=== PATIENT | female | born 1960 | race African-American/Black ===

== ENCOUNTER 2017-12-02 19:36 | Emergency (ER) | payer OTHER ==
--- NOTE | 2017-12-02 20:07 | PDOC ---
Rapid Medical Evaluation Medical Evaluation: Allergies Allergy/AdvReac Type Severity Reaction Status Date / Time phenytoin sodium AdvReac Mild Verified 03/30/14 18:46 [From Dilantin] phenytoin sodium extended AdvReac Mild Verified 03/30/14 18:46 [From Dilantin] 12/02/17 20:06 I have performed a brief in-person evaluation of this patient. The patient presents with a chief complaint of: L axilla abscess, currently on abx per aide, sent for [facility] for I&D. H/o cerebral palsy, profound MR Pertinent physical exam findings:Stable, exam deferred to ED provider I have ordered the following:nothing The patient will proceed to the ED for further evaluation. Discharge Disposition - Diagnosis Abscess - Referrals - Patient Instructions - Post Discharge Activity
[2017-12-02 20:14] VITALS: BP 125/93; PULSE 76; TEMP 97.5; BMI 19.5
--- NOTE | 2017-12-02 21:04 | PDOC ---
History of Present Illness - General Chief Complaint: Wound Stated Complaint: ABSCESS Time Seen by Provider: 12/02/17 20:10 History Source: Patient - History of Present Illness Initial Comments: 12/02/17 20:57 57 year old female from [facility] history of MRCP, seizure disorder, spastic quaraplegic, history of MRSA with left breast abscess currently on Clindamycin PO. denies fever/ chills. patient send in for I& D of abscess. Past History - Past Medical History Allergies/Adverse Reactions: Allergies Allergy/AdvReac Type Severity Reaction Status Date / Time phenytoin sodium AdvReac Mild Verified 12/02/17 20:11 [From Dilantin] phenytoin sodium extended AdvReac Mild Verified 12/02/17 20:11 [From Dilantin] Home Medications: Ambulatory Orders Acetaminophen [Tylenol .Regular Strength -] 650 mg PO Q6H 03/30/14 Albuterol 2.5/Ipratropium 0.5 [Duoneb -] 1 neb NEB Q4H PRN 03/30/14 Bisacodyl [Dulcolax] 5 mg PO DAILY 03/30/14 Calcium Carbonate/Vitamin D3 [Oyster Shell Calcium + D Tab] 1 each PO BID Carbamazepine Xr [Tegretol Xr -] 200 mg PO HS 03/30/14 Carbamazepine Xr [Tegretol Xr -] 400 mg PO ACHS 03/30/14 Chlorhexidine Gluconate [Peridex -] 12 ea PO BID 03/30/14 Docusate Liquid [Colace Liquid -] 20 mg PO BID 03/30/14 Guaifenesin [Mucinex -] 600 mg PO BID PRN 03/30/14 Ibuprofen [Motrin -] 400 mg PO TID PRN 03/30/14 Loratadine 10 mg PO DAILY 03/30/14 Methylcellulose (with Sugar) [Citrucel Powder] 850 gm PO DAILY 03/30/14 Pnv/Iron,Carb/Om-3/FA/Fat 1 [Multivitamin with Minerals Cap] 1 each PO DAILY Polyethylene Glycol 3350 [Miralax 119 gm Btl -] 17 gm PO DAILY 03/30/14 Ammonium Lactate Lotion [Lac-Hydrin 12% Lotion -] 1 applic TP BID 03/15/16 Docusate Liquid [Colace Liquid -] 100 mg PO BID 03/15/16 Simethicone Liquid [Mylicon] 40 mg PO QID PRN 03/15/16 Sodium Phosphate,[place]-Dibasic [Fleet Enema] 133 ml RC PRN PRN 03/15/16 COPD: No Seizures: Yes (EPILEPSY) Other medical history: Cerebral palsy, MR, congenital quadraplegia - Suicide/Smoking/Psychosocial Hx Smoking Status: No Smoking History: Never smoked Have you smoked in the past 12 months: No Number of Cigarettes Smoked Daily: 0 Information on smoking cessation initiated: No Hx Alcohol Use: No Drug/Substance Use Hx: No Substance Use Type: None *Physical Exam - Vital Signs Last Vital Signs Temp Pulse Resp BP Pulse Ox 97.5 F L 76 20 125/93 99 12/02/17 20:12 12/02/17 20:12 12/02/17 20:12 12/02/17 20:12 12/02/17 20:12 - Physical Exam General Appearance: Yes: Appropriately Dressed Extremity: positive: Swelling, Other (left breast swelling proximal to left axilla noted to PUs fill abscess and induration. no surrounding cellulitis noted. ) Neurologic: positive: Fully Oriented, Alert, Normal Mood/Affect Procedures - Incision and Drainage I&D Site: Left: Other (breast small incision draining copious pus drainage. ) Betadine cleansed: Yes Anesthesia: 1% Lidocaine Blade Size: 11 Attempts: 1 *DC/Admit/Observation/Transfer Diagnosis at time of Disposition: Abscess - Referrals Referrals: Aurelio Villa Jr [Primary Care Provider] - Kieran Dickerson MD [Staff Physician] - 24 hours - Patient Instructions Printed Discharge Instructions: DI for Wound Infection Additional Instructions: continue clindamycin apply warm compress to the area. Please have her see breast surgeon as soon as possible. return to the ER if symptoms worsen, fever./ - Post Discharge Activity
[2017-12-02] MEDS ORDERED: LIDOCAINE HCL/PF 1% SDV 5ML VIAL ONE (21:14)
[2017-12-02] MEDS ORDERED: LIDOCAINE HCL 1%, 10 MG/ML (50 mL VIAL) SQ ONE (21:31)
== END 2017-12-02 21:50 | disposition home or self-care (01) ==
LOC: JER 19:36
PROC: 0H9UXZZ (ICD-10-PCS; principal; 2017-12-02)
DX: N61.1 Abscess of the breast and nipple (principal); G40.909 Epilepsy, unspecified, not intractable, without status epilepticus; G80.9 Cerebral palsy, unspecified; Z86.14 Personal history of Methicillin resistant Staphylococcus aureus infection
CPT/HCPCS: 10060; 99282-25

== ENCOUNTER 2019-02-15 16:16 | Emergency (ER) | payer OTHER ==
--- NOTE | 2019-02-15 16:25 | PDOC ---
Rapid Medical Evaluation Time Seen by Provider: 02/15/19 16:21 Medical Evaluation: Allergies Allergy/AdvReac Type Severity Reaction Status Date / Time phenytoin sodium AdvReac Mild Verified 12/02/17 20:11 [From Dilantin] phenytoin sodium extended AdvReac Mild Verified 12/02/17 20:11 [From Dilantin] 02/15/19 16:21 I have performed a brief in-person evaluation of this patient. The patient presents with a chief complaint of: poor PO intake x1 week Pertinent physical exam findings: Normoactive BS. Abd SNTND. I have ordered the following: labs, urine The patient will proceed to the ED for further evaluation. Discharge Disposition - Diagnosis Decreased oral intake - Referrals - Patient Instructions - Post Discharge Activity
[2019-02-15 16:27] VITALS: TEMP 99.4; BMI 11.1
--- NOTE | 2019-02-15 17:32 | PDOC ---
History of Present Illness - General Chief Complaint: Loss of Appetite Stated Complaint: LOSS OF APPETITE Time Seen by Provider: 02/15/19 16:21 - History of Present Illness Initial Comments: 02/15/19 17:23 58F [facility] history of MRCP, seizure disorder, spastic quaraplegic brought in for decreased PO intake for the past 3 days. Typically is fed using straw but seems like there is now poor effort to get food through the straw, has to be more "forcibly fed by hand". Sister is at bedside said theres is some vaginal discharge associated with foul urine odor. 02/15/19 20:50 Past History - Past Medical History Allergies/Adverse Reactions: Allergies Allergy/AdvReac Type Severity Reaction Status Date / Time phenytoin sodium AdvReac Mild Verified 12/02/17 20:11 [From Dilantin] phenytoin sodium extended AdvReac Mild Verified 12/02/17 20:11 [From Dilantin] Home Medications: Ambulatory Orders Acetaminophen [Tylenol .Regular Strength -] 650 mg PO Q6H PRN 03/30/14 Albuterol 2.5/Ipratropium 0.5 [Duoneb -] 1 neb NEB Q4H PRN 03/30/14 Bisacodyl [Dulcolax] 5 mg PO DAILY 03/30/14 Carbamazepine Xr [Tegretol Xr -] 400 mg PO ACHS 03/30/14 Chlorhexidine Gluconate [Peridex -] 1 tsp PO BID 03/30/14 Guaifenesin [Mucinex -] 600 mg PO BID PRN 03/30/14 Ibuprofen [Motrin -] 400 mg PO TID PRN 03/30/14 Loratadine 10 mg PO DAILY 03/30/14 Methylcellulose (with Sugar) [Citrucel Powder] 1 tsp PO DAILY 03/30/14 Pnv/Iron,Carb/Om-3/FA/Fat 1 [Multivitamin with Minerals Cap] 1 each PO DAILY Polyethylene Glycol 3350 [Miralax 119 gm Btl -] 17 gm PO DAILY 03/30/14 Ammonium Lactate Lotion [Lac-Hydrin 12% Lotion -] 1 applic TP BID 03/15/16 Docusate Liquid [Colace Liquid -] 20 mg PO BID 03/15/16 Simethicone Liquid [Mylicon] 40 mg PO QID PRN 03/15/16 Sodium Phosphate,[place]-Dibasic [Fleet Enema] 133 ml RC PRN PRN 03/15/16 Calcium Carbonate/Vitamin D3 [Oystercal-D 500 mg-400 Unit Tb] 1 each PO BID 07/26 Ergocalciferol [Vitamin D2] 50,000 unit PO Q7D@1000 02/15/19 COPD: No Seizures: Yes (EPILEPSY,Astigmatism,Scoliosis) Other medical history: profound intellectual disabilities,cerebral palsy w/ spastic quadriparesis, - Immunization History Immunization Up to Date: No - Suicide/Smoking/Psychosocial Hx Smoking Status: No Smoking History: Never smoked Have you smoked in the past 12 months: No Number of Cigarettes Smoked Daily: 0 Information on smoking cessation initiated: No Hx Alcohol Use: No Drug/Substance Use Hx: No Substance Use Type: None Review of Systems - Review of Systems Able to Perform ROS?: No (non-verbal) *Physical Exam - Vital Signs Last Vital Signs Temp Pulse Resp BP Pulse Ox 99.4 F 118 H 16 109/87 94 L 02/15/19 16:21 02/15/19 16:21 02/15/19 16:21 02/15/19 16:21 02/15/19 16:21 - Physical Exam General Appearance: Yes: Other (Patient noon-verbal, contracted.) HEENT: positive: EOMI, MAURISIO, Normal ENT Inspection Respiratory/Chest: positive: Lungs Clear, Normal Breath Sounds. negative: Chest Tender, Respiratory Distress Cardiovascular: positive: Regular Rhythm, S1, S2, Tachycardia Female Pelvic Exam: positive: other (some yeast like discharge ) Gastrointestinal/Abdominal: positive: Normal Bowel Sounds, Flat, Soft. negative : Tender Integumentary: positive: Normal Color, Dry, Warm Neurologic: positive: Other (At baseline) ED Treatment Course - LABORATORY CBC & Chemistry Diagram: 02/15/19 19:00 02/15/19 19:00 Medical Decision Making - Medical Decision Making 02/15/19 20:52 Ernst get septic workup, investigate probable UTI., chest xray and basic labs. Difficulty getting urine through straight cath due to difficult anatomy. Second try successful with malone. Labs pending. Conversation with family as obtaining a IV line is difficult. Will get all labs then reassess necessity for IV line. 02/15/19 22:03 Patient signed out to Dr. Coker *DC/Admit/Observation/Transfer Diagnosis at time of Disposition: Decreased oral intake, UTI (urinary tract infection) - Discharge Dispostion Condition at time of disposition: Stable - Referrals - Patient Instructions - Post Discharge Activity
[2019-02-15 20:33] LABS: BASO % 0.3 % (0-2.0); HEMATOCRIT 47.9 % (32.4-45.2); HEMOGLOBIN 15.3 GM/dL (10.7-15.3); LYMPH % 10.3 % (8-40); MCH 27.7 pg (25.7-33.7); MCHC 31.8 g/dl (32.0-36.0); MEAN CELL VOLUME 87.2 fl (80-96); MEAN PLT VOLUME 10.9 fl (7.5-11.1); MONO % 9.5 % (3.8-10.2); NEUT % 79.9 % (42.8-82.8); PLATELET COUNT 162 K/MM3 (134-434); RDW 12.9 % (11.6-15.6); WHITE BLOOD COUNT 6.7 K/mm3 (4.0-10.0)
[2019-02-15 20:56] LABS: ALBUMIN 3.7 g/dl (3.4-5.0); BILIRUBIN,TOTAL 0.2 mg/dL (0.2-1); BLOOD UREA NITROGEN 14.4 mg/dL (7-18); CALCIUM 9.3 mg/dL (8.5-10.1); CREATININE 0.4 mg/dL (0.55-1.3); POTASSIUM 3.6 mmol/L (3.5-5.1); TOT PROT 7.6 g/dl (6.4-8.2)
[2019-02-15 21:49] VITALS: BP 106/76; PULSE 92
[2019-02-15 23:02] LABS: URINE APPEARANCE TURBID; URINE BILIRUBIN NEGATIVE (NEGATIVE); URINE COLOR DK YELLOW; URINE GLUCOSE (UA) NEGATIVE (NEGATIVE); URINE KETONE 15 mg/dl (NEGATIVE)
[2019-02-15 23:03] LABS: PH,URINE 6.5 (5.0-8.0); URINE NITRITE Positive (NEGATIVE); URINE PROTEIN 100 (NEGATIVE)
[2019-02-15 23:04] LABS: URINE LEUK ESTERASE 2+ (NEGATIVE)
[2019-02-15 23:15] LABS: URINE RBC 70.7 /hpf (0-4)
[2019-02-15 23:16] LABS: URINE BACTERIA 5145.6 /hpf (NEGATIVE)
[2019-02-15 23:17] LABS: YEAST NONE SEEN (NEGATIVE)
--- NOTE | 2019-02-15 23:34 | PDOC ---
Documentation entered by Darline Cuellar SCRIBE, acting as scribe for Melissa Ding DO. Melissa Ding DO: This documentation has been prepared by the Alisa cheema Brenda, SCRIBE, under my direction and personally reviewed by me in its entirety. I confirm that the documentation accurately reflects all work , treatment, procedures, and medical decision making performed by me. 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 As per aide, she is usually fed through a straw at baseline, but has been having a poor effort getting food through the straw. The aide additionally notes her urine has been foul smelling with white purulence passing through when urinating. Patient is nonverbal at baseline secondary to CP since childhood. Allergies: phenytoin sodium Past surgical history: Not reported Social history: Not reported - Physicial Exam PE: 02/15/19 19:33 Agrees with the residents physical exam. - Medical Decision Making 02/15/19 23:30 58-year-old female sent for decreased by mouth intake and possible urinary tract infection Catheterized urine is consistent with UTI at Patient's sister is at the bedside, she acts as her health care surrogate as patient has severe cerebral palsy with limited cognitive ability They prefer the patient goes back to her facility on oral antibiotics, in regards to her decreased by mouth intake and swallowing difficulties they would like to repeat a swallow study on an outpatient basis They are aware that forcing feeds will increase chances of aspiration Rocephin 250 mg given IM, patient will be discharged on Keflex
[2019-02-15] MEDS ORDERED: cefTRIAXone SODIUM 1 GM VIAL ONE (23:40)
--- NOTE | 2019-02-16 15:29 | EKG ---
Test Reason : Blood Pressure : / mmHG Vent. Rate : 132 BPM Atrial Rate : 132 BPM P-R Int : 124 ms QRS Dur : 060 ms QT Int : 288 ms P-R-T Axes : 096 074 090 degrees QTc Int : 426 ms SINUS TACHYCARDIA SEPTAL INFARCT , AGE UNDETERMINED ABNORMAL ECG NO PREVIOUS ECGS AVAILABLE Confirmed by MELISSA CORONADO MD ([id number]) on 02/16/2019 3:29:45 PM Referred By: Confirmed By:MELISSA CORONADO MD
== END 2019-02-16 00:01 | disposition home or self-care (01) ==
LOC: JER 16:16
PROC: 3E02329 Introduction of Other Anti-infective into Muscle, Percutaneous Approach (ICD-10-PCS; principal; 2019-02-15)
PROC: 0T9B70Z Drainage of Bladder with Drainage Device, Via Natural or Artificial Opening (ICD-10-PCS; 2019-02-15)
PROC: 0T9B7ZZ Drainage of Bladder, Via Natural or Artificial Opening (ICD-10-PCS; 2019-02-15)
DX: N39.0 Urinary tract infection, site not specified (principal); R63.8 Other symptoms and signs concerning food and fluid intake; G40.909 Epilepsy, unspecified, not intractable, without status epilepticus; G80.0 Spastic quadriplegic cerebral palsy; F73 Profound intellectual disabilities
CPT/HCPCS: 36415; 51702; 71045-TC-FY; 80053; 81003; 84443; 85025; 87040; 87086; 87186; 93005; 93010; 96372; 99283-25

== ENCOUNTER 2019-03-09 19:57 | Emergency (ER) | payer OTHER ==
[2019-03-09 20:13] VITALS: BP 138/93; PULSE 82; TEMP 99; BMI 11.1
[2019-03-09 21:13] LABS: BASO % 0.3 % (0-2.0); HEMOGLOBIN 12.4 GM/dl (10.7-15.3); LYMPH % 27.4 % (8-40); MCH 27.5 pg (25.7-33.7); MCHC 31.7 g/dl (32.0-36.0); MEAN CELL VOLUME 86.6 fl (80-96); MONO % 8.8 % (3.8-10.2); NEUT % 63.5 % (42.8-82.8); PLATELET COUNT 227 K/MM3 (134-434); RBC 4.51 M/mm3 (3.60-5.2); RDW 11.9 % (11.6-15.6)
[2019-03-09 21:17] LABS: ALBUMIN 3.4 g/dl (3.4-5.0); ALK PHOS 98 U/L (45-117); ANION GAP 7 MMOL/L (8-16); BILIRUBIN,TOTAL 0.3 mg/dl (0.2-1); CALCIUM 9.3 mg/dl (8.5-10); CHLORIDE 106 mmol/L (98-107); CO2 32 mmol/L (21-32); GLUCOSE,RANDOM 119 mg/dl (74-106); POTASSIUM 3.2 mmol/L (3.5-5.1); SGOT/AST 16 U/L (15-37); SGPT/ALT 9 U/L (13-61); SODIUM 145 mmol/L (136-145); TOT PROT 6.2 g/dl (6.4-8.2)
[2019-03-09 21:24] LABS: CREATININE < 0.6 mg/dl (0.55-1.3)
--- NOTE | 2019-03-09 21:41 | PDOC ---
Documentation entered by Elena Posey SCRIBE, acting as scribe for Jose Dean MD. Jose Dean MD: This documentation has been prepared by the scribe, Elena Posey SCRIBE, under my direction and personally reviewed by me in its entirety. I confirm that the documentation accurately reflects all work , treatment, procedures, and medical decision making performed by me. History of Present Illness - General Chief Complaint: Urinary Problem Stated Complaint: DIFFICULTY URINATING,DISCHARGE Time Seen by Provider: 03/09/19 20:01 History Source: Care Provider Exam Limitations: Clinical Condition - History of Present Illness Initial Comments: 03/09/19 20:06 The patient is a 58-year-old from [facility], with a past medical history of MR - nonverbal, epilepsy, and scoliosis, who presents to the ED for decreased PO intake. Sister and caregiver are at bedside and report that the patient has been experiencing decreased appetite today. As a result, the patient has had decreased urine output. Urine is dark in color. LBM was yesterday. Otherwise, the patient is behaving at her baseline. HPI is limited due to the patients clinical condition. PAST MEDICAL HISTORY: MR -nonverbal, epilepsy, scoliosis. PAST SURGICAL HISTORY: no significant history FAMILY HISTORY: no pertinent history HISTORY: Pt lives at the [facility]. MEDICATIONS: reviewed ALLERGIES: As per nursing notes General: (+)Loss of appetite. No fevers or chills, no weakness, no weight loss HEENT: No change in vision. No sore throat,. No ear pain CardioVascular: No chest pain or shortness of breath Respiratory:No cough, or wheezing. Gastrointestinal: no nausea, vomiting, diarrhea or constipation, No rectal bleeding Genitourinary: (+)Decreased urine output. No dysuria, hematuria, or frequency Musculoskeletal: No joint or muscle pain or swelling Neurologic: No headache, vertigo, dizziness or loss of consciousness Psychiatric: nor depression Skin: No rashes or easy bruising Endocrine: no increased thirst or abnormal weight change Allergic: no skin or latex allergy All other systems reviewed and normal General: (+)Alert but nonverbal, no acute distress. Very small for her age with contractures as a result of having spent her life in bed or a wheelchair. HEENT: Throat: Normal, tonsils normal, no erythema or exudate Neck: Supple, no meningeal signs, no lymphadenopathy Eyes::Pupils equal reactive and round, extraocular motion intact Chest: Nontender to palpation Cardiac: S1-S2 normal, regular rate and rhythm, no murmurs rubs or gallops Respiratory: Lungs clear to auscultation bilateral Abdomen: Soft, nondistended, normal bowel sounds, nontender to palpation diffusely Extremities: Warm, dry, no cyanosis, clubbing, or edema Skin: (+)Large well-healed midline scar that extends from the sternum to the pubic bone. No rashes Neuro: (+)Alert, but nonverbal. 03/09/19 20:58 On Reevaluation, patient did have 1 wet diaper in the ED. 03/09/19 21:40 Patient also is drinking fluids in the ED. Patient's white count was normal and her labs were normal This 14 creatinine was 0.6. Her potassium was a little bit low at 3.2. Otherwise patient is at her baseline and will be discharged back to her [facility] Past History - Past Medical History Allergies/Adverse Reactions: Allergies Allergy/AdvReac Type Severity Reaction Status Date / Time phenytoin sodium AdvReac Mild Verified 12/02/17 20:11 [From Dilantin] phenytoin sodium extended AdvReac Mild Verified 12/02/17 20:11 [From Dilantin] Home Medications: Ambulatory Orders Acetaminophen [Tylenol .Regular Strength -] 650 mg PO Q6H PRN 03/30/14 Albuterol 2.5/Ipratropium 0.5 [Duoneb -] 1 neb NEB Q4H PRN 03/30/14 Bisacodyl [Dulcolax] 5 mg PO DAILY 03/30/14 Carbamazepine Xr [Tegretol Xr -] 400 mg PO ACHS 03/30/14 Chlorhexidine Gluconate [Peridex -] 1 tsp PO BID 03/30/14 Guaifenesin [Mucinex -] 600 mg PO BID PRN 03/30/14 Ibuprofen [Motrin -] 400 mg PO TID PRN 03/30/14 Loratadine 10 mg PO DAILY 03/30/14 Methylcellulose (with Sugar) [Citrucel Powder] 1 tsp PO DAILY 03/30/14 Pnv/Iron,Carb/Om-3/FA/Fat 1 [Multivitamin with Minerals Cap] 1 each PO DAILY Polyethylene Glycol 3350 [Miralax 119 gm Btl -] 17 gm PO DAILY 03/30/14 Ammonium Lactate Lotion [Lac-Hydrin 12% Lotion -] 1 applic TP BID 03/15/16 Docusate Liquid [Colace Liquid -] 20 mg PO BID 03/15/16 Simethicone Liquid [Mylicon] 40 mg PO QID PRN 03/15/16 Sodium Phosphate,[place]-Dibasic [Fleet Enema] 133 ml RC PRN PRN 03/15/16 Calcium Carbonate/Vitamin D3 [Oystercal-D 500 mg-400 Unit Tb] 1 each PO BID 07/26 Cephalexin Monohydrate [Keflex -] 500 mg PO Q8H #21 capsule 02/15/19 Cephalexin Monohydrate [Keflex -] 500 mg PO Q8H 7 Days #21 capsule 02/15/19 Ergocalciferol [Vitamin D2] 50,000 unit PO Q7D@1000 02/15/19 COPD: No Seizures: Yes (EPILEPSY,Astigmatism,Scoliosis) - Immunization History Immunization Up to Date: No - Suicide/Smoking/Psychosocial Hx Smoking Status: No Smoking History: Never smoked Have you smoked in the past 12 months: No Number of Cigarettes Smoked Daily: 0 Hx Alcohol Use: No Drug/Substance Use Hx: No Substance Use Type: None *Physical Exam - Vital Signs Last Vital Signs Temp Pulse Resp BP Pulse Ox 99 F 82 18 138/93 03/09/19 20:05 03/09/19 20:05 03/09/19 20:05 03/09/19 20:05 ED Treatment Course - LABORATORY CBC & Chemistry Diagram: 03/09/19 20:50 03/09/19 20:50 - ADDITIONAL ORDERS Additional order review: Laboratory Results 03/09/19 20:50 Sodium 145 Potassium 3.2 L Chloride 106 Carbon Dioxide 32 Anion Gap 7 L BUN 14.0 Creatinine < 0.6 Est GFR (CKD-EPI)AfAm 114.82 Est GFR (CKD-EPI)NonAf 99.07 Random Glucose 119 H Calcium 9.3 Total Bilirubin 0.3 AST 16 ALT 9 L Alkaline Phosphatase 98 Total Protein 6.2 L Albumin 3.4 03/09/19 20:50 RBC 4.51 MCV 86.6 MCHC 31.7 L RDW 11.9 MPV 9.0 Neutrophils % 63.5 Lymphocytes % 27.4 Monocytes % 8.8 Eosinophils % 0.0 Basophils % 0.3 - RADIOLOGY Radiology Studies Ordered: Category Date Time Status CHEST X-RAY PORTABLE* [RAD] Stat Radiology 03/09/19 20:49 Taken *DC/Admit/Observation/Transfer Diagnosis at time of Disposition: Decrease in appetite, Cerebral palsy - Discharge Dispostion Disposition: HOME Condition at time of disposition: Stable Decision to Admit order: No - Referrals - Patient Instructions Additional Instructions: Return to the emergency department immediately with ANY new, persistent or worsening symptoms. Continue any medications as previously prescribed by your physician. You should follow up with your primary doctor as soon as possible regarding today's emergency department visit. . Please make sure your doctor reviews the results of your emergency evaluation. Thank you for coming to the Emergency Department today for your care. It was a pleasure to see you today. Please note that your evaluation is INCOMPLETE until you follow-up with your doctor. - Post Discharge Activity
== END 2019-03-09 21:48 | disposition home or self-care (01) ==
LOC: FER 19:57
DX: R63.0 Anorexia (principal); G80.9 Cerebral palsy, unspecified; G40.909 Epilepsy, unspecified, not intractable, without status epilepticus
CPT/HCPCS: 36415; 71045-TC-FY; 80053; 85025; 99281-25

== ENCOUNTER 2019-04-28 13:21 | Inpatient (IN) | payer OTHER ==
--- NOTE | 2019-04-28 13:41 | PDOC ---
History of Present Illness - General Chief Complaint: Constipation Stated Complaint: constipation Time Seen by Provider: 04/28/19 13:35 Past History - Past Medical History Allergies/Adverse Reactions: Allergies Allergy/AdvReac Type Severity Reaction Status Date / Time phenytoin sodium AdvReac Mild Verified 04/28/19 13:24 [From Dilantin] phenytoin sodium extended AdvReac Mild Verified 04/28/19 13:24 [From Dilantin] sellfish Allergy Uncoded 04/28/19 13:24 Home Medications: Ambulatory Orders Acetaminophen [Tylenol .Regular Strength -] 650 mg PO Q6H PRN 03/30/14 Albuterol 2.5/Ipratropium 0.5 [Duoneb -] 1 neb NEB Q4H PRN 03/30/14 Bisacodyl [Dulcolax] 5 mg PO DAILY 03/30/14 Carbamazepine Xr [Tegretol Xr -] 400 mg PO ACHS 03/30/14 Chlorhexidine Gluconate [Peridex -] 1 tsp PO BID 03/30/14 Guaifenesin [Mucinex -] 600 mg PO BID PRN 03/30/14 Ibuprofen [Motrin -] 400 mg PO TID PRN 03/30/14 Loratadine 10 mg PO DAILY 03/30/14 Methylcellulose (with Sugar) [Citrucel Powder] 1 tsp PO DAILY 03/30/14 Pnv/Iron,Carb/Om-3/FA/Fat 1 [Multivitamin with Minerals Cap] 1 each PO DAILY Polyethylene Glycol 3350 [Miralax 119 gm Btl -] 17 gm PO DAILY 03/30/14 Ammonium Lactate Lotion [Lac-Hydrin 12% Lotion -] 1 applic TP BID 03/15/16 Docusate Liquid [Colace Liquid -] 20 mg PO BID 03/15/16 Simethicone Liquid [Mylicon] 40 mg PO QID PRN 03/15/16 Sodium Phosphate,[place]-Dibasic [Fleet Enema] 133 ml RC PRN PRN 03/15/16 Calcium Carbonate/Vitamin D3 [Oystercal-D 500 mg-400 Unit Tb] 1 each PO BID 07/26 Cephalexin Monohydrate [Keflex -] 500 mg PO Q8H #21 capsule 02/15/19 Cephalexin Monohydrate [Keflex -] 500 mg PO Q8H 7 Days #21 capsule 02/15/19 Ergocalciferol [Vitamin D2] 50,000 unit PO Q7D@1000 02/15/19 COPD: No Seizures: Yes (EPILEPSY,Astigmatism,Scoliosis) - Immunization History Immunization Up to Date: No - Suicide/Smoking/Psychosocial Hx Smoking Status: No Smoking History: Never smoked Have you smoked in the past 12 months: No Number of Cigarettes Smoked Daily: 0 Hx Alcohol Use: No Drug/Substance Use Hx: No Substance Use Type: None *Physical Exam - Vital Signs Last Vital Signs Temp Pulse Resp BP Pulse Ox 98.2 F 130 H 18 98/62 99 04/28/19 13:23 04/28/19 13:23 04/28/19 13:23 04/28/19 13:23 04/28/19 13:23 *DC/Admit/Observation/Transfer - Discharge Dispostion Condition at time of disposition: Stable - Referrals - Patient Instructions - Post Discharge Activity
[2019-04-28] MEDS ORDERED: ACETAMINOPHEN 160 MG/5 ML *Children Solution PO ONE (13:59)
[2019-04-28] MEDS ORDERED: SODIUM PHOSPHATE/NA BIPHOS 133 ML ENEMA PR ONE (13:59)
[2019-04-28] MEDS ORDERED: ACETAMINOPHEN 650 MG/20.3 ML ORAL SOLUTION (CUPS) ONE (14:00)
--- NOTE | 2019-04-28 14:00 | PDOC ---
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 Pt was recently diagnosed with GERD and started on famotidine. Since then, pt has been getting progressively more constipated. Per aide, pt's last normal BM was 3 days ago. Today, pt began to appear very uncomfortable and has been crying. Pt was given a suppository as well as a fleets enema this morning, but only passed 2 hard jose of stool. Aide states that pt ate breakfast this morning as usual. Has not had any vomiting. Pt unable to contribute additional history due to being nonverbal. Past History - Past Medical History Allergies/Adverse Reactions: Allergies Allergy/AdvReac Type Severity Reaction Status Date / Time phenytoin sodium AdvReac Mild Verified 04/28/19 13:24 [From Dilantin] phenytoin sodium extended AdvReac Mild Verified 04/28/19 13:24 [From Dilantin] sellfish Allergy Uncoded 04/28/19 13:24 Home Medications: Ambulatory Orders Carbamazepine Xr [Tegretol Xr -] 20 mg PO BID 03/30/14 Polyethylene Glycol 3350 [Miralax 119 gm Btl -] 17 gm PO DAILY 03/30/14 Calcium Carbonate/Vitamin D3 [Oyster Shell 500-Vit D3 200 Tb] 1 each PO BID Famotidine [Pepcid] 40 mg PO BID 04/28/19 Fexofenadine HCl [Rachel Allergy] 30 mg PO BID 04/28/19 Pedi Multivit 158/Iron/Vit K1 [Cerovite Jr] 1 each PO DAILY 04/28/19 Simethicone 40 mg PO Q4H 04/28/19 Wheat Dextrin [Benefiber] 1 each PO DAILY 04/28/19 COPD: No Seizures: Yes (EPILEPSY,Astigmatism,Scoliosis) - Immunization History Immunization Up to Date: No - Suicide/Smoking/Psychosocial Hx Smoking Status: No Smoking History: Never smoked Have you smoked in the past 12 months: No Number of Cigarettes Smoked Daily: 0 Hx Alcohol Use: No Drug/Substance Use Hx: No Substance Use Type: None Review of Systems - Review of Systems Able to Perform ROS?: No *Physical Exam - Vital Signs Last Vital Signs Temp Pulse Resp BP Pulse Ox 98.2 F 130 H 18 98/62 99 04/28/19 13:23 04/28/19 13:23 04/28/19 13:23 04/28/19 13:23 04/28/19 13:23 - Physical Exam Comments: 04/28/19 14:03 GENERAL: Awake, in no acute distress. HEAD: No signs of trauma EYES: PERRLA, EOMI, sclera anicteric, conjunctiva clear ENT: Auricles normal inspection, hearing grossly normal, nares patent, oropharynx clear without exudates. Moist mucosa NECK: Nontender, no stepoffs, Normal ROM, supple, no lymphadenopathy, JVD, or masses LUNGS: Breath sounds equal, clear to auscultation bilaterally. No wheezes, and no crackles HEART: Regular rate and rhythm, normal S1 and S2, no murmurs, rubs or gallops ABDOMEN: Soft, nontender, normoactive bowel sounds. No guarding, no rebound. No masses EXTREMITIES: No clubbing or cyanosis. No cords, erythema, or tenderness NEUROLOGICAL: moves all extremities SKIN: Warm, Dry, normal turgor, no rashes or lesions noted. ED Treatment Course - LABORATORY CBC & Chemistry Diagram: 04/28/19 17:22 04/28/19 17:22 Medical Decision Making - Medical Decision Making 04/28/19 14:04 59 F with constipation x 3 days. Difficult to assess abdominal tenderness as pt is non-verbal. However, her abdomen is soft and non-distended. Pt has not vomited and does not clinically appear obstructed. Pt is unable to have CT scan due to contractures of legs and inability to lie straight. - XR abdomen - Fleets enema - Tylenol for pain 04/28/19 16:31 Pt with large amount of stool passage with fleets enema. However, abdominal XR is concerning for SBO Will consult surgery 04/28/19 17:[address] Dickerson, who recommends NPO. Repeat films tomorrow. Labs pending. *DC/Admit/Observation/Transfer Diagnosis at time of Disposition: SBO (small bowel obstruction) - Discharge Dispostion Condition at time of disposition: Stable Decision to Admit order: Yes - Referrals - Patient Instructions - Post Discharge Activity - Attestations Physician Attestion: 04/28/19 17:59 I, Dr. Kieran Al MD, attest that this document has been prepared under my direction and personally reviewed by me in its entirety. I further attest, that it accurately reflects all work, treatment, procedures and medical decision -making performed by me.
[2019-04-28] MEDS ORDERED: SODIUM CHLORIDE 500 ML IV STA (17:33)
[2019-04-28 17:46] LABS: HEMOGLOBIN 16.5 GM/dl (10.7-15.3)
[2019-04-28 17:50] LABS: MCH 28.9 pg (25.7-33.7); MCHC 33.1 g/dl (32.0-36.0); MEAN CELL VOLUME 87.5 fl (80-96); MEAN PLT VOLUME 9.5 fl (7.5-11.1); PLATELET COUNT 314 K/MM3 (134-434); RBC 5.71 M/mm3 (3.60-5.2)
[2019-04-28 18:10] LABS: BILIRUBIN,TOTAL 0.7 mg/dl (0.2-1); CREATININE 0.5 mg/dl (0.55-1.3); POTASSIUM 3.4 mmol/L (3.5-5.1); TOT PROT 8.1 g/dl (6.4-8.2)
[2019-04-28 18:13] LABS: PROTHROMBIN TIME (PATIENT) 11.2 SEC (10.2-13.0)
[2019-04-28] MEDS ORDERED: KETOROLAC TROMETHAMINE 15 MG/ML VIAL IVPUSH ONE (18:32)
--- NOTE | 2019-04-28 18:37 | HP ---
CHIEF COMPLAINT: Appears uncomfortable, crying (non-verbal) PCP: Dr. Aurelio Villa, [facility] HISTORY OF PRESENT ILLNESS: 59 year-old female resident of [facility], with a PMH significant for profound mental retardation, cerebral palsy, congenital quadriplegia, severe scoliosis, seizure disorder, and GERD. Aides have observed patient becoming progressively constipated after starting famotidine for GERD. Last normal BM was 3 days ago. Today patient began to appear very uncomfortable and has been crying. She was given a suppository and a fleets enema this morning, but only passed 2 hard jose of stool. Patient ate breakfast this morning as usual. Has not had any vomiting. No fever. No observed sweats, chills. ER course was notable for: (1) WBC 16.0k, p130 (2) Xray: developing SBO (3) K 3.4 Recent Travel: No PAST MEDICAL HISTORY: Profound mental retardation Cerebral palsy Congenital quadriplegia Severe scoliosis Seizure disorder GERD PAST SURGICAL HISTORY: Abdominal surgery as an infant Social History: resides at [facility] Smoking: no Alcohol: no Drugs: no Family History: reviewed, non-contributory Allergies phenytoin sodium [From Dilantin] Adverse Reaction (Mild, Verified 04/28/19 18:36 ) PER [facility] RECORDS, PT HAS DILANTIN SENSITIVITY phenytoin sodium extended [From Dilantin] Adverse Reaction (Mild, Verified 04/28 18:36) PER [facility] RECORDS, PT HAS DILANTIN SENSITIVITY sellfish Allergy (Uncoded 04/28/19 18:36) Home Medications Medication Instructions Recorded Carbamazepine Xr [Tegretol Xr -] 20 mg PO BID 03/30/14 Polyethylene Glycol 3350 [Miralax 17 gm PO DAILY 03/30/14 119 gm Btl -] Calcium Carbonate/Vitamin D3 1 each PO BID 04/28/19 [Oyster Shell 500-Vit D3 200 Tb] Famotidine [Pepcid] 40 mg PO BID 04/28/19 Fexofenadine HCl [Rachel Allergy] 30 mg PO BID 04/28/19 Pedi Multivit 158/Iron/Vit K1 1 each PO DAILY 04/28/19 [Cerovite Jr] Simethicone 40 mg PO Q4H 04/28/19 Wheat Dextrin [Benefiber] 1 each PO DAILY 04/28/19 REVIEW OF SYSTEMS: unable to obtain, patient non-verbal PHYSICAL EXAMINATION Vital Signs - 24 hr 04/28/19 04/28/19 13:23 17:29 Temperature 98.2 F Pulse Rate 130 H Pulse Rate [ 124 H Right] Respiratory 18 19 Rate Blood Pressure 98/62 Blood Pressure 108/81 [Left Arm] O2 Sat by Pulse 99 100 Oximetry (%) GENERAL: Awake. Grimacing. EYES: Pupils equal, round and reactive to light, sclera anicteric, conjunctiva clear. No lid lag. LUNGS: Breath sounds CTA HEART: Regular rate and rhythm, S1 and S2 ABDOMEN: Soft, well-healed surgical scar, tenderness over the RLQ, active bowel sounds MUSCULOSKELETAL: contractures all-four extremities UPPER EXTREMITIES: 2+ pulses, warm, well-perfused. No peripheral edema. LOWER EXTREMITIES: 2+ pulses, warm, well-perfused. No calf tenderness. No peripheral edema. SKIN: Warm, dry, normal turgor, no rashes or lesions noted, normal capillary refill. Laboratory Results - last 24 hr 04/28/19 04/28/19 04/28/19 17:22 17:22 17:22 WBC 16.0 H RBC 5.71 H Hgb 16.5 H Hct 50.0 H D MCV 87.5 MCH 28.9 MCHC 33.1 RDW 14.0 D Plt Count 314 MPV 9.5 Neutrophils % No Result Required. Lymphocytes % No Result Required. PT with INR INR PTT (Actin FS) 32.9 Sodium 143 Potassium 3.4 L Chloride 96 L Carbon Dioxide 32 Anion Gap 15 BUN 15.0 Creatinine 0.5 L Est GFR (CKD-EPI)AfAm 121.07 Est GFR (CKD-EPI)NonAf 104.46 Random Glucose 145 H Calcium 10.0 Total Bilirubin 0.7 AST 30 ALT 16 Alkaline Phosphatase 168 H Total Protein 8.1 Albumin 4.0 04/28/19 17:22 WBC RBC Hgb Hct MCV MCH MCHC RDW Plt Count MPV Neutrophils % Lymphocytes % PT with INR 11.2 INR 1.00 PTT (Actin FS) Sodium Potassium Chloride Carbon Dioxide Anion Gap BUN Creatinine Est GFR (CKD-EPI)AfAm Est GFR (CKD-EPI)NonAf Random Glucose Calcium Total Bilirubin AST ALT Alkaline Phosphatase Total Protein Albumin ASSESSMENT/PLAN 59 year-old female resident of [facility], with a PMH significant for profound mental retardation, cerebral palsy, congenital quadriplegia, severe scoliosis, seizure disorder, and GERD. Admitted for SBO. SBO --seen on xray; cannot do CT due to contractures, movement --repeat abdominal xray in am --afebrile, elevated WBC --no vomiting --start Zosyn --NPO --IV fluids --morphine PRN for pain Profound mental retardation Cerebral palsy Congenital quadriplegia Severe scoliosis --dependent for all ADLs Seizure disorder --on PO carbamazepine at [place] --Keppra IV 500mg BID while NPO GERD --hold protonix Hypokalemia --replete FEN Fluids: D5NS+40K@75mL/hr Electrolytes: replete as indicated Nutrition: NPO DVT prophylaxis: no chemical prophylaxis due to possible surgical intervention Dispo: continues to require inpatient care. Visit type - Emergency Visit Emergency Visit: Yes ED Registration Date: 04/28/19 Care time: The patient presented to the Emergency Department on the above date and was hospitalized for further evaluation of their emergent condition. - New Patient This patient is new to me today: Yes Date on this admission: 04/29/19 - Critical Care Critical Care patient: No
[2019-04-28] MEDS ORDERED: KETOROLAC TROMETHAMINE 15 MG/ML VIAL ONE (18:38)
[2019-04-28 19:10] LABS: PLATELET ESTIMATE ADEQUATE
[2019-04-28] MEDS ORDERED: ALBUTEROL SO4 0.083% IH SOL 2.5 MG/3 ML VIAL.NEB. NEB PRN (19:38)
[2019-04-28] MEDS ORDERED: ACETAMINOPHEN 160 MG/5 ML *Children Solution PO PRN (19:43)
[2019-04-28] MEDS ORDERED: ACETAMINOPHEN 650 MG SUPP.RECT PR PRN (19:45)
[2019-04-28] MEDS ORDERED: morphine CARPU-JECT 2 MG/1 ML DISP.SYRIN IVPUSH ONE (20:47)
[2019-04-28 21:09] VITALS: BMI 12.1
[2019-04-28] MEDS ORDERED: PIPERACILLIN/TAZOBACTAM 3.375 GM VIAL IVPB ONE (21:27)
[2019-04-28] MEDS ORDERED: DEXTROSE 5%-WATER - 50 ML IVPB ONE (21:27)
[2019-04-28] MEDS: D5-NS + 40 MEQ KCL - 40 MEQ/1,000 ML INFUS.BAG IV SCH (21:39)
[2019-04-28] MEDS: PIPERACILLIN/TAZOB 3.375 GM 3.375 GM in DEXTROSE 5%-WATER - 50 ML IVPB SCH (21:40)
[2019-04-28] MEDS: levETIRAcetam 500 MG/5 ML INJECTION VIAL IVPB SCH (23:44)
[2019-04-29] MEDS ORDERED: DEXTROSE 5%-WATER - 50 ML IVPB ONE ×3 (00:25→16:47)
[2019-04-29] MEDS ORDERED: PIPERACILLIN/TAZOBACTAM 3.375 GM VIAL IVPB ONE ×3 (00:25→16:46)
[2019-04-29] MEDS: PIPERACILLIN/TAZOB 3.375 GM 3.375 GM in DEXTROSE 5%-WATER - 50 ML IVPB SCH ×3 (01:28→17:53)
--- NOTE | 2019-04-29 08:47 | PN ---
Physical Exam: SUBJECTIVE: Patient seen and examined at bedside. Surgical team present. Sister present. OBJECTIVE: Vital Signs Period Temp Pulse Resp BP Sys/[place] Pulse Ox Last 24 Hr 98.2 F-98.6 F 124-130 18-20 98-129/62-94 98-100 Laboratory Results - last 24 hr 04/28/19 04/28/19 04/28/19 17:22 17:22 17:22 WBC 16.0 H RBC 5.71 H Hgb 16.5 H Hct 50.0 H D MCV 87.5 MCH 28.9 MCHC 33.1 RDW 14.0 D Plt Count 314 MPV 9.5 Neutrophils % No Result Required. Neutrophils % (Manual) 93.0 H* Lymphocytes % No Result Required. Lymphocytes % (Manual) 4.0 L Monocytes % (Manual) 3 L Platelet Estimate Adequate PT with INR INR PTT (Actin FS) 32.9 Sodium 143 Potassium 3.4 L Chloride 96 L Carbon Dioxide 32 Anion Gap 15 BUN 15.0 Creatinine 0.5 L Est GFR (CKD-EPI)AfAm 121.07 Est GFR (CKD-EPI)NonAf 104.46 Random Glucose 145 H Lactic Acid Calcium 10.0 Total Bilirubin 0.7 AST 30 ALT 16 Alkaline Phosphatase 168 H Total Protein 8.1 Albumin 4.0 Blood Type Antibody Screen 04/28/19 04/28/19 04/28/19 17:22 17:22 17:27 WBC RBC Hgb Hct MCV MCH MCHC RDW Plt Count MPV Neutrophils % Neutrophils % (Manual) Lymphocytes % Lymphocytes % (Manual) Monocytes % (Manual) Platelet Estimate PT with INR 11.2 INR 1.00 PTT (Actin FS) Sodium Potassium Chloride Carbon Dioxide Anion Gap BUN Creatinine Est GFR (CKD-EPI)AfAm Est GFR (CKD-EPI)NonAf Random Glucose Lactic Acid Calcium Total Bilirubin AST ALT Alkaline Phosphatase Total Protein Albumin Blood Type O POSITIVE O POSITIVE Antibody Screen Negative 04/28/19 19:40 WBC RBC Hgb Hct MCV MCH MCHC RDW Plt Count MPV Neutrophils % Neutrophils % (Manual) Lymphocytes % Lymphocytes % (Manual) Monocytes % (Manual) Platelet Estimate PT with INR INR PTT (Actin FS) Sodium Potassium Chloride Carbon Dioxide Anion Gap BUN Creatinine Est GFR (CKD-EPI)AfAm Est GFR (CKD-EPI)NonAf Random Glucose Lactic Acid 1.9 Calcium Total Bilirubin AST ALT Alkaline Phosphatase Total Protein Albumin Blood Type Antibody Screen Active Medications Generic Name Dose Route Start Last Admin Trade Name Sukhq PRN Reason Stop Dose Admin Acetaminophen 650 mg 04/28/19 19:45 Tylenol Suppository - MT Q6H PRN FEVER Albuterol Sulfate 1 amp 04/28/19 19:38 Ventolin 0.083% Nebulizer Soln - NEB Q4H PRN other Dextrose/Sodium Chloride 40 meq in 1,000 mls @ 75 mls/hr 04/28/19 20:00 04/28 21:39 Dextrose 5%-Normal Saline+40 Meq Kcl - IV 75 mls/hr ASDIR HAYLEY Administration Piperacillin Sod/Tazobactam 50 mls @ 100 mls/hr 04/28/19 21:00 04/29/19 01:28 Sod 3.375 gm/ Dextrose IVPB 100 mls/hr Q8H-IV HAYLEY Administration Protocol Levetiracetam 500 mg 04/28/19 23:00 04/28/19 23:44 Keppra Injection - IVPB 500 mg BID HAYLEY Administration ASSESSMENT/PLAN 59 year-old female resident of [facility], with a PMH significant for profound mental retardation, cerebral palsy, congenital quadriplegia, severe scoliosis, seizure disorder, and GERD. Admitted for SBO. SBO --repeat xray pending --afebrile, elevated WBC --surgery to place NGT --continue Zosyn --NPO --IV fluids --morphine 0.5mg IVP PRN for pain - one dose given last night, tolerated well Profound mental retardation Cerebral palsy Congenital quadriplegia Severe scoliosis --dependent for all ADLs Seizure disorder --on PO carbamazepine at [place] --Keppra IV 500mg BID while NPO GERD --hold protonix Hypokalemia --replete FEN Fluids: D5NS+40K@75mL/hr Electrolytes: replete as indicated Nutrition: NPO DVT prophylaxis: no chemical prophylaxis due to possible surgical intervention Dispo: continues to require inpatient care. Visit type - Emergency Visit Emergency Visit: Yes ED Registration Date: 04/28/19 Care time: The patient presented to the Emergency Department on the above date and was hospitalized for further evaluation of their emergent condition. - New Patient This patient is new to me today: No - Critical Care Critical Care patient: No
[2019-04-29] MEDS: levETIRAcetam 500 MG/5 ML INJECTION VIAL IVPB SCH ×2 (09:53→23:08)
[2019-04-29] MEDS: D5-NS + 40 MEQ KCL - 40 MEQ/1,000 ML INFUS.BAG IV SCH (10:00)
--- NOTE | 2019-04-29 10:24 | CON.ID ---
Consult Consult Specialty:: infectious diseases Referred by:: Peg Reason for Consultation:: Leukocytosis - History of Present Illness Chief Complaint: pain abd History of Present Illness: 59 year-old female resident of [facility], with a PMH significant for profound mental retardation, cerebral palsy, congenital quadriplegia, severe scoliosis, seizure disorder, and GERD. Aides have observed patient becoming progressively constipated after starting famotidine for GERD. Last normal BM was 3 days ago. Today patient began to appear very uncomfortable and has been crying. She was given a suppository and a fleets enema this morning, but only passed 2 hard jose of stool. Patient ate breakfast this morning as usual. Has not had any vomiting. No fever. No observed sweats, chills. Patient was seen by surgery now has a ng tube in place sister in the room says she is feeling much better - History Source History Provided By: Family Member Limitations to Obtaining History: Clinical Condition - Alcohol/Substance Use Hx Alcohol Use: No - Smoking History Smoking history: Never smoked Have you smoked in the past 12 months: No Aproximately how many cigarettes per day: 0 Home Medications - Allergies Allergies/Adverse Reactions: Allergies Allergy/AdvReac Type Severity Reaction Status Date / Time phenytoin sodium AdvReac Mild Verified 04/28/19 18:36 [From Dilantin] phenytoin sodium extended AdvReac Mild Verified 04/28/19 18:36 [From Dilantin] sellfish Allergy Uncoded 04/28/19 18:36 - Home Medications Home Medications: Ambulatory Orders Carbamazepine Xr [Tegretol Xr -] 400 mg PO AM 03/30/14 Polyethylene Glycol 3350 [Miralax 119 gm Btl -] 17 gm PO DAILY 03/30/14 Albuterol 0.083% Nebulizer Radhika [Ventolin 0.083%] 1 neb NEB Q4H PRN 04/28/19 Calcium Carbonate/Vitamin D3 [Oyster Shell 500-Vit D3 200 Tb] 1 each PO BID Carbamazepine [Tegretol -] 200 mg PO HS 04/28/19 Famotidine [Pepcid] 40 mg PO BID 04/28/19 Fexofenadine HCl [Rachel Allergy] 30 mg PO BID 04/28/19 Pedi Multivit 158/Iron/Vit K1 [Cerovite Jr] 1 each PO DAILY 04/28/19 Simethicone 40 mg PO Q4H 04/28/19 Wheat Dextrin [Benefiber] 1 each PO DAILY 04/28/19 Review of Systems Unable to obtain ROS, reason: unable to obtain Physical Exam Vital Signs: Vital Signs Temperature 98 F 04/29/19 09:32 Pulse Rate 112 H 04/29/19 09:32 Respiratory Rate 18 04/29/19 09:32 Blood Pressure 135/89 04/29/19 09:32 O2 Sat by Pulse Oximetry (%) 98 04/29/19 08:50 Constitutional: Yes: No Distress, Calm Cardiovascular: Yes: Regular Rate and Rhythm Respiratory: Yes: Regular, CTA Bilaterally Gastrointestinal: Yes: Other (absent bowel sounds,ng tube in place) Musculoskeletal: Yes: Other (contracted) Extremities: Yes: Other (contracted) Neurological: Yes: Alert, Other Psychiatric: Yes: Other Labs: CBC, BMP 04/28/19 17:22 04/28/19 17:22 Imaging - Results X-ray: Report Reviewed, Image Reviewed Assessment/Plan 59 year-old female resident of [facility], with a PMH significant for profound mental retardation, cerebral palsy, congenital quadriplegia, severe scoliosis, seizure disorder, and GERD. Admitted for SBO. SBO Profound mental retardation Cerebral palsy Congenital quadriplegia Severe scoliosis Seizure disorder GERD plan npo hydration ng suctioning surgery on board rest as per the team and surgery
--- NOTE | 2019-04-29 10:55 | CONSULT ---
- Consultation REQUESTING PROVIDER: Kieran Al MD CONSULT REQUEST: We have been asked to surgically evaluate this patient for SBO PCP:Shayla Rodriguez HISTORY OF PRESENT ILLNESS: CHIPP who is a 59 y/o resident of [facility] who presented to the [facility] ED w/abdominal pain and distention and obstipation and constipation; in the ED enemas were given w/apparent good results h/e abdominal x rays were done and read as c/w an SBO. PMHx: MR/CP/congenital quadaplegia/GERD/scoliosis PSHx: unknown abdominal surgery Home Medications Medication Instructions Recorded Carbamazepine Xr [Tegretol Xr -] 400 mg PO AM 03/30/14 Polyethylene Glycol 3350 [Miralax 17 gm PO DAILY 03/30/14 119 gm Btl -] Albuterol 0.083% Nebulizer Radhika 1 neb NEB Q4H PRN 04/28/19 [Ventolin 0.083%] Calcium Carbonate/Vitamin D3 1 each PO BID 04/28/19 [Oyster Shell 500-Vit D3 200 Tb] Carbamazepine [Tegretol -] 200 mg PO HS 04/28/19 Famotidine [Pepcid] 40 mg PO BID 04/28/19 Fexofenadine HCl [Rachel Allergy] 30 mg PO BID 04/28/19 Pedi Multivit 158/Iron/Vit K1 1 each PO DAILY 04/28/19 [Cerovite Jr] Simethicone 40 mg PO Q4H 04/28/19 Wheat Dextrin [Benefiber] 1 each PO DAILY 04/28/19 Allergies Allergy/AdvReac Type Severity Reaction Status Date / Time phenytoin sodium AdvReac Mild Verified 04/28/19 18:36 [From Dilantin] phenytoin sodium extended AdvReac Mild Verified 04/28/19 18:36 [From Dilantin] sellfish Allergy Uncoded 04/28/19 18:36 REVIEW OF SYSTEMS: unobtainable due to patients underlying status. PHYSICAL EXAM: GENERAL: Awake, alert, and not oriented, in no acute distress ??. HEAD: Normal with no signs of trauma. EYES: sclera anicteric, conjunctiva clear. NECK: Limited ROM, supple without lymphadenopathy, JVD, or masses. ABDOMEN: Soft, nontender,distended, absent bowel sounds, no guarding, no rebound , no masses. No organomegaly. Healed modline surgical scar. MUSCULOSKELETAL: Contracted x 4. UPPER EXTREMITIES: 2+ pulses, warm, well-perfused. No cyanosis. Cap refill <2 seconds. No peripheral edema. Contracted. LOWER EXTREMITIES: 2+ pulses, warm, well-perfused. No calf tenderness. No peripheral edema. Contracted. NEUROLOGICAL: Aphasic, gait not observed. SKIN: Warm, dry, normal turgor, no rashes or lesions noted. Vital Signs Temperature 98 F 04/29/19 09:32 Pulse Rate 112 H 04/29/19 09:32 Respiratory Rate 18 04/29/19 09:32 Blood Pressure 135/89 04/29/19 09:32 O2 Sat by Pulse Oximetry (%) 98 04/29/19 08:50 Lab Results WBC 16.0 K/mm3 (4.0-10.8) H 04/28/19 17:22 RBC 5.71 M/mm3 (3.60-5.2) H 04/28/19 17:22 Hgb 16.5 GM/dl (10.7-15.3) H 04/28/19 17:22 Hct 50.0 % (32.4-45.2) H D 04/28/19 17:22 MCV 87.5 fl (80-96) 04/28/19 17:22 MCHC 33.1 g/dl (32.0-36.0) 04/28/19 17:22 RDW 14.0 % (11.6-15.6) D 04/28/19 17:22 Plt Count 314 K/MM3 (134-434) 04/28/19 17:22 Sodium 143 mmol/L (136-145) 04/28/19 17:22 Potassium 3.4 mmol/L (3.5-5.1) L 04/28/19 17:22 Chloride 96 mmol/L (98-107) L 04/28/19 17:22 Carbon Dioxide 32 mmol/L (21-32) 04/28/19 17:22 Anion Gap 15 MMOL/L (8-16) 04/28/19 17:22 BUN 15.0 mg/dl (7-18) 04/28/19 17:22 Creatinine 0.5 mg/dl (0.55-1.3) L 04/28/19 17:22 Random Glucose 145 mg/dl (74-106) H 04/28/19 17:22 Calcium 10.0 mg/dl (8.5-10) 04/28/19 17:22 Blood Type O POSITIVE 04/28/19 17:27 Antibody Screen Negative 04/28/19 17:27 INR 1.00 (0.82-1.09) 04/28/19 17:22 AXR's c/w possible evolving sbo. IMP: evolving SBO. PLAN: NPO/NGT/IVF/serial exams and x rays and xfer to [facility] due to risk of aspiration and need for possible supervised small bowel series; d/w the family extensively; I personally placed the NGT and confirmed its location. Kieran Dickerson MD FACS
--- NOTE | 2019-04-29 14:39 | PROC ---
Procedure Note Procedure: Surgery Patient being followed for SBO seen and examined at bedside with family and her Aide from the facility at bedside. Patient's sister states she appears much better after NGT placement. The patient has been resting comfortably. The NGT has been set to low, continuous wall suction with low output this morning. Vital Signs Temp 97.7 F 04/29/19 14:00 Pulse 57 L 04/29/19 14:00 Resp 16 04/29/19 14:00 BP 127/63 04/29/19 14:00 Pulse Ox 98 04/29/19 08:50 Intake & Output 04/28/19 04/29/19 04/29/19 23:59 11:59 23:59 Intake Total 0 750 Output Total 200 Balance 0 750 -200 Weight 62 lb Intake: IV 600 DEXTROSE 5%-NORMAL SALINE 600 +40 MEQ KCL - 40 meq In 1 ,000 ml @ 75 mls/hr IV ASDIR HAYLEY Rx#:[id number] IVPB 150 Oral 0 Output: Gastric Drainage 200 Other: Voiding Method Diaper Diaper Diaper # Unmeasured Voids Void 1 Bowel Movement No Height 5 ft Body Mass Index (BMI) 12.1 Weight Measurement Method Patient Lift Scale Weight Measurement Method Estimated by Staff CBC, BMP 04/28/19 17:22 04/28/19 17:22 PE: Patient resting comfortably, NAD
--- NOTE | 2019-04-29 14:50 | PN ---
Progress Note (short form) - Note Progress Note: Surgery Patient being followed for SBO seen and examined at bedside with family and her Aide from the facility at bedside. Patient's sister states she appears much better after NGT placement. The patient has been resting comfortably. The NGT has been set to low, continuous wall suction with low output this morning. Vital Signs Temp 97.7 F 04/29/19 14:00 Pulse 57 L 04/29/19 14:00 Resp 16 04/29/19 14:00 BP 127/63 04/29/19 14:00 Pulse Ox 98 04/29/19 08:50 Intake & Output 04/28/19 04/29/19 04/29/19 23:59 11:59 23:59 Intake Total 0 750 Output Total 200 Balance 0 750 -200 Weight 62 lb Intake: IV 600 DEXTROSE 5%-NORMAL SALINE 600 +40 MEQ KCL - 40 meq In 1 ,000 ml @ 75 mls/hr IV ASDIR HAYLEY Rx#:[id number] IVPB 150 Oral 0 Output: Gastric Drainage 200 Other: Voiding Method Diaper Diaper Diaper # Unmeasured Voids Void 1 Bowel Movement No Height 5 ft Body Mass Index (BMI) 12.1 Weight Measurement Method Patient Lift Scale Weight Measurement Method Estimated by Staff CBC, BMP 04/28/19 17:22 04/28/19 17:22 PE: Patient resting comfortably, NAD Unlabored resp on RA Extremities contracted x4 Abd: Soft, nontender, mild distention, absent bowel sounds, no guarding, no rebound. Healed modline surgical scar and lateral scar. Problem List - Problems (1) SBO (small bowel obstruction) Assessment/Plan: -NPO/NGT -IVF - serial abd exams - f/u serial x rays -transfer to [facility] pending bed availability Code(s): K56.609 - UNSP INTESTNL OBST, UNSP TO PARTIAL VERSUS COMPLETE OBST
[2019-04-29] MEDS ORDERED: ALBUTEROL SO4 0.083% IH SOL 2.5 MG/3 ML VIAL.NEB. NEB PRN (18:56)
[2019-04-29] MEDS ORDERED: ACETAMINOPHEN 650 MG SUPP.RECT PR PRN (18:56)
[2019-04-29] MEDS ORDERED: D5-NS + 40 MEQ KCL - 40 MEQ/1,000 ML INFUS.BAG IV SCH (18:56)
[2019-04-29] MEDS: MORPHINE SULFATE 2 MG/ML VIAL IM PRN (23:09)
--- NOTE | 2019-04-29 23:13 | HOSP ---
Subjective - Review of Symptoms Events since last encounter: 59 year-old female resident of [facility], with a PMH significant for profound mental retardation, cerebral palsy, congenital quadriplegia, severe scoliosis, seizure disorder, and GERD. Aides have observed patient becoming progressively constipated after starting famotidine for GERD. Received pt from [facility] currently being treated for SBO -- abdominal xray series -- Zosyn IV q 8 hours --NPO --IV fluids --NGT in place, connected to low wall suction Upon arrival family stated patient was tachy in EMS, vitals checked Tacycardic followed up with EKG EKG: shows sinus tachy, T wave abnormality, ? consider anterolateral ischemia last EKG compare to February, sinus tachy, septal infarct Upon exam no acute pain, grimacing noted will follow up with cardiac profile if enzymes,trops elevated will consider tele and cardiology follow up patient was also on morphine for pain, will start morphine 0.5 mg q 8 hours PRN Physical Examination Vital Signs: Vital Signs Temperature 98.8 F 04/29/19 19:01 Pulse Rate 130 H 04/29/19 19:01 Respiratory Rate 18 04/29/19 17:49 Blood Pressure 138/92 04/29/19 19:01 O2 Sat by Pulse Oximetry (%) 98 04/29/19 08:50 Constitutional: Yes: Cachectic Eyes: Yes: WNL HENT: Yes: Atraumatic, Normocephalic Neck: Yes: Supple Cardiovascular: Yes: Tachycardia Respiratory: Yes: Regular Gastrointestinal: Yes: Soft, Other (+NGT, low wall suction) Labs: CBC, BMP 04/28/19 17:22 04/28/19 17:22
[2019-04-30] MEDS ORDERED: DEXTROSE 5%-WATER - 50 ML IVPB ONE ×3 (01:36→16:56)
[2019-04-30] MEDS ORDERED: PIPERACILLIN/TAZOBACTAM 3.375 GM VIAL IVPB ONE ×3 (01:36→16:56)
[2019-04-30] MEDS ORDERED: METOPROLOL TARTRATE 5 MG/5 ML VIAL IVPB ONE (01:45)
[2019-04-30] MEDS: PIPERACILLIN/TAZOB 3.375 GM 3.375 GM in DEXTROSE 5%-WATER - 50 ML IVPB SCH ×3 (03:20→18:27)
[2019-04-30] MEDS: MORPHINE SULFATE 2 MG/ML VIAL IM PRN (08:22)
[2019-04-30] MEDS: levETIRAcetam 500 MG/5 ML INJECTION VIAL IVPB SCH ×2 (09:46→22:18)
[2019-04-30] MEDS ORDERED: LORazepam 2 MG/ML SDV VIAL IVPUSH PRN (10:35)
--- NOTE | 2019-04-30 10:38 | PN ---
Progress Note, Physician Chief Complaint: sister at bedside. concerned over patient having worsening pain and discomfort. pt is grimacing, showing signs of pain and discomfort. ativan 0.5mg given abd xray ordered ekg ordered chest xray ordered for congestion History of Present Illness: Patient is a 59 year old female (resident of [facility]) with a PMHx significant for profound mental retardation, cerebral palsy, congenital quadriplegia, severe scoliosis, seizure disorder, and GERD. Transferred from [place] to [facility] for further management of SBO, sepsis and tachycardia. - Current Medication List Current Medications: Active Medications Acetaminophen (Tylenol Suppository -) 650 mg [place] Q6H PRN PRN Reason: FEVER Albuterol Sulfate (Ventolin 0.083% Nebulizer Soln -) 1 amp NEB Q4H PRN PRN Reason: SHORTNESS OF BREATH Dextrose/Sodium Chloride (Dextrose 5%-Normal Saline+40 Meq Kcl -) 40 meq in 1, 000 mls @ 75 mls/hr IV ASDIR HAYLEY Last Admin: 04/29/19 19:00 Dose: Not Given Piperacillin Sod/Tazobactam (Sod 3.375 gm/ Dextrose) 50 mls @ 100 mls/hr IVPB Q8H-IV HAYLEY; Protocol Last Admin: 04/30/19 09:45 Dose: 100 mls/hr Levetiracetam (Keppra Injection -) 500 mg IVPB BID HAYLEY Last Admin: 04/30/19 09:46 Dose: 500 mg Lorazepam (Ativan Injection -) 0.5 mg IVPUSH ONCE ONE Stop: 04/30/19 10:46 Lorazepam (Ativan Injection -) 0.5 mg IVPUSH Q6H PRN PRN Reason: ANXIETY Morphine Sulfate (Morphine Sulfate) 0.5 mg IM Q8H PRN PRN Reason: PAIN LEVEL 6-10 Last Admin: 04/30/19 08:22 Dose: 0.5 mg - Objective Vital Signs: Vital Signs Temperature 97.9 F 04/30/19 08:20 Pulse Rate 126 H 04/30/19 08:20 Respiratory Rate 24 H 04/30/19 08:20 Blood Pressure 118/91 04/30/19 08:20 O2 Sat by Pulse Oximetry (%) 98 04/29/19 08:50 Constitutional: Yes: Mild Distress Eyes: Yes: WNL HENT: Yes: Atraumatic Neck: Yes: Supple Cardiovascular: Yes: Tachycardia Respiratory: Yes: Accessory Muscle Use, On Nasal O2, Rales, Tachypnea Gastrointestinal: Yes: Distention Extremities: Yes: Other (contracted) Integumentary: Yes: WNL Neurological: Yes: Alert, Lethargy, Other Labs: CBC, BMP 04/28/19 17:22 04/28/19 17:22 INR, PTT INR 1.00 (0.82-1.09) 04/28/19 17:22 - ....Imaging Chest X-ray: Report Reviewed EKG: Report Reviewed Problem List - Problems (1) Sepsis Assessment/Plan: patient with elevated wbc, tachycardia, respiratory rate > 24, chest xray shows possible early left infiltrate already on zosyn monitor respiratory status. add 2 liters of nasal cannula. blood cultures Code(s): A41.9 - SEPSIS, UNSPECIFIED ORGANISM (2) SBO (small bowel obstruction) Assessment/Plan: NGT to low intermittent suction abd xray with sbo abdomen distended, absent bowel sounds monitor drain output Code(s): K56.609 - UNSP INTESTNL OBST, UNSP TO PARTIAL VERSUS COMPLETE OBST (3) Aspiration into airway Assessment/Plan: chest xray shows left lower lobe infiltrate. on zosyn. support with 2 liters of nasal cannula monitor oxygen levels. Code(s): T17.908A - UNSP FB IN RESP TRACT, PART UNSP CAUSING OTH INJURY, INIT (4) Decreased oral intake Assessment/Plan: NPO start clinimax if prolonged NPO Code(s): R63.8 - OTHER SYMPTOMS AND SIGNS CONCERNING FOOD AND FLUID INTAKE (5) Seizure Assessment/Plan: on keppra. on tegratol in [place], continue keppra iv bid Code(s): R56.9 - UNSPECIFIED CONVULSIONS (6) Hypokalemia Assessment/Plan: on NS with K. monitor K levels with repeat labs. Code(s): E87.6 - HYPOKALEMIA (7) Profound mental handicap Assessment/Plan: supportive care. Code(s): F73 - PROFOUND INTELLECTUAL DISABILITIES (8) Tachycardia Assessment/Plan: tachycardia likely in the setting of abdominal pain, anxiety, NGT - trop neg x 1, no ischemia on EKG on morphine, lopressor iv, given ativan 0.5 mg x 1 today apply 2 liters of nasal cannula for congestion. Code(s): R00.0 - TACHYCARDIA, UNSPECIFIED (9) Left pulmonary infiltrate on CXR Assessment/Plan: apply oxygen 2 liters. patient noted to be congested and breathing rate 24s on zosyn Code(s): R91.8 - OTHER NONSPECIFIC ABNORMAL FINDING OF LUNG FIELD (10) Prophylactic measure Assessment/Plan: fen npo on d5 40meq monitor electrolytes full code Code(s): Z29.9 - ENCOUNTER FOR PROPHYLACTIC MEASURES, UNSPECIFIED Visit type - Emergency Visit Emergency Visit: Yes ED Registration Date: 04/28/19 Care time: The patient presented to the Emergency Department on the above date and was hospitalized for further evaluation of their emergent condition. - New Patient This patient is new to me today: Yes Date on this admission: 04/30/19 - Critical Care Critical Care patient: No - Discharge Referral Referred to [facility] Med P.C.: No
[2019-04-30] MEDS ORDERED: LORazepam 2 MG/ML SDV VIAL IVPUSH ONE (10:45)
--- NOTE | 2019-04-30 11:09 | PN ---
Progress Note, Physician - Current Medication List Current Medications: Active Medications Acetaminophen (Tylenol Suppository -) 650 mg [place] Q6H PRN PRN Reason: FEVER Albuterol Sulfate (Ventolin 0.083% Nebulizer Soln -) 1 amp NEB Q4H PRN PRN Reason: SHORTNESS OF BREATH Dextrose/Sodium Chloride (Dextrose 5%-Normal Saline+40 Meq Kcl -) 40 meq in 1, 000 mls @ 75 mls/hr IV ASDIR HAYLEY Last Admin: 04/29/19 19:00 Dose: Not Given Piperacillin Sod/Tazobactam (Sod 3.375 gm/ Dextrose) 50 mls @ 100 mls/hr IVPB Q8H-IV HAYLEY; Protocol Last Admin: 04/30/19 09:45 Dose: 100 mls/hr Levetiracetam (Keppra Injection -) 500 mg IVPB BID HAYLEY Last Admin: 04/30/19 09:46 Dose: 500 mg Lorazepam (Ativan Injection -) 0.5 mg IVPUSH Q6H PRN PRN Reason: ANXIETY Morphine Sulfate (Morphine Sulfate) 0.5 mg IM Q8H PRN PRN Reason: PAIN LEVEL 6-10 Last Admin: 04/30/19 08:22 Dose: 0.5 mg - Objective Vital Signs: Vital Signs Temperature 97.9 F 04/30/19 08:20 Pulse Rate 126 H 04/30/19 08:20 Respiratory Rate 24 H 04/30/19 08:20 Blood Pressure 118/91 04/30/19 08:20 O2 Sat by Pulse Oximetry (%) 98 04/29/19 08:50 Labs: CBC, BMP 04/28/19 17:22 04/28/19 17:22 INR, PTT INR 1.00 (0.82-1.09) 04/28/19 17:22
--- NOTE | 2019-04-30 12:02 | CON.CARD ---
Consult Consult Specialty:: cardiology Referred by:: medicine Reason for Consultation:: tachycardia - History of Present Illness Chief Complaint: sbo History of Present Illness: 59F h/o mental retardation, cerebral palsy, quadriplegia, scoliosis, seizure disorder p/w constipation, dx with SBO, now with NG tube. Unable to obtain history from patient, per sister have not noticed difficulty breathing, no cardiac history. - Alcohol/Substance Use Hx Alcohol Use: No - Smoking History Smoking history: Never smoked Have you smoked in the past 12 months: No Aproximately how many cigarettes per day: 0 Home Medications - Allergies Allergies/Adverse Reactions: Allergies Allergy/AdvReac Type Severity Reaction Status Date / Time phenytoin sodium AdvReac Mild Verified 04/28/19 18:36 [From Dilantin] phenytoin sodium extended AdvReac Mild Verified 04/28/19 18:36 [From Dilantin] sellfish Allergy Uncoded 04/28/19 18:36 - Home Medications Home Medications: Ambulatory Orders Carbamazepine Xr [Tegretol Xr -] 400 mg PO AM 03/30/14 Polyethylene Glycol 3350 [Miralax 119 gm Btl -] 17 gm PO DAILY 03/30/14 Albuterol 0.083% Nebulizer Radhika [Ventolin 0.083%] 1 neb NEB Q4H PRN 04/28/19 Calcium Carbonate/Vitamin D3 [Oyster Shell 500-Vit D3 200 Tb] 1 each PO BID Carbamazepine [Tegretol -] 200 mg PO HS 04/28/19 Famotidine [Pepcid] 40 mg PO BID 04/28/19 Fexofenadine HCl [Rachel Allergy] 30 mg PO BID 04/28/19 Pedi Multivit 158/Iron/Vit K1 [Cerovite Jr] 1 each PO DAILY 04/28/19 Simethicone 40 mg PO Q4H 04/28/19 Wheat Dextrin [Benefiber] 1 each PO DAILY 04/28/19 Family Disease History - Family Disease History Family History: Unable to Obtain (nonverbal) Review of Systems Unable to obtain ROS, reason: nonverbal Vital Signs: Vital Signs Temperature 97.9 F 04/30/19 08:20 Pulse Rate 126 H 04/30/19 08:20 Respiratory Rate 24 H 04/30/19 08:20 Blood Pressure 115/85 08/24/19 11:24 O2 Sat by Pulse Oximetry (%) 98 04/29/19 08:50 Constitutional: Yes: No Distress HENT: Yes: Atraumatic Neck: Yes: Supple Respiratory: Yes: Regular, CTA Bilaterally Gastrointestinal: Yes: Soft Cardiovascular: Yes: Tachycardia JVD: No Heart Sounds: Yes: S1, S2 Edema: No Peripheral Pulses WNL: Yes Integumentary: No: Jaundice Neurological: Yes: Alert Psychiatric: No: Agitated - Other Data Labs, Other Data: CBC, BMP 04/28/19 17:22 04/28/19 17:22 INR, PTT INR 1.00 (0.82-1.09) 04/28/19 17:22 Troponin, BNP 04/29/19 23:59 Troponin I < 0.02 Troponin, BNP 04/29/19 23:59 Troponin I < 0.02 Assessment/Plan EKG: sinus tachycardia, nonspecific ST/T wave changes tele: sinus tachycardia tachycardia - sinus, monitoring on tele - echo ordered - likely in setting of underlying pain, anxiety, SBO - manage per primary - trop neg x 1, no ischemia on EKG - unlikely ACS SBO - manage per surgery seizure disorder - manage per primary GERD -holding meds, NPO
[2019-04-30] MEDS ORDERED: ALBUTEROL SO4 0.083% IH SOL 2.5 MG/3 ML VIAL.NEB. NEB PRN (14:13)
[2019-04-30] MEDS ORDERED: ACETAMINOPHEN 650 MG SUPP.RECT PR PRN (14:13)
[2019-04-30] MEDS ORDERED: D5-NS + 40 MEQ KCL - 40 MEQ/1,000 ML INFUS.BAG IV SCH (14:13)
--- NOTE | 2019-04-30 15:41 | EKG ---
Test Reason : Blood Pressure : / mmHG Vent. Rate : 127 BPM Atrial Rate : 127 BPM P-R Int : 208 ms QRS Dur : 056 ms QT Int : 288 ms P-R-T Axes : 000 043 006 degrees QTc Int : 418 ms SINUS TACHYCARDIA LOW VOLTAGE QRS NONSPECIFIC T WAVE ABNORMALITY ABNORMAL ECG WHEN COMPARED WITH ECG OF 29-APR-2019 20:46, NO SIGNIFICANT CHANGE WAS FOUND CLINICAL CORRELATION IS RECOMMENDED Confirmed by MICHELLE MANLEY, CHERRY ([id number]) on 04/30/2019 3:40:47 PM Referred By: Radha EDOUARD Confirmed By:CHERRY MARTINEZ MD
--- NOTE | 2019-04-30 15:51 | EKG ---
Test Reason : Blood Pressure : / mmHG Vent. Rate : 135 BPM Atrial Rate : 135 BPM P-R Int : 176 ms QRS Dur : 060 ms QT Int : 360 ms P-R-T Axes : 089 044 087 degrees QTc Int : 540 ms SINUS TACHYCARDIA T WAVE ABNORMALITY, CONSIDER LATERAL ISCHEMIA ABNORMAL ECG WHEN COMPARED WITH ECG OF 15-FEB-2019 16:54, QRS VOLTAGE HAS DECREASED NON-SPECIFIC CHANGE IN ST SEGMENT IN ANTERIOR LEADS T WAVE AMPLITUDE HAS DECREASED IN INFERIOR LEADS CLINICAL CORRELATION IS RECOMMENDED Confirmed by MICHELLE MANLEY, CHERRY ([id number]) on 04/30/2019 3:50:51 PM Referred By: JESUS ALBERTO Confirmed By:CHERRY MARTINEZ MD
[2019-04-30] MEDS: METOPROLOL TARTRATE 5 MG/5 ML VIAL IVPUSH PRN (16:05)
[2019-04-30] MEDS: MORPHINE SULFATE 2 MG/ML VIAL IVPB PRN (16:58)
[2019-04-30] MEDS ORDERED: PIPERACILLIN/TAZOB 3.375 GM 3.375 GM in DEXTROSE 5%-WATER - 50 ML IVPB SCH (18:00)
[2019-04-30 20:37] LABS: BASO % 0.1 % (0-2.0); HEMATOCRIT 40.9 % (32.4-45.2); HEMOGLOBIN 13.1 GM/dL (10.7-15.3); LYMPH % 11.1 % (8-40); MCH 28.5 pg (25.7-33.7); MCHC 31.9 g/dl (32.0-36.0); MEAN CELL VOLUME 89.2 fl (80-96); MEAN PLT VOLUME 9.6 fl (7.5-11.1); MONO % 15.4 % (3.8-10.2); NEUT % 73.4 % (42.8-82.8); RBC 4.59 M/mm3 (3.60-5.2); RDW 15.7 % (11.6-15.6)
[2019-04-30 20:49] LABS: PLATELET COUNT 285 K/MM3 (134-434)
[2019-04-30 21:31] LABS: ALBUMIN 2.2 g/dl (3.4-5.0); BILIRUBIN,TOTAL 0.5 mg/dL (0.2-1); BLOOD UREA NITROGEN 19.9 mg/dL (7-18); CALCIUM 9.2 mg/dL (8.5-10.1); CREATININE 0.6 mg/dL (0.55-1.3); MAGNESIUM 2.4 mg/dL (1.8-2.4)
[2019-04-30 21:32] LABS: POTASSIUM 6.6 mmol/L (3.5-5.1)
[2019-04-30] MEDS ORDERED: SODIUM POLYSTYRENE SULFONATE 15 GM/60 ML BOTTLE RC ONE ×2 (21:43→22:15)
[2019-04-30] MEDS: DEXTROSE 5%-WATER - 1,000 ML IV SCH (21:51)
[2019-04-30] MEDS ORDERED: SODIUM POLYSTYRENE SULFONATE 15 GM/60 ML BOTTLE ONE (22:30)
[2019-05-01] MEDS: MORPHINE SULFATE 2 MG/ML VIAL IVPB PRN ×3 (01:11→18:26)
[2019-05-01] MEDS ORDERED: PIPERACILLIN/TAZOBACTAM 3.375 GM VIAL IVPB ONE ×3 (01:13→16:51)
[2019-05-01] MEDS ORDERED: DEXTROSE 5%-WATER - 50 ML IVPB ONE ×3 (01:13→16:51)
[2019-05-01] MEDS: PIPERACILLIN/TAZOB 3.375 GM 3.375 GM in DEXTROSE 5%-WATER - 50 ML IVPB SCH ×3 (01:19→17:07)
[2019-05-01] MEDS ORDERED: LORazepam 2 MG/ML SDV VIAL IVPB PRN (06:00)
[2019-05-01] MEDS: METOPROLOL TARTRATE 5 MG/5 ML VIAL IVPUSH PRN (06:54)
[2019-05-01 07:05] LABS: BLOOD UREA NITROGEN 22.6 mg/dL (7-18); CALCIUM 8.8 mg/dL (8.5-10.1); CREATININE 0.5 mg/dL (0.55-1.3); POTASSIUM 5.8 mmol/L (3.5-5.1)
[2019-05-01] MEDS: levETIRAcetam 500 MG/5 ML INJECTION VIAL IVPB SCH ×2 (10:13→23:33)
--- NOTE | 2019-05-01 10:17 | PN ---
Progress Note, Physician History of Present Illness: patient stable no new issues ng tube in place still draining - Current Medication List Current Medications: Active Medications Acetaminophen (Tylenol Suppository -) 650 mg [place] Q6H PRN PRN Reason: FEVER Albuterol Sulfate (Ventolin 0.083% Nebulizer Soln -) 1 amp NEB Q4H PRN PRN Reason: SHORTNESS OF BREATH Piperacillin Sod/Tazobactam (Sod 3.375 gm/ Dextrose) 50 mls @ 100 mls/hr IVPB Q8H-IV HAYLEY; Protocol Last Admin: 05/01/19 10:13 Dose: 100 mls/hr Dextrose (D5w -) 1,000 mls @ 75 mls/hr IV ASDIR HAYLEY Last Admin: 04/30/19 21:51 Dose: 75 mls/hr Levetiracetam (Keppra Injection -) 500 mg IVPB BID HAYLEY Last Admin: 05/01/19 10:13 Dose: 500 mg Lorazepam (Ativan Injection -) 0.25 mg IVPB DAILY PRN PRN Reason: ANXIETY Metoprolol Tartrate (Lopressor Injection -) 5 mg IVPUSH Q4H PRN PRN Reason: TACHYCARDIA Last Admin: 05/01/19 06:54 Dose: 5 mg Morphine Sulfate (Morphine Sulfate) 0.5 mg IVPB Q8H PRN PRN Reason: PAIN LEVEL 6-10 Last Admin: 05/01/19 01:11 Dose: 0.5 mg - Objective Vital Signs: Vital Signs Temperature 98 F 05/01/19 06:27 Pulse Rate 113 H 05/01/19 08:59 Respiratory Rate 20 05/01/19 08:48 Blood Pressure 113/62 05/01/19 06:54 O2 Sat by Pulse Oximetry (%) 98 05/01/19 08:59 Constitutional: Yes: No Distress, Calm Cardiovascular: Yes: S1, S2 Respiratory: Yes: Regular, Poor Air Entry Gastrointestinal: Yes: Soft, Hypoactive Bowel Sounds, Other (ng in place) Musculoskeletal: Yes: WNL Extremities: Yes: Other Neurological: Yes: Alert, Other Labs: CBC, BMP 04/30/19 20:00 05/01/19 06:10 INR, PTT INR 1.00 (0.82-1.09) 04/28/19 17:22 Assessment/Plan 59 year-old female resident of [facility], with a PMH significant for profound mental retardation, cerebral palsy, congenital quadriplegia, severe scoliosis, seizure disorder, and GERD. Admitted for SBO. SBO Profound mental retardation Cerebral palsy Congenital quadriplegia Severe scoliosis Seizure disorder GERD plan npo hydration ng suctioning ct abx
--- NOTE | 2019-05-01 11:51 | PN ---
Progress Note (short form) - Note Progress Note: s: unable to obtain hx, nonverbal. Current Medications Acetaminophen (Tylenol Suppository -) 650 mg [place] Q6H PRN PRN Reason: FEVER Albuterol Sulfate (Ventolin 0.083% Nebulizer Soln -) 1 amp NEB Q4H PRN PRN Reason: SHORTNESS OF BREATH Piperacillin Sod/Tazobactam (Sod 3.375 gm/ Dextrose) 50 mls @ 100 mls/hr IVPB Q8H-IV HAYLEY; Protocol Last Admin: 05/01/19 10:13 Dose: 100 mls/hr Dextrose (D5w -) 1,000 mls @ 75 mls/hr IV ASDIR HAYLEY Last Admin: 04/30/19 21:51 Dose: 75 mls/hr Levetiracetam (Keppra Injection -) 500 mg IVPB BID HAYLEY Last Admin: 05/01/19 10:13 Dose: 500 mg Lorazepam (Ativan Injection -) 0.25 mg IVPB DAILY PRN PRN Reason: ANXIETY Metoprolol Tartrate (Lopressor Injection -) 5 mg IVPUSH Q4H PRN PRN Reason: TACHYCARDIA Last Admin: 05/01/19 06:54 Dose: 5 mg Morphine Sulfate (Morphine Sulfate) 0.5 mg IVPB Q8H PRN PRN Reason: PAIN LEVEL 6-10 Last Admin: 05/01/19 10:34 Dose: 0.5 mg Vital Signs Period Temp Pulse Resp BP Sys/[place] Pulse Ox Last 24 Hr 97.4 F-98.7 F 110-151 20-22 98-117/62-96 96-99 Constitutional: Yes: No Distress HENT: Yes: Atraumatic Neck: Yes: Supple Respiratory: Yes: Regular, CTA Bilaterally Gastrointestinal: Yes: Soft Cardiovascular: Yes: Tachycardia JVD: No Heart Sounds: Yes: S1, S2 Edema: No Peripheral Pulses WNL: Yes Integumentary: No: Jaundice Neurological: Yes: Alert Psychiatric: No: Agitated Assessment/Plan EKG: sinus tachycardia, nonspecific ST/T wave changes tele: sinus tachycardia - sinus, monitoring on tele - echo ordered - likely in setting of underlying pain, anxiety, SBO - manage per primary, HR improving - trop neg x 1, no ischemia on EKG - unlikely ACS SBO - manage per surgery seizure disorder - manage per primary GERD -holding meds, NPO
[2019-05-01 12:22] LABS: BILIRUBIN,TOTAL 0.5 mg/dL (0.2-1); BLOOD UREA NITROGEN 21.8 mg/dL (7-18); CALCIUM 8.9 mg/dL (8.5-10.1); CREATININE 0.6 mg/dL (0.55-1.3); MAGNESIUM 2.4 mg/dL (1.8-2.4); POTASSIUM 5.6 mmol/L (3.5-5.1); TOT PROT 5.4 g/dl (6.4-8.2)
--- NOTE | 2019-05-01 12:58 | PN ---
Progress Note (short form) - Note Progress Note: Attending Surgeon Seen in f/u; w/o flatus and/or BM abdo-soft; less distended; ? baseline ? NGT 300 cc IMP: SBO PLAN: Continue present tx.; repeat imaging in AM. Kieran Dickerson MD FACS
--- NOTE | 2019-05-01 14:10 | PN ---
Progress Note, Physician Chief Complaint: kayexelate given by overnight team for K 6.6 patient with hyperkalemia and hypernatremia which are both improving with D5. renal consulted. ok to give lasix 20mg x 1 now both for K and for increased congestion of upper anterior lobes. for a swallow evaluation once more stable. patient had a recent swallow evaluation at [facility] which recommended pureed diet with nectar thick fluids. History of Present Illness: Patient is a 59 year old female (resident of [facility]) with a PMHx significant for profound mental retardation, cerebral palsy, congenital quadriplegia, severe scoliosis, seizure disorder, and GERD. Transferred from [place] to [facility] for further management of SBO, sepsis and tachycardia. - Current Medication List Current Medications: Active Medications Acetaminophen (Tylenol Suppository -) 650 mg [place] Q6H PRN PRN Reason: FEVER Albuterol Sulfate (Ventolin 0.083% Nebulizer Soln -) 1 amp NEB Q4H PRN PRN Reason: SHORTNESS OF BREATH Piperacillin Sod/Tazobactam (Sod 3.375 gm/ Dextrose) 50 mls @ 100 mls/hr IVPB Q8H-IV HAYLEY; Protocol Last Admin: 05/01/19 10:13 Dose: 100 mls/hr Dextrose (D5w -) 1,000 mls @ 75 mls/hr IV ASDIR HAYLEY Last Admin: 04/30/19 21:51 Dose: 75 mls/hr Levetiracetam (Keppra Injection -) 500 mg IVPB BID HAYLEY Last Admin: 05/01/19 10:13 Dose: 500 mg Lorazepam (Ativan Injection -) 0.25 mg IVPB DAILY PRN PRN Reason: ANXIETY Metoprolol Tartrate (Lopressor Injection -) 5 mg IVPUSH Q4H PRN PRN Reason: TACHYCARDIA Last Admin: 05/01/19 06:54 Dose: 5 mg Morphine Sulfate (Morphine Sulfate) 0.5 mg IVPB Q8H PRN PRN Reason: PAIN LEVEL 6-10 Last Admin: 05/01/19 10:34 Dose: 0.5 mg - Objective Vital Signs: Vital Signs Temperature 98 F 05/01/19 06:27 Pulse Rate 113 H 05/01/19 08:59 Respiratory Rate 20 05/01/19 08:48 Blood Pressure 113/62 05/01/19 06:54 O2 Sat by Pulse Oximetry (%) 98 05/01/19 08:59 Constitutional: Yes: No Distress, Calm Eyes: Yes: Conjunctiva Clear HENT: Yes: Atraumatic Neck: Yes: Supple Cardiovascular: Yes: Tachycardia Respiratory: Yes: On Nasal O2, Rhonchi (rhonchi on anterior upper lobes), SOB Gastrointestinal: Yes: Distention ...Rectal Exam: Yes: Deferred Musculoskeletal: Yes: Other (contracted) Extremities: Yes: Other (contracted) Edema: No Integumentary: Yes: WNL Neurological: Yes: Other (history of profound MR) Labs: CBC, BMP 04/30/19 20:00 05/01/19 11:23 INR, PTT INR 1.00 (0.82-1.09) 04/28/19 17:22 - ....Imaging Chest X-ray: Report Reviewed EKG: Report Reviewed Problem List - Problems (1) Sepsis Assessment/Plan: patient with elevated wbc, tachycardia, respiratory rate > 24, chest xray shows possible early left infiltrate already on zosyn monitor respiratory status. add 2 liters of nasal cannula. blood cultures ordered will give lasix 20mg x 1 as she has rhonchi of upper lobes monitor output Code(s): A41.9 - SEPSIS, UNSPECIFIED ORGANISM (2) SBO (small bowel obstruction) Assessment/Plan: NGT to low intermittent suction abd xray with sbo abdomen distended, absent bowel sounds monitor drain output surgery following Code(s): K56.609 - UNSP INTESTNL OBST, UNSP TO PARTIAL VERSUS COMPLETE OBST (3) Aspiration into airway Assessment/Plan: chest xray shows left lower lobe infiltrate. on zosyn. support with 2 liters of nasal cannula monitor oxygen levels. Code(s): T17.908A - UNSP FB IN RESP TRACT, PART UNSP CAUSING OTH INJURY, INIT (4) Decreased oral intake Assessment/Plan: NPO start clinimax if prolonged NPO Code(s): R63.8 - OTHER SYMPTOMS AND SIGNS CONCERNING FOOD AND FLUID INTAKE (5) Seizure Assessment/Plan: on keppra. on tegratol in [place], continue keppra iv bid Code(s): R56.9 - UNSPECIFIED CONVULSIONS (6) Hypernatremia Assessment/Plan: renal consulted for electrolyte imbalance. Code(s): E87.0 - HYPEROSMOLALITY AND HYPERNATREMIA (7) Hyperkalemia Assessment/Plan: given kayexelate overnight K 5.8>5.6 today monitor on tele will give lasix 20 now Code(s): E87.5 - HYPERKALEMIA (8) Profound mental handicap Assessment/Plan: supportive care. Code(s): F73 - PROFOUND INTELLECTUAL DISABILITIES (9) Tachycardia Assessment/Plan: tachycardia likely in the setting of abdominal pain, anxiety, NGT trop neg x 1, no ischemia on EKG on morphine, lopressor iv apply 2 liters of nasal cannula for congestion. Code(s): R00.0 - TACHYCARDIA, UNSPECIFIED (10) Left pulmonary infiltrate on CXR Assessment/Plan: apply oxygen 2 liters. patient noted to be congested and breathing rate 24s on zosyn give lasix now Code(s): R91.8 - OTHER NONSPECIFIC ABNORMAL FINDING OF LUNG FIELD (11) Prophylactic measure Assessment/Plan: fen npo on d5 @ 75 monitor electrolytes full code Code(s): Z29.9 - ENCOUNTER FOR PROPHYLACTIC MEASURES, UNSPECIFIED Visit type - Emergency Visit Emergency Visit: Yes ED Registration Date: 04/28/19 Care time: The patient presented to the Emergency Department on the above date and was hospitalized for further evaluation of their emergent condition. - New Patient This patient is new to me today: No - Critical Care Critical Care patient: No - Discharge Referral Referred to [facility] Med P.C.: No
--- NOTE | 2019-05-01 14:24 | CONSULT ---
Consult Consult Specialty:: Nephrology Reason for Consultation:: hyperkalemia - History of Present Illness Chief Complaint: sent in for constipation History of Present Illness: Pt is a 59 year old female with pmhx of devleopemental delay, epilepsy, gerd and scoliosis who presents to the ER initially for constipation. She was found to have SBO. I was called to evaluate patient for multiple electrolyte abnormalities including hypernatremia and hyperkalemia. She is non verbal and unable to give history. Chart was reviewed. Family are at bedside and care was discussed with them. 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 (developemental delay) Gastrointestinal: Yes: GERD - Alcohol/Substance Use Hx Alcohol Use: No - Smoking History Smoking history: Never smoked Have you smoked in the past 12 months: No Aproximately how many cigarettes per day: 0 Home Medications - Allergies Allergies/Adverse Reactions: Allergies Allergy/AdvReac Type Severity Reaction Status Date / Time phenytoin sodium AdvReac Mild Verified 04/28/19 18:36 [From Dilantin] phenytoin sodium extended AdvReac Mild Verified 04/28/19 18:36 [From Dilantin] sellfish Allergy Uncoded 04/28/19 18:36 - Home Medications Home Medications: Ambulatory Orders Carbamazepine Xr [Tegretol Xr -] 400 mg PO AM 03/30/14 Polyethylene Glycol 3350 [Miralax 119 gm Btl -] 17 gm PO DAILY 03/30/14 Albuterol 0.083% Nebulizer Radhika [Ventolin 0.083%] 1 neb NEB Q4H PRN 04/28/19 Calcium Carbonate/Vitamin D3 [Oyster Shell 500-Vit D3 200 Tb] 1 each PO BID Carbamazepine [Tegretol -] 200 mg PO HS 04/28/19 Famotidine [Pepcid] 40 mg PO BID 04/28/19 Fexofenadine HCl [Rachel Allergy] 30 mg PO BID 04/28/19 Pedi Multivit 158/Iron/Vit K1 [Cerovite Jr] 1 each PO DAILY 04/28/19 Simethicone 40 mg PO Q4H 04/28/19 Wheat Dextrin [Benefiber] 1 each PO DAILY 04/28/19 Family Disease History - Family Disease History Family History: Unable to Obtain Review of Systems Unable to obtain ROS, reason: pt non verbal Physical Exam Vital Signs: Vital Signs Temperature 98 F 05/01/19 06:27 Pulse Rate 113 H 05/01/19 08:59 Respiratory Rate 20 05/01/19 08:48 Blood Pressure 113/62 05/01/19 06:54 O2 Sat by Pulse Oximetry (%) 98 05/01/19 08:59 Constitutional: Yes: Calm Eyes: Yes: Conjunctiva Clear HENT: Yes: Atraumatic Cardiovascular: Yes: S1, S2 Respiratory: Yes: CTA Bilaterally Gastrointestinal: Yes: Soft, Other (ng tube in place) Renal/: Yes: Incontinence Musculoskeletal: Yes: Muscle Weakness Edema: No Neurological: Yes: Pre-Existing Deficit, Other (non verbal) Labs: CBC, BMP 04/30/19 20:00 05/01/19 11:23 Laboratory Tests 04/28/19 04/28/19 04/30/19 17:22 17:22 20:00 WBC 16.0 H 7.0 Hgb 16.5 H 13.1 Sodium 143 Potassium Chloride Carbon Dioxide Anion Gap BUN 04/30/19 05/01/19 05/01/19 20:00 06:10 11:23 WBC Hgb Sodium 156 H 151 H 151 H Potassium 6.6 H* 5.8 H 5.6 H Chloride 120 H Carbon Dioxide 25 Anion Gap 5 L BUN 21.8 H Imaging - Results Chest X-ray: Report Reviewed X-ray: Report Reviewed Problem List - Problems (1) Hyperkalemia Code(s): E87.5 - HYPERKALEMIA (2) Hypernatremia Code(s): E87.0 - HYPEROSMOLALITY AND HYPERNATREMIA (3) SBO (small bowel obstruction) Code(s): K56.609 - UNSP INTESTNL OBST, UNSP TO PARTIAL VERSUS COMPLETE OBST (4) Seizure Code(s): R56.9 - UNSPECIFIED CONVULSIONS Assessment/Plan Current Medications Generic Name Dose Route Start Last Admin Trade Name Freq PRN Reason Stop Dose Admin Acetaminophen 650 mg 04/30/19 14:13 Tylenol Suppository - [place] Q6H PRN FEVER Albuterol Sulfate 1 amp 04/30/19 14:13 Ventolin 0.083% Nebulizer Soln - NEB Q4H PRN SHORTNESS OF BREATH Piperacillin Sod/Tazobactam 50 mls @ 100 mls/hr 04/30/19 18:00 05/01/19 10:13 Sod 3.375 gm/ Dextrose IVPB 100 mls/hr Q8H-IV HAYLEY Administration Protocol Dextrose 1,000 mls @ 75 mls/hr 04/30/19 21:45 04/30/19 21:51 D5w - IV 75 mls/hr ASDIR HAYLEY Administration Levetiracetam 500 mg 04/30/19 22:00 05/01/19 10:13 Keppra Injection - IVPB 500 mg BID HAYLEY Administration Lorazepam 0.25 mg 05/01/19 06:00 Ativan Injection - IVPB DAILY PRN ANXIETY Metoprolol Tartrate 5 mg 04/30/19 15:49 05/01/19 06:54 Lopressor Injection - IVPUSH 5 mg Q4H PRN Administration TACHYCARDIA Morphine Sulfate 0.5 mg 04/30/19 11:28 05/01/19 10:34 Morphine Sulfate IVPB 0.5 mg Q8H PRN Administration PAIN LEVEL 6-10 Impression 1. hypernatremia 2. hyperkalemia 3. SBO 4. epilepsy 5. developemental delay Plan - potassium is improving - sodium is improving - cont with d5w, this should help with potassium and sodium - if she has signs of overload give 20 mg of lasix (will help with potassium) - surgery input appreciated - pt with ng ti suction, monitor output
[2019-05-01] MEDS ORDERED: FUROSEMIDE 40 MG/4 ML INJECTABLE VIAL IVPUSH ONE (16:04)
[2019-05-01] MEDS: DEXTROSE 5%-WATER - 1,000 ML IV SCH (23:33)
[2019-05-02] MEDS ORDERED: PIPERACILLIN/TAZOBACTAM 3.375 GM VIAL IVPB ONE ×3 (01:00→17:38)
[2019-05-02] MEDS ORDERED: DEXTROSE 5%-WATER - 50 ML IVPB ONE ×3 (01:01→17:38)
[2019-05-02] MEDS: PIPERACILLIN/TAZOB 3.375 GM 3.375 GM in DEXTROSE 5%-WATER - 50 ML IVPB SCH ×3 (01:21→17:43)
[2019-05-02] MEDS: MORPHINE SULFATE 2 MG/ML VIAL IVPB PRN ×3 (04:30→21:23)
[2019-05-02 07:02] LABS: BASO % 0.1 % (0-2.0); HEMATOCRIT 36.3 % (32.4-45.2); HEMOGLOBIN 11.8 GM/dL (10.7-15.3); LYMPH % 12.5 % (8-40); MCH 28.2 pg (25.7-33.7); MCHC 32.6 g/dl (32.0-36.0); MEAN CELL VOLUME 86.4 fl (80-96); MEAN PLT VOLUME 9.4 fl (7.5-11.1); MONO % 10.5 % (3.8-10.2); NEUT % 76.9 % (42.8-82.8); PLATELET COUNT 165 K/MM3 (134-434); RDW 14.7 % (11.6-15.6)
[2019-05-02 07:07] LABS: BILIRUBIN,TOTAL 0.4 mg/dL (0.2-1); BLOOD UREA NITROGEN 19.5 mg/dL (7-18); CALCIUM 8.8 mg/dL (8.5-10.1); CREATININE 0.6 mg/dL (0.55-1.3); MAGNESIUM 2.1 mg/dL (1.8-2.4); POTASSIUM 3.9 mmol/L (3.5-5.1); TOT PROT 5.3 g/dl (6.4-8.2)
--- NOTE | 2019-05-02 09:38 | PN ---
Progress Note, Physician Chief Complaint: nonverbal TELE: NSR, sinus tach History of Present Illness: NGT - Current Medication List Current Medications: Active Medications Acetaminophen (Tylenol Suppository -) 650 mg [place] Q6H PRN PRN Reason: FEVER Albuterol Sulfate (Ventolin 0.083% Nebulizer Soln -) 1 amp NEB Q4H PRN PRN Reason: SHORTNESS OF BREATH Piperacillin Sod/Tazobactam (Sod 3.375 gm/ Dextrose) 50 mls @ 100 mls/hr IVPB Q8H-IV HAYLEY; Protocol Last Admin: 05/02/19 01:21 Dose: 100 mls/hr Dextrose (D5w -) 1,000 mls @ 75 mls/hr IV ASDIR HAYLEY Last Admin: 05/01/19 23:33 Dose: 75 mls/hr Levetiracetam (Keppra Injection -) 500 mg IVPB BID HAYLEY Last Admin: 05/01/19 23:33 Dose: 500 mg Lorazepam (Ativan Injection -) 0.25 mg IVPB DAILY PRN PRN Reason: ANXIETY Metoprolol Tartrate (Lopressor Injection -) 5 mg IVPUSH Q4H PRN PRN Reason: TACHYCARDIA Last Admin: 05/01/19 06:54 Dose: 5 mg Morphine Sulfate (Morphine Sulfate) 0.5 mg IVPB Q8H PRN PRN Reason: PAIN LEVEL 6-10 Last Admin: 05/02/19 04:30 Dose: 0.5 mg - Objective Vital Signs: Vital Signs Temperature 97.5 F L 05/02/19 09:31 Pulse Rate 110 H 05/02/19 09:31 Respiratory Rate 24 H 05/02/19 09:31 Blood Pressure 112/73 05/02/19 09:31 O2 Sat by Pulse Oximetry (%) 100 05/01/19 22:00 Cardiovascular: Yes: Regular Rate and Rhythm Respiratory: Yes: Rhonchi Gastrointestinal: Yes: Soft Edema: No Labs: CBC, BMP 05/02/19 06:15 05/02/19 06:15 INR, PTT INR 1.00 (0.82-1.09) 04/28/19 17:22 Microbiology 04/30/19 20:00 Blood - Peripheral Venous Blood Culture - Preliminary NO GROWTH OBTAINED AFTER 24 HOURS, INCUBATION TO CONTINUE FOR 4 DAYS. Laboratory Tests 05/02/19 05/02/19 06:15 06:15 WBC 8.0 Hgb 11.8 Plt Count 165 D Sodium 143 Potassium 3.9 BUN 19.5 H Creatinine 0.6 Total Bilirubin 0.4 AST 13 L ALT 10 L Alkaline Phosphatase 84 - ....Imaging EKG: Image Reviewed Assessment/Plan DATA: tele: sinus, sinus tach IMP: Sinus tachycardia: - sinus, monitoring on tele - f/u echo - likely in setting of underlying pain, anxiety, SBO - manage per primary, HR improving - trop neg x 1, no ischemia on EKG - unlikely ACS SBO: - manage per surgery, NGT in place Seizure disorder: - manage per primary GERD: -holding meds, NPO
--- NOTE | 2019-05-02 10:17 | PN ---
Progress Note, Physician History of Present Illness: patient stable no new issues ng tube in place still draining - Current Medication List Current Medications: Active Medications Acetaminophen (Tylenol Suppository -) 650 mg [place] Q6H PRN PRN Reason: FEVER Albuterol Sulfate (Ventolin 0.083% Nebulizer Soln -) 1 amp NEB Q4H PRN PRN Reason: SHORTNESS OF BREATH Piperacillin Sod/Tazobactam (Sod 3.375 gm/ Dextrose) 50 mls @ 100 mls/hr IVPB Q8H-IV HAYLEY; Protocol Last Admin: 05/02/19 01:21 Dose: 100 mls/hr Dextrose (D5w -) 1,000 mls @ 75 mls/hr IV ASDIR HAYLEY Last Admin: 05/01/19 23:33 Dose: 75 mls/hr Levetiracetam (Keppra Injection -) 500 mg IVPB BID HAYLEY Last Admin: 05/01/19 23:33 Dose: 500 mg Lorazepam (Ativan Injection -) 0.25 mg IVPB DAILY PRN PRN Reason: ANXIETY Metoprolol Tartrate (Lopressor Injection -) 5 mg IVPUSH Q4H PRN PRN Reason: TACHYCARDIA Last Admin: 05/01/19 06:54 Dose: 5 mg Morphine Sulfate (Morphine Sulfate) 0.5 mg IVPB Q8H PRN PRN Reason: PAIN LEVEL 6-10 Last Admin: 05/02/19 04:30 Dose: 0.5 mg - Objective Vital Signs: Vital Signs Temperature 97.5 F L 05/02/19 09:31 Pulse Rate 110 H 05/02/19 09:31 Respiratory Rate 24 H 05/02/19 09:31 Blood Pressure 112/73 05/02/19 09:31 O2 Sat by Pulse Oximetry (%) 100 05/01/19 22:00 Constitutional: Yes: No Distress, Calm Cardiovascular: Yes: Regular Rate and Rhythm Respiratory: Yes: Regular, CTA Bilaterally Gastrointestinal: Yes: Normal Bowel Sounds, Soft Musculoskeletal: Yes: WNL Extremities: Yes: WNL Neurological: Yes: Alert, Oriented Psychiatric: Yes: Alert, Oriented Labs: CBC, BMP 05/02/19 06:15 05/02/19 06:15 INR, PTT INR 1.00 (0.82-1.09) 04/28/19 17:22 Assessment/Plan 59 year-old female resident of [facility], with a PMH significant for profound mental retardation, cerebral palsy, congenital quadriplegia, severe scoliosis, seizure disorder, and GERD. Admitted for SBO. SBO Profound mental retardation Cerebral palsy Congenital quadriplegia Severe scoliosis Seizure disorder GERD plan npo hydration ng suctioning ct abx
[2019-05-02] MEDS: levETIRAcetam 500 MG/5 ML INJECTION VIAL IVPB SCH ×2 (11:10→21:23)
--- NOTE | 2019-05-02 11:28 | PN ---
Progress Note, Physician History of Present Illness: Pt seen and examined at bedside. She appears comfortable. - Current Medication List Current Medications: Active Medications Acetaminophen (Tylenol Suppository -) 650 mg [place] Q6H PRN PRN Reason: FEVER Albuterol Sulfate (Ventolin 0.083% Nebulizer Soln -) 1 amp NEB Q4H PRN PRN Reason: SHORTNESS OF BREATH Piperacillin Sod/Tazobactam (Sod 3.375 gm/ Dextrose) 50 mls @ 100 mls/hr IVPB Q8H-IV HAYLEY; Protocol Last Admin: 05/02/19 11:10 Dose: 100 mls/hr Dextrose (D5w -) 1,000 mls @ 75 mls/hr IV ASDIR HAYLEY Last Admin: 05/01/19 23:33 Dose: 75 mls/hr Levetiracetam (Keppra Injection -) 500 mg IVPB BID HAYLEY Last Admin: 05/02/19 11:10 Dose: 500 mg Lorazepam (Ativan Injection -) 0.25 mg IVPB DAILY PRN PRN Reason: ANXIETY Metoprolol Tartrate (Lopressor Injection -) 5 mg IVPUSH Q4H PRN PRN Reason: TACHYCARDIA Last Admin: 05/01/19 06:54 Dose: 5 mg Morphine Sulfate (Morphine Sulfate) 0.5 mg IVPB Q8H PRN PRN Reason: PAIN LEVEL 6-10 Last Admin: 05/02/19 04:30 Dose: 0.5 mg - Objective Vital Signs: Vital Signs Temperature 97.5 F L 05/02/19 09:31 Pulse Rate 110 H 05/02/19 09:31 Respiratory Rate 24 H 05/02/19 09:31 Blood Pressure 112/73 05/02/19 09:31 O2 Sat by Pulse Oximetry (%) 100 05/01/19 22:00 Constitutional: Yes: Calm Eyes: Yes: Conjunctiva Clear HENT: Yes: Atraumatic Cardiovascular: Yes: S1, S2 Respiratory: Yes: CTA Bilaterally Gastrointestinal: Yes: Soft, Other (ngt) Genitourinary: Yes: Incontinence Musculoskeletal: Yes: Muscle Weakness, Other (contracted) Edema: No Neurological: Yes: Pre-Existing Deficit Labs: CBC, BMP 05/02/19 06:15 05/02/19 06:15 INR, PTT INR 1.00 (0.82-1.09) 04/28/19 17:22 Problem List - Problems (1) Hyperkalemia Code(s): E87.5 - HYPERKALEMIA (2) Hypernatremia Code(s): E87.0 - HYPEROSMOLALITY AND HYPERNATREMIA (3) SBO (small bowel obstruction) Code(s): K56.609 - UNSP INTESTNL OBST, UNSP TO PARTIAL VERSUS COMPLETE OBST (4) Seizure Code(s): R56.9 - UNSPECIFIED CONVULSIONS Assessment/Plan Current Medications Generic Name Dose Route Start Last Admin Trade Name Freq PRN Reason Stop Dose Admin Acetaminophen 650 mg 04/30/19 14:13 Tylenol Suppository - [place] Q6H PRN FEVER Albuterol Sulfate 1 amp 04/30/19 14:13 Ventolin 0.083% Nebulizer Soln - NEB Q4H PRN SHORTNESS OF BREATH Piperacillin Sod/Tazobactam 50 mls @ 100 mls/hr 04/30/19 18:00 05/02/19 11:10 Sod 3.375 gm/ Dextrose IVPB 100 mls/hr Q8H-IV HAYLEY Administration Protocol Dextrose 1,000 mls @ 75 mls/hr 04/30/19 21:45 05/01/19 23:33 D5w - IV 75 mls/hr ASDIR HAYLEY Administration Levetiracetam 500 mg 04/30/19 22:00 05/02/19 11:10 Keppra Injection - IVPB 500 mg BID HAYLEY Administration Lorazepam 0.25 mg 05/01/19 06:00 Ativan Injection - IVPB DAILY PRN ANXIETY Metoprolol Tartrate 5 mg 04/30/19 15:49 05/01/19 06:54 Lopressor Injection - IVPUSH 5 mg Q4H PRN Administration TACHYCARDIA Morphine Sulfate 0.5 mg 04/30/19 11:28 05/02/19 04:30 Morphine Sulfate IVPB 0.5 mg Q8H PRN Administration PAIN LEVEL 6-10 Impression 1. hypernatremia 2. hyperkalemia 3. SBO 4. epilepsy 5. developemental delay Plan - potassium is normal - discussed with medical team - no objection to changing fluids over to clinimix - surgery follow up - monitor lytes closely - pt with ng ti suction, monitor output
--- NOTE | 2019-05-02 12:20 | PN ---
Progress Note, Physician Chief Complaint: patient with hyperkalemia and hypernatremia which are both now resolved. renal consulted. for a swallow evaluation once more stable. patient had a recent swallow evaluation at [facility] which recommended pureed diet with nectar thick fluids. History of Present Illness: Patient is a 59 year old female (resident of [facility]) with a PMHx significant for profound mental retardation, cerebral palsy, congenital quadriplegia, severe scoliosis, seizure disorder, and GERD. Transferred from [place] to [facility] for further management of SBO, sepsis and tachycardia. - Current Medication List Current Medications: Active Medications Acetaminophen (Tylenol Suppository -) 650 mg [place] Q6H PRN PRN Reason: FEVER Albuterol Sulfate (Ventolin 0.083% Nebulizer Soln -) 1 amp NEB Q4H PRN PRN Reason: SHORTNESS OF BREATH Piperacillin Sod/Tazobactam (Sod 3.375 gm/ Dextrose) 50 mls @ 100 mls/hr IVPB Q8H-IV HAYLEY; Protocol Last Admin: 05/02/19 11:10 Dose: 100 mls/hr Amino Acids (Clinimix -) 1,000 mls @ 84 mls/hr IV Q12H HAYLEY Levetiracetam (Keppra Injection -) 500 mg IVPB BID HAYLEY Last Admin: 05/02/19 11:10 Dose: 500 mg Lorazepam (Ativan Injection -) 0.25 mg IVPB DAILY PRN PRN Reason: ANXIETY Metoprolol Tartrate (Lopressor Injection -) 5 mg IVPUSH Q4H PRN PRN Reason: TACHYCARDIA Last Admin: 05/01/19 06:54 Dose: 5 mg Morphine Sulfate (Morphine Sulfate) 0.5 mg IVPB Q8H PRN PRN Reason: PAIN LEVEL 6-10 Last Admin: 05/02/19 04:30 Dose: 0.5 mg - Objective Vital Signs: Vital Signs Temperature 97.5 F L 05/02/19 09:31 Pulse Rate 110 H 05/02/19 09:31 Respiratory Rate 24 H 05/02/19 09:31 Blood Pressure 112/73 05/02/19 09:31 O2 Sat by Pulse Oximetry (%) 100 05/01/19 22:00 Constitutional: Yes: Calm Eyes: Yes: WNL HENT: Yes: Atraumatic Neck: Yes: Supple Cardiovascular: Yes: Tachycardia Respiratory: Yes: Rales Gastrointestinal: Yes: Distention ...Rectal Exam: Yes: Deferred Genitourinary: Yes: WNL Labs: CBC, BMP 05/02/19 06:15 05/02/19 06:15 INR, PTT INR 1.00 (0.82-1.09) 04/28/19 17:22 Problem List - Problems (1) Sepsis Assessment/Plan: patient with elevated wbc, tachycardia, respiratory rate > 24, chest xray shows possible early left infiltrate On Zosyn. WBC improved on Zosyn, tachycardia improving. on 2 liters nasal cannula. monitor respiratory status. added 2 liters of nasal cannula. blood cultures ordered and pending. ID following Rhonchi of upper lobes improving. Given lasix 20 ivpb yesterday with good response. monitor output Code(s): A41.9 - SEPSIS, UNSPECIFIED ORGANISM (2) SBO (small bowel obstruction) Assessment/Plan: NGT to low intermittent suction abd xray with sbo abdomen distended, absent bowel sounds monitor drain output surgery following, notes appreciated Code(s): K56.609 - UNSP INTESTNL OBST, UNSP TO PARTIAL VERSUS COMPLETE OBST (3) Aspiration into airway Assessment/Plan: chest xray shows left lower lobe infiltrate. on zosyn. support with 2 liters of nasal cannula monitor oxygen levels and titrate off oxygen as tolerated. not home oxygen dependent at home. Code(s): T17.908A - UNSP FB IN RESP TRACT, PART UNSP CAUSING OTH INJURY, INIT (4) Decreased oral intake Assessment/Plan: NPO. day #4 of NPO, will start Clinimax for nutrition. before she starts mouth feeds, will need a swallow evaluation. speech and swallow consulted and plan of care discussed. Code(s): R63.8 - OTHER SYMPTOMS AND SIGNS CONCERNING FOOD AND FLUID INTAKE (5) Seizure Assessment/Plan: on keppra. on tegratol in [place], continue keppra iv bid. once no longer npo, can restart tegretol. Code(s): R56.9 - UNSPECIFIED CONVULSIONS (6) Hypernatremia Assessment/Plan: renal consulted for electrolyte imbalance. recommendations appreciated. Code(s): E87.0 - HYPEROSMOLALITY AND HYPERNATREMIA (7) Hyperkalemia Assessment/Plan: resolved. monitor K daily Code(s): E87.5 - HYPERKALEMIA (8) Profound mental handicap Assessment/Plan: supportive care. Code(s): F73 - PROFOUND INTELLECTUAL DISABILITIES (9) Tachycardia Assessment/Plan: tachycardia likely in the setting of abdominal pain, anxiety, NGT- improving. trop neg x 1, no ischemia on EKG on morphine, lopressor iv apply 2 liters of nasal cannula for congestion. Code(s): R00.0 - TACHYCARDIA, UNSPECIFIED (10) Left pulmonary infiltrate on CXR Assessment/Plan: apply oxygen 2 liters. patient noted to be congested and breathing rate 24s on zosyn responded well to lasix Code(s): R91.8 - OTHER NONSPECIFIC ABNORMAL FINDING OF LUNG FIELD (11) Prophylactic measure Assessment/Plan: fen npo on clinimax monitor electrolytes full code Code(s): Z29.9 - ENCOUNTER FOR PROPHYLACTIC MEASURES, UNSPECIFIED Visit type - Emergency Visit Emergency Visit: Yes ED Registration Date: 04/28/19 Care time: The patient presented to the Emergency Department on the above date and was hospitalized for further evaluation of their emergent condition. - New Patient This patient is new to me today: No - Critical Care Critical Care patient: No - Discharge Referral Referred to [facility] Med P.C.: No
--- NOTE | 2019-05-02 13:10 | PN ---
Progress Note (short form) - Note Progress Note: Surgery Patient being followed for SBO seen and examined at bedside with family and her Aide from the facility at bedside. Patient's sister states she appears to be more uncomfortable this morning. The patient's sister states she has been relatively comfortable throughout the weekend and denies any new symproms. The NGT has been maintained on low, continuous wall suction with low output this morning. Vital Signs Temp 97.5 F L 05/02/19 09:31 Pulse 110 H 05/02/19 09:31 Resp 24 H 05/02/19 09:31 BP 112/73 05/02/19 09:31 Pulse Ox 100 05/01/19 22:00 Intake & Output 05/01/19 05/02/19 05/02/19 23:59 11:59 23:59 Intake Total 1050 900 Output Total 400 Balance 650 900 Intake: IV 900 900 D5w - 1,000 ml @ 75 mls/ 900 900 hr IV ASDIR HAYLEY Rx#: [id number] IVPB 150 Oral 0 0 Output: Gastric Drainage 400 Other: Voiding Method Incontinent Incontinent # Unmeasured Voids Void 1 1 Bowel Movement No CBC, BMP 05/02/19 06:15 05/02/19 06:15 PE: Patient resting comfortably but appears restless this morning. Unlabored resp on RA Extremities contracted x4 Abd: Soft, nontender, mild distention, no guarding, no rebound. Healed midline surgical scar and lateral scar. ABD x-ray pending Problem List - Problems (1) SBO (small bowel obstruction) Assessment/Plan: -NPO/NGT- maintained at low continuous suction -IVF - serial abd exams - f/u serial x rays -Surgery to follow Evaluation and plan discussed with Dr Dickerson Code(s): K56.609 - UNSP INTESTNL OBST, UNSP TO PARTIAL VERSUS COMPLETE OBST
--- NOTE | 2019-05-02 14:02 | CONSULT ---
Admitting History and Physical - Primary Care Physician PCP: Soco Perry - Admission History of Present Illness: 59 year old female with pmhx of devleopemental delay, epilepsy, gerd and scoliosis admitted with SBO. The NGT has been maintained on low, continuous wall suction with low output this morning, draining green liquid. This is my first consult with this pt. At [facility], patient is on a pured diet with honey thick liquids, medication taken with food. She receives power pudding at breakfast, Weight gain supplement at breakfast and dinner, bran cereal three times a week, prune juice twice daily. She is supplemented with Ensure pudding twice a day and power pudding once daily. 2 kristine hn is given for meal refusal. 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 In summary, it was inconsistent by labial seal, reduced lingual range of motion, pooling in the vallecula before the swallow. No aspiration.slow oral transport. Delayed swallow. No aspiration. Pure and nectar thick liquid were recommended) Speech Evaluation - Communication Communication: Yes: Non-Communicable Oral Expression Ability: Yes: Non-Verbal, Non-Vocal - Swallow Evaluation/Bedside Assessment Current Nutritional Intake: NPO, NG Tube (suction) Recommendations - Speech Evaluation, Impression/Plan Impression: Case reviewed with PNP as well as pt's family. Pt is receiving NG suction at this time. Swallowing assessment will be performed once medically cleared.
--- NOTE | 2019-05-02 14:08 | ECHO ---
Name: SKIP JEAN Exam:Adult Echocardiogram Study Date: 05/02/2019 12:58 PM Age: 59 yrs Reason For Study: CHF Height: 60 in Weight: 62 lb BSA: 1.1 m2 MMode/2D Measurements & Calculations IVSd: 0.76 cm Ao root diam: 2.9 cm LVIDd: 2.8 cm LA dimension: 2.7 cm LVIDs: 1.9 cm LVPWd: 0.69 cm IVSs: 0.94 cm LVPWs: 0.73 cm EDV(Teich): 28.6 ml ESV(Teich): 11.4 ml Doppler Measurements & Calculations MV E max taz: 49.9 cm/sec Ao V2 max: 124.9 cm/sec MV A max taz: 91.1 cm/sec Ao max P.2 mmHg MV E/A: 0.55 Ao V2 mean: 88.8 cm/sec Ao mean P.5 mmHg Ao V2 VTI: 18.1 cm Med Peak E' Taz: 2.7 cm/sec Med E/e': 18.2 Lat Peak E' Taz: 2.6 cm/sec Lat E/e': 18.9 Procedure A complete two-dimensional transthoracic echocardiogram was performed (2D, M-mode, Doppler and color flow Doppler). Technically limited study. Left Ventricle The left ventricle is normal in size. Left ventricular systolic function is normal. Ejection Fraction = 60- 65%. LV diastology reveals E/A reversal with elevated filling pressure (E/E' 18) c/w diastolic dysfun ction. No regional wall motion abnormalities noted. Right Ventricle The right ventricle is not well visualized. Atria The left atrial size is normal. Right atrial size is normal. Mitral Valve There is mild mitral annular calcification. There is mild mitral regurgitation. Tricuspid Valve The tricuspid valve is normal in structure and function. No tricuspid regurgitation. Aortic Valve The aortic valve is normal in structure and function. No aortic regurgitation is present. Pulmonic Valve The pulmonic valve is not well visualized. Great Vessels The aortic root is normal size. Pericardium/Pleura There is no pericardial effusion. Interpretation Summary Technically limited study The left ventricle is normal in size. Left ventricular systolic function is normal. No regional wall motion abnormalities noted. Ejection Fraction = 60-65%. LV diastology reveals E/A reversal with elevated filling pressure (E/E' 18) c/w diastolic dysfunction The right ventricle is not well visualized. The left atrial size is normal. Right atrial size is normal. There is mild mitral annular calcification. There is mild mitral regurgitation. There is no pericardial effusion. Previous study is not available for comparison Og Driver MD 05/02/2019 02:07 PM
[2019-05-02] MEDS: AMINO ACIDS 4.25%/D5W 1,000 ML IV SCH (15:13)
[2019-05-03] MEDS ORDERED: PIPERACILLIN/TAZOBACTAM 3.375 GM VIAL IVPB ONE ×3 (01:39→17:34)
[2019-05-03] MEDS ORDERED: DEXTROSE 5%-WATER - 50 ML IVPB ONE ×3 (01:40→17:34)
[2019-05-03] MEDS: PIPERACILLIN/TAZOB 3.375 GM 3.375 GM in DEXTROSE 5%-WATER - 50 ML IVPB SCH ×3 (01:52→17:43)
[2019-05-03] MEDS: AMINO ACIDS 4.25%/D5W 1,000 ML IV SCH ×4 (04:30→22:06)
[2019-05-03] MEDS: MORPHINE SULFATE 2 MG/ML VIAL IVPB PRN ×4 (07:03→22:01)
--- NOTE | 2019-05-03 07:51 | PN ---
Progress Note (short form) - Note Progress Note: Surgery Patient being followed for SBO seen and examined at bedside with family and her Aide from the facility at bedside. Patient's sister states she exhibited pain throughout the evening and overnight crying at times and not sleeping. Nursing reports no new symptoms and the NGT has been maintained on low, continuous wall suction. Vital Signs Temp 97.8 F 05/02/19 23:00 Pulse 121 H 05/02/19 23:00 Resp 22 H 05/02/19 23:00 BP 107/67 05/02/19 23:00 Pulse Ox 97 05/02/19 21:00 Intake & Output 05/02/19 05/02/19 05/03/19 11:59 23:59 11:59 Intake Total 900 436 Balance 900 436 Intake: IV 900 336 Clinimix 336 D5w - 1,000 ml @ 75 mls/ 900 hr IV ASDIR H[facility]LEY Rx#: [id number] IVPB 100 Oral 0 0 Other: Voiding Method Incontinent Incontinent # Unmeasured Voids Void 1 3 Bowel Movement Yes # Bowel Movements 2 CBC, BMP 05/02/19 06:15 05/02/19 06:15 PE: Patient resting comfortably but appears restless this morning. Unlabored resp on RA Extremities contracted x4 Abd: Soft, nontender, mild distention, no guarding, no rebound. Healed midline surgical scar and lateral scar. ABD on 05/02, no significant change from prior study ABD x-ray this morning pending Problem List - Problems (1) SBO (small bowel obstruction) Assessment/Plan: -reassess pain management given her weight- will discuss with team. -NPO/NGT- maintained at low continuous suction -IVF - serial abd exams - f/u serial x rays -Surgery to follow Evaluation and plan discussed with Dr Dickerson Code(s): K56.609 - UNSP INTESTNL OBST, UNSP TO PARTIAL VERSUS COMPLETE OBST
--- NOTE | 2019-05-03 07:56 | PN ---
Progress Note, Physician Chief Complaint: patient non-verbal. Sister at bedside and fells she is having more pain. History of Present Illness: History of Present Illness: Patient is a 59 year old female (resident of [facility]) with a PMHx significant for profound mental retardation, cerebral palsy, congenital quadriplegia, severe scoliosis, seizure disorder, and GERD. Transferred from [place] to [facility] for further management of SBO, sepsis and tachycardia. - Current Medication List Current Medications: Active Medications Acetaminophen (Tylenol Suppository -) 650 mg [place] Q6H PRN PRN Reason: FEVER Albuterol Sulfate (Ventolin 0.083% Nebulizer Soln -) 1 amp NEB Q4H PRN PRN Reason: SHORTNESS OF BREATH Piperacillin Sod/Tazobactam (Sod 3.375 gm/ Dextrose) 50 mls @ 100 mls/hr IVPB Q8H-IV [facility]LEY; Protocol Last Admin: 05/03/19 01:52 Dose: 100 mls/hr Amino Acids (Clinimix -) 1,000 mls @ 84 mls/hr IV Q12H [facility] Last Admin: 05/03/19 04:30 Dose: 84 mls/hr Levetiracetam (Keppra Injection -) 500 mg IVPB BID [facility] Last Admin: 05/02/19 21:23 Dose: 500 mg Lorazepam (Ativan Injection -) 0.25 mg IVPB DAILY PRN PRN Reason: ANXIETY Last Admin: 05/03/19 01:51 Dose: 0.25 mg Metoprolol Tartrate (Lopressor Injection -) 5 mg IVPUSH Q4H PRN PRN Reason: TACHYCARDIA Last Admin: 05/01/19 06:54 Dose: 5 mg Morphine Sulfate (Morphine Sulfate) 0.5 mg IVPB Q8H PRN PRN Reason: PAIN LEVEL 6-10 Last Admin: 05/03/19 07:03 Dose: 0.5 mg - Objective Vital Signs: Vital Signs Temperature 98.6 F 05/03/19 06:00 Pulse Rate 125 H 05/03/19 06:00 Respiratory Rate 22 H 05/03/19 06:00 Blood Pressure 109/76 05/03/19 06:00 O2 Sat by Pulse Oximetry (%) 97 05/02/19 21:00 Constitutional: Yes: Calm, Thin, Other Eyes: Yes: WNL, Conjunctiva Clear, EOM Intact HENT: Yes: WNL, Atraumatic, Normocephalic Neck: Yes: WNL, Supple, Trachea Midline Cardiovascular: Yes: WNL, Regular Rate and Rhythm, Tachycardia Respiratory: Yes: WNL, Regular, Diminished (at bases, pt very contracted), Rhonchi (scattered) Gastrointestinal: Yes: Soft, Hypoactive Bowel Sounds, Other (NGT noted to LIWS with greenish drainage. Abd firm, BS hypoactive. NPO) ...Rectal Exam: Yes: Deferred Genitourinary: Yes: WNL (daiper in place) Breast(s): Yes: WNL Musculoskeletal: Yes: Other (UE/LE severly contracted) Extremities: Yes: Deformity Edema: Yes Edema: LLE: Trace, RLE: Trace Peripheral Pulses WNL: Yes Integumentary: Yes: WNL Neurological: Yes: Other (developmentaly delayed, non verbal. Able to trak with eyes) ...Motor Strength: LUE, LLE, RUE, RLE (generalized weakness, contracted) Psychiatric: Yes: Alert Labs: CBC, BMP 05/02/19 06:15 05/02/19 06:15 INR, PTT INR 1.00 (0.82-1.09) 04/28/19 17:22 Problem List - Problems (1) SBO (small bowel obstruction) Assessment/Plan: -reassess pain management given her weight- will discuss with team. -NPO/NGT- maintained at low continuous suction -IVF - serial abd exams - f/u serial x rays -Surgery Dr Dickerson to follow Code(s): K56.609 - UNSP INTESTNL OBST, UNSP TO PARTIAL VERSUS COMPLETE OBST (2) Hypokalemia Assessment/Plan: K 3.1 after repletion yesterday. KCL IV given continue to monitor K, maintain >4.0 Code(s): E87.6 - HYPOKALEMIA (3) Prophylactic measure Code(s): Z29.9 - ENCOUNTER FOR PROPHYLACTIC MEASURES, UNSPECIFIED (4) Seizure Assessment/Plan: on keppra. on [place]gratol in [place], continue keppra iv bid. once no longer npo, can restart tegretol. Code(s): R56.9 - UNSPECIFIED CONVULSIONS (5) Sepsis Assessment/Plan: patient with elevated wbc 9.2, tachycardia, respiratory rate > 24, chest xray shows possible early left infiltrate c/w Zosyn. monitor respiratory status. c/w 2 L NC blood cultures ordered and pending. ID following Rhonchi of upper lobes improving. Given lasix 20 ivpb yesterday with good response. monitor output Code(s): A41.9 - SEPSIS, UNSPECIFIED ORGANISM (6) Aspiration into airway Code(s): T17.908A - UNSP FB IN RESP TRACT, PART UNSP CAUSING OTH INJURY, INIT (7) Cerebral palsy Assessment/Plan: supportive care. Code(s): G80.9 - CEREBRAL PALSY, UNSPECIFIED (8) Left pulmonary infiltrate on CXR Assessment/Plan: CXR shows left lower lobe infiltrate. c/w zosyn. support with 2 liters of nasal cannula monitor oxygen levels and titrate off oxygen as tolerated. not home oxygen dependent at home. Code(s): R91.8 - OTHER NONSPECIFIC ABNORMAL FINDING OF LUNG FIELD (9) Tachycardia Assessment/Plan: HR 120 with liekly pain component MSO4 .5mg IV q8H will increase the frequency to q4 H and monitor HR Code(s): R00.0 - TACHYCARDIA, UNSPECIFIED (10) Decreased oral intake Assessment/Plan: NPO. day #5 of NPO, will start Clinimax for nutrition. speech and swallow consulted and will assess once taking PO Code(s): R63.8 - OTHER SYMPTOMS AND SIGNS CONCERNING FOOD AND FLUID INTAKE (11) Hypernatremia Assessment/Plan: Na now 135 appreciate renal consultation continue to monitor electrolytes Code(s): E87.0 - HYPEROSMOLALITY AND HYPERNATREMIA Visit type - Emergency Visit Emergency Visit: Yes ED Registration Date: 04/28/19 Care time: The patient presented to the Emergency Department on the above date and was hospitalized for further evaluation of their emergent condition. - New Patient This patient is new to me today: Yes Date on this admission: 05/03/19 - Critical Care Critical Care patient: No - Discharge Referral Referred to [facility] Med P.C.: No
[2019-05-03 08:42] LABS: HEMATOCRIT 37.7 % (32.4-45.2); HEMOGLOBIN 12.3 GM/dL (10.7-15.3); MCH 28.1 pg (25.7-33.7); MCHC 32.5 g/dl (32.0-36.0); MEAN CELL VOLUME 86.5 fl (80-96); MEAN PLT VOLUME 9.5 fl (7.5-11.1); MONO % 8.2 % (3.8-10.2); NEUT % 78.8 % (42.8-82.8); PLATELET COUNT 183 K/MM3 (134-434); RBC 4.36 M/mm3 (3.60-5.2); RDW 14.3 % (11.6-15.6); WHITE BLOOD COUNT 9.2 K/mm3 (4.0-10.0)
[2019-05-03 08:51] LABS: BILIRUBIN,TOTAL 0.5 mg/dL (0.2-1); BLOOD UREA NITROGEN 22.6 mg/dL (7-18); CALCIUM 8.6 mg/dL (8.5-10.1); CREATININE 0.4 mg/dL (0.55-1.3); MAGNESIUM 2.1 mg/dL (1.8-2.4); POTASSIUM 3.1 mmol/L (3.5-5.1); TOT PROT 5.6 g/dl (6.4-8.2)
[2019-05-03] MEDS: levETIRAcetam 500 MG/5 ML INJECTION VIAL IVPB SCH ×2 (09:54→22:39)
--- NOTE | 2019-05-03 12:12 | PN ---
Progress Note (short form) - Note Progress Note: s: nonverbal Current Medications Acetaminophen (Tylenol Suppository -) 650 mg [place] Q6H PRN PRN Reason: FEVER Albuterol Sulfate (Ventolin 0.083% Nebulizer Soln -) 1 amp NEB Q4H PRN PRN Reason: SHORTNESS OF BREATH Piperacillin Sod/Tazobactam (Sod 3.375 gm/ Dextrose) 50 mls @ 100 mls/hr IVPB Q8H-IV H[facility]LEY; Protocol Last Admin: 05/03/19 09:54 Dose: 100 mls/hr Amino Acids (Clinimix -) 1,000 mls @ 84 mls/hr IV Q12H H[facility]LEY Last Admin: 05/03/19 04:30 Dose: 84 mls/hr Levetiracetam (Keppra Injection -) 500 mg IVPB BID H[facility]LEY Last Admin: 05/03/19 09:54 Dose: 500 mg Lorazepam (Ativan Injection -) 0.25 mg IVPB DAILY PRN PRN Reason: ANXIETY Last Admin: 05/03/19 01:51 Dose: 0.25 mg Metoprolol Tartrate (Lopressor Injection -) 5 mg IVPUSH Q4H PRN PRN Reason: TACHYCARDIA Last Admin: 05/01/19 06:54 Dose: 5 mg Morphine Sulfate (Morphine Sulfate) 0.5 mg IVPB Q4H PRN PRN Reason: PAIN LEVEL 6-10 Vital Signs Period Temp Pulse Resp BP Sys/[place] Pulse Ox Last 24 Hr 97.4 F-98.6 F 110-125 22-24 105-125/67-89 97 Gen: NAD Cardiovascular: Yes: Regular Rate and Rhythm Respiratory: Yes: Rhonchi Gastrointestinal: Yes: Soft Edema: No no jaundice diaphoresis not agitated - ....Imaging EKG: Image Reviewed Assessment/Plan DATA: tele: sinus, sinus tach echo 04/2019 nl LV function, E/A reversal, RV not well visualized, mild MR IMP: Sinus tachycardia: - sinus, monitoring on tele - echo unremarkable - likely in setting of underlying pain, anxiety, SBO - manage per primary, HR improving - trop neg x 1, no ischemia on EKG - unlikely ACS SBO: - manage per surgery, NGT in place Seizure disorder: - manage per primary GERD: -holding meds, NPO
--- NOTE | 2019-05-03 13:21 | PN ---
Progress Note, Physician - Current Medication List Current Medications: Active Medications Acetaminophen (Tylenol Suppository -) 650 mg [place] Q6H PRN PRN Reason: FEVER Albuterol Sulfate (Ventolin 0.083% Nebulizer Soln -) 1 amp NEB Q4H PRN PRN Reason: SHORTNESS OF BREATH Piperacillin Sod/Tazobactam (Sod 3.375 gm/ Dextrose) 50 mls @ 100 mls/hr IVPB Q8H-IV HAYLEY; Protocol Last Admin: 05/03/19 09:54 Dose: 100 mls/hr Amino Acids (Clinimix -) 1,000 mls @ 84 mls/hr IV Q12H HAYLEY Last Admin: 05/03/19 04:30 Dose: 84 mls/hr Levetiracetam (Keppra Injection -) 500 mg IVPB BID HAYLEY Last Admin: 05/03/19 09:54 Dose: 500 mg Lorazepam (Ativan Injection -) 0.25 mg IVPB DAILY PRN PRN Reason: ANXIETY Last Admin: 05/03/19 01:51 Dose: 0.25 mg Metoprolol Tartrate (Lopressor Injection -) 5 mg IVPUSH Q4H PRN PRN Reason: TACHYCARDIA Last Admin: 05/01/19 06:54 Dose: 5 mg Morphine Sulfate (Morphine Sulfate) 0.5 mg IVPB Q4H PRN PRN Reason: PAIN LEVEL 6-10 Last Admin: 05/03/19 13:15 Dose: 0.5 mg - Objective Vital Signs: Vital Signs Temperature 98.6 F 05/03/19 06:00 Pulse Rate 125 H 05/03/19 06:00 Respiratory Rate 22 H 05/03/19 06:00 Blood Pressure 109/76 05/03/19 06:00 O2 Sat by Pulse Oximetry (%) 97 05/02/19 21:00 Labs: CBC, BMP 05/03/19 07:18 05/03/19 07:18 INR, PTT INR 1.00 (0.82-1.09) 04/28/19 17:22
[2019-05-03] MEDS ORDERED: PT OWN MED DRAWER 7, Y5N ONE (13:52)
[2019-05-03] MEDS: KCL 10 MEQ IVPB 10 MEQ/100 ML INFUS.BAG IVPB SCH ×2 (14:01→15:15)
--- NOTE | 2019-05-03 16:14 | PN ---
Progress Note, Physician History of Present Illness: Pt seen and examined at bedside. She appears comfortable. She is on clinimix. - Current Medication List Current Medications: Active Medications Acetaminophen (Tylenol Suppository -) 650 mg [place] Q6H PRN PRN Reason: FEVER Albuterol Sulfate (Ventolin 0.083% Nebulizer Soln -) 1 amp NEB Q4H PRN PRN Reason: SHORTNESS OF BREATH Piperacillin Sod/Tazobactam (Sod 3.375 gm/ Dextrose) 50 mls @ 100 mls/hr IVPB Q8H-IV HAYLEY; Protocol Last Admin: 05/03/19 09:54 Dose: 100 mls/hr Amino Acids (Clinimix -) 1,000 mls @ 84 mls/hr IV Q12H HAYLEY Last Admin: 05/03/19 04:30 Dose: 84 mls/hr Levetiracetam (Keppra Injection -) 500 mg IVPB BID HAYLEY Last Admin: 05/03/19 09:54 Dose: 500 mg Lorazepam (Ativan Injection -) 0.25 mg IVPB DAILY PRN PRN Reason: ANXIETY Last Admin: 05/03/19 01:51 Dose: 0.25 mg Metoprolol Tartrate (Lopressor Injection -) 5 mg IVPUSH Q4H PRN PRN Reason: TACHYCARDIA Last Admin: 05/01/19 06:54 Dose: 5 mg Morphine Sulfate (Morphine Sulfate) 0.5 mg IVPB Q4H PRN PRN Reason: PAIN LEVEL 6-10 Last Admin: 05/03/19 13:15 Dose: 0.5 mg - Objective Vital Signs: Vital Signs Temperature 99 F 05/03/19 14:00 Pulse Rate 113 H 05/03/19 14:00 Respiratory Rate 20 05/03/19 14:00 Blood Pressure 129/86 05/03/19 14:00 O2 Sat by Pulse Oximetry (%) 95 05/03/19 15:42 Constitutional: Yes: Calm Eyes: Yes: Conjunctiva Clear HENT: Yes: Atraumatic Cardiovascular: Yes: S1, S2 Respiratory: Yes: CTA Bilaterally Gastrointestinal: Yes: Soft, Other (ng tube) Genitourinary: Yes: Incontinence Musculoskeletal: Yes: Other (contracted) Edema: No Neurological: Yes: Pre-Existing Deficit Labs: CBC, BMP 05/03/19 07:18 05/03/19 07:18 INR, PTT INR 1.00 (0.82-1.09) 04/28/19 17:22 Problem List - Problems (1) Hyperkalemia Code(s): E87.5 - HYPERKALEMIA (2) Hypernatremia Code(s): E87.0 - HYPEROSMOLALITY AND HYPERNATREMIA (3) SBO (small bowel obstruction) Code(s): K56.609 - UNSP INTESTNL OBST, UNSP TO PARTIAL VERSUS COMPLETE OBST (4) Seizure Code(s): R56.9 - UNSPECIFIED CONVULSIONS Assessment/Plan Current Medications Generic Name Dose Route Start Last Admin Trade Name Freq PRN Reason Stop Dose Admin Acetaminophen 650 mg 04/30/19 14:13 Tylenol Suppository - ND Q6H PRN FEVER Albuterol Sulfate 1 amp 04/30/19 14:13 Ventolin 0.083% Nebulizer Soln - NEB Q4H PRN SHORTNESS OF BREATH Piperacillin Sod/Tazobactam 50 mls @ 100 mls/hr 04/30/19 18:00 05/03/19 09:54 Sod 3.375 gm/ Dextrose IVPB 100 mls/hr Q8H-IV HAYLEY Administration Protocol Amino Acids 1,000 mls @ 84 mls/hr 05/02/19 12:30 05/03/19 04:30 Clinimix - IV 84 mls/hr Q12H HAYLEY Administration Levetiracetam 500 mg 04/30/19 22:00 05/03/19 09:54 Keppra Injection - IVPB 500 mg BID HAYLEY Administration Lorazepam 0.25 mg 05/01/19 06:00 05/03/19 01:51 Ativan Injection - IVPB 0.25 mg DAILY PRN Administration ANXIETY Metoprolol Tartrate 5 mg 04/30/19 15:49 05/01/19 06:54 Lopressor Injection - IVPUSH 5 mg Q4H PRN Administration TACHYCARDIA Morphine Sulfate 0.5 mg 05/03/19 11:28 05/03/19 13:15 Morphine Sulfate IVPB 0.5 mg Q4H PRN Administration PAIN LEVEL 6-10 Impression 1. hypernatremia 2. hyperkalemia 3. SBO 4. epilepsy 5. developemental delay Plan - decrease rate of clinimix - replace potassium - monitor labs closely while on clinimix - surgery follow up - potassium is normal - discussed with medical team - no objection to changing fluids over to clinimix - surgery follow up - monitor lytes closely - pt with ng ti suction, monitor output
[2019-05-04] MEDS ORDERED: DEXTROSE 5%-WATER - 50 ML IVPB ONE ×3 (01:00→17:49)
[2019-05-04] MEDS ORDERED: PIPERACILLIN/TAZOBACTAM 3.375 GM VIAL IVPB ONE ×3 (01:00→17:49)
[2019-05-04] MEDS: PIPERACILLIN/TAZOB 3.375 GM 3.375 GM in DEXTROSE 5%-WATER - 50 ML IVPB SCH ×3 (01:06→17:53)
[2019-05-04] MEDS: AMINO ACIDS 4.25%/D5W 1,000 ML IV SCH (04:29)
[2019-05-04] MEDS: MORPHINE SULFATE 2 MG/ML VIAL IVPB PRN ×2 (05:30→23:47)
[2019-05-04 06:50] LABS: BASO % 0.3 % (0-2.0); HEMATOCRIT 32.2 % (32.4-45.2); HEMOGLOBIN 10.8 GM/dL (10.7-15.3); LYMPH % 12.3 % (8-40); MCH 28.3 pg (25.7-33.7); MCHC 33.5 g/dl (32.0-36.0); MEAN CELL VOLUME 84.4 fl (80-96); MEAN PLT VOLUME 9.9 fl (7.5-11.1); MONO % 10.1 % (3.8-10.2); NEUT % 77.3 % (42.8-82.8); PLATELET COUNT 193 K/MM3 (134-434); RBC 3.82 M/mm3 (3.60-5.2)
[2019-05-04 07:22] LABS: BILIRUBIN,TOTAL 0.7 mg/dL (0.2-1); BLOOD UREA NITROGEN 21.9 mg/dL (7-18); CALCIUM 8.8 mg/dL (8.5-10.1); CREATININE 0.3 mg/dL (0.55-1.3); TOT PROT 5.4 g/dl (6.4-8.2)
--- NOTE | 2019-05-04 07:53 | PN ---
Progress Note, Physician Chief Complaint: patient non-verbal. Sister at bedside and fells she is having more pain. History of Present Illness: History of Present Illness: Patient is a 59 year old female (resident of [facility]) with a PMHx significant for profound mental retardation, cerebral palsy, congenital quadriplegia, severe scoliosis, seizure disorder, and GERD. Transferred from [place] to [facility] for further management of SBO, sepsis and tachycardia. - Current Medication List Current Medications: Active Medications Acetaminophen (Tylenol Suppository -) 650 mg [place] Q6H PRN PRN Reason: FEVER Last Admin: 05/04/19 05:08 Dose: 650 mg Albuterol Sulfate (Ventolin 0.083% Nebulizer Soln -) 1 amp NEB Q4H PRN PRN Reason: SHORTNESS OF BREATH Piperacillin Sod/Tazobactam (Sod 3.375 gm/ Dextrose) 50 mls @ 100 mls/hr IVPB Q8H-IV HAYLEY; Protocol Last Admin: 05/04/19 01:06 Dose: 100 mls/hr Amino Acids (Clinimix -) 1,000 mls @ 60 mls/hr IV Q12H HAYLEY Last Admin: 05/04/19 04:29 Dose: Not Given Potassium Chloride (Potassium Chloride 10 Meq Premix Ivpb -) 10 meq in 100 mls @ 100 mls/hr IVPB Q60M HAYLEY Stop: 05/04/19 11:44 Levetiracetam (Keppra Injection -) 500 mg IVPB BID HAYLEY Last Admin: 05/03/19 22:39 Dose: 500 mg Lorazepam (Ativan Injection -) 0.25 mg IVPB DAILY PRN PRN Reason: ANXIETY Last Admin: 05/03/19 01:51 Dose: 0.25 mg Metoprolol Tartrate (Lopressor Injection -) 5 mg IVPUSH Q4H PRN PRN Reason: TACHYCARDIA Last Admin: 05/01/19 06:54 Dose: 5 mg Morphine Sulfate (Morphine Sulfate) 0.5 mg IVPB Q4H PRN PRN Reason: PAIN LEVEL 6-10 Last Admin: 05/04/19 05:30 Dose: 0.5 mg - Objective Vital Signs: Vital Signs Temperature 97.9 F 05/04/19 06:00 Pulse Rate 133 H 05/04/19 05:22 Respiratory Rate 20 05/04/19 05:22 Blood Pressure 111/71 05/04/19 05:22 O2 Sat by Pulse Oximetry (%) 100 05/03/19 21:00 Constitutional: Yes: No Distress, Thin Eyes: Yes: WNL, Conjunctiva Clear, EOM Intact HENT: Yes: WNL, Atraumatic, Normocephalic Neck: Yes: WNL, Supple, Trachea Midline Cardiovascular: Yes: Regular Rate and Rhythm, Tachycardia Respiratory: Yes: Regular, Diminished (secodary to severe kyphosis) Gastrointestinal: Yes: Soft (NGT to LIWS with greenish output) ...Rectal Exam: Yes: Deferred Genitourinary: Yes: Incontinence Breast(s): Yes: WNL Musculoskeletal: Yes: Other (severe contratures) Edema: Yes Edema: LLE: 1+, RLE: 1+ Peripheral Pulses WNL: Yes Integumentary: Yes: WNL Neurological: Yes: Alert (non verbal) Labs: CBC, BMP 05/04/19 05:45 INR, PTT INR 1.00 (0.82-1.09) 04/28/19 17:22 Problem List - Problems (1) SBO (small bowel obstruction) Assessment/Plan: NPO/NGT- maintained at low continuous suction -IVF - serial abd exams - GI series done today- will f/u -Pt had small moderate BM -Surgery Dr Dickerson to follow Code(s): K56.609 - UNSP INTESTNL OBST, UNSP TO PARTIAL VERSUS COMPLETE OBST (2) Hypokalemia Assessment/Plan: K 3.0 after repletion yesterday. 40meQ KCL IV given continue to monitor K, maintain >4.[address] Centeno with increased potassium Code(s): E87.6 - HYPOKALEMIA (3) Prophylactic measure Assessment/Plan: FEN NPO c/w Climinix monitor electrolytes Dispo maintain on tele full code discharge planning DVT scds Code(s): Z29.9 - ENCOUNTER FOR PROPHYLACTIC MEASURES, UNSPECIFIED (4) Seizure Assessment/Plan: on keppra. on tegratol in [place], continue keppra iv bid. once no longer npo, can restart tegretol. Code(s): R56.9 - UNSPECIFIED CONVULSIONS (5) Sepsis Assessment/Plan: patient with elevated wbc 9.0, tachycardia better with increased frequncy of MSO4 monitor respiratory status. c/w 2 L NC blood cultures NGTD ID following Rhonchi of upper lobes improving. monitor output Code(s): A41.9 - SEPSIS, UNSPECIFIED ORGANISM (6) Aspiration into airway Assessment/Plan: chest xray shows left lower lobe infiltrate. on zosyn. support with 2 liters of nasal cannula monitor oxygen levels and titrate off oxygen as tolerated. not home oxygen dependent at home. Code(s): T17.908A - UNSP FB IN RESP TRACT, PART UNSP CAUSING OTH INJURY, INIT (7) Cerebral palsy Assessment/Plan: supportive care. Code(s): G80.9 - CEREBRAL PALSY, UNSPECIFIED (8) Left pulmonary infiltrate on CXR Assessment/Plan: CXR shows left lower lobe infiltrate. c/w zosyn. support with 2 liters of nasal cannula monitor oxygen levels and titrate off oxygen as tolerated. not home oxygen dependent at home. Code(s): R91.8 - OTHER NONSPECIFIC ABNORMAL FINDING OF LUNG FIELD (9) Tachycardia Assessment/Plan: HR better with increased frequency of MSO4 c/w MSO4 .5mg IV q8H Code(s): R00.0 - TACHYCARDIA, UNSPECIFIED (10) Decreased oral intake Assessment/Plan: NPO. day #6 of NPO, c/w Clinimax for nutrition. speech and swallow consulted and will assess once taking PO Code(s): R63.8 - OTHER SYMPTOMS AND SIGNS CONCERNING FOOD AND FLUID INTAKE (11) Hypernatremia Assessment/Plan: Na now 136 appreciate renal consultation continue to monitor electrolytes Code(s): E87.0 - HYPEROSMOLALITY AND HYPERNATREMIA Visit type - Emergency Visit Emergency Visit: Yes ED Registration Date: 04/28/19 Care time: The patient presented to the Emergency Department on the above date and was hospitalized for further evaluation of their emergent condition. - New Patient This patient is new to me today: No - Critical Care Critical Care patient: No - Discharge Referral Referred to [facility] Med [facility] No
--- NOTE | 2019-05-04 09:44 | PN ---
Progress Note (short form) - Note Progress Note: Pt seen and examined. Sister bedside. Reports pts pain appears to be improved with Morphine. NG output 1000ml from 1pm to 830AM. No other issues overnight. Vital Signs Temp 97.9 F 05/04/19 06:00 Pulse 133 H 05/04/19 05:22 Resp 20 05/04/19 05:22 BP 111/71 05/04/19 05:22 Pulse Ox 100 05/03/19 21:00 Intake & Output 05/03/19 05/03/19 05/04/19 11:59 23:59 11:59 Intake Total 588 734 520 Output Total 1000 Balance 588 734 -480 Intake: IV 588 384 420 Clinimix 588 384 420 IVPB 350 100 Output: Gastric Drainage 1000 Other: Voiding Method Diaper Diaper # Unmeasured Voids Void 3 3 CBC, BMP 05/04/19 05:45 05/04/19 05:45 Gen: Patient resting comfortably but appears restless this morning. Ext: Extremities contracted x4 Abd: Soft, nontender, moderately distended, no guarding, no rebound. Healed midline surgical scar and lateral scar. A/P: 59 y/o F resident of [facility], w/ PMHx MR, cerebral palsy, congenital quadriplegia, severe scoliosis, seizure disorder, and GERD now a/w SBO. NGT put out 1000ml from 1pm yesterday until 830AM (bilious output) Abdomen moderately distended, pain appears more controlled per pt. -Small bowel series this AM, awaiting full images/report -NPO/NGT- maintained at low continuous suction -IVF -Serial abd exams -Surgery to follow Evaluation and plan discussed with Dr Dickerson
[2019-05-04] MEDS: levETIRAcetam 500 MG/5 ML INJECTION VIAL IVPB SCH ×2 (11:30→21:49)
--- NOTE | 2019-05-04 11:57 | PN ---
Progress Note (short form) - Note Progress Note: s: nonverbal Current Medications Acetaminophen (Tylenol Suppository -) 650 mg [place] Q6H PRN PRN Reason: FEVER Last Admin: 05/04/19 05:08 Dose: 650 mg Albuterol Sulfate (Ventolin 0.083% Nebulizer Soln -) 1 amp NEB Q4H PRN PRN Reason: SHORTNESS OF BREATH Piperacillin Sod/Tazobactam (Sod 3.375 gm/ Dextrose) 50 mls @ 100 mls/hr IVPB Q8H-IV H[facility]LEY; Protocol Last Admin: 05/04/19 11:29 Dose: 100 mls/hr Amino Acids (Clinimix -) 1,000 mls @ 60 mls/hr IV Q12H H[facility]LEY Last Admin: 05/04/19 04:29 Dose: Not Given Potassium Chloride (Potassium Chloride 10 Meq Premix Ivpb -) 10 meq in 100 mls @ 100 mls/hr IVPB Q60M [facility]LEY Stop: 05/04/19 12:29 Levetiracetam (Keppra Injection -) 500 mg IVPB BID H[facility]LEY Last Admin: 05/04/19 11:30 Dose: 500 mg Lorazepam (Ativan Injection -) 0.25 mg IVPB DAILY PRN PRN Reason: ANXIETY Last Admin: 05/03/19 01:51 Dose: 0.25 mg Metoprolol Tartrate (Lopressor Injection -) 5 mg IVPUSH Q4H PRN PRN Reason: TACHYCARDIA Last Admin: 05/01/19 06:54 Dose: 5 mg Morphine Sulfate (Morphine Sulfate) 0.5 mg IVPB Q4H PRN PRN Reason: PAIN LEVEL 6-10 Last Admin: 05/04/19 05:30 Dose: 0.5 mg Vital Signs Period Temp Pulse Resp BP Sys/[place] Pulse Ox Last 24 Hr 97.6 F-100.3 F 106-133 18-20 111-129/71-86 95-100 Gen: NAD Cardiovascular: Yes: Regular Rate and Rhythm Respiratory: Yes: Rhonchi Gastrointestinal: Yes: Soft Edema: No no jaundice diaphoresis not agitated - ....Imaging EKG: Image Reviewed Assessment/Plan DATA: tele: sinus tachycardia echo 04/2019 nl LV function, E/A reversal, RV not well visualized, mild MR IMP: Sinus tachycardia: - sinus, monitoring on tele - echo unremarkable - likely in setting of underlying pain, anxiety, SBO - manage per primary, HR improving - trop neg x 1, no ischemia on EKG - unlikely ACS SBO: - manage per surgery, NGT in place Seizure disorder: - manage per primary GERD: -holding meds, NPO
--- NOTE | 2019-05-04 12:59 | PN ---
Progress Note, Physician History of Present Illness: Pt seen and examined at bedside. She appears comfortable. - Current Medication List Current Medications: Active Medications Acetaminophen (Tylenol Suppository -) 650 mg MD Q6H PRN PRN Reason: FEVER Last Admin: 05/04/19 05:08 Dose: 650 mg Albuterol Sulfate (Ventolin 0.083% Nebulizer Soln -) 1 amp NEB Q4H PRN PRN Reason: SHORTNESS OF BREATH Piperacillin Sod/Tazobactam (Sod 3.375 gm/ Dextrose) 50 mls @ 100 mls/hr IVPB Q8H-IV [facility]; Protocol Last Admin: 05/04/19 11:29 Dose: 100 mls/hr Amino Acids (Clinimix -) 1,000 mls @ 60 mls/hr IV Q12H [facility] Last Admin: 05/04/19 04:29 Dose: Not Given Levetiracetam (Keppra Injection -) 500 mg IVPB BID [facility] Last Admin: 05/04/19 11:30 Dose: 500 mg Lorazepam (Ativan Injection -) 0.25 mg IVPB DAILY PRN PRN Reason: ANXIETY Last Admin: 05/03/19 01:51 Dose: 0.25 mg Metoprolol Tartrate (Lopressor Injection -) 5 mg IVPUSH Q4H PRN PRN Reason: TACHYCARDIA Last Admin: 05/01/19 06:54 Dose: 5 mg Morphine Sulfate (Morphine Sulfate) 0.5 mg IVPB Q4H PRN PRN Reason: PAIN LEVEL 6-10 Last Admin: 05/04/19 05:30 Dose: 0.5 mg - Objective Vital Signs: Vital Signs Temperature 97.5 F L 05/04/19 11:10 Pulse Rate 123 H 05/04/19 11:10 Respiratory Rate 18 05/04/19 11:10 Blood Pressure 112/88 05/04/19 11:10 O2 Sat by Pulse Oximetry (%) 100 05/04/19 09:00 Constitutional: Yes: Calm Eyes: Yes: Conjunctiva Clear Neck: Yes: Supple Cardiovascular: Yes: S1, S2 Respiratory: Yes: CTA Bilaterally Gastrointestinal: Yes: Soft Genitourinary: Yes: Incontinence Musculoskeletal: Yes: Other (contracted) Edema: No Neurological: Yes: Pre-Existing Deficit Labs: CBC, BMP 05/04/19 05:45 05/04/19 05:45 INR, PTT INR 1.00 (0.82-1.09) 04/28/19 17:22 Problem List - Problems (1) Hyperkalemia Code(s): E87.5 - HYPERKALEMIA (2) Hypernatremia Code(s): E87.0 - HYPEROSMOLALITY AND HYPERNATREMIA (3) SBO (small bowel obstruction) Code(s): K56.609 - UNSP INTESTNL OBST, UNSP TO PARTIAL VERSUS COMPLETE OBST (4) Seizure Code(s): R56.9 - UNSPECIFIED CONVULSIONS Assessment/Plan Current Medications Generic Name Dose Route Start Last Admin Trade Name Freq PRN Reason Stop Dose Admin Acetaminophen 650 mg 04/30/19 14:13 05/04/19 05:08 Tylenol Suppository - MD 650 mg Q6H PRN Administration FEVER Albuterol Sulfate 1 amp 04/30/19 14:13 Ventolin 0.083% Nebulizer Soln - NEB Q4H PRN SHORTNESS OF BREATH Piperacillin Sod/Tazobactam 50 mls @ 100 mls/hr 04/30/19 18:00 05/04/19 11:29 Sod 3.375 gm/ Dextrose IVPB 100 mls/hr Q8H-IV [facility] Administration Protocol Amino Acids 1,000 mls @ 60 mls/hr 05/03/19 16:14 05/04/19 04:29 Clinimix - IV Not Given Q12H [facility] Levetiracetam 500 mg 04/30/19 22:00 05/04/19 11:30 Keppra Injection - IVPB 500 mg BID H[facility]LEY Administration Lorazepam 0.25 mg 05/01/19 06:00 05/03/19 01:51 Ativan Injection - IVPB 0.25 mg DAILY PRN Administration ANXIETY Metoprolol Tartrate 5 mg 04/30/19 15:49 05/01/19 06:54 Lopressor Injection - IVPUSH 5 mg Q4H PRN Administration TACHYCARDIA Morphine Sulfate 0.5 mg 05/03/19 11:28 05/04/19 05:30 Morphine Sulfate IVPB 0.5 mg Q4H PRN Administration PAIN LEVEL 6-10 Impression 1. hypernatremia 2. hyperkalemia - resolved 3. SBO 4. epilepsy 5. developemental delay 6. hypokalemia Plan - replace potassium - mag stable - ad potassium to clinimix - surgery follow up - discussed with medical team
[2019-05-04] MEDS: KCL 10 MEQ IVPB 10 MEQ/100 ML INFUS.BAG IVPB SCH ×4 (13:08→16:45)
[2019-05-04] MEDS: POTASSIUM CHLORIDE 20 MEQ in AMINO ACIDS 4.25%/D5W 1,000 ML IVPB SCH (14:56)
[2019-05-04] MEDS ORDERED: KCL 10 MEQ IVPB 10 MEQ/100 ML INFUS.BAG IVPB SCH (16:45)
--- NOTE | 2019-05-04 18:57 | PN ---
Progress Note, Physician History of Present Illness: stable no new issues - Current Medication List Current Medications: Active Medications Acetaminophen (Tylenol Suppository -) 650 mg NM Q6H PRN PRN Reason: FEVER Last Admin: 05/04/19 05:08 Dose: 650 mg Albuterol Sulfate (Ventolin 0.083% Nebulizer Soln -) 1 amp NEB Q4H PRN PRN Reason: SHORTNESS OF BREATH Piperacillin Sod/Tazobactam (Sod 3.375 gm/ Dextrose) 50 mls @ 100 mls/hr IVPB Q8H-IV [facility]; Protocol Last Admin: 05/04/19 17:53 Dose: 100 mls/hr Potassium Chloride 20 meq/ (Amino Acids) 1,010 mls @ 60 mls/hr IVPB Q12H [facility] Last Admin: 05/04/19 14:56 Dose: 60 mls/hr Levetiracetam (Keppra Injection -) 500 mg IVPB BID [facility] Last Admin: 05/04/19 11:30 Dose: 500 mg Lorazepam (Ativan Injection -) 0.25 mg IVPB DAILY PRN PRN Reason: ANXIETY Last Admin: 05/03/19 01:51 Dose: 0.25 mg Metoprolol Tartrate (Lopressor Injection -) 5 mg IVPUSH Q4H PRN PRN Reason: TACHYCARDIA Last Admin: 05/01/19 06:54 Dose: 5 mg Morphine Sulfate (Morphine Sulfate) 0.5 mg IVPB Q4H PRN PRN Reason: PAIN LEVEL 6-10 Last Admin: 05/04/19 05:30 Dose: 0.5 mg - Objective Vital Signs: Vital Signs Temperature 98.5 F 05/04/19 14:19 Pulse Rate 125 H 05/04/19 14:19 Respiratory Rate 20 05/04/19 14:19 Blood Pressure 109/74 05/04/19 14:19 O2 Sat by Pulse Oximetry (%) 100 05/04/19 09:00 Constitutional: Yes: No Distress, Calm Cardiovascular: Yes: S1, S2 Respiratory: Yes: Regular, Poor Air Entry (bases) Gastrointestinal: Yes: Soft, Hypoactive Bowel Sounds Extremities: Yes: Other (contracted) Neurological: Yes: Alert, Other Labs: CBC, BMP 05/04/19 05:45 05/04/19 05:45 INR, PTT INR 1.00 (0.82-1.09) 04/28/19 17:22 Assessment/Plan 59 year-old female resident of [facility], with a PMH significant for profound mental retardation, cerebral palsy, congenital quadriplegia, severe scoliosis, seizure disorder, and GERD. Admitted for SBO. SBO Profound mental retardation Cerebral palsy Congenital quadriplegia Severe scoliosis Seizure disorder GERD plan npo hydration ng suctioning will see tomorrow will d/w the surgical team
[2019-05-05] MEDS ORDERED: PIPERACILLIN/TAZOBACTAM 3.375 GM VIAL IVPB ONE ×3 (00:52→17:24)
[2019-05-05] MEDS ORDERED: DEXTROSE 5%-WATER - 50 ML IVPB ONE ×3 (00:53→17:24)
[2019-05-05] MEDS: POTASSIUM CHLORIDE 20 MEQ in AMINO ACIDS 4.25%/D5W 1,000 ML IVPB SCH ×2 (01:04→13:41)
[2019-05-05] MEDS: PIPERACILLIN/TAZOB 3.375 GM 3.375 GM in DEXTROSE 5%-WATER - 50 ML IVPB SCH ×3 (01:05→17:28)
--- NOTE | 2019-05-05 07:53 | PN ---
Progress Note, Physician Chief Complaint: patient non-verbal. Family at bedside , said she had a good night and had 2 formed soft BM History of Present Illness: History of Present Illness: Patient is a 59 year old female (resident of [facility]) with a PMHx significant for profound mental retardation, cerebral palsy, congenital quadriplegia, severe scoliosis, seizure disorder, and GERD. Transferred from [place] to [facility] for further management of SBO, sepsis and tachycardia. - Current Medication List Current Medications: Active Medications Acetaminophen (Tylenol Suppository -) 650 mg NV Q6H PRN PRN Reason: FEVER Last Admin: 05/04/19 05:08 Dose: 650 mg Albuterol Sulfate (Ventolin 0.083% Nebulizer Soln -) 1 amp NEB Q4H PRN PRN Reason: SHORTNESS OF BREATH Piperacillin Sod/Tazobactam (Sod 3.375 gm/ Dextrose) 50 mls @ 100 mls/hr IVPB Q8H-IV [facility]; Protocol Last Admin: 05/05/19 01:05 Dose: 100 mls/hr Potassium Chloride 20 meq/ (Amino Acids) 1,010 mls @ 60 mls/hr IVPB Q12H [facility] Last Admin: 05/05/19 01:04 Dose: Not Given Levetiracetam (Keppra Injection -) 500 mg IVPB BID H[facility]LEY Last Admin: 05/04/19 21:49 Dose: 500 mg Lorazepam (Ativan Injection -) 0.25 mg IVPB DAILY PRN PRN Reason: ANXIETY Last Admin: 05/03/19 01:51 Dose: 0.25 mg Metoprolol Tartrate (Lopressor Injection -) 5 mg IVPUSH Q4H PRN PRN Reason: TACHYCARDIA Last Admin: 05/01/19 06:54 Dose: 5 mg Morphine Sulfate (Morphine Sulfate) 0.5 mg IVPB Q4H PRN PRN Reason: PAIN LEVEL 6-10 Last Admin: 05/04/19 23:47 Dose: 0.5 mg - Objective Vital Signs: Vital Signs Temperature 97.8 F 05/05/19 02:00 Pulse Rate 121 H 05/05/19 07:39 Respiratory Rate 20 05/05/19 07:39 Blood Pressure 111/73 05/05/19 07:39 O2 Sat by Pulse Oximetry (%) 100 05/04/19 21:00 Constitutional: Yes: No Distress, Calm, Thin Eyes: Yes: WNL, Conjunctiva Clear, EOM Intact HENT: Yes: WNL, Atraumatic, Normocephalic Neck: Yes: WNL, Supple, Trachea Midline Cardiovascular: Yes: WNL, Regular Rate and Rhythm, Tachycardia Respiratory: Yes: Diminished (bases, severe scoliosis) Gastrointestinal: Yes: Soft, Other (NGT to LIWS with bilious drainage) Genitourinary: Yes: Incontinence Breast(s): Yes: WNL Musculoskeletal: Yes: Other (non verbal, can not assess fully) Extremities: Yes: Deformity (extremeties with contractures and severe scoliosis) Edema: Yes Edema: LLE: Trace, RLE: Trace Peripheral Pulses WNL: Yes Integumentary: Yes: WNL Neurological: Yes: Alert (non verbal), Other Labs: CBC, BMP 05/04/19 05:45 05/04/19 05:45 INR, PTT INR 1.00 (0.82-1.09) 04/28/19 17:22 Problem List - Problems (1) SBO (small bowel obstruction) Assessment/Plan: NPO/NGT- maintained at low continuous suction -IVF - serial abd exams/KUB -Pt had 2 moderate BMs over night, suppository to be given as per surgery but family is refusing -Surgery Dr Dickerson following Code(s): K56.609 - UNSP INTESTNL OBST, UNSP TO PARTIAL VERSUS COMPLETE OBST (2) Hypokalemia Assessment/Plan: K 3.7 after repletion yesterday continue to monitor K, maintain >4.[address] Centeno with increased potassium Code(s): E87.6 - HYPOKALEMIA (3) Prophylactic measure Assessment/Plan: FEN NPO c/w Climinix monitor electrolytes Dispo maintain on tele full code discharge planning Code(s): Z29.9 - ENCOUNTER FOR PROPHYLACTIC MEASURES, UNSPECIFIED (4) Seizure Assessment/Plan: on keppra. on tegretol in [place], continue keppra iv bid. once no longer npo, can restart tegretol. Code(s): R56.9 - UNSPECIFIED CONVULSIONS (5) Sepsis Assessment/Plan: wbc decreased 8.0, tachycardia remains despite increased frequency of MSO4 monitor respiratory status. c/w 2 L NC blood cultures NGTD ID following Rhonchi of upper lobes improving. monitor output & temp Code(s): A41.9 - SEPSIS, UNSPECIFIED ORGANISM (6) Aspiration into airway Assessment/Plan: chest xray shows left lower lobe infiltrate c/w zosyn. support with 2 liters of nasal cannula monitor oxygen levels and titrate off oxygen as tolerated. not home oxygen dependent at home. Code(s): T17.908A - UNSP FB IN RESP TRACT, PART UNSP CAUSING OTH INJURY, INIT (7) Cerebral palsy Assessment/Plan: supportive care BL UE severly contracted. IV placed to R AC. IV site is without erythema, not tender. IV placement attempted with ultrasound yesterday unsuccessfully and family refused to attempt EJ placement. Since IV site is without signs of infection and is flushing continue with current IV despite being in for > 72 hours. Will continue to monitor site. Code(s): G80.9 - CEREBRAL PALSY, UNSPECIFIED (8) Left pulmonary infiltrate on CXR Assessment/Plan: CXR shows left lower lobe infiltrate. c/w zosyn. support with 2 liters of nasal cannula monitor oxygen levels and titrate off oxygen as tolerated. not oxygen dependent at home. Code(s): R91.8 - OTHER NONSPECIFIC ABNORMAL FINDING OF LUNG FIELD (9) Tachycardia Assessment/Plan: HR remains in 120s despite increased frequency of MSO4 c/w MSO4 .5mg IV q8H Code(s): R00.0 - TACHYCARDIA, UNSPECIFIED (10) Decreased oral intake Assessment/Plan: NPO. day #7 of NPO, c/w Clinimax for nutrition. speech and swallow consulted and will assess once taking PO Code(s): R63.8 - OTHER SYMPTOMS AND SIGNS CONCERNING FOOD AND FLUID INTAKE (11) Hypernatremia Assessment/Plan: Na now 137 appreciate renal consultation continue to monitor electrolytes Code(s): E87.0 - HYPEROSMOLALITY AND HYPERNATREMIA Visit type - Emergency Visit Emergency Visit: Yes ED Registration Date: 04/28/19 Care time: The patient presented to the Emergency Department on the above date and was hospitalized for further evaluation of their emergent condition. - New Patient This patient is new to me today: No - Critical Care Critical Care patient: No - Discharge Referral Referred to [facility] No
--- NOTE | 2019-05-05 08:03 | PN ---
Progress Note (short form) - Note Progress Note: Pt seen and examined. Aid at bedside. Reports pts pain appears to be stable, pt seemed to be in pain this morning, improved with repositioning. Pt had "two large bowel movements" yesterday. NG output ?800ml overnight. No other issues overnight. Vital Signs Temp 97.8 F 05/05/19 02:00 Pulse 121 H 05/05/19 07:39 Resp 20 05/05/19 07:39 BP 111/73 05/05/19 07:39 Pulse Ox 100 05/04/19 21:00 Intake & Output 05/04/19 05/04/19 05/05/19 11:59 23:59 11:59 Intake Total 520 720 480 Output Total 1000 1999 Balance -480 -1280 480 Intake: IV 420 120 480 Clinimix 420 120 480 IVPB 100 600 Output: Gastric Drainage 1000 2000 Other: Voiding Method Incontinent Incontinent Diaper # Unmeasured Voids Void 3 1 3 Bowel Movement Yes No # Bowel Movements 1 CBC, BMP 05/04/19 05:45 05/04/19 05:45 Gen: Patient resting comfortably but appears restless this morning. Ext: Extremities contracted x4 Abd: Soft, nontender, moderately distended, no guarding, no rebound. Healed midline surgical scar and lateral scar. A/P: 59 y/o F resident of [facility], w/ PMHx MR, cerebral palsy, congenital quadriplegia, severe scoliosis, seizure disorder, and GERD now a/w SBO. NGT put out ?800ml overnight (not documented-RN unsure) currently 300ml in reservoir bedside from ?6AM (bilious output) Abdominal slightly less distended, pain appears more controlled per family. -AXR in AM: reviewed with attending continues to have distended sb -Glycerin suppository ordered -NPO/NGT- maintained at low continuous suction, plan to place to gravity this afternoon, awaiting output -IVF -Serial abd exams -Surgery to follow d/w attending Dr Dickerson
[2019-05-05 09:29] LABS: BASO % 0.3 % (0-2.0); HEMATOCRIT 33.5 % (32.4-45.2); HEMOGLOBIN 10.9 GM/dL (10.7-15.3); LYMPH % 7.9 % (8-40); MCH 27.9 pg (25.7-33.7); MCHC 32.5 g/dl (32.0-36.0); MEAN CELL VOLUME 85.7 fl (80-96); MEAN PLT VOLUME 9.1 fl (7.5-11.1); MONO % 11.6 % (3.8-10.2); NEUT % 80.2 % (42.8-82.8); PLATELET COUNT 211 K/MM3 (134-434); RBC 3.92 M/mm3 (3.60-5.2); RDW 14.2 % (11.6-15.6); WHITE BLOOD COUNT 8.1 K/mm3 (4.0-10.0)
[2019-05-05] MEDS ORDERED: GLYCERIN 1 RECTAL SUPPOSITORY, ADULT RC ONE (09:45)
[2019-05-05 09:59] LABS: ALBUMIN 2.2 g/dl (3.4-5.0); BILIRUBIN,TOTAL 0.4 mg/dL (0.2-1); BLOOD UREA NITROGEN 18.3 mg/dL (7-18); CALCIUM 9.3 mg/dL (8.5-10.1); CREATININE 0.3 mg/dL (0.55-1.3); MAGNESIUM 2.3 mg/dL (1.8-2.4); POTASSIUM 3.7 mmol/L (3.5-5.1); TOT PROT 5.9 g/dl (6.4-8.2)
[2019-05-05 10:00] LABS: ANISOCYTOSIS 1+; MACROCYTOSIS 0; PLATELET ESTIMATE NORMAL
--- NOTE | 2019-05-05 10:10 | PN ---
Progress Note (short form) - Note Progress Note: S: nonverbal Current Medications Generic Name Dose Route Start Last Admin Trade Name Freq PRN Reason Stop Dose Admin Acetaminophen 650 mg 04/30/19 14:13 05/04/19 05:08 Tylenol Suppository - ND 650 mg Q6H PRN Administration FEVER Albuterol Sulfate 1 amp 04/30/19 14:13 Ventolin 0.083% Nebulizer Soln - NEB Q4H PRN SHORTNESS OF BREATH Piperacillin Sod/Tazobactam 50 mls @ 100 mls/hr 04/30/19 18:00 05/05/19 01:05 Sod 3.375 gm/ Dextrose IVPB 100 mls/hr Q8H-IV H[facility]LEY Administration Protocol Potassium Chloride 20 meq/ 1,010 mls @ 60 mls/hr 05/04/19 13:00 05/05/19 01: 04 Amino Acids IVPB Not Given Q12H H[facility]LEY Levetiracetam 500 mg 04/30/19 22:00 05/04/19 21:49 Keppra Injection - IVPB 500 mg BID HAYLEY Administration Lorazepam 0.25 mg 05/01/19 06:00 05/03/19 01:51 Ativan Injection - IVPB 0.25 mg DAILY PRN Administration ANXIETY Metoprolol Tartrate 5 mg 04/30/19 15:49 05/01/19 06:54 Lopressor Injection - IVPUSH 5 mg Q4H PRN Administration TACHYCARDIA Morphine Sulfate 0.5 mg 05/03/19 11:28 05/04/19 23:47 Morphine Sulfate IVPB 0.5 mg Q4H PRN Administration PAIN LEVEL 6-10 Vital Signs Period Temp Pulse Resp BP Sys/[place] Pulse Ox Last 24 Hr 97.5 F-98.5 F 121-128 18-20 91-121/67-88 100 Gen: NAD Cardiovascular: Yes: Regular Rate and Rhythm Respiratory: Yes: Rhonchi Gastrointestinal: Yes: Soft Edema: No no jaundice diaphoresis not agitated - ....Imaging EKG: Image Reviewed CBC, BMP 05/05/19 09:15 05/05/19 09:15 Assessment/Plan DATA: tele: sinus tachycardia echo 04/2019 nl LV function, E/A reversal, RV not well visualized, mild MR IMP: Sinus tachycardia: - sinus, monitoring on tele - echo unremarkable - likely in setting of underlying pain, anxiety, SBO - manage per primary, HR improving - trop neg, no ischemia on EKG - unlikely ACS SBO: - manage per surgery, NGT in place Seizure disorder: - manage per primary GERD: -holding meds, NPO
[2019-05-05] MEDS ORDERED: PT OWN MED DRAWER 7, Y5N ONE ×2 (10:20→21:41)
[2019-05-05] MEDS: levETIRAcetam 500 MG/5 ML INJECTION VIAL IVPB SCH ×2 (10:38→21:54)
--- NOTE | 2019-05-05 11:02 | PN ---
Progress Note, Physician History of Present Illness: non verbal sister in room looks much calmer had a bm ng tube still draining - Current Medication List Current Medications: Active Medications Acetaminophen (Tylenol Suppository -) 650 mg ND Q6H PRN PRN Reason: FEVER Last Admin: 05/04/19 05:08 Dose: 650 mg Albuterol Sulfate (Ventolin 0.083% Nebulizer Soln -) 1 amp NEB Q4H PRN PRN Reason: SHORTNESS OF BREATH Piperacillin Sod/Tazobactam (Sod 3.375 gm/ Dextrose) 50 mls @ 100 mls/hr IVPB Q8H-IV HAYLEY; Protocol Last Admin: 05/05/19 10:38 Dose: 100 mls/hr Potassium Chloride 20 meq/ (Amino Acids) 1,010 mls @ 60 mls/hr IVPB Q12H H[facility]LEY Last Admin: 05/05/19 01:04 Dose: Not Given Levetiracetam (Keppra Injection -) 500 mg IVPB BID HAYLEY Last Admin: 05/05/19 10:38 Dose: 500 mg Lorazepam (Ativan Injection -) 0.25 mg IVPB DAILY PRN PRN Reason: ANXIETY Last Admin: 05/03/19 01:51 Dose: 0.25 mg Metoprolol Tartrate (Lopressor Injection -) 5 mg IVPUSH Q4H PRN PRN Reason: TACHYCARDIA Last Admin: 05/01/19 06:54 Dose: 5 mg Morphine Sulfate (Morphine Sulfate) 0.5 mg IVPB Q4H PRN PRN Reason: PAIN LEVEL 6-10 Last Admin: 05/04/19 23:47 Dose: 0.5 mg - Objective Vital Signs: Vital Signs Temperature 97.8 F 05/05/19 02:00 Pulse Rate 121 H 05/05/19 07:39 Respiratory Rate 20 05/05/19 07:39 Blood Pressure 111/73 05/05/19 07:39 O2 Sat by Pulse Oximetry (%) 100 05/04/19 21:00 Constitutional: Yes: No Distress, Calm Cardiovascular: Yes: S1, S2 Respiratory: Yes: Regular, CTA Bilaterally Gastrointestinal: Yes: Soft, Hypoactive Bowel Sounds, Other (ng in place) Musculoskeletal: Yes: WNL Extremities: Yes: Other Neurological: Yes: Alert Labs: CBC, BMP 05/05/19 09:15 05/05/19 09:15 INR, PTT INR 1.00 (0.82-1.09) 04/28/19 17:22 Assessment/Plan 59 year-old female resident of [facility], with a PMH significant for profound mental retardation, cerebral palsy, congenital quadriplegia, severe scoliosis, seizure disorder, and GERD. Admitted for SBO. SBO Profound mental retardation Cerebral palsy Congenital quadriplegia Severe scoliosis Seizure disorder GERD plan npo hydration ng suctioning will see tomorrow will deescalate abx tomorrow
--- NOTE | 2019-05-05 12:39 | PN ---
Progress Note, Physician History of Present Illness: Pt seen and examined at bedside. She appears more comfortable today. - Current Medication List Current Medications: Active Medications Acetaminophen (Tylenol Suppository -) 650 mg NV Q6H PRN PRN Reason: FEVER Last Admin: 05/04/19 05:08 Dose: 650 mg Albuterol Sulfate (Ventolin 0.083% Nebulizer Soln -) 1 amp NEB Q4H PRN PRN Reason: SHORTNESS OF BREATH Piperacillin Sod/Tazobactam (Sod 3.375 gm/ Dextrose) 50 mls @ 100 mls/hr IVPB Q8H-IV HAYLEY; Protocol Last Admin: 05/05/19 10:38 Dose: 100 mls/hr Potassium Chloride 20 meq/ (Amino Acids) 1,010 mls @ 60 mls/hr IVPB Q12H H[facility]LEY Last Admin: 05/05/19 01:04 Dose: Not Given Fat Emulsion Intravenous (Intralipid -) 250 mls @ 20.833 mls/hr IV DAILY@2200 HAYLEY Levetiracetam (Keppra Injection -) 500 mg IVPB BID HAYLEY Last Admin: 05/05/19 10:38 Dose: 500 mg Metoprolol Tartrate (Lopressor Injection -) 5 mg IVPUSH Q4H PRN PRN Reason: TACHYCARDIA Last Admin: 05/01/19 06:54 Dose: 5 mg Morphine Sulfate (Morphine Sulfate) 0.5 mg IVPB Q4H PRN PRN Reason: PAIN LEVEL 6-10 Last Admin: 05/04/19 23:47 Dose: 0.5 mg - Objective Vital Signs: Vital Signs Temperature 97.8 F 05/05/19 02:00 Pulse Rate 121 H 05/05/19 07:39 Respiratory Rate 20 05/05/19 07:39 Blood Pressure 111/73 05/05/19 07:39 O2 Sat by Pulse Oximetry (%) 100 05/04/19 21:00 Constitutional: Yes: Calm Eyes: Yes: Conjunctiva Clear HENT: Yes: Atraumatic Neck: Yes: Supple Cardiovascular: Yes: S1, S2 Respiratory: Yes: CTA Bilaterally Gastrointestinal: Yes: Soft, Other (ngt) Genitourinary: Yes: Incontinence Musculoskeletal: Yes: Other (contracted) Edema: No Neurological: Yes: Oriented Psychiatric: Yes: Oriented Labs: CBC, BMP 05/05/19 09:15 05/05/19 09:15 INR, PTT INR 1.00 (0.82-1.09) 04/28/19 17:22 Problem List - Problems (1) Hyperkalemia Code(s): E87.5 - HYPERKALEMIA (2) Hypernatremia Code(s): E87.0 - HYPEROSMOLALITY AND HYPERNATREMIA (3) SBO (small bowel obstruction) Code(s): K56.609 - UNSP INTESTNL OBST, UNSP TO PARTIAL VERSUS COMPLETE OBST (4) Seizure Code(s): R56.9 - UNSPECIFIED CONVULSIONS Assessment/Plan Current Medications Generic Name Dose Route Start Last Admin Trade Name Freq PRN Reason Stop Dose Admin Acetaminophen 650 mg 04/30/19 14:13 05/04/19 05:08 Tylenol Suppository - NV 650 mg Q6H PRN Administration FEVER Albuterol Sulfate 1 amp 04/30/19 14:13 Ventolin 0.083% Nebulizer Soln - NEB Q4H PRN SHORTNESS OF BREATH Piperacillin Sod/Tazobactam 50 mls @ 100 mls/hr 04/30/19 18:00 05/05/19 10:38 Sod 3.375 gm/ Dextrose IVPB 100 mls/hr Q8H-IV HAYLEY Administration Protocol Potassium Chloride 20 meq/ 1,010 mls @ 60 mls/hr 05/04/19 13:00 05/05/19 01: 04 Amino Acids IVPB Not Given Q12H HAYLEY Fat Emulsion Intravenous 250 mls @ 20.833 mls/hr 05/05/19 22:00 Intralipid - IV DAILY@2200 HAYLEY Levetiracetam 500 mg 04/30/19 22:00 05/05/19 10:38 Keppra Injection - IVPB 500 mg BID HAYLEY Administration Metoprolol Tartrate 5 mg 04/30/19 15:49 05/01/19 06:54 Lopressor Injection - IVPUSH 5 mg Q4H PRN Administration TACHYCARDIA Morphine Sulfate 0.5 mg 05/03/19 11:28 05/04/19 23:47 Morphine Sulfate IVPB 0.5 mg Q4H PRN Administration PAIN LEVEL 6-10 Impression 1. hypernatremia 2. hyperkalemia - resolved 3. SBO 4. epilepsy 5. developemental delay 6. hypokalemia Plan - potassium is improved - sodium stable - cont clinimix - surgery follow up for sbo
[2019-05-05] MEDS ORDERED: FAT EMULSIONS 20% 250 ML PREMIX INFUS.BAG IV SCH (22:00)
[2019-05-05] MEDS: FAT EMULSIONS 250 ML IV SCH (22:29)
[2019-05-06] MEDS ORDERED: DEXTROSE 5%-WATER - 50 ML IVPB ONE ×3 (01:03→21:15)
[2019-05-06] MEDS ORDERED: PIPERACILLIN/TAZOBACTAM 3.375 GM VIAL IVPB ONE ×3 (01:03→21:14)
[2019-05-06] MEDS: PIPERACILLIN/TAZOB 3.375 GM 3.375 GM in DEXTROSE 5%-WATER - 50 ML IVPB SCH ×4 (01:07→21:37)
[2019-05-06] MEDS: POTASSIUM CHLORIDE 20 MEQ in AMINO ACIDS 4.25%/D5W 1,000 ML IVPB SCH ×3 (01:10→22:02)
--- NOTE | 2019-05-06 07:52 | PN ---
Progress Note, Physician Chief Complaint: patient non-verbal. Family at bedside , said she had a good night. Placed on stomach last night and had BM History of Present Illness: History of Present Illness: Patient is a 59 year old female (resident of [facility]) with a PMHx significant for profound mental retardation, cerebral palsy, congenital quadriplegia, severe scoliosis, seizure disorder, and GERD. Transferred from [place] to [facility] for further management of SBO, sepsis and tachycardia. - Current Medication List Current Medications: Active Medications Acetaminophen (Tylenol Suppository -) 650 mg NV Q6H PRN PRN Reason: FEVER Last Admin: 05/04/19 05:08 Dose: 650 mg Piperacillin Sod/Tazobactam (Sod 3.375 gm/ Dextrose) 50 mls @ 100 mls/hr IVPB Q8H-IV HAYLEY; Protocol Last Admin: 05/06/19 01:07 Dose: 100 mls/hr Potassium Chloride 20 meq/ (Amino Acids) 1,010 mls @ 60 mls/hr IVPB Q12H HAYLEY Last Admin: 05/06/19 01:10 Dose: Not Given Fat Emulsion Intravenous (Intralipid -) 250 mls @ 20.833 mls/hr IV DAILY@2200 HAYLEY Last Admin: 05/05/19 22:29 Dose: 20.833 mls/hr Levetiracetam (Keppra Injection -) 500 mg IVPB BID HAYLEY Last Admin: 05/05/19 21:54 Dose: 500 mg Metoprolol Tartrate (Lopressor Injection -) 5 mg IVPUSH Q4H PRN PRN Reason: TACHYCARDIA Last Admin: 05/01/19 06:54 Dose: 5 mg Morphine Sulfate (Morphine Sulfate) 0.5 mg IVPB Q4H PRN PRN Reason: PAIN LEVEL 6-10 Last Admin: 05/04/19 23:47 Dose: 0.5 mg - Objective Vital Signs: Vital Signs Temperature 98.7 F 05/06/19 06:00 Pulse Rate 104 H 05/06/19 06:00 Respiratory Rate 18 05/06/19 06:00 Blood Pressure 118/68 05/06/19 06:00 O2 Sat by Pulse Oximetry (%) 100 05/05/19 21:00 Constitutional: Yes: No Distress, Calm, Thin Eyes: Yes: WNL, Conjunctiva Clear, EOM Intact HENT: Yes: WNL, Atraumatic, Normocephalic Neck: Yes: WNL, Supple, Trachea Midline Cardiovascular: Yes: Regular Rate and Rhythm, Tachycardia Respiratory: Yes: Regular, Diminished (at bases) Gastrointestinal: Yes: Soft, Hypoactive Bowel Sounds, Other (NGT to gravity with bilious draiange) ...Rectal Exam: Yes: Deferred Genitourinary: Yes: Incontinence Breast(s): Yes: WNL Musculoskeletal: Yes: Other (not able to assess) Extremities: Yes: Deformity (severe cobtractures with scolosis), Other Edema: Yes Edema: LLE: Trace, RLE: Trace Peripheral Pulses WNL: Yes Peripheral Pulses: Left Radial: 2+, Right Radial: 2+, Left Doralis Pedis: 2+, Right Dorsalis Pedis: 2+, Left Femoral: 2+, Right Femoral: 2+ Integumentary: Yes: WNL Neurological: Yes: Alert (tracks voices) Psychiatric: Yes: Alert Labs: CBC, BMP 05/05/19 09:15 05/05/19 09:15 INR, PTT INR 1.00 (0.82-1.09) 04/28/19 17:22 - ....Imaging X-ray: Report Reviewed (GI series) Problem List - Problems (1) SBO (small bowel obstruction) Assessment/Plan: NPO/NGT- placed to gravity drainage this morning -IVF continue - serial abd exams/KUB -Surgery Dr Dickerson following Code(s): K56.609 - UNSP INTESTNL OBST, UNSP TO PARTIAL VERSUS COMPLETE OBST (2) Hypokalemia Assessment/Plan: K 3., maintaining levels continue to monitor K, maintain >4.[address] Centeno with increased potassium Code(s): E87.6 - HYPOKALEMIA (3) Prophylactic measure Assessment/Plan: FEN NPO c/w Climinix monitor electrolytes Dispo maintain on tele full code discharge planning Code(s): Z29.9 - ENCOUNTER FOR PROPHYLACTIC MEASURES, UNSPECIFIED (4) Seizure Assessment/Plan: on keppra. on tegretol in [place], continue keppra iv bid. once no longer npo, can restart tegretol. Code(s): R56.9 - UNSPECIFIED CONVULSIONS (5) Sepsis Assessment/Plan: wbc increased to 12, afebrile monitor respiratory status. c/w 2 L NC blood cultures NGTD ID following, cont IV abx Rhonchi of upper lobes improving. monitor output & temp Code(s): A41.9 - SEPSIS, UNSPECIFIED ORGANISM (6) Aspiration into airway Assessment/Plan: chest xray shows left lower lobe infiltrate c/w zosyn. support with 2 liters of nasal cannula monitor oxygen levels and titrate off oxygen as tolerated. not home oxygen dependent at home. Code(s): T17.908A - UNSP FB IN RESP TRACT, PART UNSP CAUSING OTH INJURY, INIT (7) Cerebral palsy Assessment/Plan: supportive care BL UE severly contracted. IV placed to R AC. IV site is without erythema, not tender. IV placement attempted with ultrasound yesterday unsuccessfully and family refused to attempt EJ placement. Since IV site is without signs of infection and is flushing continue with current IV despite being in for > 72 hours. Will continue to monitor site. Code(s): G80.9 - CEREBRAL PALSY, UNSPECIFIED (8) Left pulmonary infiltrate on CXR Assessment/Plan: CXR shows left lower lobe infiltrate. c/w zosyn. support with 2 liters of nasal cannula monitor oxygen levels and titrate off oxygen as tolerated. not oxygen dependent at home. Code(s): R91.8 - OTHER NONSPECIFIC ABNORMAL FINDING OF LUNG FIELD (9) Tachycardia Assessment/Plan: HR remains in 120s despite increased frequency of MSO4 c/w MSO4 .5mg IV q8H Code(s): R00.0 - TACHYCARDIA, UNSPECIFIED (10) Decreased oral intake Assessment/Plan: NPO. day #7 of NPO, c/w Clinimax for nutrition. speech and swallow consulted and will assess once taking PO Code(s): R63.8 - OTHER SYMPTOMS AND SIGNS CONCERNING FOOD AND FLUID INTAKE (11) Hyponatremia Assessment/Plan: Na decreased to 131, will adjust Clinimix accordingly Code(s): E87.1 - HYPO-OSMOLALITY AND HYPONATREMIA Visit type - Emergency Visit Emergency Visit: Yes ED Registration Date: 04/28/19 Care time: The patient presented to the Emergency Department on the above date and was hospitalized for further evaluation of their emergent condition. - New Patient This patient is new to me today: No - Critical Care Critical Care patient: No - Discharge Referral Referred to [facility] Med P.C.: No
--- NOTE | 2019-05-06 08:23 | PN ---
Progress Note, Physician Chief Complaint: nonverbal NGT in place TELE: SHALINI HARDYR - Current Medication List Current Medications: Active Medications Acetaminophen (Tylenol Suppository -) 650 mg MD Q6H PRN PRN Reason: FEVER Last Admin: 05/04/19 05:08 Dose: 650 mg Piperacillin Sod/Tazobactam (Sod 3.375 gm/ Dextrose) 50 mls @ 100 mls/hr IVPB Q8H-IV H[facility]LEY; Protocol Last Admin: 05/06/19 01:07 Dose: 100 mls/hr Potassium Chloride 20 meq/ (Amino Acids) 1,010 mls @ 60 mls/hr IVPB Q12H [facility] Last Admin: 05/06/19 01:10 Dose: Not Given Fat Emulsion Intravenous (Intralipid -) 250 mls @ 20.833 mls/hr IV DAILY@2200 HAYLEY Last Admin: 05/05/19 22:29 Dose: 20.833 mls/hr Levetiracetam (Keppra Injection -) 500 mg IVPB BID HAYLEY Last Admin: 05/05/19 21:54 Dose: 500 mg Metoprolol Tartrate (Lopressor Injection -) 5 mg IVPUSH Q4H PRN PRN Reason: TACHYCARDIA Last Admin: 05/01/19 06:54 Dose: 5 mg Morphine Sulfate (Morphine Sulfate) 0.5 mg IVPB Q4H PRN PRN Reason: PAIN LEVEL 6-10 Last Admin: 05/04/19 23:47 Dose: 0.5 mg - Objective Vital Signs: Vital Signs Temperature 98.7 F 05/06/19 06:00 Pulse Rate 104 H 05/06/19 06:00 Respiratory Rate 18 05/06/19 06:00 Blood Pressure 118/68 05/06/19 06:00 O2 Sat by Pulse Oximetry (%) 100 05/05/19 21:00 Constitutional: Yes: No Distress Cardiovascular: Yes: Regular Rate and Rhythm Respiratory: Yes: Other (no wheezing or rales) Gastrointestinal: Yes: Soft Edema: No Labs: CBC, BMP 05/05/19 09:15 05/05/19 09:15 INR, PTT INR 1.00 (0.82-1.09) 04/28/19 17:22 - ....Imaging EKG: Image Reviewed Assessment/Plan tele: sinus tachycardia echo 04/2019 nl LV function, E/A reversal, RV not well visualized, mild MR IMP: Sinus tachycardia: - sinus, monitoring on tele - echo unremarkable - likely in setting of underlying pain, anxiety, SBO - manage per primary, HR improving - trop neg, no ischemia on EKG - unlikely ACS SBO: - manage per surgery, NGT in place Seizure disorder: - manage per primary GERD: -holding meds, NPO
--- NOTE | 2019-05-06 08:49 | PN ---
Progress Note (short form) - Note Progress Note: Pt seen and examined. Aid at bedside. Reports pts pain appears to be stable, pt seemed to be in pain this morning, improved with repositioning. Pt had "two large bowel movements" yesterday. NG output 150ml overnight(TUBE TO GRAVITY). No other issues overnight. Vital Signs Temp 98.7 F 05/06/19 06:00 Pulse 104 H 05/06/19 06:00 Resp 18 05/06/19 06:00 BP 118/68 05/06/19 06:00 Pulse Ox 100 05/05/19 21:00 Intake & Output 05/05/19 05/05/19 05/06/19 11:59 23:59 11:59 Intake Total 480 910 658 Output Total 400 Balance 480 510 658 Intake: IV 480 660 420 Clinimix 480 660 420 IVPB 250 50 Lipid 188 Output: Gastric Drainage 400 Other: Voiding Method Incontinent Incontinent # Unmeasured Voids Void 3 3 3 Bowel Movement No Yes: small Yes # Bowel Movements 1 1 Body Mass Index (BMI) 12.1 CBC, BMP 05/05/19 09:15 05/05/19 09:15 Gen: Patient resting comfortably but appears restless this morning. Ext: Extremities contracted x4 Abd: Soft, nontender, less distended than yesterday, no guarding, no rebound. Healed midline surgical scar and lateral scar. A/P: 59 y/o F resident of [facility], w/ PMHx MR, cerebral palsy, congenital quadriplegia, severe scoliosis, seizure disorder, and GERD now a/w SBO. NGT put out 150ml to gravity since yesterday afternoon, (bilious output) Abdomen slightly less distended, pain appears more controlled per family. -AXR in AM-pending -NPO/NGT- to gravity, follow output, will likely remove this afternoon -IVF -Serial abd exams -Surgery to follow d/w attending Dr Dickerson
[2019-05-06 09:08] LABS: BASO % 0.4 % (0-2.0); HEMATOCRIT 31.3 % (32.4-45.2); HEMOGLOBIN 10.6 GM/dL (10.7-15.3); LYMPH % 10.6 % (8-40); MCH 28.5 pg (25.7-33.7); MCHC 33.8 g/dl (32.0-36.0); MEAN CELL VOLUME 84.4 fl (80-96); MEAN PLT VOLUME 9.5 fl (7.5-11.1); MONO % 11.9 % (3.8-10.2); NEUT % 77.1 % (42.8-82.8); PLATELET COUNT 244 K/MM3 (134-434); RBC 3.71 M/mm3 (3.60-5.2); RDW 14.1 % (11.6-15.6); WHITE BLOOD COUNT 12.2 K/mm3 (4.0-10.0)
[2019-05-06 09:37] LABS: ALBUMIN 2.3 g/dl (3.4-5.0); BILIRUBIN,TOTAL 0.5 mg/dL (0.2-1); BLOOD UREA NITROGEN 20.2 mg/dL (7-18); CALCIUM 8.9 mg/dL (8.5-10.1); CREATININE 0.2 mg/dL (0.55-1.3); POTASSIUM 3.7 mmol/L (3.5-5.1)
--- NOTE | 2019-05-06 09:59 | PN ---
Progress Note, Physician History of Present Illness: stable had bm overnight - Current Medication List Current Medications: Active Medications Acetaminophen (Tylenol Suppository -) 650 mg [place] Q6H PRN PRN Reason: FEVER Last Admin: 05/04/19 05:08 Dose: 650 mg Piperacillin Sod/Tazobactam (Sod 3.375 gm/ Dextrose) 50 mls @ 100 mls/hr IVPB Q8H-IV H[facility]LEY; Protocol Last Admin: 05/06/19 01:07 Dose: 100 mls/hr Potassium Chloride 20 meq/ (Amino Acids) 1,010 mls @ 60 mls/hr IVPB Q12H [facility] Last Admin: 05/06/19 01:10 Dose: Not Given Fat Emulsion Intravenous (Intralipid -) 250 mls @ 20.833 mls/hr IV DAILY@2200 H[facility]LEY Last Admin: 05/05/19 22:29 Dose: 20.833 mls/hr Levetiracetam (Keppra Injection -) 500 mg IVPB BID H[facility]LEY Last Admin: 05/05/19 21:54 Dose: 500 mg Metoprolol Tartrate (Lopressor Injection -) 5 mg IVPUSH Q4H PRN PRN Reason: TACHYCARDIA Last Admin: 05/01/19 06:54 Dose: 5 mg Morphine Sulfate (Morphine Sulfate) 0.5 mg IVPB Q4H PRN PRN Reason: PAIN LEVEL 6-10 Last Admin: 05/04/19 23:47 Dose: 0.5 mg - Objective Vital Signs: Vital Signs Temperature 98.7 F 05/06/19 06:00 Pulse Rate 104 H 05/06/19 06:00 Respiratory Rate 18 05/06/19 06:00 Blood Pressure 118/68 05/06/19 06:00 O2 Sat by Pulse Oximetry (%) 100 05/05/19 21:00 Constitutional: Yes: No Distress, Calm Cardiovascular: Yes: S1, S2 Respiratory: Yes: Regular, CTA Bilaterally Gastrointestinal: Yes: Normal Bowel Sounds, Soft, Other (ng in place) Musculoskeletal: Yes: WNL Extremities: Yes: Other Neurological: Yes: Alert, Oriented Psychiatric: Yes: Alert, Oriented Labs: CBC, BMP 05/06/19 08:40 05/06/19 08:40 INR, PTT INR 1.00 (0.82-1.09) 08/22/19 17:22 Assessment/Plan 59 year-old female resident of [facility], with a PMH significant for profound mental retardation, cerebral palsy, congenital quadriplegia, severe scoliosis, seizure disorder, and GERD. Admitted for SBO. SBO Profound mental retardation Cerebral palsy Congenital quadriplegia Severe scoliosis Seizure disorder GERD plan continue current mgmt wbc has increased will watch on abx for one more day will stop it tomorrow
[2019-05-06 10:30] LABS: ANISOCYTOSIS 0; MACROCYTOSIS 0; PLATELET ESTIMATE NORMAL
[2019-05-06] MEDS: levETIRAcetam 500 MG/5 ML INJECTION VIAL IVPB SCH ×2 (11:31→21:38)
--- NOTE | 2019-05-06 12:31 | PN ---
Progress Note, Physician History of Present Illness: Pt seen and examined at bedside. She is not on the clinimix at the moment. - Current Medication List Current Medications: Active Medications Acetaminophen (Tylenol Suppository -) 650 mg CO Q6H PRN PRN Reason: FEVER Last Admin: 05/04/19 05:08 Dose: 650 mg Piperacillin Sod/Tazobactam (Sod 3.375 gm/ Dextrose) 50 mls @ 100 mls/hr IVPB Q8H-IV H[facility]LEY; Protocol Last Admin: 05/06/19 11:30 Dose: 100 mls/hr Potassium Chloride 20 meq/ (Amino Acids) 1,010 mls @ 60 mls/hr IVPB Q12H [facility]LEY Last Admin: 05/06/19 01:10 Dose: Not Given Fat Emulsion Intravenous (Intralipid -) 250 mls @ 20.833 mls/hr IV DAILY@2200 H[facility]LEY Last Admin: 05/05/19 22:29 Dose: 20.833 mls/hr Levetiracetam (Keppra Injection -) 500 mg IVPB BID H[facility]LEY Last Admin: 05/06/19 11:31 Dose: 500 mg Metoprolol Tartrate (Lopressor Injection -) 5 mg IVPUSH Q4H PRN PRN Reason: TACHYCARDIA Last Admin: 05/01/19 06:54 Dose: 5 mg Morphine Sulfate (Morphine Sulfate) 0.5 mg IVPB Q4H PRN PRN Reason: PAIN LEVEL 6-10 Last Admin: 05/04/19 23:47 Dose: 0.5 mg - Objective Vital Signs: Vital Signs Temperature 98.7 F 05/06/19 06:00 Pulse Rate 104 H 05/06/19 06:00 Respiratory Rate 18 05/06/19 06:00 Blood Pressure 118/68 05/06/19 06:00 O2 Sat by Pulse Oximetry (%) 100 05/05/19 21:00 Constitutional: Yes: Calm Eyes: Yes: Conjunctiva Clear Cardiovascular: Yes: S1, S2 Gastrointestinal: Yes: Soft, Other (ngt in place) Genitourinary: Yes: Incontinence Musculoskeletal: Yes: Muscle Weakness Edema: No Integumentary: Yes: WNL Neurological: Yes: Pre-Existing Deficit Labs: CBC, BMP 05/06/19 08:40 05/06/19 08:40 INR, PTT INR 1.00 (0.82-1.09) 04/28/19 17:22 Problem List - Problems (1) Hyperkalemia Code(s): E87.5 - HYPERKALEMIA (2) Hypernatremia Code(s): E87.0 - HYPEROSMOLALITY AND HYPERNATREMIA (3) SBO (small bowel obstruction) Code(s): K56.609 - UNSP INTESTNL OBST, UNSP TO PARTIAL VERSUS COMPLETE OBST (4) Seizure Code(s): R56.9 - UNSPECIFIED CONVULSIONS Assessment/Plan Current Medications Generic Name Dose Route Start Last Admin Trade Name Freq PRN Reason Stop Dose Admin Acetaminophen 650 mg 04/30/19 14:13 05/04/19 05:08 Tylenol Suppository - CO 650 mg Q6H PRN Administration FEVER Piperacillin Sod/Tazobactam 50 mls @ 100 mls/hr 04/30/19 18:00 05/06/19 11:30 Sod 3.375 gm/ Dextrose IVPB 100 mls/hr Q8H-IV H[facility]LEY Administration Protocol Potassium Chloride 20 meq/ 1,010 mls @ 60 mls/hr 05/04/19 13:00 05/06/19 01: 10 Amino Acids IVPB Not Given Q12H HAYLEY Fat Emulsion Intravenous 250 mls @ 20.833 mls/hr 05/05/19 22:00 05/05/19 22: 29 Intralipid - IV 20.833 mls/hr DAILY@2200 HAYLEY Administration Levetiracetam 500 mg 04/30/19 22:00 05/06/19 11:31 Keppra Injection - IVPB 500 mg BID HAYLEY Administration Metoprolol Tartrate 5 mg 04/30/19 15:49 05/01/19 06:54 Lopressor Injection - IVPUSH 5 mg Q4H PRN Administration TACHYCARDIA Morphine Sulfate 0.5 mg 05/03/19 11:28 05/04/19 23:47 Morphine Sulfate IVPB 0.5 mg Q4H PRN Administration PAIN LEVEL 6-10 Impression 1. hypernatremia 2. hyperkalemia - resolved 3. SBO 4. epilepsy 5. developemental delay 6. hypokalemia Plan - restart fluids once IV is established - monitor lytes closely - surgery follow up for sbo - discussed with family
[2019-05-06] MEDS ORDERED: PT OWN MED DRAWER 7, Y5N ONE ×2 (13:29→21:14)
[2019-05-06] MEDS ORDERED: MORPHINE SULFATE 2 MG/ML VIAL SQ ONE (19:48)
--- NOTE | 2019-05-06 21:14 | PN ---
Progress Note (short form) - Note Progress Note: Called to patient's bedside for access. Unable to obtain peripheral access after multiple attempts for PIV with ultrasound guidance. Abnormal anatomy makes placement of central access challenging. IO placed after discussion with family and primary team in L tibia. Good return, flushing easily. Case discussed with primary team. <Hilton Austin - Last Filed: 05/06/19 21:11> - Note Progress Note: I was present and checked on the IO placed in LLE over prox tibia, flushing and infusing. no surrounding discoloration or soft tissue changes. contracted extremities, no acute distress. no complications exhibited will be temporary and definitive access nonemergently in the AM with subspecialists for access. <Mara Mckeon - Last Filed: 05/07/19 22:22>
[2019-05-06] MEDS: FAT EMULSIONS 250 ML IV SCH (21:38)
[2019-05-07] MEDS: POTASSIUM CHLORIDE 20 MEQ in AMINO ACIDS 4.25%/D5W 1,000 ML IVPB SCH ×2 (01:19→15:53)
[2019-05-07] MEDS ORDERED: PIPERACILLIN/TAZOBACTAM 3.375 GM VIAL IVPB ONE ×3 (02:24→16:09)
[2019-05-07] MEDS ORDERED: DEXTROSE 5%-WATER - 50 ML IVPB ONE ×3 (02:24→16:09)
[2019-05-07] MEDS: PIPERACILLIN/TAZOB 3.375 GM 3.375 GM in DEXTROSE 5%-WATER - 50 ML IVPB SCH ×2 (02:51→12:36)
--- NOTE | 2019-05-07 08:08 | PN ---
Progress Note, Physician Chief Complaint: patient non-verbal. Family at bedside. Lost IVF last night. IO placed at bedside and fluids infusing History of Present Illness: History of Present Illness: Patient is a 59 year old female (resident of [facility]) with a PMHx significant for profound mental retardation, cerebral palsy, congenital quadriplegia, severe scoliosis, seizure disorder, and GERD. Transferred from [place] to [facility] for further management of SBO, sepsis and tachycardia. - Current Medication List Current Medications: Active Medications Acetaminophen (Tylenol Suppository -) 650 mg NV Q6H PRN PRN Reason: FEVER Last Admin: 05/04/19 05:08 Dose: 650 mg Piperacillin Sod/Tazobactam (Sod 3.375 gm/ Dextrose) 50 mls @ 100 mls/hr IVPB Q8H-IV HAYLEY; Protocol Last Admin: 05/07/19 02:51 Dose: 100 mls/hr Potassium Chloride 20 meq/ (Amino Acids) 1,010 mls @ 60 mls/hr IVPB Q12H H[facility]LEY Last Admin: 05/07/19 01:19 Dose: Not Given Fat Emulsion Intravenous (Intralipid -) 250 mls @ 20.833 mls/hr IV DAILY@2200 HAYLEY Last Admin: 05/06/19 21:38 Dose: 20.833 mls/hr Levetiracetam (Keppra Injection -) 500 mg IVPB BID HAYLEY Last Admin: 05/06/19 21:38 Dose: 500 mg Metoprolol Tartrate (Lopressor Injection -) 5 mg IVPUSH Q4H PRN PRN Reason: TACHYCARDIA Last Admin: 05/01/19 06:54 Dose: 5 mg Morphine Sulfate (Morphine Sulfate) 0.5 mg IVPB Q4H PRN PRN Reason: PAIN LEVEL 6-10 Last Admin: 05/04/19 23:47 Dose: 0.5 mg - Objective Vital Signs: Vital Signs Temperature 98.1 F 05/07/19 02:00 Pulse Rate 67 05/07/19 02:00 Respiratory Rate 18 05/07/19 02:00 Blood Pressure 105/42 L 05/07/19 02:00 O2 Sat by Pulse Oximetry (%) 99 05/06/19 21:00 Additional Findings/Remarks: Constitutional: Yes: No Distress, Calm, Thin Eyes: Yes: WNL, Conjunctiva Clear, EOM Intact HENT: Yes: WNL, Atraumatic, Normocephalic Neck: Yes: WNL, Supple, Trachea Midline Cardiovascular: Yes: Regular Rate and Rhythm, Tachycardia Respiratory: Yes: Regular, Diminished (at bases) Gastrointestinal: Yes: Soft, Hypoactive Bowel Sounds, Other (NGT to gravity with bilious draiange) ...Rectal Exam: Yes: Deferred Genitourinary: Yes: Incontinence Breast(s): Yes: WNL Musculoskeletal: Yes: Other (not able to assess) Extremities: Yes: Deformity (severe cobtractures with scolosis), Other IO to left thigh Edema: Yes Edema: LLE: Trace, RLE: Trace Peripheral Pulses WNL: Yes Peripheral Pulses: Left Radial: 2+, Right Radial: 2+, Left Doralis Pedis: 2+, Right Dorsalis Pedis: 2+, Left Femoral: 2+, Right Femoral: 2+ Integumentary: Yes: WNL Neurological: Yes: Alert (tracks voices) Psychiatric: Yes: Alert Labs: CBC, BMP 05/06/19 08:40 05/06/19 08:40 INR, PTT INR 1.00 (0.82-1.09) 04/28/19 17:22 - ....Imaging Chest X-ray: Pending Problem List - Problems (1) SBO (small bowel obstruction) Assessment/Plan: passing stool c/w serial abd exams/KUB Surgery Dr Dickerson following removed NGT and trial PO Code(s): K56.609 - UNSP INTESTNL OBST, UNSP TO PARTIAL VERSUS COMPLETE OBST (2) Hypokalemia Assessment/Plan: K 3.5, maintaining levels continue to monitor K, maintain >4.0 c/w clinimix Code(s): E87.6 - HYPOKALEMIA (3) Prophylactic measure Assessment/Plan: FEN NPO c/w Climinix monitor electrolytes Dispo maintain on tele full code discharge planning Code(s): Z29.9 - ENCOUNTER FOR PROPHYLACTIC MEASURES, UNSPECIFIED (4) Seizure Assessment/Plan: on keppra. on tegretol in [place], continue keppra iv bid. once no longer npo, can restart tegretol. Code(s): R56.9 - UNSPECIFIED CONVULSIONS (5) Sepsis Assessment/Plan: wbc increased to 13 afebrile monitor respiratory status. c/w 2 L NC blood cultures NGTD ID following, cont IV abx Rhonchi of upper lobes improving. CXR pending to r/o further aspiration pna monitor output & temp Code(s): A41.9 - SEPSIS, UNSPECIFIED ORGANISM (6) Aspiration into airway Assessment/Plan: repeat CXR pending c/w zosyn. support with 2 liters of nasal cannula monitor oxygen levels and titrate off oxygen as tolerated. not home oxygen dependent at home. Code(s): T17.908A - UNSP FB IN RESP TRACT, PART UNSP CAUSING OTH INJURY, INIT (7) Cerebral palsy Assessment/Plan: supportive care BL UE severly contracted. IV placed to R AC. IV site is without erythema, not tender. IV placement attempted with ultrasound yesterday unsuccessfully and family refused to attempt EJ placement. Since IV site is without signs of infection and is flushing continue with current IV despite being in for > 72 hours. Will continue to monitor site. Code(s): G80.9 - CEREBRAL PALSY, UNSPECIFIED (8) Left pulmonary infiltrate on CXR Code(s): R91.8 - OTHER NONSPECIFIC ABNORMAL FINDING OF LUNG FIELD (9) Tachycardia Assessment/Plan: HR remains in 120s despite increased frequency of MSO4 c/w MSO4 .5mg IV q8H Code(s): R00.0 - TACHYCARDIA, UNSPECIFIED (10) Decreased oral intake Assessment/Plan: At [place], patient is on a pured diet with honey thick liquids, medication taken with food. She receives power pudding at breakfast, Weight gain supplement at breakfast and dinner, bran cereal three times a week, prune juice twice daily. She is supplemented with Ensure pudding twice a day and power pudding once daily. 2 kristine hn is given for meal refusal. Code(s): R63.8 - OTHER SYMPTOMS AND SIGNS CONCERNING FOOD AND FLUID INTAKE (11) Hyponatremia Assessment/Plan: Na decreased to 130, will adjust Clinimix accordingly Code(s): E87.1 - HYPO-OSMOLALITY AND HYPONATREMIA Impression/Plan Impression/Plan: Poor Venous Access PIV dislodged last night mutiple attempt to replace unsuccessfully IO placed to left thigh will continue to use for no longer than 24H and then remove started or PO and tolerating, will change IV abx to PO Visit type - Emergency Visit Emergency Visit: Yes ED Registration Date: 04/28/19 Care time: The patient presented to the Emergency Department on the above date and was hospitalized for further evaluation of their emergent condition. - New Patient This patient is new to me today: No - Critical Care Critical Care patient: No - Discharge Referral Referred to [facility] Med P.C.: No
[2019-05-07 10:25] LABS: ALBUMIN 2.3 g/dl (3.4-5.0); BILIRUBIN,TOTAL 0.7 mg/dL (0.2-1); CALCIUM 8.8 mg/dL (8.5-10.1); CREATININE 0.3 mg/dL (0.55-1.3); MAGNESIUM 1.9 mg/dL (1.8-2.4); POTASSIUM 3.5 mmol/L (3.5-5.1)
--- NOTE | 2019-05-07 10:40 | PN ---
Progress Note (short form) - Note Progress Note: S: nonverbal Current Medications Generic Name Dose Route Start Last Admin Trade Name Freq PRN Reason Stop Dose Admin Acetaminophen 650 mg 04/30/19 14:13 05/04/19 05:08 Tylenol Suppository - DC 650 mg Q6H PRN Administration FEVER Piperacillin Sod/Tazobactam 50 mls @ 100 mls/hr 04/30/19 18:00 05/07/19 02:51 Sod 3.375 gm/ Dextrose IVPB 100 mls/hr Q8H-IV [facility] Administration Protocol Potassium Chloride 20 meq/ 1,010 mls @ 60 mls/hr 05/04/19 13:00 05/07/19 01: 19 Amino Acids IVPB Not Given Q12H [facility] Fat Emulsion Intravenous 250 mls @ 20.833 mls/hr 05/05/19 22:00 05/06/19 21: 38 Intralipid - IV 20.833 mls/hr DAILY@2200 [facility] Administration Levetiracetam 500 mg 04/30/19 22:00 05/06/19 21:38 Keppra Injection - IVPB 500 mg BID [facility] Administration Metoprolol Tartrate 5 mg 04/30/19 15:49 05/01/19 06:54 Lopressor Injection - IVPUSH 5 mg Q4H PRN Administration TACHYCARDIA Morphine Sulfate 0.5 mg 05/03/19 11:28 05/04/19 23:47 Morphine Sulfate IVPB 0.5 mg Q4H PRN Administration PAIN LEVEL 6-10 Vital Signs Period Temp Pulse Resp BP Sys/[place] Pulse Ox Last 24 Hr 98.0 F-98.5 F 67-117 16-18 92-131/42-82 99 Gen: NAD Cardiovascular: Yes: Regular Rate and Rhythm Respiratory: Yes: Rhonchi Gastrointestinal: Yes: Soft Edema: No no jaundice diaphoresis not agitated - ....Imaging EKG: Image Reviewed Laboratory Last Values WBC 12.2 K/mm3 (4.0-10.0) H 05/06/19 08:40 RBC 3.71 M/mm3 (3.60-5.2) 05/06/19 08:40 Hgb 10.6 GM/dL (10.7-15.3) L 05/06/19 08:40 Hct 31.3 % (32.4-45.2) L 05/06/19 08:40 MCV 84.4 fl (80-96) 05/06/19 08:40 MCH 28.5 pg (25.7-33.7) 05/06/19 08:40 MCHC 33.8 g/dl (32.0-36.0) 05/06/19 08:40 RDW 14.1 % (11.6-15.6) 05/06/19 08:40 Plt Count 244 K/MM3 (134-434) 05/06/19 08:40 MPV 9.5 fl (7.5-11.1) 05/06/19 08:40 Absolute Neuts (auto) 9.4 K/mm3 (1.5-8.0) H 05/06/19 08:40 Neutrophils % 77.1 % (42.8-82.8) 05/06/19 08:40 Neutrophils % (Manual) 74.2 % (42.8-82.8) 05/06/19 08:40 Band Neutrophils % 0.0 % 05/06/19 08:40 Lymphocytes % 10.6 % (8-40) D 05/06/19 08:40 Lymphocytes % (Manual) 9.0 % (8-40) 05/06/19 08:40 Monocytes % 11.9 % (3.8-10.2) H 05/06/19 08:40 Monocytes % (Manual) 14 % (3.8-10.2) H 05/06/19 08:40 Eosinophils % 0.0 % (0-4.5) 05/06/19 08:40 Eosinophils % (Manual) 0.0 % (0-4.5) 05/06/19 08:40 Basophils % 0.4 % (0-2.0) 05/06/19 08:40 Basophils % (Manual) 0.0 % (0-2.0) 05/06/19 08:40 Myelocytes % (Man) 2 % (0-2) D 05/06/19 08:40 Promyelocytes % (Man) 0 % (0-2) 05/06/19 08:40 Blast Cells % (Manual) 0 % (0-0) 05/06/19 08:40 Nucleated RBC % 0 % (0-0) 05/06/19 08:40 Metamyelocytes 1 % (0-2) D 05/06/19 08:40 Hypochromia 0 05/06/19 08:40 Platelet Estimate Normal 05/06/19 08:40 Polychromasia 0 05/06/19 08:40 Poikilocytosis 0 05/06/19 08:40 Anisocytosis 0 05/06/19 08:40 Microcytosis 0 05/06/19 08:40 Macrocytosis 0 05/06/19 08:40 PT with INR 11.2 SEC (10.2-13.0) 04/28/19 17:22 INR 1.00 (0.82-1.09) 04/28/19 17:22 PTT (Actin FS) 32.9 SECONDS (25.2-36.5) 04/28/19 17:22 Sodium 130 mmol/L (136-145) L 05/07/19 09:35 Potassium 3.5 mmol/L (3.5-5.1) 05/07/19 09:35 Chloride 92 mmol/L (98-107) L 05/07/19 09:35 Carbon Dioxide 30 mmol/L (21-32) 05/07/19 09:35 Anion Gap 7 MMOL/L (8-16) L 05/07/19 09:35 BUN 19.0 mg/dL (7-18) H 05/07/19 09:35 Creatinine 0.3 mg/dL (0.55-1.3) L 05/07/19 09:35 Est GFR (CKD-EPI)AfAm 143.22 05/07/19 09:35 Est GFR (CKD-EPI)NonAf 123.58 05/07/19 09:35 Random Glucose 128 mg/dL (74-106) H 05/07/19 09:35 Hemoglobin A1c % 5.4 % (4.2-6.3) 05/03/19 06:00 Lactic Acid 1.9 mmol/L (0.4-2.0) 04/28/19 19:40 Calcium 8.8 mg/dL (8.5-10.1) 05/07/19 09:35 Magnesium 1.9 mg/dL (1.8-2.4) 05/07/19 09:35 Total Bilirubin 0.7 mg/dL (0.2-1) 05/07/19 09:35 AST 39 U/L (15-37) H 05/07/19 09:35 ALT 19 U/L (13-61) 05/07/19 09:35 Alkaline Phosphatase 173 U/L (45-117) H 05/07/19 09:35 Creatine Kinase 39 U/L (26-192) 04/29/19 23:59 Troponin I < 0.02 ng/ml (0.00-0.05) 04/29/19 23:59 Total Protein 6.0 g/dl (6.4-8.2) L 05/07/19 09:35 Albumin 2.3 g/dl (3.4-5.0) L 05/07/19 09:35 Blood Type O POSITIVE 04/28/19 17:27 Antibody Screen Negative 04/28/19 17:27 Assessment/Plan DATA: tele: sinus tachycardia echo 04/2019 nl LV function, E/A reversal, RV not well visualized, mild MR IMP: Sinus tachycardia: - sinus, monitoring on tele - echo unremarkable - likely in setting of underlying pain, anxiety, SBO - trop neg, no ischemia on EKG - unlikely ACS SBO: - manage per surgery Seizure disorder: - manage per primary GERD: -holding meds, NPO
[2019-05-07 11:10] LABS: BASO % 0.3 % (0-2.0); HEMATOCRIT 32.8 % (32.4-45.2); HEMOGLOBIN 11.3 GM/dL (10.7-15.3); LYMPH % 8.2 % (8-40); MCH 28.6 pg (25.7-33.7); MCHC 34.3 g/dl (32.0-36.0); MEAN CELL VOLUME 83.5 fl (80-96); MEAN PLT VOLUME 8.9 fl (7.5-11.1); MONO % 8.4 % (3.8-10.2); NEUT % 83.1 % (42.8-82.8); PLATELET COUNT 312 K/MM3 (134-434); RBC 3.94 M/mm3 (3.60-5.2); WHITE BLOOD COUNT 13.3 K/mm3 (4.0-10.0)
--- NOTE | 2019-05-07 11:49 | PN ---
Progress Note (short form) - Note Progress Note: Attending Surgeon Seen in f/u VSS Af abdo-soft; non tender; slightly tympanitic NGT removed; had minimal drainage to bsb IMP: resolving SBO PLAN: Trial of clear liquids and advance as tolerated; if recurs or diet not tolerated will need to d/w familiy/HCP goals of care. Kieran Dickerson MD FACS
[2019-05-07] MEDS: levETIRAcetam 500 MG/5 ML INJECTION VIAL IVPB SCH (12:36)
[2019-05-07] MEDS ORDERED: MAG HYDROX/AL HYDROX/SIMETH 30 ML UNIT-DOSE CUP PO PRN (12:57)
--- NOTE | 2019-05-07 13:31 | PN ---
Progress Note, Physician History of Present Illness: Pt seen and examined. Events noted. Pt having BM, NGT removed, advancing diet. She is alert, without distress. WBC elevated. - Current Medication List Current Medications: Active Medications Acetaminophen (Tylenol Suppository -) 650 mg [place] Q6H PRN PRN Reason: FEVER Last Admin: 05/04/19 05:08 Dose: 650 mg Al Hydroxide/Mg Hydroxide (Mylanta Oral Suspension -) 30 ml PO Q6H PRN PRN Reason: DYSPEPSIA Last Admin: 05/07/19 13:13 Dose: 30 ml Piperacillin Sod/Tazobactam (Sod 3.375 gm/ Dextrose) 50 mls @ 100 mls/hr IVPB Q8H-IV [facility]; Protocol Stop: 05/07/19 18:01 Last Admin: 05/07/19 12:36 Dose: 100 mls/hr Potassium Chloride 20 meq/ (Amino Acids) 1,010 mls @ 60 mls/hr IVPB Q12H [facility] Last Admin: 05/07/19 01:19 Dose: Not Given Fat Emulsion Intravenous (Intralipid -) 250 mls @ 20.833 mls/hr IV DAILY@2200 [facility] Last Admin: 05/06/19 21:38 Dose: 20.833 mls/hr Levetiracetam (Keppra Injection -) 500 mg IVPB BID [facility] Last Admin: 05/07/19 12:36 Dose: 500 mg Metoprolol Tartrate (Lopressor Injection -) 5 mg IVPUSH Q4H PRN PRN Reason: TACHYCARDIA Last Admin: 05/01/19 06:54 Dose: 5 mg Morphine Sulfate (Morphine Sulfate) 0.5 mg IVPB Q4H PRN PRN Reason: PAIN LEVEL 6-10 Last Admin: 05/04/19 23:47 Dose: 0.5 mg - Objective Vital Signs: Vital Signs Temperature 98.1 F 05/07/19 02:00 Pulse Rate 67 05/07/19 02:00 Respiratory Rate 18 05/07/19 02:00 Blood Pressure 105/42 L 05/07/19 02:00 O2 Sat by Pulse Oximetry (%) 99 05/06/19 21:00 Constitutional: Yes: No Distress Cardiovascular: Yes: Regular Rate and Rhythm Respiratory: Yes: Regular Gastrointestinal: Yes: Soft Genitourinary: Yes: WNL Musculoskeletal: Yes: Other (contracted) Integumentary: Yes: WNL Neurological: Yes: Alert Labs: CBC, BMP 05/07/19 10:58 05/07/19 09:35 INR, PTT INR 1.00 (0.82-1.09) 04/28/19 17:22 Microbiology 05/01/19 11:23 Blood - Peripheral Venous Blood Culture - Final NO GROWTH AFTER 5 DAYS INCUBATION 04/30/19 20:00 Blood - Peripheral Venous Blood Culture - Final NO GROWTH AFTER 5 DAYS INCUBATION - ....Imaging Chest X-ray: Report Reviewed X-ray: Report Reviewed Problem List - Problems (1) Profound mental handicap Code(s): F73 - PROFOUND INTELLECTUAL DISABILITIES (2) SBO (small bowel obstruction) Code(s): K56.609 - UNSP INTESTNL OBST, UNSP TO PARTIAL VERSUS COMPLETE OBST (3) Aspiration into airway Code(s): T17.908A - UNSP FB IN RESP TRACT, PART UNSP CAUSING OTH INJURY, INIT (4) Cerebral palsy Code(s): G80.9 - CEREBRAL PALSY, UNSPECIFIED Assessment/Plan SBO Leukocytosis Cerebral Palsy Mental retardation Seizure d.o. Functional quadriplegia -- wbc increasing, etiology unclear, remains afebrile/without distress -- CXR without infiltrates -- Had BM, surgery following - monitor closely -- repeat cbc and continue monitor wbc trend -- monitor for signs of aspiration -- continue Zosyn for now, will reassess after repeat cbc
[2019-05-07] MEDS ORDERED: SIMETHICONE 80 MG TAB.CHEW (FP) PO PRN (15:22)
[2019-05-07] MEDS ORDERED: METOCLOPRAMIDE HCL INJECTION 10 MG/2 ML VIAL IVPUSH ONE (17:16)
[2019-05-07] MEDS ORDERED: ONDANSETRON 4 MG/2 ML VIAL ONE (17:16)
[2019-05-07] MEDS ORDERED: levETIRAcetam 500 MG/5 ML INJECTION VIAL IVPB ONE (17:17)
[2019-05-07] MEDS ORDERED: ONDANSETRON 4 MG/2 ML VIAL IVPUSH ONE (17:17)
[2019-05-07] MEDS ORDERED: ACETAMINOPHEN 650 MG SUPP.RECT PR PRN (17:22)
[2019-05-07] MEDS ORDERED: ACETAMINOPHEN 325 MG TABLET (FP) PO PRN (17:27)
[2019-05-07] MEDS ORDERED: PIPERACILLIN/TAZOB 3.375 GM 3.375 GM in DEXTROSE 5%-WATER - 50 ML IVPB ONE (17:30)
[2019-05-07] MEDS: AMINO ACIDS/PROTEIN HYDROLYS 30 ML LIQUID.PKT PO SCH (17:43)
[2019-05-07 18:03] LABS: PLATELET ESTIMATE ADEQUATE
--- NOTE | 2019-05-07 19:48 | PN ---
Progress Note (short form) - Note Progress Note: Problems 1. hypernatremia 2. hyperkalemia - resolved 3. SBO 4. epilepsy 5. developemental delay 6. hypokalemia Active Medications Acetaminophen (Tylenol -) 650 mg PO Q6H PRN PRN Reason: Fever Or Pain Amino Acids (Prosource No Carb Liquid Pkt) 30 ml PO BID@0800,1730 [facility] Last Admin: 05/07/19 17:43 Dose: Not Given Levetiracetam (Keppra -) 500 mg PO BID [facility] Metoclopramide HCl (Reglan -) 10 mg PO TIDAC [facility] Polyethylene Glycol (Miralax (For Daily Use) -) 17 gm PO DAILY [facility] Simethicone (Mylicon -) 80 mg PO Q4H PRN PRN Reason: DYSPEPSIA Last Admin: 05/07/19 16:21 Dose: 80 mg Last Vital Signs Temp Pulse Resp BP Pulse Ox 97.9 F 111 H 20 111/71 97 05/07/19 14:00 05/07/19 14:00 05/07/19 14:00 05/07/19 14:00 05/07/19 10:00 CBC, BMP 05/07/19 10:58 05/07/19 09:35 Plan - restart fluids once IV is established - monitor lytes closely - surgery follow up for sbo - discussed with family
[2019-05-07] MEDS: levETIRAcetam 500 MG TABLET (FP) PO SCH (22:11)
[2019-05-07] MEDS: ACETAMINOPHEN 650 MG SUPP.RECT PR PRN (23:15)
[2019-05-08] MEDS: ACETAMINOPHEN 650 MG SUPP.RECT PR PRN (05:29)
[2019-05-08] MEDS ORDERED: ONDANSETRON *ODT* 4 MG TABLET SL ONE (05:57)
[2019-05-08] MEDS: METOCLOPRAMIDE HCL 10 MG TABLET (FP) PO SCH ×3 (06:32→16:22)
--- NOTE | 2019-05-08 07:27 | PN ---
Progress Note, Physician Chief Complaint: patient non-verbal. Family at bedside. IO removed. WBC increased. Fever w/u in progress. Attempting to obtain venous access History of Present Illness: History of Present Illness: Patient is a 59 year old female (resident of [facility]) with a PMHx significant for profound mental retardation, cerebral palsy, congenital quadriplegia, severe scoliosis, seizure disorder, and GERD. Transferred from [place] to [facility] for further management of SBO, sepsis and tachycardia. - Current Medication List Current Medications: Active Medications Acetaminophen (Tylenol Suppository -) 650 mg [place] Q6H PRN PRN Reason: FEVER Last Admin: 05/08/19 05:29 Dose: 650 mg Amino Acids (Prosource No Carb Liquid Pkt) 30 ml PO BID@0800,1730 [facility] Last Admin: 05/07/19 17:43 Dose: Not Given Levetiracetam (Keppra -) 500 mg PO BID [facility] Last Admin: 05/07/19 22:11 Dose: Not Given Metoclopramide HCl (Reglan -) 10 mg PO TIDAC [facility] Last Admin: 05/08/19 06:32 Dose: Not Given Polyethylene Glycol (Miralax (For Daily Use) -) 17 gm PO DAILY [facility] Simethicone (Mylicon -) 80 mg PO Q4H PRN PRN Reason: DYSPEPSIA Last Admin: 05/07/19 16:21 Dose: 80 mg - Objective Vital Signs: Vital Signs Temperature 98.7 F 05/08/19 05:42 Pulse Rate 109 H 05/08/19 05:42 Respiratory Rate 20 05/08/19 05:42 Blood Pressure 135/85 05/08/19 05:42 O2 Sat by Pulse Oximetry (%) 95 05/07/19 21:00 Additional Findings/Remarks: Constitutional: Yes: No Distress, Calm, Thin Eyes: Yes: WNL, Conjunctiva Clear, EOM Intact HENT: Yes: WNL, Atraumatic, Normocephalic Neck: Yes: WNL, Supple, Trachea Midline Cardiovascular: Yes: Regular Rate and Rhythm, Tachycardia Respiratory: Yes: Regular, Diminished (at bases) Gastrointestinal: Yes: Soft, Hypoactive Bowel Sounds, not distended ...Rectal Exam: Yes: Deferred Genitourinary: Yes: Incontinence Breast(s): Yes: WNL Musculoskeletal: Yes: Other (not able to assess) Extremities: Yes: Deformity (severe cobtractures with scolosis), Other IO to left thigh Edema: Yes Edema: LLE: Trace, RLE: Trace Peripheral Pulses WNL: Yes Peripheral Pulses: Left Radial: 2+, Right Radial: 2+, Left Doralis Pedis: 2+, Right Dorsalis Pedis: 2+, Left Femoral: 2+, Right Femoral: 2+ Integumentary: Yes: WNL Neurological: Yes: Alert (tracks voices) Psychiatric: Yes: Alert Labs: CBC, BMP 05/07/19 10:58 05/07/19 09:35 INR, PTT INR 1.00 (0.82-1.09) 04/28/19 17:22 Problem List - Problems (1) SBO (small bowel obstruction) Assessment/Plan: continue to pass stool Abd xray from today suggestive of persistent SBO attempted to given PO yesterday, with questionable aspiration on first attempt ( coughing) Surgery Dr Dickerson following Code(s): K56.609 - UNSP INTESTNL OBST, UNSP TO PARTIAL VERSUS COMPLETE OBST (2) Hypokalemia Assessment/Plan: K 3.5, maintaining levels continue to monitor K, maintain >4.0 will restart clinimix once IV access in obtained Code(s): E87.6 - HYPOKALEMIA (3) Prophylactic measure Assessment/Plan: FEN taking in small amounts of dysphagia diet c/w Climinix monitor electrolytes Dispo maintain on tele full code discharge planning Code(s): Z29.9 - ENCOUNTER FOR PROPHYLACTIC MEASURES, UNSPECIFIED (4) Seizure Assessment/Plan: on keppra PO now on tegretol in [place], continue keppra iv bid. once no longer npo, can restart tegretol. Code(s): R56.9 - UNSPECIFIED CONVULSIONS (5) Sepsis Assessment/Plan: wbc increased to 21 afebrile No effusions or infiltartes seen on CXR, continue to monitor respiratory status. Will repeat CXR in am c/w 2 L NC blood cultures repaeted today, UCX pending ID following, cont IV abx (flagyl & zozyn) when IV access is obtained. Until established with start flagyl Po & augmentin Rhonchi of upper lobes improving. CXR without pna, will reeat in am monitor output & temp Code(s): A41.9 - SEPSIS, UNSPECIFIED ORGANISM (6) Aspiration into airway Assessment/Plan: CXR in am c/w augmentin & flagyl PO until IV access is established then resume IV zosyn & flagyl support with 2 liters of nasal cannula monitor oxygen levels and titrate off oxygen as tolerated. not home oxygen dependent at home. Code(s): T17.908A - UNSP FB IN RESP TRACT, PART UNSP CAUSING OTH INJURY, INIT (7) Cerebral palsy Assessment/Plan: supportive care BL UE severly contracted. IV placed to R AC. IV site is without erythema, not tender. IV placement attempted with ultrasound yesterday unsuccessfully and family refused to attempt EJ placement. Since IV site is without signs of infection and is flushing continue with current IV despite being in for > 72 hours. Will continue to monitor site. Code(s): G80.9 - CEREBRAL PALSY, UNSPECIFIED (8) Tachycardia Assessment/Plan: HR remains in 120s despite increased frequency of MSO4 c/w MSO4 .5mg sq q8H Code(s): R00.0 - TACHYCARDIA, UNSPECIFIED (9) Decreased oral intake Assessment/Plan: c/w dysphagia diet will have speeach patologist re-evaluate on At [facility], patient is on a pured diet with honey thick liquids, medication taken with food. She receives power pudding at breakfast, Weight gain supplement at breakfast and dinner, bran cereal three times a week, prune juice twice daily. She is supplemented with Ensure pudding twice a day and power pudding once daily. 2 kristine hn is given for meal refusal. Code(s): R63.8 - OTHER SYMPTOMS AND SIGNS CONCERNING FOOD AND FLUID INTAKE (10) Hyponatremia Assessment/Plan: Na decreased to 131 will restart Clinimix wehn IV access is obtained Code(s): E87.1 - HYPO-OSMOLALITY AND HYPONATREMIA Impression/Plan Impression/Plan: Inability of establish IV Access not able to establish peripherial IV access despite multiple attempt with several providers-myself, anesthesia, critical care attending. Attempted to place IJ Central line and both RIJ/LIJ appear to be thrombosed on ultrasound. Not able to pass guide wire during placement and decision was made to abort the procedure. No attempt made to place femerol catheter due to severe contractures. . With rising WBC decision made not to place another IO catheter. IVR percussion instrument repairer. Dr Holguin is coming in to attempt to obtain venous access. Discussed options and risk/benefits with family. Visit type - Emergency Visit Emergency Visit: Yes ED Registration Date: 04/28/19 Care time: The patient presented to the Emergency Department on the above date and was hospitalized for further evaluation of their emergent condition. - New Patient This patient is new to me today: No - Critical Care Critical Care patient: No - Discharge Referral Referred to [facility] No
[2019-05-08] MEDS: AMINO ACIDS/PROTEIN HYDROLYS 30 ML LIQUID.PKT PO SCH ×2 (08:04→18:25)
[2019-05-08 08:11] LABS: BASO % 0.4 % (0-2.0); HEMATOCRIT 35.3 % (32.4-45.2); LYMPH % 3.3 % (8-40); MCHC 33.9 g/dl (32.0-36.0); MEAN CELL VOLUME 82.5 fl (80-96); MEAN PLT VOLUME 8.9 fl (7.5-11.1); MONO % 2.3 % (3.8-10.2); PLATELET COUNT 362 K/MM3 (134-434); RBC 4.27 M/mm3 (3.60-5.2); RDW 14.1 % (11.6-15.6); WHITE BLOOD COUNT 21.7 K/mm3 (4.0-10.0)
[2019-05-08 08:40] LABS: ALBUMIN 2.7 g/dl (3.4-5.0); BLOOD UREA NITROGEN 25.5 mg/dL (7-18); CALCIUM 9.9 mg/dL (8.5-10.1); CREATININE 0.8 mg/dL (0.55-1.3); MAGNESIUM 1.9 mg/dL (1.8-2.4); POTASSIUM 3.3 mmol/L (3.5-5.1)
[2019-05-08] MEDS ORDERED: MORPHINE SULFATE 2 MG/ML VIAL SQ PRN (08:45)
[2019-05-08] MEDS ORDERED: ONDANSETRON *ODT* 4 MG TABLET SL PRN (08:46)
[2019-05-08] MEDS: levETIRAcetam 500 MG TABLET (FP) PO SCH (09:36)
[2019-05-08] MEDS ORDERED: POLYETHYLENE GLYCOL 3350 119 GM BTL PO SCH (10:00)
[2019-05-08 10:13] LABS: ANISOCYTOSIS 1+; MACROCYTOSIS 0; PLATELET ESTIMATE NORMAL; TARGET CELLS 1+
--- NOTE | 2019-05-08 10:37 | PN ---
Progress Note, Physician History of Present Illness: Events noted. Pt alert, without acute distress, remains afebrile. Episodes of vomiting noted since last night. Lost IV access last night, awaiting replacement. WBC with upward trend. - Current Medication List Current Medications: Active Medications Acetaminophen (Tylenol Suppository -) 650 mg [place] Q6H PRN PRN Reason: FEVER Last Admin: 05/08/19 05:29 Dose: 650 mg Amino Acids (Prosource No Carb Liquid Pkt) 30 ml PO BID@0800,1730 [facility] Last Admin: 05/07/19 17:43 Dose: Not Given Levetiracetam (Keppra -) 500 mg PO BID [facility] Last Admin: 05/08/19 09:36 Dose: 500 mg Metoclopramide HCl (Reglan -) 10 mg PO TIDAC [facility] Last Admin: 05/08/19 06:32 Dose: Not Given Morphine Sulfate (Morphine Sulfate) 0.5 mg SQ Q6H PRN PRN Reason: PAIN LEVEL 6-10 Last Admin: 05/08/19 09:59 Dose: 0.5 mg Ondansetron HCl (Zofran Odt -) 4 mg SL Q8H PRN PRN Reason: NAUSEA AND/OR VOMITING Polyethylene Glycol (Miralax (For Daily Use) -) 17 gm PO DAILY [facility] Last Admin: 05/08/19 09:36 Dose: 17 gm Simethicone (Mylicon -) 80 mg PO Q4H PRN PRN Reason: DYSPEPSIA Last Admin: 05/07/19 16:21 Dose: 80 mg - Objective Vital Signs: Vital Signs Temperature 98.7 F 05/08/19 05:42 Pulse Rate 109 H 05/08/19 05:42 Respiratory Rate 20 05/08/19 05:42 Blood Pressure 135/85 05/08/19 05:42 O2 Sat by Pulse Oximetry (%) 95 05/07/19 21:00 Constitutional: Yes: No Distress, Calm Eyes: Yes: Conjunctiva Clear Cardiovascular: Yes: Regular Rate and Rhythm Respiratory: Yes: Regular Gastrointestinal: Yes: Soft, Hypoactive Bowel Sounds Genitourinary: Yes: WNL Edema: No Integumentary: Yes: WNL Neurological: Yes: Alert Labs: CBC, BMP 05/08/19 07:40 05/08/19 07:40 INR, PTT INR 1.00 (0.82-1.09) 04/28/19 17:22 Microbiology 05/01/19 11:23 Blood - Peripheral Venous Blood Culture - Final NO GROWTH AFTER 5 DAYS INCUBATION 04/30/19 20:00 Blood - Peripheral Venous Blood Culture - Final NO GROWTH AFTER 5 DAYS INCUBATION - ....Imaging Chest X-ray: Report Reviewed X-ray: Pending Problem List - Problems (1) Profound mental handicap Code(s): F73 - PROFOUND INTELLECTUAL DISABILITIES (2) SBO (small bowel obstruction) Code(s): K56.609 - UNSP INTESTNL OBST, UNSP TO PARTIAL VERSUS COMPLETE OBST (3) Aspiration into airway Code(s): T17.908A - UNSP FB IN RESP TRACT, PART UNSP CAUSING OTH INJURY, INIT (4) Cerebral palsy Code(s): G80.9 - CEREBRAL PALSY, UNSPECIFIED Assessment/Plan SBO Leukocytosis Cerebral Palsy Mental retardation Seizure d.o. Functional quadriplegia -- wbc continues to increase, remains afebrile/vitals stable -- Lost IV fluid access last night, awaiting replacement -- repeat Abd Xray ordered, repeat blood cultures -- Surgical follow up -- once IV access established, continue Zosyn, will add Flagyl empirically, monitor wbc -- continue monitor wbc trend -- aspiration precautions, monitor respiratory status
--- NOTE | 2019-05-08 10:50 | PN ---
Progress Note (short form) - Note Progress Note: S: nonverbal Current Medications Generic Name Dose Route Start Last Admin Trade Name Freq PRN Reason Stop Dose Admin Acetaminophen 650 mg 05/07/19 23:07 05/08/19 05:29 Tylenol Suppository - SD 650 mg Q6H PRN Administration FEVER Amino Acids 30 ml 05/07/19 17:30 05/07/19 17:43 Prosource No Carb Liquid Pkt PO Not Given BID@0800,1730 [facility] Metronidazole 500 mg in 100 mls @ 100 mls/hr 05/08/19 10:45 Flagyl 500mg Premixed Ivpb - IVPB Q8H-IV [facility] Levetiracetam 500 mg 05/07/19 22:00 05/08/19 09:36 Keppra - PO 500 mg BID [facility] Administration Metoclopramide HCl 10 mg 05/08/19 07:00 05/08/19 06:32 Reglan - PO Not Given TIDAC [facility] Morphine Sulfate 0.5 mg 05/08/19 08:45 05/08/19 09:59 Morphine Sulfate SQ 0.5 mg Q6H PRN Administration PAIN LEVEL 6-10 Ondansetron HCl 4 mg 05/08/19 08:46 Zofran Odt - SL Q8H PRN NAUSEA AND/OR VOMITING Polyethylene Glycol 17 gm 05/08/19 10:00 05/08/19 09:36 Miralax (For Daily Use) - PO 17 gm DAILY [facility] Administration Simethicone 80 mg 05/07/19 15:22 05/07/19 16:21 Mylicon - PO 80 mg Q4H PRN Administration DYSPEPSIA Vital Signs Period Temp Pulse Resp BP Sys/[place] Pulse Ox Last 24 Hr 97.9 F-98.8 F 106-126 18-20 83-135/50-85 95 Gen: NAD Cardiovascular: Yes: Regular Rate and Rhythm Respiratory: Yes: Rhonchi Gastrointestinal: Yes: Soft Edema: No no jaundice diaphoresis not agitated - ....Imaging EKG: Image Reviewed CBC, BMP 05/08/19 07:40 05/08/19 07:40 Assessment/Plan DATA: tele: sinus tachycardia echo 04/2019 nl LV function, E/A reversal, RV not well visualized, mild MR IMP: Sinus tachycardia: - sinus, monitoring on tele - echo unremarkable - likely in setting of underlying pain, anxiety, SBO - trop neg, no ischemia on EKG - unlikely ACS SBO: - manage per surgery, ngt out, attempting po foods now Seizure disorder: - manage per primary
[2019-05-08] MEDS ORDERED: metroNIDAZOLE 250 MG TABLET PO SCH (17:45)
[2019-05-08] MEDS ORDERED: AMOX TR/POT CLAV 875MG/125MG TABLETS (FP) PO SCH (18:00)
[2019-05-08 19:11] LABS: URINE APPEARANCE Slightly Cloudy; URINE BILIRUBIN 1+ (NEGATIVE); URINE COLOR Yellow; URINE GLUCOSE (UA) Negative (NEGATIVE); URINE KETONE 1+ (NEGATIVE); URINE LEUK ESTERASE Negative (NEGATIVE); URINE NITRITE Negative (NEGATIVE); URINE PROTEIN 1+ (NEGATIVE); URINE UROBILINOGEN 0.2 mg/dL (0.2-1.0)
[2019-05-08] MEDS ORDERED: PIPERACILLIN/TAZOB 3.375 GM 3.375 GM in DEXTROSE 5%-WATER - 50 ML IVPB SCH (19:30)
[2019-05-08] MEDS ORDERED: PIPERACILLIN/TAZOBACTAM 3.375 GM VIAL IVPB ONE (19:42)
[2019-05-08] MEDS ORDERED: DEXTROSE 5%-WATER - 50 ML IVPB ONE (19:42)
[2019-05-08] MEDS: PIPERACILLIN/TAZOB 3.375 GM 3.375 GM in DEXTROSE 5%-WATER - 50 ML IVPB SCH (20:16)
[2019-05-08] MEDS: POTASSIUM CHLORIDE 20 MEQ in AMINO ACIDS 4.25%/D5W 1,000 ML IVPB SCH (20:18)
--- NOTE | 2019-05-08 20:32 | PN ---
Progress Note (short form) - Note Progress Note: Problems 1. hypernatremia 2. hyperkalemia - resolved 3. SBO 4. epilepsy 5. developemental delay 6. hypokalemia Current Medications Acetaminophen (Ofirmev Injection -) 500 mg IVPB Q6H PRN PRN Reason: PAIN OR FEVER Metronidazole (Flagyl 500mg Premixed Ivpb -) 500 mg in 100 mls @ 100 mls/hr IVPB Q8H [facility] Piperacillin Sod/Tazobactam (Sod 3.375 gm/ Dextrose) 50 mls @ 100 mls/hr IVPB Q8H [facility]; Protocol Last Admin: 05/08/19 20:16 Dose: 100 mls/hr Potassium Chloride 20 meq/ (Amino Acids) 1,010 mls @ 60 mls/hr IVPB Q12H [facility] Last Admin: 05/08/19 20:18 Dose: 60 mls/hr Fat Emulsion Intravenous (Intralipid -) 250 mls @ 20.833 mls/hr IV DAILY@2200 [facility] Levetiracetam (Keppra Injection -) 500 mg IVPB BID [facility] Metoclopramide HCl (Reglan Injection -) 10 mg IVPUSH Q6H PRN PRN Reason: NAUSEA AND/OR VOMITING Morphine Sulfate (Morphine Sulfate) 0.5 mg IVPUSH Q6H PRN PRN Reason: PAIN LEVEL 6-10 Ondansetron HCl (Zofran Injection) 4 mg IVPUSH Q6H PRN PRN Reason: NAUSEA Last Vital Signs Temp Pulse Resp BP Pulse Ox 98.6 F 72 18 94/57 L 96 05/08/19 17:20 05/08/19 17:20 05/08/19 17:20 05/08/19 17:20 05/08/19 09:00 intake is still hesitant Lungs clear Heart reg Abd soft CBC, BMP 05/08/19 07:40 05/08/19 07:40 IMP- Prerenal azotemia Hyponatremia Hypokalemia Poor po intake Plan - restart fluids once IV is established - monitor lytes closely - surgery follow up for sbo - discussed with family
[2019-05-08] MEDS ORDERED: FAT EMULSIONS 20% 250 ML PREMIX INFUS.BAG IV SCH (22:00)
[2019-05-08] MEDS: levETIRAcetam 500 MG/5 ML INJECTION VIAL IVPB SCH (22:10)
[2019-05-08] MEDS: FAT EMULSIONS 250 ML IV SCH (22:11)
[2019-05-08] MEDS: MORPHINE SULFATE 2 MG/ML VIAL IVPUSH PRN (23:12)
[2019-05-09] MEDS ORDERED: DEXTROSE 5%-WATER - 50 ML IVPB ONE ×3 (03:22→19:47)
[2019-05-09] MEDS ORDERED: PIPERACILLIN/TAZOBACTAM 3.375 GM VIAL IVPB ONE ×3 (03:22→19:47)
[2019-05-09] MEDS: PIPERACILLIN/TAZOB 3.375 GM 3.375 GM in DEXTROSE 5%-WATER - 50 ML IVPB SCH ×3 (03:33→20:00)
[2019-05-09] MEDS: MORPHINE SULFATE 2 MG/ML VIAL IVPUSH PRN ×4 (05:32→21:07)
[2019-05-09] MEDS ORDERED: PIPERACILLIN/TAZOB 3.375 GM 3.375 GM in DEXTROSE 5%-WATER - 50 ML IVPB SCH (06:00)
[2019-05-09 06:41] LABS: ALBUMIN 2.2 g/dl (3.4-5.0); BILIRUBIN,TOTAL 0.8 mg/dL (0.2-1); CALCIUM 8.6 mg/dL (8.5-10.1); CREATININE 0.8 mg/dL (0.55-1.3); POTASSIUM 3.2 mmol/L (3.5-5.1); TOT PROT 6.3 g/dl (6.4-8.2)
[2019-05-09] MEDS ORDERED: POTASSIUM CHLORIDE ORAL LIQUID 20 MEQ/15 ML PO ONE (09:52)
[2019-05-09] MEDS: KCL 10 MEQ IVPB 10 MEQ/100 ML INFUS.BAG IVPB SCH ×2 (10:00→13:57)
[2019-05-09 10:21] LABS: HEMATOCRIT 33.3 % (32.4-45.2); HEMOGLOBIN 11.5 GM/dL (10.7-15.3); MCH 29.7 pg (25.7-33.7); MCHC 34.6 g/dl (32.0-36.0); MEAN PLT VOLUME 9.4 fl (7.5-11.1); PLATELET COUNT 344 K/MM3 (134-434); RBC 3.87 M/mm3 (3.60-5.2); WHITE BLOOD COUNT 26.5 K/mm3 (4.0-10.0)
[2019-05-09] MEDS: METOCLOPRAMIDE HCL INJECTION 10 MG/2 ML VIAL IVPUSH PRN (10:28)
[2019-05-09] MEDS: levETIRAcetam 500 MG/5 ML INJECTION VIAL IVPB SCH ×2 (10:35→22:54)
[2019-05-09] MEDS: POTASSIUM CHLORIDE 20 MEQ in AMINO ACIDS 4.25%/D5W 1,000 ML IVPB SCH (10:37)
[2019-05-09] MEDS: ALBUTEROL SO4 2.5/IPRATROPIUM 0.5 INH SOL 3 ML VIAL.NEB. NEB PRN ×3 (10:46→21:53)
--- NOTE | 2019-05-09 10:48 | PN ---
Progress Note (short form) - Note Progress Note: S: nonverbal, has been vomiting again Current Medications Generic Name Dose Route Start Last Admin Trade Name Freq PRN Reason Stop Dose Admin Acetaminophen 500 mg 05/08/19 18:53 Ofirmev Injection - IVPB Q6H PRN PAIN OR FEVER Albuterol/Ipratropium 1 amp 05/09/19 10:32 05/09/19 10:46 Duoneb - NEB 1 amp Q4H PRN Administration SHORTNESS OF BREATH Metronidazole 500 mg in 100 mls @ 100 mls/hr 05/08/19 19:30 05/09/19 04:11 Flagyl 500mg Premixed Ivpb - IVPB 100 mls/hr Q8H [facility] Administration Piperacillin Sod/Tazobactam 50 mls @ 100 mls/hr 05/08/19 19:30 05/09/19 03:33 Sod 3.375 gm/ Dextrose IVPB 100 mls/hr Q8H [facility] Administration Protocol Potassium Chloride 20 meq/ 1,010 mls @ 60 mls/hr 05/08/19 20:00 05/09/19 10: 37 Amino Acids IVPB 60 mls/hr Q12H [facility] Administration Fat Emulsion Intravenous 250 mls @ 20.833 mls/hr 05/08/19 22:00 05/08/19 22: 11 Intralipid - IV 20.833 mls/hr DAILY@2200 [facility] Administration Potassium Chloride 10 meq in 100 mls @ 100 mls/hr 05/09/19 10:00 Potassium Chloride 10 Meq Premix Ivpb - IVPB 05/09/19 12:59 Q60M [facility] Levetiracetam 500 mg 05/08/19 22:00 05/09/19 10:35 Keppra Injection - IVPB 500 mg BID [facility] Administration Metoclopramide HCl 10 mg 05/08/19 18:55 05/09/19 10:28 Reglan Injection - IVPUSH 10 mg Q6H PRN Administration NAUSEA AND/OR VOMITING Morphine Sulfate 0.5 mg 05/08/19 18:56 05/09/19 05:32 Morphine Sulfate IVPUSH 0.5 mg Q6H PRN Administration PAIN LEVEL 6-10 Ondansetron HCl 4 mg 05/08/19 18:55 Zofran Injection IVPUSH Q6H PRN NAUSEA Vital Signs Period Temp Pulse Resp BP Sys/[place] Pulse Ox Last 24 Hr 97.9 F-98.6 F 72-124 18-20 94-108/56-63 95-95 Gen: NAD Cardiovascular: Yes: Regular Rate and Rhythm Respiratory: Yes: Rhonchi Gastrointestinal: Yes: Soft Edema: No no jaundice diaphoresis not agitated - ....Imaging EKG: Image Reviewed CBC, BMP 05/09/19 05:45 Assessment/Plan tele: sinus tachycardia echo 04/2019 nl LV function, E/A reversal, RV not well visualized, mild MR IMP: Sinus tachycardia: - sinus, monitoring on tele - echo unremarkable - likely in setting of underlying pain, anxiety, SBO - trop neg, no ischemia on EKG - unlikely ACS SBO: - manage per surgery, ngt out, attempting po foods but vomiting again Seizure disorder: - manage per primary
--- NOTE | 2019-05-09 11:21 | PN ---
Progress Note (short form) - Note Progress Note: Problems 1. hypernatremia resolved 2. hyperkalemia - resolved 3. SBO 4. epilepsy 5. developemental delay 6. hypokalemia and hyponatremia 2/2 vomiting Current Medications Acetaminophen (Ofirmev Injection -) 500 mg IVPB Q6H PRN PRN Reason: PAIN OR FEVER Albuterol/Ipratropium (Duoneb -) 1 amp NEB Q4H PRN PRN Reason: SHORTNESS OF BREATH Last Admin: 05/09/19 10:46 Dose: 1 amp Metronidazole (Flagyl 500mg Premixed Ivpb -) 500 mg in 100 mls @ 100 mls/hr IVPB Q8H [facility] Last Admin: 05/09/19 04:11 Dose: 100 mls/hr Piperacillin Sod/Tazobactam (Sod 3.375 gm/ Dextrose) 50 mls @ 100 mls/hr IVPB Q8H [facility]; Protocol Last Admin: 05/09/19 03:33 Dose: 100 mls/hr Potassium Chloride 20 meq/ (Amino Acids) 1,010 mls @ 60 mls/hr IVPB Q12H [facility] Last Admin: 05/09/19 10:37 Dose: 60 mls/hr Fat Emulsion Intravenous (Intralipid -) 250 mls @ 20.833 mls/hr IV DAILY@2200 [facility] Last Admin: 05/08/19 22:11 Dose: 20.833 mls/hr Potassium Chloride (Potassium Chloride 10 Meq Premix Ivpb -) 10 meq in 100 mls @ 100 mls/hr IVPB Q60M [facility] Stop: 05/09/19 12:59 Levetiracetam (Keppra Injection -) 500 mg IVPB BID [facility] Last Admin: 05/09/19 10:35 Dose: 500 mg Metoclopramide HCl (Reglan Injection -) 10 mg IVPUSH Q6H PRN PRN Reason: NAUSEA AND/OR VOMITING Last Admin: 05/09/19 10:28 Dose: 10 mg Morphine Sulfate (Morphine Sulfate) 0.5 mg IVPUSH Q6H PRN PRN Reason: PAIN LEVEL 6-10 Last Admin: 05/09/19 05:32 Dose: 0.5 mg Ondansetron HCl (Zofran Injection) 4 mg IVPUSH Q6H PRN PRN Reason: NAUSEA Last Vital Signs Temp Pulse Resp BP Pulse Ox 98.1 F 121 H 18 108/60 95 05/09/19 06:00 05/09/19 06:00 05/09/19 09:00 05/09/19 06:00 05/09/19 09:00 intake is still hesitant Lungs clear Heart reg Abd soft CBC, BMP 05/09/19 08:45 05/09/19 05:45 CBC, BMP 05/08/19 07:40 05/08/19 07:40 IMP- Prerenal azotemia Hyponatremia Hypokalemia Poor po intake Plan
[2019-05-09] MEDS: FAT EMULSIONS 250 ML IV SCH ×2 (12:00→22:59)
[2019-05-09] MEDS ORDERED: VANCOMYCIN 1 GM in D5W (PRE-DOCKED) 1,000 MG/250 ML IVPB SCH (14:45)
--- NOTE | 2019-05-09 18:18 | PN ---
Progress Note, Physician History of Present Illness: Pt with NGT re-inserted. No obvious distress, nonverbal. Family at bedside. + low grade fever. - Current Medication List Current Medications: Active Medications Acetaminophen (Ofirmev Injection -) 500 mg IVPB Q6H PRN PRN Reason: PAIN OR FEVER Albuterol/Ipratropium (Duoneb -) 1 amp NEB Q4H PRN PRN Reason: SHORTNESS OF BREATH Last Admin: 05/09/19 14:55 Dose: 1 amp Metronidazole (Flagyl 500mg Premixed Ivpb -) 500 mg in 100 mls @ 100 mls/hr IVPB Q8H [facility] Last Admin: 05/09/19 13:58 Dose: 100 mls/hr Piperacillin Sod/Tazobactam (Sod 3.375 gm/ Dextrose) 50 mls @ 100 mls/hr IVPB Q8H [facility]; Protocol Last Admin: 05/09/19 13:58 Dose: 100 mls/hr Potassium Chloride 20 meq/ (Amino Acids) 1,010 mls @ 60 mls/hr IVPB Q12H [facility] Last Admin: 05/09/19 10:37 Dose: 60 mls/hr Fat Emulsion Intravenous (Intralipid -) 250 mls @ 20.833 mls/hr IV DAILY@2200 [facility] Last Admin: 05/08/19 22:11 Dose: 20.833 mls/hr Levetiracetam (Keppra Injection -) 500 mg IVPB BID [facility] Last Admin: 05/09/19 10:35 Dose: 500 mg Metoclopramide HCl (Reglan Injection -) 10 mg IVPUSH Q6H PRN PRN Reason: NAUSEA AND/OR VOMITING Last Admin: 05/09/19 10:28 Dose: 10 mg Morphine Sulfate (Morphine Sulfate) 0.5 mg IVPUSH Q4H PRN PRN Reason: PAIN LEVEL 6-10 Last Admin: 05/09/19 16:47 Dose: 0.5 mg Ondansetron HCl (Zofran Injection) 4 mg IVPUSH Q6H PRN PRN Reason: NAUSEA Vancomycin HCl (Vancomycin (Pre-Docked)) 1,000 mg IVPB DAILY [facility]; Protocol Stop: 05/10/19 14:29 - Objective Vital Signs: Vital Signs Temperature 99.9 F H 05/09/19 13:40 Pulse Rate 122 H 05/09/19 13:40 Respiratory Rate 20 05/09/19 13:40 Blood Pressure 91/61 05/09/19 13:40 O2 Sat by Pulse Oximetry (%) 95 05/09/19 09:00 Constitutional: Yes: No Distress Cardiovascular: Yes: Tachycardia Respiratory: Yes: Rhonchi Gastrointestinal: Yes: Soft, Other (+NGT with bilious drainage) Musculoskeletal: Yes: Other (contracted) Extremities: Yes: WNL Integumentary: Yes: WNL Labs: CBC, BMP 05/09/19 08:45 05/09/19 05:45 INR, PTT INR 1.00 (0.82-1.09) 04/28/19 17:22 Microbiology 05/08/19 10:45 Blood - Peripheral Venous Blood Culture - Preliminary NO GROWTH OBTAINED AFTER 24 HOURS, INCUBATION TO CONTINUE FOR 4 DAYS. 05/08/19 11:00 Blood - Peripheral Venous Blood Culture - Preliminary NO GROWTH OBTAINED AFTER 24 HOURS, INCUBATION TO CONTINUE FOR 4 DAYS. 05/01/19 11:23 Blood - Peripheral Venous Blood Culture - Final NO GROWTH AFTER 5 DAYS INCUBATION 04/30/19 20:00 Blood - Peripheral Venous Blood Culture - Final NO GROWTH AFTER 5 DAYS INCUBATION - ....Imaging Chest X-ray: Report Reviewed X-ray: Report Reviewed Problem List - Problems (1) Profound mental handicap Code(s): F73 - PROFOUND INTELLECTUAL DISABILITIES (2) SBO (small bowel obstruction) Code(s): K56.609 - UNSP INTESTNL OBST, UNSP TO PARTIAL VERSUS COMPLETE OBST (3) Aspiration into airway Code(s): T17.908A - UNSP FB IN RESP TRACT, PART UNSP CAUSING OTH INJURY, INIT (4) Cerebral palsy Code(s): G80.9 - CEREBRAL PALSY, UNSPECIFIED Assessment/Plan SBO Leukocytosis/Fever FRIDA Cerebral Palsy Mental retardation Seizure d.o. Functional quadriplegia -- NGT reinserted due to vomiting episodes, high risk for aspiration -- wbc continues to increase, Tmax 99.9F -- continue Zosyn/Flagyl, Vancomycin added (monitor renal function closely), order Vancomycin trough prior to 4th dose -- repeat Abd Xray still showing obstruction -- Surgical follow up -- continue monitor wbc/vitals closely
--- NOTE | 2019-05-09 18:38 | PN ---
Progress Note, Physician Chief Complaint: pt with resp distress and vomiting this morning. OGT reinserted with immediate drainage of 1L bilious content. increasing WBC - Current Medication List Current Medications: Active Medications Acetaminophen (Ofirmev Injection -) 500 mg IVPB Q6H PRN PRN Reason: PAIN OR FEVER Albuterol/Ipratropium (Duoneb -) 1 amp NEB Q4H PRN PRN Reason: SHORTNESS OF BREATH Last Admin: 05/09/19 14:55 Dose: 1 amp Metronidazole (Flagyl 500mg Premixed Ivpb -) 500 mg in 100 mls @ 100 mls/hr IVPB Q8H [facility] Last Admin: 05/09/19 13:58 Dose: 100 mls/hr Piperacillin Sod/Tazobactam (Sod 3.375 gm/ Dextrose) 50 mls @ 100 mls/hr IVPB Q8H [facility]; Protocol Last Admin: 05/09/19 13:58 Dose: 100 mls/hr Potassium Chloride 20 meq/ (Amino Acids) 1,010 mls @ 60 mls/hr IVPB Q12H [facility] Last Admin: 05/09/19 10:37 Dose: 60 mls/hr Fat Emulsion Intravenous (Intralipid -) 250 mls @ 20.833 mls/hr IV DAILY@2200 [facility] Last Admin: 05/08/19 22:11 Dose: 20.833 mls/hr Levetiracetam (Keppra Injection -) 500 mg IVPB BID [facility] Last Admin: 05/09/19 10:35 Dose: 500 mg Metoclopramide HCl (Reglan Injection -) 10 mg IVPUSH Q6H PRN PRN Reason: NAUSEA AND/OR VOMITING Last Admin: 05/09/19 10:28 Dose: 10 mg Morphine Sulfate (Morphine Sulfate) 0.5 mg IVPUSH Q4H PRN PRN Reason: PAIN LEVEL 6-10 Last Admin: 05/09/19 16:47 Dose: 0.5 mg Ondansetron HCl (Zofran Injection) 4 mg IVPUSH Q6H PRN PRN Reason: NAUSEA Vancomycin HCl (Vancomycin (Pre-Docked)) 1,000 mg IVPB Q24H [facility]; Protocol - Objective Vital Signs: Vital Signs Temperature 99.9 F H 05/09/19 13:40 Pulse Rate 122 H 05/09/19 13:40 Respiratory Rate 20 09/02/19 13:40 Blood Pressure 91/61 05/09/19 13:40 O2 Sat by Pulse Oximetry (%) 95 05/09/19 09:00 Constitutional: Yes: Cachectic, Moderate Distress Eyes: Yes: PERRL HENT: Yes: Atraumatic, Normocephalic, Drooling Cardiovascular: Yes: Tachycardia Respiratory: Yes: Diminished, On Nasal O2, Other (coarse BS) Gastrointestinal: Yes: Soft, Hypoactive Bowel Sounds ...Rectal Exam: Yes: Deferred Musculoskeletal: Yes: Muscle Weakness, Other (extensive contractures) Edema: No Neurological: Yes: Weakness, Other (non-verbal) Labs: CBC, BMP 05/09/19 08:45 05/09/19 05:45 INR, PTT INR 1.00 (0.82-1.09) 04/28/19 17:22 - ....Imaging Chest X-ray: Report Reviewed (CXR 05/09/2019 Single AP view of the chest is been submitted. Imaging reveals a new NG tube with its tip in the stomach, scoliosis with convexity to the right, weak inspiration, prominent mediastinum with some atelectasis or infiltrate left base, left jugular line with tip in right atrium and abdominal distention again suggestive of an obstructive process. Correlation recommended. Reported By: Xiang Martínez MD 05/09/19 [id number]) X-ray: Report Reviewed (Abd-XR 05/09/2019 Abdomen: Check NG tube placement. Respiratory distress Single view of the chest and upper abdomen reveal abdominal distention compatible with a possible obstructive process, scoliosis, shift of mediastinal structures to the left with dense left base, NG tube with tip in stomach and right jugular line with tip in right atrium. There is no sign of a pneumothorax. Again noted is a dense retrocardiac area which could represent atelectasis or infiltrate with fluid. Reported By: Xiang Martínez MD 05/09/19 3708) Impression/Plan Impression/Plan: (1) SBO (small bowel obstruction) Assessment/Plan: recurrence of N/V Abd xray from today suggestive of persistent SBO - case discussed with Surgery Dr Dickerson OGT to LWS increase morphine to 0.5mg q4hrs for comfort IV Tylenol PRN Code(s): K56.609 - UNSP INTESTNL OBST, UNSP TO PARTIAL VERSUS COMPLETE OBST (2) Hypokalemia Assessment/Plan: monitor K and replete as needed continue to monitor K, maintain >4.0 will restart clinimix once IV access in obtained Code(s): E87.6 - HYPOKALEMIA (3) Prophylactic measure Assessment/Plan: FEN - NPO c/w Climinix monitor electrolytes maintain on tele full code requires inpt care Code(s): Z29.9 - ENCOUNTER FOR PROPHYLACTIC MEASURES, UNSPECIFIED (4) Seizure continue keppra iv bid. once no longer npo, can restart tegretol. Code(s): R56.9 - UNSPECIFIED CONVULSIONS (5) Sepsis Assessment/Plan: wbc now 26 f/u urine and blood cultures ID following, cont IV abx (flagyl & zosyn), start vanco today trend WBC and temp Code(s): A41.9 - SEPSIS, UNSPECIFIED ORGANISM (6) Aspiration into airway daily CXRs start duonebs Q4hrs chest PT as tolerated IV zosyn & flagyl add vanco 1G daily, check trough prior to 4th dose pt on 40% face mask -monitor oxygen levels and titrate off oxygen as tolerated. not home oxygen dependent at home. Code(s): T17.908A - UNSP FB IN RESP TRACT, PART UNSP CAUSING OTH INJURY, INIT (7) Cerebral palsy supportive care BL UE severely contracted. Turn and position Q2hrs pall care consult to facilitate family meeting to discuss goals of care Code(s): G80.9 - CEREBRAL PALSY, UNSPECIFIED (8) Tachycardia continuous tele Code(s): R00.0 - TACHYCARDIA, UNSPECIFIED (9) Decreased oral intake NPO Fat emulsion infusion Code(s): R63.8 - OTHER SYMPTOMS AND SIGNS CONCERNING FOOD AND FLUID INTAKE (10) Hyponatremia trend sodium levels pt appears to have hypovolemic hyponatremia - start NS with KCL at 125ml/hr Code(s): E87.1 - HYPO-OSMOLALITY AND HYPONATREMI Visit type - Emergency Visit Emergency Visit: Yes ED Registration Date: 04/28/19 Care time: The patient presented to the Emergency Department on the above date and was hospitalized for further evaluation of their emergent condition. - New Patient This patient is new to me today: Yes Date on this admission: 05/09/19 - Critical Care Critical Care patient: No - Discharge Referral Referred to [facility] Med P.C.: No
[2019-05-09] MEDS ORDERED: SODIUM CHLORIDE 0.9%/KCL 20 MEQ/1,000 ML INFUS.BAG IV SCH (18:45)
[2019-05-09] MEDS ORDERED: PT OWN MED DRAWER 7, Y5N ONE (22:42)
[2019-05-09] MEDS: ONDANSETRON 4 MG/2 ML VIAL IVPUSH PRN (22:59)
[2019-05-10] MEDS: SODIUM CHLORIDE 0.9%/KCL 20 MEQ/1,000 ML INFUS.BAG IV SCH (00:57)
[2019-05-10] MEDS: METOCLOPRAMIDE HCL INJECTION 10 MG/2 ML VIAL IVPUSH PRN ×2 (01:03→20:47)
[2019-05-10] MEDS: POTASSIUM CHLORIDE 20 MEQ in AMINO ACIDS 4.25%/D5W 1,000 ML IVPB SCH ×3 (01:03→23:36)
[2019-05-10] MEDS ORDERED: PIPERACILLIN/TAZOBACTAM 3.375 GM VIAL IVPB ONE ×3 (02:07→19:21)
[2019-05-10] MEDS ORDERED: DEXTROSE 5%-WATER - 50 ML IVPB ONE ×3 (02:08→19:21)
[2019-05-10] MEDS: PIPERACILLIN/TAZOB 3.375 GM 3.375 GM in DEXTROSE 5%-WATER - 50 ML IVPB SCH ×3 (02:54→20:47)
[2019-05-10] MEDS: ALBUTEROL SO4 2.5/IPRATROPIUM 0.5 INH SOL 3 ML VIAL.NEB. NEB PRN ×3 (04:26→21:05)
[2019-05-10] MEDS: ONDANSETRON 4 MG/2 ML VIAL IVPUSH PRN ×3 (06:14→23:36)
[2019-05-10 07:42] LABS: HEMATOCRIT 27.3 % (32.4-45.2); MCH 28.2 pg (25.7-33.7); MCHC 33.1 g/dl (32.0-36.0); MEAN CELL VOLUME 85.2 fl (80-96); MEAN PLT VOLUME 8.9 fl (7.5-11.1); PLATELET COUNT 223 K/MM3 (134-434); RDW 14.5 % (11.6-15.6); WHITE BLOOD COUNT 22.6 K/mm3 (4.0-10.0)
[2019-05-10] MEDS: MORPHINE SULFATE 2 MG/ML VIAL IVPUSH PRN ×4 (08:08→23:35)
[2019-05-10 08:10] LABS: ALBUMIN 1.8 g/dl (3.4-5.0); BILIRUBIN,TOTAL 0.5 mg/dL (0.2-1); BLOOD UREA NITROGEN 17.7 mg/dL (7-18); CALCIUM 8.3 mg/dL (8.5-10.1); CREATININE 0.2 mg/dL (0.55-1.3); MAGNESIUM 1.6 mg/dL (1.8-2.4); POTASSIUM 3.6 mmol/L (3.5-5.1); TOT PROT 5.2 g/dl (6.4-8.2)
[2019-05-10 08:38] LABS: PHOSPHOROUS 0.3 mg/dL (2.5-4.9)
[2019-05-10] MEDS ORDERED: MAGNESIUM SULF 50% (8.12 MEQ/2 ML-1 GM VIAL) IVPB ONE (08:50)
--- NOTE | 2019-05-10 09:03 | PN ---
Progress Note (short form) - Note Progress Note: Attending Surgeon HD #[id number] Seen in f/u; remains clnically and radiographically obstructed VSS AF abdo-soft; ? distended ? and ? tympanitic ?; no tenderness rectal-no mass no stool blood cultures negative urine culture negative WBC remains elevated IMP: persstent SBO PLAN: Long d/w family this AM re dx./progonosis and goals of care; new NGT inserted and connected to LCWS; will continue present tx.; advise pallaitive care Consultation if not already ordered to address goals of care as patients family does not want operative intervention. Kieran Dickerson MD FACS
[2019-05-10] MEDS ORDERED: POTASSIUM PHOSPHATE 15 MM in DEXTROSE 5%-WATER - 250 ML IVPB ONE (10:00)
[2019-05-10] MEDS: levETIRAcetam 500 MG/5 ML INJECTION VIAL IVPB SCH ×2 (10:25→21:56)
[2019-05-10 10:27] LABS: ERYTHROCYTE SEDIMENTATION RATE 73 mm/hr (0-30)
--- NOTE | 2019-05-10 10:51 | PN ---
Progress Note, Physician Chief Complaint: events of last days reviewed. patient continues to have ngt and did not tolerate removal. spoke with family and they are in agreement with a palliative care consult. History of Present Illness: Patient is a 59 year old female (resident of [facility]) with a PMHx significant for profound mental retardation, cerebral palsy, congenital quadriplegia, severe scoliosis, seizure disorder, and GERD. Transferred from [facility] to [facility] for further management of SBO, sepsis and tachycardia. critically low phos level reported, potassium phos ordered. repeat labs. - Current Medication List Current Medications: Active Medications Acetaminophen (Ofirmev Injection -) 500 mg IVPB Q6H PRN PRN Reason: PAIN OR FEVER Albuterol/Ipratropium (Duoneb -) 1 amp NEB Q4H PRN PRN Reason: SHORTNESS OF BREATH Last Admin: 05/10/19 07:58 Dose: 1 amp Metronidazole (Flagyl 500mg Premixed Ivpb -) 500 mg in 100 mls @ 100 mls/hr IVPB Q8H [facility] Last Admin: 05/10/19 02:55 Dose: 100 mls/hr Piperacillin Sod/Tazobactam (Sod 3.375 gm/ Dextrose) 50 mls @ 100 mls/hr IVPB Q8H [facility]; Protocol Last Admin: 05/10/19 02:54 Dose: 100 mls/hr Potassium Chloride 20 meq/ (Amino Acids) 1,010 mls @ 60 mls/hr IVPB Q12H [facility] Last Admin: 05/10/19 08:15 Dose: 60 mls/hr Fat Emulsion Intravenous (Intralipid -) 250 mls @ 20.833 mls/hr IV DAILY@2200 [facility] Last Admin: 05/09/19 22:59 Dose: 20.833 mls/hr Potassium Chloride/Sodium Chloride (Ns+20 Meq Kcl -) 20 meq in 1,000 mls @ 60 mls/hr IV ASDIR [facility] Last Admin: 05/10/19 00:57 Dose: Not Given Potassium Phosphate 15 mm/ (Dextrose) 255 mls @ 62.5 mls/hr IVPB ONCE ONE Stop: 05/10/19 14:04 Levetiracetam (Keppra Injection -) 500 mg IVPB BID [facility] Last Admin: 05/10/19 10:25 Dose: 500 mg Metoclopramide HCl (Reglan Injection -) 10 mg IVPUSH Q6H PRN PRN Reason: NAUSEA AND/OR VOMITING Last Admin: 05/10/19 01:03 Dose: 10 mg Morphine Sulfate (Morphine Sulfate) 0.5 mg IVPUSH Q4H PRN PRN Reason: PAIN LEVEL 6-10 Last Admin: 05/10/19 08:08 Dose: 0.5 mg Ondansetron HCl (Zofran Injection) 4 mg IVPUSH Q6H PRN PRN Reason: NAUSEA Last Admin: 05/10/19 06:14 Dose: 4 mg Vancomycin HCl (Vancomycin (Pre-Docked)) 1,000 mg IVPB Q24H [facility]; Protocol - Objective Vital Signs: Vital Signs Temperature 96.8 F L 05/10/19 06:53 Pulse Rate 111 H 05/10/19 06:53 Respiratory Rate 20 05/10/19 06:53 Blood Pressure 117/84 05/10/19 06:53 O2 Sat by Pulse Oximetry (%) 100 05/10/19 01:00 Constitutional: Yes: Calm Eyes: Yes: WNL HENT: Yes: Atraumatic Neck: Yes: Supple Cardiovascular: Yes: Regular Rate and Rhythm Respiratory: Yes: Diminished Gastrointestinal: Yes: Soft ...Rectal Exam: Yes: Deferred Labs: CBC, BMP 05/10/19 06:07 05/10/19 06:07 INR, PTT INR 1.00 (0.82-1.09) 04/28/19 17:22 Problem List - Problems (1) Sepsis Assessment/Plan: on zosyn, vanco id following Code(s): A41.9 - SEPSIS, UNSPECIFIED ORGANISM (2) SBO (small bowel obstruction) Assessment/Plan: NGT to low intermittent suction abd xray with sbo, persists. surgery notes reviewed abdomen distended, absent bowel sounds monitor drain output surgery following, notes appreciated Code(s): K56.609 - UNSP INTESTNL OBST, UNSP TO PARTIAL VERSUS COMPLETE OBST (3) Aspiration into airway Assessment/Plan: chest xray shows left lower lobe infiltrate. on zosyn. support with 2 liters of nasal cannula monitor oxygen levels and titrate off oxygen as tolerated. not home oxygen dependent at home. Code(s): T17.908A - UNSP FB IN RESP TRACT, PART UNSP CAUSING OTH INJURY, INIT (4) Decreased oral intake Assessment/Plan: NPO. on clinimax, lipids Code(s): R63.8 - OTHER SYMPTOMS AND SIGNS CONCERNING FOOD AND FLUID INTAKE (5) Seizure Assessment/Plan: on keppra. on tegratol in [place], continue keppra iv bid. once no longer npo, can restart tegretol. Code(s): R56.9 - UNSPECIFIED CONVULSIONS (6) Hypernatremia Assessment/Plan: renal consulted for electrolyte imbalance. recommendations appreciated. Code(s): E87.0 - HYPEROSMOLALITY AND HYPERNATREMIA (7) Hyperkalemia Assessment/Plan: resolved. monitor K daily Code(s): E87.5 - HYPERKALEMIA (8) Profound mental handicap Assessment/Plan: supportive care. Code(s): F73 - PROFOUND INTELLECTUAL DISABILITIES (9) Tachycardia Assessment/Plan: tachycardia likely in the setting of abdominal pain, anxiety, NGT- improving. Code(s): R00.0 - TACHYCARDIA, UNSPECIFIED (10) Left pulmonary infiltrate on CXR Assessment/Plan: apply oxygen 2 liters. patient noted to be congested and breathing rate 24s on zosyn Code(s): R91.8 - OTHER NONSPECIFIC ABNORMAL FINDING OF LUNG FIELD (11) Prophylactic measure Assessment/Plan: fen npo on clinimax monitor electrolytes full code Code(s): Z29.9 - ENCOUNTER FOR PROPHYLACTIC MEASURES, UNSPECIFIED Visit type - Emergency Visit Emergency Visit: Yes ED Registration Date: 04/28/19 Care time: The patient presented to the Emergency Department on the above date and was hospitalized for further evaluation of their emergent condition. - New Patient This patient is new to me today: No - Critical Care Critical Care patient: No - Discharge Referral Referred to [facility] Med [facility].C.: No
--- NOTE | 2019-05-10 11:41 | PN ---
Progress Note (short form) - Note Progress Note: S: nonverbal, appears comfortable. Current Medications Acetaminophen (Ofirmev Injection -) 500 mg IVPB Q6H PRN PRN Reason: PAIN OR FEVER Albuterol/Ipratropium (Duoneb -) 1 amp NEB Q4H PRN PRN Reason: SHORTNESS OF BREATH Last Admin: 05/10/19 07:58 Dose: 1 amp Metronidazole (Flagyl 500mg Premixed Ivpb -) 500 mg in 100 mls @ 100 mls/hr IVPB Q8H [facility] Last Admin: 05/10/19 02:55 Dose: 100 mls/hr Piperacillin Sod/Tazobactam (Sod 3.375 gm/ Dextrose) 50 mls @ 100 mls/hr IVPB Q8H [facility]; Protocol Last Admin: 05/10/19 02:54 Dose: 100 mls/hr Potassium Chloride 20 meq/ (Amino Acids) 1,010 mls @ 60 mls/hr IVPB Q12H [facility] Last Admin: 05/10/19 08:15 Dose: 60 mls/hr Fat Emulsion Intravenous (Intralipid -) 250 mls @ 20.833 mls/hr IV DAILY@2200 [facility] Last Admin: 05/09/19 22:59 Dose: 20.833 mls/hr Potassium Chloride/Sodium Chloride (Ns+20 Meq Kcl -) 20 meq in 1,000 mls @ 60 mls/hr IV ASDIR [facility] Last Admin: 05/10/19 00:57 Dose: Not Given Potassium Phosphate 15 mm/ (Dextrose) 255 mls @ 62.5 mls/hr IVPB ONCE ONE Stop: 05/10/19 14:04 Levetiracetam (Keppra Injection -) 500 mg IVPB BID [facility] Last Admin: 05/10/19 10:25 Dose: 500 mg Metoclopramide HCl (Reglan Injection -) 10 mg IVPUSH Q6H PRN PRN Reason: NAUSEA AND/OR VOMITING Last Admin: 05/10/19 01:03 Dose: 10 mg Morphine Sulfate (Morphine Sulfate) 0.5 mg IVPUSH Q4H PRN PRN Reason: PAIN LEVEL 6-10 Last Admin: 05/10/19 08:08 Dose: 0.5 mg Ondansetron HCl (Zofran Injection) 4 mg IVPUSH Q6H PRN PRN Reason: NAUSEA Last Admin: 05/10/19 06:14 Dose: 4 mg Vancomycin HCl (Vancomycin (Pre-Docked)) 1,000 mg IVPB Q24H [facility]; Protocol Vital Signs Period Temp Pulse Resp BP Sys/[place] Pulse Ox Last 24 Hr 96.8 F-100.0 F 109-125 20-20 91-140/61-104 100-100 Gen: NAD Cardiovascular: Yes: Regular Rate and Rhythm Respiratory: Yes: Rhonchi Gastrointestinal: Yes: Soft Edema: No no jaundice diaphoresis not agitated Assessment/Plan tele: sinus tachycardia echo 04/2019 nl LV function, E/A reversal, RV not well visualized, mild MR IMP: Sinus tachycardia: - sinus, monitoring on tele - echo unremarkable - likely in setting of underlying pain, anxiety, SBO - improving - trop neg, no ischemia on EKG - unlikely ACS SBO: - manage per surgery, ngt in again Seizure disorder: - manage per primary
--- NOTE | 2019-05-10 12:12 | PN ---
Progress Note, Physician History of Present Illness: events noted ng back no bowel sounds - Current Medication List Current Medications: Active Medications Acetaminophen (Ofirmev Injection -) 500 mg IVPB Q6H PRN PRN Reason: PAIN OR FEVER Albuterol/Ipratropium (Duoneb -) 1 amp NEB Q4H PRN PRN Reason: SHORTNESS OF BREATH Last Admin: 05/10/19 07:58 Dose: 1 amp Metronidazole (Flagyl 500mg Premixed Ivpb -) 500 mg in 100 mls @ 100 mls/hr IVPB Q8H [facility] Last Admin: 05/10/19 02:55 Dose: 100 mls/hr Piperacillin Sod/Tazobactam (Sod 3.375 gm/ Dextrose) 50 mls @ 100 mls/hr IVPB Q8H [facility]; Protocol Last Admin: 05/10/19 02:54 Dose: 100 mls/hr Potassium Chloride 20 meq/ (Amino Acids) 1,010 mls @ 60 mls/hr IVPB Q12H [facility] Last Admin: 05/10/19 08:15 Dose: 60 mls/hr Fat Emulsion Intravenous (Intralipid -) 250 mls @ 20.833 mls/hr IV DAILY@2200 [facility] Last Admin: 05/09/19 22:59 Dose: 20.833 mls/hr Potassium Chloride/Sodium Chloride (Ns+20 Meq Kcl -) 20 meq in 1,000 mls @ 60 mls/hr IV ASDIR [facility] Last Admin: 05/10/19 00:57 Dose: Not Given Potassium Phosphate 15 mm/ (Dextrose) 255 mls @ 62.5 mls/hr IVPB ONCE ONE Stop: 05/10/19 14:04 Levetiracetam (Keppra Injection -) 500 mg IVPB BID [facility] Last Admin: 05/10/19 10:25 Dose: 500 mg Metoclopramide HCl (Reglan Injection -) 10 mg IVPUSH Q6H PRN PRN Reason: NAUSEA AND/OR VOMITING Last Admin: 05/10/19 01:03 Dose: 10 mg Morphine Sulfate (Morphine Sulfate) 0.5 mg IVPUSH Q4H PRN PRN Reason: PAIN LEVEL 6-10 Last Admin: 05/10/19 08:08 Dose: 0.5 mg Ondansetron HCl (Zofran Injection) 4 mg IVPUSH Q6H PRN PRN Reason: NAUSEA Last Admin: 05/10/19 06:14 Dose: 4 mg Vancomycin HCl (Vancomycin (Pre-Docked)) 1,000 mg IVPB Q24H [facility]; Protocol - Objective Vital Signs: Vital Signs Temperature 96.8 F L 05/10/19 06:53 Pulse Rate 111 H 05/10/19 06:53 Respiratory Rate 20 05/10/19 06:53 Blood Pressure 117/84 05/10/19 06:53 O2 Sat by Pulse Oximetry (%) 100 05/10/19 01:00 Constitutional: Yes: Calm, Mild Distress Cardiovascular: Yes: S1, S2 Respiratory: Yes: Regular, Poor Air Entry (bases) Gastrointestinal: Yes: Soft, Other (absent bowel sounds,ng in place) Musculoskeletal: Yes: WNL Extremities: Yes: Other Neurological: Yes: Alert, Other Labs: CBC, BMP 05/10/19 06:07 05/10/19 06:07 INR, PTT INR 1.00 (0.82-1.09) 04/28/19 17:22 Assessment/Plan 59 year-old female resident of [facility], with a PMH significant for profound mental retardation, cerebral palsy, congenital quadriplegia, severe scoliosis, seizure disorder, and GERD. Admitted for SBO. SBO Profound mental retardation Cerebral palsy Congenital quadriplegia Severe scoliosis Seizure disorder GERD plan continue abx zosyn stop vanco nutrition ng suctioning rest as per the team
--- NOTE | 2019-05-10 13:12 | PN ---
Progress Note, Physician History of Present Illness: Pt seen and examined at bedside. She appears uncomfortable today. - Current Medication List Current Medications: Active Medications Acetaminophen (Ofirmev Injection -) 500 mg IVPB Q6H PRN PRN Reason: PAIN OR FEVER Albuterol/Ipratropium (Duoneb -) 1 amp NEB Q4H PRN PRN Reason: SHORTNESS OF BREATH Last Admin: 05/10/19 07:58 Dose: 1 amp Metronidazole (Flagyl 500mg Premixed Ivpb -) 500 mg in 100 mls @ 100 mls/hr IVPB Q8H [facility] Last Admin: 05/10/19 12:33 Dose: 100 mls/hr Piperacillin Sod/Tazobactam (Sod 3.375 gm/ Dextrose) 50 mls @ 100 mls/hr IVPB Q8H [facility]; Protocol Last Admin: 05/10/19 12:34 Dose: 100 mls/hr Potassium Chloride 20 meq/ (Amino Acids) 1,010 mls @ 60 mls/hr IVPB Q12H [facility] Last Admin: 05/10/19 08:15 Dose: 60 mls/hr Fat Emulsion Intravenous (Intralipid -) 250 mls @ 20.833 mls/hr IV DAILY@2200 [facility] Last Admin: 05/09/19 22:59 Dose: 20.833 mls/hr Potassium Chloride/Sodium Chloride (Ns+20 Meq Kcl -) 20 meq in 1,000 mls @ 60 mls/hr IV ASDIR [facility] Last Admin: 05/10/19 00:57 Dose: Not Given Potassium Phosphate 15 mm/ (Dextrose) 255 mls @ 62.5 mls/hr IVPB ONCE ONE Stop: 05/10/19 14:04 Levetiracetam (Keppra Injection -) 500 mg IVPB BID [facility] Last Admin: 05/10/19 10:25 Dose: 500 mg Metoclopramide HCl (Reglan Injection -) 10 mg IVPUSH Q6H PRN PRN Reason: NAUSEA AND/OR VOMITING Last Admin: 05/10/19 01:03 Dose: 10 mg Morphine Sulfate (Morphine Sulfate) 0.5 mg IVPUSH Q4H PRN PRN Reason: PAIN LEVEL 6-10 Last Admin: 05/10/19 12:32 Dose: 0.5 mg Ondansetron HCl (Zofran Injection) 4 mg IVPUSH Q6H PRN PRN Reason: NAUSEA Last Admin: 05/10/19 13:00 Dose: 4 mg Vancomycin HCl (Vancomycin (Pre-Docked)) 1,000 mg IVPB Q24H [facility]; Protocol - Objective Vital Signs: Vital Signs Temperature 96.8 F L 05/10/19 06:53 Pulse Rate 111 H 05/10/19 06:53 Respiratory Rate 20 05/10/19 06:53 Blood Pressure 117/84 05/10/19 06:53 O2 Sat by Pulse Oximetry (%) 100 05/10/19 01:00 Constitutional: Yes: Mild Distress Cardiovascular: Yes: S1, S2 Respiratory: Yes: CTA Bilaterally Gastrointestinal: Yes: Tenderness Genitourinary: Yes: Incontinence Extremities: Yes: Other (contracted) Edema: No Neurological: Yes: Confusion Labs: CBC, BMP 05/10/19 06:07 05/10/19 06:07 INR, PTT INR 1.00 (0.82-1.09) 04/28/19 17:22 Problem List - Problems (1) Hyperkalemia Code(s): E87.5 - HYPERKALEMIA (2) Hypernatremia Code(s): E87.0 - HYPEROSMOLALITY AND HYPERNATREMIA (3) SBO (small bowel obstruction) Code(s): K56.609 - UNSP INTESTNL OBST, UNSP TO PARTIAL VERSUS COMPLETE OBST (4) Seizure Code(s): R56.9 - UNSPECIFIED CONVULSIONS Assessment/Plan Current Medications Generic Name Dose Route Start Last Admin Trade Name Freq PRN Reason Stop Dose Admin Acetaminophen 500 mg 05/08/19 18:53 Ofirmev Injection - IVPB Q6H PRN PAIN OR FEVER Albuterol/Ipratropium 1 amp 05/09/19 10:32 05/10/19 07:58 Duoneb - NEB 1 amp Q4H PRN Administration SHORTNESS OF BREATH Metronidazole 500 mg in 100 mls @ 100 mls/hr 05/08/19 19:30 05/10/19 12:33 Flagyl 500mg Premixed Ivpb - IVPB 100 mls/hr Q8H [facility] Administration Piperacillin Sod/Tazobactam 50 mls @ 100 mls/hr 05/08/19 19:30 05/10/19 12:34 Sod 3.375 gm/ Dextrose IVPB 100 mls/hr Q8H [facility] Administration Protocol Potassium Chloride 20 meq/ 1,010 mls @ 60 mls/hr 05/08/19 20:00 05/10/19 08: 15 Amino Acids IVPB 60 mls/hr Q12H [facility] Administration Fat Emulsion Intravenous 250 mls @ 20.833 mls/hr 05/08/19 22:00 05/09/19 22: 59 Intralipid - IV 20.833 mls/hr DAILY@2200 [facility] Administration Potassium Chloride/Sodium Chloride 20 meq in 1,000 mls @ 60 mls/hr 05/09/19 23 :58 05/10/19 00:57 Ns+20 Meq Kcl - IV Not Given ASDIR [facility] Potassium Phosphate 15 mm/ 255 mls @ 62.5 mls/hr 05/10/19 10:00 Dextrose IVPB 05/10/19 14:04 ONCE ONE Levetiracetam 500 mg 05/08/19 22:00 05/10/19 10:25 Keppra Injection - IVPB 500 mg BID [facility] Administration Metoclopramide HCl 10 mg 05/08/19 18:55 05/10/19 01:03 Reglan Injection - IVPUSH 10 mg Q6H PRN Administration NAUSEA AND/OR VOMITING Morphine Sulfate 0.5 mg 05/09/19 16:31 05/10/19 12:32 Morphine Sulfate IVPUSH 0.5 mg Q4H PRN Administration PAIN LEVEL 6-10 Ondansetron HCl 4 mg 05/08/19 18:55 05/10/19 13:00 Zofran Injection IVPUSH 4 mg Q6H PRN Administration NAUSEA Vancomycin HCl 1,000 mg 05/10/19 15:00 Vancomycin (Pre-Docked) IVPB Q24H [facility] Protocol Impression 1. hypernatremia 2. hyperkalemia - resolved 3. SBO 4. epilepsy 5. developemental delay 6. hypokalemia Plan - replace potassium - monitor lytes - surgery input appreciated - pt still with obstruction - family will discuss GOC
[2019-05-10] MEDS: VANCOMYCIN 1 GM in D5W (PRE-DOCKED) 1,000 MG/250 ML IVPB SCH (17:59)
[2019-05-10] MEDS ORDERED: PT OWN MED DRAWER 7, Y5N ONE ×2 (18:02→23:33)
[2019-05-10 19:43] LABS: ALBUMIN 1.7 g/dl (3.4-5.0); ALK PHOS 99 U/L (45-117); ANION GAP 5 MMOL/L (8-16); BILIRUBIN,TOTAL 0.4 mg/dL (0.2-1); BLOOD UREA NITROGEN 11.4 mg/dL (7-18); CALCIUM 7.7 mg/dL (8.5-10.1); CHLORIDE 100 mmol/L (98-107); CO2 28 mmol/L (21-32); CREATININE < 0.2 mg/dL (0.55-1.3); GLUCOSE,RANDOM 179 mg/dL (74-106); PHOSPHOROUS 1.5 mg/dL (2.5-4.9); SGOT/AST 14 U/L (15-37); SGPT/ALT 9 U/L (13-61); SODIUM 133 mmol/L (136-145); TOT PROT 4.6 g/dl (6.4-8.2)
[2019-05-11] MEDS: SODIUM CHLORIDE 0.9%/KCL 20 MEQ/1,000 ML INFUS.BAG IV SCH ×2 (01:34→19:02)
[2019-05-11] MEDS ORDERED: PIPERACILLIN/TAZOBACTAM 3.375 GM VIAL IVPB ONE ×3 (02:05→19:35)
[2019-05-11] MEDS ORDERED: DEXTROSE 5%-WATER - 50 ML IVPB ONE ×3 (02:06→19:35)
[2019-05-11] MEDS: MORPHINE SULFATE 2 MG/ML VIAL IVPUSH PRN ×6 (03:21→22:01)
[2019-05-11] MEDS: PIPERACILLIN/TAZOB 3.375 GM 3.375 GM in DEXTROSE 5%-WATER - 50 ML IVPB SCH ×3 (03:21→19:51)
[2019-05-11] MEDS: METOCLOPRAMIDE HCL INJECTION 10 MG/2 ML VIAL IVPUSH PRN (03:22)
[2019-05-11] MEDS: ALBUTEROL SO4 2.5/IPRATROPIUM 0.5 INH SOL 3 ML VIAL.NEB. NEB PRN ×2 (06:42→19:50)
[2019-05-11 07:50] LABS: BASO % 0.1 % (0-2.0); HEMATOCRIT 24.4 % (32.4-45.2); HEMOGLOBIN 7.9 GM/dL (10.7-15.3); LYMPH % 3.9 % (8-40); MCH 27.8 pg (25.7-33.7); MCHC 32.5 g/dl (32.0-36.0); MEAN CELL VOLUME 85.5 fl (80-96); MEAN PLT VOLUME 9.2 fl (7.5-11.1); PLATELET COUNT 190 K/MM3 (134-434); RBC 2.85 M/mm3 (3.60-5.2); RDW 14.9 % (11.6-15.6); WHITE BLOOD COUNT 15.4 K/mm3 (4.0-10.0)
[2019-05-11 08:21] LABS: ALBUMIN 1.7 g/dl (3.4-5.0); ALK PHOS 94 U/L (45-117); ANION GAP 10 MMOL/L (8-16); BILIRUBIN,TOTAL 0.4 mg/dL (0.2-1); BLOOD UREA NITROGEN 9.7 mg/dL (7-18); CALCIUM 7.9 mg/dL (8.5-10.1); CHLORIDE 103 mmol/L (98-107); CO2 29 mmol/L (21-32); GLUCOSE,RANDOM 106 mg/dL (74-106); MAGNESIUM 1.9 mg/dL (1.8-2.4); POTASSIUM 4.1 mmol/L (3.5-5.1); SGOT/AST 13 U/L (15-37); SGPT/ALT 7 U/L (13-61); SODIUM 141 mmol/L (136-145); TOT PROT 4.6 g/dl (6.4-8.2)
[2019-05-11 08:26] LABS: CREATININE < 0.2 mg/dL (0.55-1.3)
[2019-05-11 08:40] LABS: PHOSPHOROUS 0.6 mg/dL (2.5-4.9)
[2019-05-11] MEDS: POTASSIUM CHLORIDE 20 MEQ in AMINO ACIDS 4.25%/D5W 1,000 ML IVPB SCH ×3 (08:41→22:19)
[2019-05-11] MEDS ORDERED: POTASSIUM PHOSPHATE 15 MM in SODIUM CHLORIDE 250 ML IVPB ONE (08:43)
[2019-05-11 09:17] LABS: CHOLESTEROL 80 mg/dL (50-200); HDL CHOLESTEROL 51 mg/dL (40-60); TRIGLYCERIDES 42 mg/dL (0-150)
--- NOTE | 2019-05-11 09:39 | PN ---
Progress Note, Physician History of Present Illness: more calmer family in room - Current Medication List Current Medications: Active Medications Acetaminophen (Ofirmev Injection -) 500 mg IVPB Q6H PRN PRN Reason: PAIN OR FEVER Albuterol/Ipratropium (Duoneb -) 1 amp NEB Q4H PRN PRN Reason: SHORTNESS OF BREATH Last Admin: 05/11/19 06:42 Dose: 1 amp Metronidazole (Flagyl 500mg Premixed Ivpb -) 500 mg in 100 mls @ 100 mls/hr IVPB Q8H [facility] Last Admin: 05/11/19 03:21 Dose: 100 mls/hr Piperacillin Sod/Tazobactam (Sod 3.375 gm/ Dextrose) 50 mls @ 100 mls/hr IVPB Q8H [facility]; Protocol Last Admin: 05/11/19 03:21 Dose: 100 mls/hr Potassium Chloride 20 meq/ (Amino Acids) 1,010 mls @ 60 mls/hr IVPB Q12H [facility] Last Admin: 05/11/19 08:41 Dose: Not Given Potassium Chloride/Sodium Chloride (Ns+20 Meq Kcl -) 20 meq in 1,000 mls @ 60 mls/hr IV ASDIR [facility] Last Admin: 05/11/19 01:34 Dose: Not Given Fat Emulsion Intravenous (Intralipid -) 250 mls @ 20.833 mls/hr IV Q2D@2200 [facility] Sodium Phosphate 45 mm/ (Dextrose) 265 mls @ 62.5 mls/hr IVPB ONCE ONE Stop: 05/11/19 12:56 Levetiracetam (Keppra Injection -) 500 mg IVPB BID [facility] Last Admin: 05/10/19 21:56 Dose: 500 mg Metoclopramide HCl (Reglan Injection -) 10 mg IVPUSH Q6H PRN PRN Reason: NAUSEA AND/OR VOMITING Last Admin: 05/11/19 03:22 Dose: 10 mg Morphine Sulfate (Morphine Sulfate) 0.5 mg IVPUSH Q4H PRN PRN Reason: PAIN LEVEL 6-10 Last Admin: 05/11/19 08:51 Dose: 0.5 mg Ondansetron HCl (Zofran Injection) 4 mg IVPUSH Q6H PRN PRN Reason: NAUSEA Last Admin: 05/10/19 23:36 Dose: 4 mg Vancomycin HCl (Vancomycin (Pre-Docked)) 1,000 mg IVPB Q24H [facility]; Protocol Last Admin: 05/10/19 17:59 Dose: 1,000 mg - Objective Vital Signs: Vital Signs Temperature 97.7 F 05/11/19 06:00 Pulse Rate 114 H 05/11/19 06:00 Respiratory Rate 05/11/19 06:00 Blood Pressure 112/64 05/11/19 06:00 O2 Sat by Pulse Oximetry (%) 100 05/10/19 23:00 Constitutional: Yes: Calm Cardiovascular: Yes: S1, S2 Respiratory: Yes: Regular, Poor Air Entry Gastrointestinal: Yes: Soft, Other (ng in place) Musculoskeletal: Yes: WNL Extremities: Yes: Other Neurological: Yes: Other Psychiatric: Yes: Other Labs: CBC, BMP 05/11/19 06:00 05/11/19 06:00 INR, PTT INR 1.00 (0.82-1.09) 04/28/19 17:22 Assessment/Plan 59 year-old female resident of [facility], with a PMH significant for profound mental retardation, cerebral palsy, congenital quadriplegia, severe scoliosis, seizure disorder, and GERD. Admitted for SBO. SBO Profound mental retardation Cerebral palsy Congenital quadriplegia Severe scoliosis Seizure disorder GERD plan continue abx nutrition rest as per the team
[2019-05-11] MEDS: levETIRAcetam 500 MG/5 ML INJECTION VIAL IVPB SCH ×2 (09:46→22:01)
[2019-05-11] MEDS ORDERED: SODIUM PHOSPHATE - 45 MM in DEXTROSE 5%-WATER - 500 ML IVPB ONE (10:00)
--- NOTE | 2019-05-11 10:42 | PN ---
Progress Note (short form) - Note Progress Note: S: nonverbal, appears uncomfortable Current Medications Acetaminophen (Ofirmev Injection -) 500 mg IVPB Q6H PRN PRN Reason: PAIN OR FEVER Albuterol/Ipratropium (Duoneb -) 1 amp NEB Q4H PRN PRN Reason: SHORTNESS OF BREATH Last Admin: 05/11/19 06:42 Dose: 1 amp Metronidazole (Flagyl 500mg Premixed Ivpb -) 500 mg in 100 mls @ 100 mls/hr IVPB Q8H [facility] Last Admin: 05/11/19 03:21 Dose: 100 mls/hr Piperacillin Sod/Tazobactam (Sod 3.375 gm/ Dextrose) 50 mls @ 100 mls/hr IVPB Q8H [facility]; Protocol Last Admin: 05/11/19 03:21 Dose: 100 mls/hr Potassium Chloride 20 meq/ (Amino Acids) 1,010 mls @ 60 mls/hr IVPB Q12H [facility] Last Admin: 05/11/19 08:41 Dose: Not Given Potassium Chloride/Sodium Chloride (Ns+20 Meq Kcl -) 20 meq in 1,000 mls @ 60 mls/hr IV ASDIR [facility] Last Admin: 05/11/19 01:34 Dose: Not Given Fat Emulsion Intravenous (Intralipid -) 250 mls @ 20.833 mls/hr IV Q2D@2200 [facility] Sodium Phosphate 45 mm/ (Dextrose) 515 mls @ 64.37 mls/hr IVPB ONCE ONE Stop: 05/11/19 18:00 Levetiracetam (Keppra Injection -) 500 mg IVPB BID [facility] Last Admin: 05/11/19 09:46 Dose: 500 mg Metoclopramide HCl (Reglan Injection -) 10 mg IVPUSH Q6H PRN PRN Reason: NAUSEA AND/OR VOMITING Last Admin: 05/11/19 03:22 Dose: 10 mg Morphine Sulfate (Morphine Sulfate) 0.5 mg IVPUSH Q4H PRN PRN Reason: PAIN LEVEL 6-10 Last Admin: 05/11/19 08:51 Dose: 0.5 mg Ondansetron HCl (Zofran Injection) 4 mg IVPUSH Q6H PRN PRN Reason: NAUSEA Last Admin: 05/10/19 23:36 Dose: 4 mg Vancomycin HCl (Vancomycin (Pre-Docked)) 1,000 mg IVPB Q24H [facility]; Protocol Last Admin: 05/10/19 17:59 Dose: 1,000 mg Vital Signs Period Temp Pulse Resp BP Sys/[place] Pulse Ox Last 24 Hr 97.5 F-99.3 F 101-114 18-20 101-145/58-99 100-100 Gen: NAD Cardiovascular: Yes: Regular Rate and Rhythm Respiratory: Yes: Rhonchi Gastrointestinal: Yes: Soft Edema: No no jaundice diaphoresis not agitated Assessment/Plan tele: sinus tachycardia echo 04/2019 nl LV function, E/A reversal, RV not well visualized, mild MR IMP: Sinus tachycardia: - stable - echo unremarkable - likely in setting of underlying pain, anxiety, SBO - improving - trop neg, no ischemia on EKG - unlikely ACS - can dc tele SBO: - manage per surgery, ngt in place Seizure disorder: - manage per primary
[2019-05-11 11:46] LABS: ANISOCYTOSIS 0; MACROCYTOSIS 0; PLATELET ESTIMATE NORMAL
--- NOTE | 2019-05-11 11:53 | PN ---
Progress Note, Physician History of Present Illness: Pt seen and examined at bedside. She appears uncomfortable. - Current Medication List Current Medications: Active Medications Acetaminophen (Ofirmev Injection -) 500 mg IVPB Q6H PRN PRN Reason: PAIN OR FEVER Albuterol/Ipratropium (Duoneb -) 1 amp NEB Q4H PRN PRN Reason: SHORTNESS OF BREATH Last Admin: 05/11/19 06:42 Dose: 1 amp Metronidazole (Flagyl 500mg Premixed Ivpb -) 500 mg in 100 mls @ 100 mls/hr IVPB Q8H [facility] Last Admin: 05/11/19 10:54 Dose: 100 mls/hr Piperacillin Sod/Tazobactam (Sod 3.375 gm/ Dextrose) 50 mls @ 100 mls/hr IVPB Q8H [facility]; Protocol Last Admin: 05/11/19 03:21 Dose: 100 mls/hr Potassium Chloride 20 meq/ (Amino Acids) 1,010 mls @ 60 mls/hr IVPB Q12H [facility] Last Admin: 05/11/19 08:41 Dose: Not Given Potassium Chloride/Sodium Chloride (Ns+20 Meq Kcl -) 20 meq in 1,000 mls @ 60 mls/hr IV ASDIR [facility] Last Admin: 05/11/19 01:34 Dose: Not Given Fat Emulsion Intravenous (Intralipid -) 250 mls @ 20.833 mls/hr IV Q2D@2200 [facility] Sodium Phosphate 45 mm/ (Dextrose) 515 mls @ 64.37 mls/hr IVPB ONCE ONE Stop: 05/11/19 18:00 Levetiracetam (Keppra Injection -) 500 mg IVPB BID [facility] Last Admin: 05/11/19 09:46 Dose: 500 mg Metoclopramide HCl (Reglan Injection -) 10 mg IVPUSH Q6H PRN PRN Reason: NAUSEA AND/OR VOMITING Last Admin: 05/11/19 03:22 Dose: 10 mg Morphine Sulfate (Morphine Sulfate) 0.5 mg IVPUSH Q4H PRN PRN Reason: PAIN LEVEL 6-10 Last Admin: 05/11/19 08:51 Dose: 0.5 mg Ondansetron HCl (Zofran Injection) 4 mg IVPUSH Q6H PRN PRN Reason: NAUSEA Last Admin: 05/10/19 23:36 Dose: 4 mg Vancomycin HCl (Vancomycin (Pre-Docked)) 1,000 mg IVPB Q24H [facility]; Protocol Last Admin: 05/10/19 17:59 Dose: 1,000 mg - Objective Vital Signs: Vital Signs Temperature 97.7 F 05/11/19 06:00 Pulse Rate 114 H 05/11/19 06:00 Respiratory Rate 05/11/19 06:00 Blood Pressure 112/64 05/11/19 06:00 O2 Sat by Pulse Oximetry (%) 100 05/10/19 23:00 Constitutional: Yes: Calm Eyes: Yes: Conjunctiva Clear HENT: Yes: Atraumatic Cardiovascular: Yes: S1, S2 Respiratory: Yes: On Nasal O2 Gastrointestinal: Yes: Distention Genitourinary: Yes: Incontinence Musculoskeletal: Yes: Muscle Weakness Extremities: Yes: Other (contracted) Neurological: Yes: Pre-Existing Deficit Labs: CBC, BMP 05/11/19 06:00 05/11/19 06:00 INR, PTT INR 1.00 (0.82-1.09) 04/28/19 17:22 Problem List - Problems (1) Hyperkalemia Code(s): E87.5 - HYPERKALEMIA (2) Hypernatremia Code(s): E87.0 - HYPEROSMOLALITY AND HYPERNATREMIA (3) SBO (small bowel obstruction) Code(s): K56.609 - UNSP INTESTNL OBST, UNSP TO PARTIAL VERSUS COMPLETE OBST (4) Seizure Code(s): R56.9 - UNSPECIFIED CONVULSIONS Assessment/Plan Current Medications Generic Name Dose Route Start Last Admin Trade Name Miguel PRN Reason Stop Dose Admin Acetaminophen 500 mg 05/08/19 18:53 Ofirmev Injection - IVPB Q6H PRN PAIN OR FEVER Albuterol/Ipratropium 1 amp 05/09/19 10:32 05/11/19 06:42 Duoneb - NEB 1 amp Q4H PRN Administration SHORTNESS OF BREATH Metronidazole 500 mg in 100 mls @ 100 mls/hr 05/08/19 19:30 05/11/19 10:54 Flagyl 500mg Premixed Ivpb - IVPB 100 mls/hr Q8H [facility] Administration Piperacillin Sod/Tazobactam 50 mls @ 100 mls/hr 05/08/19 19:30 05/11/19 03:21 Sod 3.375 gm/ Dextrose IVPB 100 mls/hr Q8H [facility] Administration Protocol Potassium Chloride 20 meq/ 1,010 mls @ 60 mls/hr 05/08/19 20:00 05/11/19 08: 41 Amino Acids IVPB Not Given Q12H [facility] Potassium Chloride/Sodium Chloride 20 meq in 1,000 mls @ 60 mls/hr 05/09/19 23 :58 05/11/19 01:34 Ns+20 Meq Kcl - IV Not Given [facility] Fat Emulsion Intravenous 250 mls @ 20.833 mls/hr 05/12/19 22:00 Intralipid - IV Q2D@2200 [facility] Sodium Phosphate 45 mm/ 515 mls @ 64.37 mls/hr 05/11/19 10:00 Dextrose IVPB 05/11/19 18:00 ONCE ONE 45 MM/8 HR Levetiracetam 500 mg 05/08/19 22:00 05/11/19 09:46 Keppra Injection - IVPB 500 mg BID [facility] Administration Metoclopramide HCl 10 mg 05/08/19 18:55 05/11/19 03:22 Reglan Injection - IVPUSH 10 mg Q6H PRN Administration NAUSEA AND/OR VOMITING Morphine Sulfate 0.5 mg 05/09/19 16:31 05/11/19 08:51 Morphine Sulfate IVPUSH 0.5 mg Q4H PRN Administration PAIN LEVEL 6-10 Ondansetron HCl 4 mg 05/08/19 18:55 05/10/19 23:36 Zofran Injection IVPUSH 4 mg Q6H PRN Administration NAUSEA Vancomycin HCl 1,000 mg 05/10/19 15:00 05/10/19 17:59 Vancomycin (Pre-Docked) IVPB 1,000 mg Q24H [facility] Administration Protocol Impression 1. hypernatremia 2. hyperkalemia - resolved 3. SBO 4. epilepsy 5. developemental delay 6. hypokalemia Plan - replace phos - monitor lytes - surgery follow up - pt still with obstruction
--- NOTE | 2019-05-11 12:17 | PN ---
Progress Note, Physician Chief Complaint: having some discomfort this morning as evidenced by increased facial grimacing and moaning. discussed with sisters at the bedside and they are in agreement to give morphine q 3 instead of q 4 to help her discomfort. History of Present Illness: Patient is a 59 year old female (resident of [facility]) with a PMHx significant for profound mental retardation, cerebral palsy, congenital quadriplegia, severe scoliosis, seizure disorder, and GERD. Transferred from [place] to [facility] for further management of SBO, sepsis and tachycardia. critically low phos level reported, potassium phos ordered again today by renal. labs showing low hmg/hct will repeat. - Current Medication List Current Medications: Active Medications Acetaminophen (Ofirmev Injection -) 500 mg IVPB Q6H PRN PRN Reason: PAIN OR FEVER Albuterol/Ipratropium (Duoneb -) 1 amp NEB Q4H PRN PRN Reason: SHORTNESS OF BREATH Last Admin: 05/11/19 06:42 Dose: 1 amp Metronidazole (Flagyl 500mg Premixed Ivpb -) 500 mg in 100 mls @ 100 mls/hr IVPB Q8H [facility] Last Admin: 05/11/19 10:54 Dose: 100 mls/hr Piperacillin Sod/Tazobactam (Sod 3.375 gm/ Dextrose) 50 mls @ 100 mls/hr IVPB Q8H [facility]; Protocol Last Admin: 05/11/19 12:06 Dose: 100 mls/hr Potassium Chloride 20 meq/ (Amino Acids) 1,010 mls @ 60 mls/hr IVPB Q12H [facility] Last Admin: 05/11/19 08:41 Dose: Not Given Potassium Chloride/Sodium Chloride (Ns+20 Meq Kcl -) 20 meq in 1,000 mls @ 60 mls/hr IV ASDIR [facility] Last Admin: 05/11/19 01:34 Dose: Not Given Fat Emulsion Intravenous (Intralipid -) 250 mls @ 20.833 mls/hr IV Q2D@2200 [facility] Sodium Phosphate 45 mm/ (Dextrose) 515 mls @ 64.37 mls/hr IVPB ONCE ONE Stop: 05/11/19 18:00 Levetiracetam (Keppra Injection -) 500 mg IVPB BID [facility] Last Admin: 05/11/19 09:46 Dose: 500 mg Metoclopramide HCl (Reglan Injection -) 10 mg IVPUSH Q6H PRN PRN Reason: NAUSEA AND/OR VOMITING Last Admin: 05/11/19 03:22 Dose: 10 mg Morphine Sulfate (Morphine Sulfate) 0.5 mg IVPUSH Q3H PRN PRN Reason: PAIN LEVEL 6-10 Ondansetron HCl (Zofran Injection) 4 mg IVPUSH Q6H PRN PRN Reason: NAUSEA Last Admin: 05/10/19 23:36 Dose: 4 mg Vancomycin HCl (Vancomycin (Pre-Docked)) 1,000 mg IVPB Q24H [facility]; Protocol Last Admin: 05/10/19 17:59 Dose: 1,000 mg - Objective Vital Signs: Vital Signs Temperature 97.7 F 05/11/19 06:00 Pulse Rate 114 H 05/11/19 06:00 Respiratory Rate 05/11/19 06:00 Blood Pressure 112/64 05/11/19 06:00 O2 Sat by Pulse Oximetry (%) 100 05/10/19 23:00 Constitutional: Yes: Anxious, Mild Distress Eyes: Yes: WNL HENT: Yes: Atraumatic Neck: Yes: Supple Cardiovascular: Yes: Tachycardia Respiratory: Yes: On Nasal O2 Gastrointestinal: Yes: Distention ...Rectal Exam: Yes: Deferred Musculoskeletal: Yes: Other (contracted) Edema: No Integumentary: Yes: Other Neurological: Yes: Lethargy Labs: CBC, BMP 05/11/19 06:00 05/11/19 06:00 INR, PTT INR 1.00 (0.82-1.09) 04/28/19 17:22 Problem List - Problems (1) SBO (small bowel obstruction) Assessment/Plan: NGT to low intermittent suction abd xray with sbo, persists. surgery notes reviewed abdomen distended, absent bowel sounds monitor drain output surgery following, notes appreciated Code(s): K56.609 - UNSP INTESTNL OBST, UNSP TO PARTIAL VERSUS COMPLETE OBST (2) Sepsis Assessment/Plan: on zosyn, vanco and flagyl id following Code(s): A41.9 - SEPSIS, UNSPECIFIED ORGANISM (3) Aspiration into airway Assessment/Plan: chest xray shows left lower lobe infiltrate. on zosyn. support with 2 liters of nasal cannula monitor oxygen levels and titrate off oxygen as tolerated. not home oxygen dependent at home. Code(s): T17.908A - UNSP FB IN RESP TRACT, PART UNSP CAUSING OTH INJURY, INIT (4) Decreased oral intake Assessment/Plan: NPO. on clinimax, lipids Code(s): R63.8 - OTHER SYMPTOMS AND SIGNS CONCERNING FOOD AND FLUID INTAKE (5) Seizure Assessment/Plan: on keppra. on tegratol in [place], continue keppra iv bid. once no longer npo, can restart tegretol. Code(s): R56.9 - UNSPECIFIED CONVULSIONS (6) Hypernatremia Assessment/Plan: renal consulted for electrolyte imbalance. recommendations appreciated. Code(s): E87.0 - HYPEROSMOLALITY AND HYPERNATREMIA (7) Hyperkalemia Assessment/Plan: resolved. monitor K daily Code(s): E87.5 - HYPERKALEMIA (8) Profound mental handicap Assessment/Plan: supportive care. Code(s): F73 - PROFOUND INTELLECTUAL DISABILITIES (9) Tachycardia Assessment/Plan: tachycardia likely in the setting of abdominal pain, anxiety, NGT- improving. Code(s): R00.0 - TACHYCARDIA, UNSPECIFIED (10) Left pulmonary infiltrate on CXR Assessment/Plan: apply oxygen 2 liters. patient noted to be congested and breathing rate 24s on zosyn Code(s): R91.8 - OTHER NONSPECIFIC ABNORMAL FINDING OF LUNG FIELD (11) Low serum phosphorus for age Assessment/Plan: repleted with iv phos. repeat in a.m Code(s): R79.0 - ABNORMAL LEVEL OF BLOOD MINERAL (12) Prophylactic measure Assessment/Plan: fen npo on clinimax monitor electrolytes full code Code(s): Z29.9 - ENCOUNTER FOR PROPHYLACTIC MEASURES, UNSPECIFIED Visit type - Emergency Visit Emergency Visit: Yes ED Registration Date: 04/28/19 Care time: The patient presented to the Emergency Department on the above date and was hospitalized for further evaluation of their emergent condition. - New Patient This patient is new to me today: No - Critical Care Critical Care patient: No - Discharge Referral Referred to [facility] Med [facility].C.: No
[2019-05-11] MEDS: VANCOMYCIN 1 GM in D5W (PRE-DOCKED) 1,000 MG/250 ML IVPB SCH (16:03)
[2019-05-11] MEDS: ACETAMINOPHEN 1000 MG/100 ML VIAL (NON FORMULARY) IVPB PRN (18:20)
[2019-05-11 20:00] LABS: BASO % 0.2 % (0-2.0); HEMATOCRIT 24.6 % (32.4-45.2); HEMOGLOBIN 7.7 GM/dL (10.7-15.3); LYMPH % 4.7 % (8-40); MCH 27.1 pg (25.7-33.7); MCHC 31.3 g/dl (32.0-36.0); MEAN CELL VOLUME 86.5 fl (80-96); MEAN PLT VOLUME 9.4 fl (7.5-11.1); MONO % 3.2 % (3.8-10.2); NEUT % 91.9 % (42.8-82.8); PLATELET COUNT 178 K/MM3 (134-434); RBC 2.84 M/mm3 (3.60-5.2); RDW 15.5 % (11.6-15.6); WHITE BLOOD COUNT 12.5 K/mm3 (4.0-10.0)
[2019-05-11] MEDS ORDERED: PANTOPRAZOLE SODIUM 40 MG VIAL IVPUSH ONE (20:13)
[2019-05-12] MEDS: SODIUM CHLORIDE 0.9%/KCL 20 MEQ/1,000 ML INFUS.BAG IV SCH (00:52)
[2019-05-12] MEDS ORDERED: PT OWN MED DRAWER 7, Y5N ONE ×2 (00:55→12:54)
[2019-05-12] MEDS: MORPHINE SULFATE 2 MG/ML VIAL IVPUSH PRN ×7 (00:57→23:49)
[2019-05-12] MEDS: SCOPOLAMINE HYDROBROMIDE 1 PATCH PATCH.TD72 TD SCH (00:58)
[2019-05-12] MEDS ORDERED: PIPERACILLIN/TAZOBACTAM 3.375 GM VIAL IVPB ONE ×3 (01:09→19:52)
[2019-05-12] MEDS ORDERED: DEXTROSE 5%-WATER - 50 ML IVPB ONE ×3 (01:09→19:52)
[2019-05-12] MEDS: ALBUTEROL SO4 2.5/IPRATROPIUM 0.5 INH SOL 3 ML VIAL.NEB. NEB PRN ×3 (01:32→17:30)
[2019-05-12] MEDS: KETOROLAC TROMETHAMINE 30 MG/1 ML VIAL IVPUSH PRN ×3 (03:00→22:19)
[2019-05-12] MEDS: PIPERACILLIN/TAZOB 3.375 GM 3.375 GM in DEXTROSE 5%-WATER - 50 ML IVPB SCH ×3 (03:00→19:59)
[2019-05-12 08:40] LABS: HEMATOCRIT 22.5 % (32.4-45.2); HEMOGLOBIN 7.3 GM/dL (10.7-15.3); LYMPH % 4.8 % (8-40); MCH 27.9 pg (25.7-33.7); MCHC 32.7 g/dl (32.0-36.0); MEAN CELL VOLUME 85.4 fl (80-96); MEAN PLT VOLUME 9.2 fl (7.5-11.1); NEUT % 91.2 % (42.8-82.8); PLATELET COUNT 182 K/MM3 (134-434); RBC 2.63 M/mm3 (3.60-5.2); WHITE BLOOD COUNT 11.9 K/mm3 (4.0-10.0)
--- NOTE | 2019-05-12 08:53 | PN ---
Progress Note (short form) - Note Progress Note: Palliative Care: Patient was seen and a discussion with 3 of the sisters regarding their goals of care for Maite. The patient has multiple developmental and medical issues and is a resident of [place]. Her current focus is a SBO which has not responded to conservative measures and NG drainage. If the condition does not improve and surgery is not an option but comfort care is requested there is a process that has to be followed before a DNR is ordered or life sustaining measures are stopped. That involves notifying Dr. Villa at [place] and [facility]. There are forms that have to be filled out and special criteria listed. In addition if there is an objection by any of the [address] Villa or [facility] then the process will stop. Also note that the patient is still experiencing pain and MS can be titrated for pain relief but for no other reason at this point.
[2019-05-12] MEDS: POTASSIUM CHLORIDE 20 MEQ in AMINO ACIDS 4.25%/D5W 1,000 ML IVPB SCH ×2 (09:00→19:59)
[2019-05-12 09:04] LABS: ALBUMIN 1.6 g/dl (3.4-5.0); ALK PHOS 97 U/L (45-117); ANION GAP 10 MMOL/L (8-16); BILIRUBIN,TOTAL 0.4 mg/dL (0.2-1); CALCIUM 7.8 mg/dL (8.5-10.1); CHLORIDE 102 mmol/L (98-107); CO2 28 mmol/L (21-32); CREATININE < 0.2 mg/dL (0.55-1.3); GLUCOSE,RANDOM 106 mg/dL (74-106); MAGNESIUM 1.5 mg/dL (1.8-2.4); POTASSIUM 3.4 mmol/L (3.5-5.1); SGOT/AST 14 U/L (15-37); SGPT/ALT 7 U/L (13-61); SODIUM 140 mmol/L (136-145); TOT PROT 4.5 g/dl (6.4-8.2)
[2019-05-12 09:43] LABS: IRON SERUM 15 ug/dL (50-175); TOTAL IRON BINDING CAPACITY 165 ug/dL (250-450)
[2019-05-12] MEDS: PANTOPRAZOLE SODIUM 40 MG VIAL IVPUSH SCH (10:18)
[2019-05-12] MEDS: levETIRAcetam 500 MG/5 ML INJECTION VIAL IVPB SCH (10:18)
[2019-05-12] MEDS ORDERED: MAGNESIUM SULF 50% (8.12 MEQ/2 ML-1 GM VIAL) IVPB ONE ×2 (11:03→13:45)
--- NOTE | 2019-05-12 11:12 | PN ---
Progress Note, Physician - Current Medication List Current Medications: Active Medications Acetaminophen (Ofirmev Injection -) 500 mg IVPB Q6H PRN PRN Reason: PAIN OR FEVER Last Admin: 05/11/19 18:20 Dose: 500 mg Albuterol/Ipratropium (Duoneb -) 1 amp NEB Q4H PRN PRN Reason: SHORTNESS OF BREATH Last Admin: 05/12/19 06:00 Dose: 1 amp Metronidazole (Flagyl 500mg Premixed Ivpb -) 500 mg in 100 mls @ 100 mls/hr IVPB Q8H [facility] Last Admin: 05/12/19 03:00 Dose: 100 mls/hr Piperacillin Sod/Tazobactam (Sod 3.375 gm/ Dextrose) 50 mls @ 100 mls/hr IVPB Q8H [facility]; Protocol Last Admin: 05/12/19 03:00 Dose: 100 mls/hr Potassium Chloride 20 meq/ (Amino Acids) 1,010 mls @ 60 mls/hr IVPB Q12H [facility] Last Admin: 05/11/19 22:19 Dose: Not Given Potassium Chloride/Sodium Chloride (Ns+20 Meq Kcl -) 20 meq in 1,000 mls @ 60 mls/hr IV ASDIR [facility] Last Admin: 05/12/19 00:52 Dose: Not Given Fat Emulsion Intravenous (Intralipid -) 250 mls @ 20.833 mls/hr IV Q2D@2200 [facility] Ketorolac Tromethamine (Toradol Injection -) 15 mg IVPUSH Q6H PRN PRN Reason: PAIN LEVEL 4 - 6 Stop: 05/16/19 15:23 Last Admin: 05/12/19 03:00 Dose: 15 mg Levetiracetam (Keppra Injection -) 500 mg IVPB BID [facility] Last Admin: 05/12/19 10:18 Dose: 500 mg Magnesium Sulfate (Magnesium Sulfate) 1 gm IVPB ONCE ONE Stop: 05/12/19 11:04 Metoclopramide HCl (Reglan Injection -) 10 mg IVPUSH Q6H PRN PRN Reason: NAUSEA AND/OR VOMITING Last Admin: 05/11/19 03:22 Dose: 10 mg Morphine Sulfate (Morphine Sulfate) 0.5 mg IVPUSH Q3H PRN PRN Reason: PAIN LEVEL 6-10 Last Admin: 05/12/19 10:32 Dose: 0.5 mg Ondansetron HCl (Zofran Injection) 4 mg IVPUSH Q6H PRN PRN Reason: NAUSEA Last Admin: 05/10/19 23:36 Dose: 4 mg Pantoprazole Sodium (Protonix Iv) 40 mg IVPUSH DAILY [facility] Last Admin: 05/12/19 10:18 Dose: 40 mg Scopolamine HBr (Transderm-Scop -) 1 patch TD Q72H [facility] Last Admin: 05/12/19 00:58 Dose: 1 patch Vancomycin HCl (Vancomycin (Pre-Docked)) 1,000 mg IVPB Q24H [facility]; Protocol Last Admin: 05/11/19 16:03 Dose: 1,000 mg - Objective Vital Signs: Vital Signs Temperature 98.0 F 05/12/19 02:00 Pulse Rate 118 H 05/12/19 02:00 Respiratory Rate 05/12/19 02:00 Blood Pressure 115/76 05/12/19 02:00 O2 Sat by Pulse Oximetry (%) 100 05/11/19 22:00 Labs: CBC, BMP 05/12/19 07:14 05/12/19 07:14 INR, PTT INR 1.00 (0.82-1.09) 04/28/19 17:22
--- NOTE | 2019-05-12 11:19 | PN ---
Progress Note (short form) - Note Progress Note: S: nonverbal Current Medications Generic Name Dose Route Start Last Admin Trade Name Freq PRN Reason Stop Dose Admin Acetaminophen 500 mg 05/08/19 18:53 05/11/19 18:20 Ofirmev Injection - IVPB 500 mg Q6H PRN Administration PAIN OR FEVER Albuterol/Ipratropium 1 amp 05/09/19 10:32 05/12/19 06:00 Duoneb - NEB 1 amp Q4H PRN Administration SHORTNESS OF BREATH Metronidazole 500 mg in 100 mls @ 100 mls/hr 05/08/19 19:30 05/12/19 03:00 Flagyl 500mg Premixed Ivpb - IVPB 100 mls/hr Q8H [facility] Administration Piperacillin Sod/Tazobactam 50 mls @ 100 mls/hr 05/08/19 19:30 05/12/19 03:00 Sod 3.375 gm/ Dextrose IVPB 100 mls/hr Q8H [facility] Administration Protocol Potassium Chloride 20 meq/ 1,010 mls @ 60 mls/hr 05/08/19 20:00 05/11/19 22: 19 Amino Acids IVPB Not Given Q12H [facility] Potassium Chloride/Sodium Chloride 20 meq in 1,000 mls @ 60 mls/hr 05/09/19 23 :58 05/12/19 00:52 Ns+20 Meq Kcl - IV Not Given ASDIR [facility] Fat Emulsion Intravenous 250 mls @ 20.833 mls/hr 05/12/19 22:00 Intralipid - IV Q2D@2200 [facility] Ketorolac Tromethamine 15 mg 05/11/19 15:24 05/12/19 03:00 Toradol Injection - IVPUSH 05/16/19 15:23 15 mg Q6H PRN Administration PAIN LEVEL 4 - 6 Levetiracetam 500 mg 05/08/19 22:00 05/12/19 10:18 Keppra Injection - IVPB 500 mg BID [facility] Administration Magnesium Sulfate 1 gm 05/12/19 11:03 Magnesium Sulfate IVPB 05/12/19 11:04 ONCE ONE Metoclopramide HCl 10 mg 05/08/19 18:55 05/11/19 03:22 Reglan Injection - IVPUSH 10 mg Q6H PRN Administration NAUSEA AND/OR VOMITING Morphine Sulfate 0.5 mg 05/11/19 12:06 05/12/19 10:32 Morphine Sulfate IVPUSH 0.5 mg Q3H PRN Administration PAIN LEVEL 6-10 Ondansetron HCl 4 mg 05/08/19 18:55 05/10/19 23:36 Zofran Injection IVPUSH 4 mg Q6H PRN Administration NAUSEA Pantoprazole Sodium 40 mg 05/12/19 10:00 05/12/19 10:18 Protonix Iv IVPUSH 40 mg DAILY [facility] Administration Scopolamine HBr 1 patch 05/11/19 23:00 05/12/19 00:58 Transderm-Scop - TD 1 patch Q72H [facility] Administration Vancomycin HCl 1,000 mg 05/10/19 15:00 05/11/19 16:03 Vancomycin (Pre-Docked) IVPB 1,000 mg Q24H [facility] Administration Protocol Vital Signs Period Temp Pulse Resp BP Sys/[place] Pulse Ox Last 24 Hr 98.0 F-99.9 F 117-118 18-19 115-137/69-76 100-100 Gen: NAD Cardiovascular: Yes: Regular Rate and Rhythm Respiratory: Yes: Rhonchi Gastrointestinal: Yes: Soft Edema: No no jaundice diaphoresis not agitated - ....Imaging EKG: Image Reviewed CBC, BMP 05/12/19 07:14 05/12/19 07:14 Assessment/Plan tele: sinus tachycardia echo 04/2019 nl LV function, E/A reversal, RV not well visualized, mild MR IMP: Sinus tachycardia: - sinus, monitoring on tele - echo unremarkable - likely in setting of underlying pain, anxiety, SBO - trop neg, no ischemia on EKG - unlikely ACS SBO: - manage per surgery, ngt remains in Seizure disorder: - manage per primary
[2019-05-12 12:21] LABS: ANISOCYTOSIS 0; MACROCYTOSIS 0; PLATELET ESTIMATE NORMAL
--- NOTE | 2019-05-12 13:19 | PN ---
Progress Note, Physician History of Present Illness: Pt seen and examined at bedside. She appears more comfortable today. - Current Medication List Current Medications: Active Medications Acetaminophen (Ofirmev Injection -) 500 mg IVPB Q6H PRN PRN Reason: PAIN OR FEVER Last Admin: 05/11/19 18:20 Dose: 500 mg Albuterol/Ipratropium (Duoneb -) 1 amp NEB Q4H PRN PRN Reason: SHORTNESS OF BREATH Last Admin: 05/12/19 06:00 Dose: 1 amp Metronidazole (Flagyl 500mg Premixed Ivpb -) 500 mg in 100 mls @ 100 mls/hr IVPB Q8H [facility] Last Admin: 05/12/19 12:16 Dose: 100 mls/hr Piperacillin Sod/Tazobactam (Sod 3.375 gm/ Dextrose) 50 mls @ 100 mls/hr IVPB Q8H [facility]; Protocol Last Admin: 05/12/19 12:16 Dose: 100 mls/hr Potassium Chloride 20 meq/ (Amino Acids) 1,010 mls @ 60 mls/hr IVPB Q12H [facility] Last Admin: 05/12/19 09:00 Dose: 60 mls/hr Potassium Chloride/Sodium Chloride (Ns+20 Meq Kcl -) 20 meq in 1,000 mls @ 60 mls/hr IV ASDIR [facility] Last Admin: 05/12/19 00:52 Dose: Not Given Fat Emulsion Intravenous (Intralipid -) 250 mls @ 20.833 mls/hr IV Q2D@2200 [facility] Ketorolac Tromethamine (Toradol Injection -) 15 mg IVPUSH Q6H PRN PRN Reason: PAIN LEVEL 4 - 6 Stop: 05/16/19 15:23 Last Admin: 05/12/19 03:00 Dose: 15 mg Levetiracetam (Keppra Injection -) 500 mg IVPB BID [facility] Last Admin: 05/12/19 10:18 Dose: 500 mg Magnesium Sulfate (Magnesium Sulfate) 2 gm IVPB ONCE ONE Stop: 05/12/19 13:46 Metoclopramide HCl (Reglan Injection -) 10 mg IVPUSH Q6H PRN PRN Reason: NAUSEA AND/OR VOMITING Last Admin: 05/11/19 03:22 Dose: 10 mg Morphine Sulfate (Morphine Sulfate) 0.5 mg IVPUSH Q3H PRN PRN Reason: PAIN LEVEL 6-10 Last Admin: 05/12/19 10:32 Dose: 0.5 mg Ondansetron HCl (Zofran Injection) 4 mg IVPUSH Q6H PRN PRN Reason: NAUSEA Last Admin: 05/10/19 23:36 Dose: 4 mg Pantoprazole Sodium (Protonix Iv) 40 mg IVPUSH DAILY [facility] Last Admin: 05/12/19 10:18 Dose: 40 mg Scopolamine HBr (Transderm-Scop -) 1 patch TD Q72H [facility] Last Admin: 05/12/19 00:58 Dose: 1 patch Vancomycin HCl (Vancomycin (Pre-Docked)) 1,000 mg IVPB Q24H [facility]; Protocol Last Admin: 05/11/19 16:03 Dose: 1,000 mg - Objective Vital Signs: Vital Signs Temperature 98.0 F 05/12/19 02:00 Pulse Rate 118 H 05/12/19 02:00 Respiratory Rate 19 05/12/19 02:00 Blood Pressure 115/76 05/12/19 02:00 O2 Sat by Pulse Oximetry (%) 100 05/11/19 22:00 Constitutional: Yes: Calm Eyes: Yes: Conjunctiva Clear HENT: Yes: Atraumatic Neck: Yes: Supple Cardiovascular: Yes: S1, S2 Respiratory: Yes: On Nasal O2 Gastrointestinal: Yes: Other (ng tube) Genitourinary: Yes: Incontinence Extremities: Yes: Other (contracted) Edema: No Neurological: Yes: Pre-Existing Deficit Labs: CBC, BMP 05/12/19 07:14 05/12/19 07:14 INR, PTT INR 1.00 (0.82-1.09) 04/28/19 17:22 Problem List - Problems (1) Hyperkalemia Code(s): E87.5 - HYPERKALEMIA (2) Hypernatremia Code(s): E87.0 - HYPEROSMOLALITY AND HYPERNATREMIA (3) SBO (small bowel obstruction) Code(s): K56.609 - UNSP INTESTNL OBST, UNSP TO PARTIAL VERSUS COMPLETE OBST (4) Seizure Code(s): R56.9 - UNSPECIFIED CONVULSIONS Assessment/Plan Current Medications Generic Name Dose Route Start Last Admin Trade Name Freq PRN Reason Stop Dose Admin Acetaminophen 500 mg 05/08/19 18:53 05/11/19 18:20 Ofirmev Injection - IVPB 500 mg Q6H PRN Administration PAIN OR FEVER Albuterol/Ipratropium 1 amp 05/09/19 10:32 05/12/19 06:00 Duoneb - NEB 1 amp Q4H PRN Administration SHORTNESS OF BREATH Metronidazole 500 mg in 100 mls @ 100 mls/hr 05/08/19 19:30 05/12/19 12:16 Flagyl 500mg Premixed Ivpb - IVPB 100 mls/hr Q8H [facility] Administration Piperacillin Sod/Tazobactam 50 mls @ 100 mls/hr 05/08/19 19:30 05/12/19 12:16 Sod 3.375 gm/ Dextrose IVPB 100 mls/hr Q8H [facility] Administration Protocol Potassium Chloride 20 meq/ 1,010 mls @ 60 mls/hr 05/08/19 20:00 05/12/19 09: 00 Amino Acids IVPB 60 mls/hr Q12H [facility] Administration Potassium Chloride/Sodium Chloride 20 meq in 1,000 mls @ 60 mls/hr 05/09/19 23 :58 05/12/19 00:52 Ns+20 Meq Kcl - IV Not Given ASDIR [facility] Fat Emulsion Intravenous 250 mls @ 20.833 mls/hr 05/12/19 22:00 Intralipid - IV Q2D@2200 [facility] Ketorolac Tromethamine 15 mg 05/11/19 15:24 05/12/19 03:00 Toradol Injection - IVPUSH 05/16/19 15:23 15 mg Q6H PRN Administration PAIN LEVEL 4 - 6 Levetiracetam 500 mg 05/08/19 22:00 05/12/19 10:18 Keppra Injection - IVPB 500 mg BID [facility] Administration Magnesium Sulfate 2 gm 05/12/19 13:45 Magnesium Sulfate IVPB 05/12/19 13:46 ONCE ONE Metoclopramide HCl 10 mg 05/08/19 18:55 05/11/19 03:22 Reglan Injection - IVPUSH 10 mg Q6H PRN Administration NAUSEA AND/OR VOMITING Morphine Sulfate 0.5 mg 05/11/19 12:06 05/12/19 10:32 Morphine Sulfate IVPUSH 0.5 mg Q3H PRN Administration PAIN LEVEL 6-10 Ondansetron HCl 4 mg 05/08/19 18:55 05/10/19 23:36 Zofran Injection IVPUSH 4 mg Q6H PRN Administration NAUSEA Pantoprazole Sodium 40 mg 05/12/19 10:00 05/12/19 10:18 Protonix Iv IVPUSH 40 mg DAILY [facility] Administration Scopolamine HBr 1 patch 05/11/19 23:00 05/12/19 00:58 Transderm-Scop - TD 1 patch Q72H [facility] Administration Vancomycin HCl 1,000 mg 05/10/19 15:00 05/11/19 16:03 Vancomycin (Pre-Docked) IVPB 1,000 mg Q24H [facility] Administration Protocol Impression 1. hypernatremia 2. hyperkalemia - resolved 3. SBO 4. epilepsy 5. developemental delay 6. hypokalemia Plan - replace potassium and phos - surgery follow up - family discussing GOC - cont fluids for now
--- NOTE | 2019-05-12 13:27 | PN ---
Progress Note, Physician Chief Complaint: appears more comfortable today, less facial grimacing for 1 unit of prbc today for hmg 7.3 and with increased dyspnea family in room, and POC discussed with them, they are in agreement Spoke to Dr. Chris Matos ([facility] [place]). He is currently covering for Dr Villa. Spoke to him in presence of child welfare social worker Coral regarding Mrs Norma hospitalization, surgery notes as well as current status. made him aware that we will need legal paperwork if patient was to be made a dnr/dni or if consents need to be sign for this patient. Dr. Chris Matos informed me that he will be reaching out to the [employer] and will ask them to either call me or social work. History of Present Illness: Patient is a 59 year old female (resident of [facility]) with a PMHx significant for profound mental retardation, cerebral palsy, congenital quadriplegia, severe scoliosis, seizure disorder, and GERD. Transferred from [place] to [facility] for further management of SBO, sepsis and tachycardia. critically low phos level reported, potassium phos ordered again today. for 1 unit of blood palliative care notes reviewed and noted that if patient is to be made a dnr, there are forms that need to be filled out and special criteria listed. There are 9 siblings as well as MHLS that would have to be involved. patient is a Full Code. - Current Medication List Current Medications: Active Medications Acetaminophen (Ofirmev Injection -) 500 mg IVPB Q6H PRN PRN Reason: PAIN OR FEVER Last Admin: 05/11/19 18:20 Dose: 500 mg Albuterol/Ipratropium (Duoneb -) 1 amp NEB Q4H PRN PRN Reason: SHORTNESS OF BREATH Last Admin: 05/12/19 06:00 Dose: 1 amp Metronidazole (Flagyl 500mg Premixed Ivpb -) 500 mg in 100 mls @ 100 mls/hr IVPB Q8H [facility] Last Admin: 05/12/19 12:16 Dose: 100 mls/hr Piperacillin Sod/Tazobactam (Sod 3.375 gm/ Dextrose) 50 mls @ 100 mls/hr IVPB Q8H [facility]; Protocol Last Admin: 05/12/19 12:16 Dose: 100 mls/hr Potassium Chloride 20 meq/ (Amino Acids) 1,010 mls @ 60 mls/hr IVPB Q12H [facility] Last Admin: 05/12/19 09:00 Dose: 60 mls/hr Potassium Chloride/Sodium Chloride (Ns+20 Meq Kcl -) 20 meq in 1,000 mls @ 60 mls/hr IV ASDIR [facility] Last Admin: 05/12/19 00:52 Dose: Not Given Fat Emulsion Intravenous (Intralipid -) 250 mls @ 20.833 mls/hr IV Q2D@2200 [facility] Ketorolac Tromethamine (Toradol Injection -) 15 mg IVPUSH Q6H PRN PRN Reason: PAIN LEVEL 4 - 6 Stop: 05/16/19 15:23 Last Admin: 05/12/19 03:00 Dose: 15 mg Levetiracetam (Keppra Injection -) 500 mg IVPB BID [facility] Last Admin: 05/12/19 10:18 Dose: 500 mg Magnesium Sulfate (Magnesium Sulfate) 2 gm IVPB ONCE ONE Stop: 05/12/19 13:46 Metoclopramide HCl (Reglan Injection -) 10 mg IVPUSH Q6H PRN PRN Reason: NAUSEA AND/OR VOMITING Last Admin: 05/11/19 03:22 Dose: 10 mg Morphine Sulfate (Morphine Sulfate) 0.5 mg IVPUSH Q3H PRN PRN Reason: PAIN LEVEL 6-10 Last Admin: 05/12/19 10:32 Dose: 0.5 mg Ondansetron HCl (Zofran Injection) 4 mg IVPUSH Q6H PRN PRN Reason: NAUSEA Last Admin: 05/10/19 23:36 Dose: 4 mg Pantoprazole Sodium (Protonix Iv) 40 mg IVPUSH DAILY [facility] Last Admin: 05/12/19 10:18 Dose: 40 mg Scopolamine HBr (Transderm-Scop -) 1 patch TD Q72H [facility] Last Admin: 05/12/19 00:58 Dose: 1 patch Vancomycin HCl (Vancomycin (Pre-Docked)) 1,000 mg IVPB Q24H [facility]; Protocol Last Admin: 05/11/19 16:03 Dose: 1,000 mg - Objective Vital Signs: Vital Signs Temperature 98.0 F 05/12/19 02:00 Pulse Rate 118 H 05/12/19 02:00 Respiratory Rate 05/12/19 02:00 Blood Pressure 115/76 05/12/19 02:00 O2 Sat by Pulse Oximetry (%) 100 05/11/19 22:00 Constitutional: Yes: No Distress, Calm Eyes: Yes: WNL HENT: Yes: Atraumatic Neck: Yes: Supple Cardiovascular: Yes: Tachycardia Respiratory: Yes: Accessory Muscle Use, On Nasal O2 Gastrointestinal: Yes: Hypoactive Bowel Sounds, Tenderness ...Rectal Exam: Yes: Deferred Extremities: Yes: Other (contracted extremities.) Peripheral Pulses WNL: No Integumentary: Yes: WNL Neurological: Yes: Lethargy Labs: CBC, BMP 05/12/19 07:14 05/12/19 07:14 INR, PTT INR 1.00 (0.82-1.09) 04/28/19 17:22 Problem List - Problems (1) SBO (small bowel obstruction) Assessment/Plan: NGT to low intermittent suction, still draining apx 400cc overnight. NGT was removed on 05/07/2019 but had to be placed back emergently on 05/09/19 as patient had vomiting and worsening pain with respiratory distress and vomiting. Once reinserted, immediate drainage of 1L bilious content was noted. abd xray with sbo, persists. surgery notes reviewed and palliative care was recommended. abdomen continues to be distended, absent bowel sounds. monitor drain output daily. maintain with NGT. Code(s): K56.609 - UNSP INTESTNL OBST, UNSP TO PARTIAL VERSUS COMPLETE OBST (2) Sepsis Assessment/Plan: on zosyn, vanco and flagyl per ID. id following Code(s): A41.9 - SEPSIS, UNSPECIFIED ORGANISM (3) Aspiration into airway Assessment/Plan: chest xray shows left lower lobe infiltrate. on zosyn per ID. support with 2 liters of nasal cannula to ease work of breathing. monitor oxygen levels and titrate off oxygen as tolerated. not home oxygen dependent. on allbuterol prn for acute shortness of breath maintain oxygen levels above 92% is goal Code(s): T17.908A - UNSP FB IN RESP TRACT, PART UNSP CAUSING OTH INJURY, INIT (4) Iron deficiency anemia Assessment/Plan: for 1 unit of prbc today as hmg/hct continues to down trend repeat labs post blood in a.m. to assess need for additional blood transfusions. Code(s): D50.9 - IRON DEFICIENCY ANEMIA, UNSPECIFIED (5) Decreased oral intake Assessment/Plan: NPO. on clinimax, lipids every other day dietary following Code(s): R63.8 - OTHER SYMPTOMS AND SIGNS CONCERNING FOOD AND FLUID INTAKE (6) Seizure Assessment/Plan: on keppra BID. on tegratol in [place], continue keppra iv bid. once no longer npo, can restart tegretol. Code(s): R56.9 - UNSPECIFIED CONVULSIONS (7) Hypernatremia Assessment/Plan: renal consulted for electrolyte imbalance. recommendations appreciated. Code(s): E87.0 - HYPEROSMOLALITY AND HYPERNATREMIA (8) Hyperkalemia Assessment/Plan: resolved. monitor K daily, K 3.4 today. Code(s): E87.5 - HYPERKALEMIA (9) Profound mental handicap Assessment/Plan: supportive care. Code(s): F73 - PROFOUND INTELLECTUAL DISABILITIES (10) Tachycardia Assessment/Plan: tachycardia likely in the setting of abdominal pain, anxiety, NGT- improving. Code(s): R00.0 - TACHYCARDIA, UNSPECIFIED (11) Left pulmonary infiltrate on CXR Assessment/Plan: apply oxygen 2 liters. patient noted to be congested and breathing rate 24s on zosyn Code(s): R91.8 - OTHER NONSPECIFIC ABNORMAL FINDING OF LUNG FIELD (12) Low serum phosphorus for age Assessment/Plan: repleted with iv phos. phos 1.0 repeat in a.m Code(s): R79.0 - ABNORMAL LEVEL OF BLOOD MINERAL (13) Palliative care status Assessment/Plan: seen by palliative care, notes reviewed. Code(s): Z51.5 - ENCOUNTER FOR PALLIATIVE CARE (14) Prophylactic measure Assessment/Plan: fen npo on clinimax and lipids monitor electrolytes full code Code(s): Z29.9 - ENCOUNTER FOR PROPHYLACTIC MEASURES, UNSPECIFIED Visit type - Emergency Visit Emergency Visit: Yes ED Registration Date: 04/28/19 Care time: The patient presented to the Emergency Department on the above date and was hospitalized for further evaluation of their emergent condition. - New Patient This patient is new to me today: No - Critical Care Critical Care patient: No - Discharge Referral Referred to [facility] Med P.C[facility] No
[2019-05-12] MEDS ORDERED: POTASSIUM PHOSPHATE 15 MM in DEXTROSE 5%-WATER - 250 ML IVPB ONE (14:29)
[2019-05-12] MEDS: VANCOMYCIN 1 GM in D5W (PRE-DOCKED) 1,000 MG/250 ML IVPB SCH (15:45)
[2019-05-13] MEDS: FAT EMULSIONS 250 ML IV SCH (01:03)
[2019-05-13] MEDS: levETIRAcetam 500 MG/5 ML INJECTION VIAL IVPB SCH ×3 (01:04→22:47)
[2019-05-13] MEDS: SODIUM CHLORIDE 0.9%/KCL 20 MEQ/1,000 ML INFUS.BAG IV SCH (01:10)
[2019-05-13] MEDS ORDERED: DEXTROSE 5%-WATER - 50 ML IVPB ONE ×3 (03:34→20:01)
[2019-05-13] MEDS ORDERED: PIPERACILLIN/TAZOBACTAM 3.375 GM VIAL IVPB ONE ×3 (03:34→20:00)
[2019-05-13] MEDS: PIPERACILLIN/TAZOB 3.375 GM 3.375 GM in DEXTROSE 5%-WATER - 50 ML IVPB SCH ×3 (03:40→20:01)
[2019-05-13] MEDS: MORPHINE SULFATE 2 MG/ML VIAL IVPUSH PRN ×5 (03:43→22:43)
[2019-05-13] MEDS: ALBUTEROL SO4 2.5/IPRATROPIUM 0.5 INH SOL 3 ML VIAL.NEB. NEB PRN ×5 (04:00→21:00)
[2019-05-13] MEDS: KETOROLAC TROMETHAMINE 30 MG/1 ML VIAL IVPUSH PRN ×4 (04:42→23:40)
[2019-05-13 08:22] LABS: BASO % 0.3 % (0-2.0); HEMATOCRIT 29.8 % (32.4-45.2); HEMOGLOBIN 9.9 GM/dL (10.7-15.3); LYMPH % 3.2 % (8-40); MCH 27.9 pg (25.7-33.7); MCHC 33.3 g/dl (32.0-36.0); MEAN CELL VOLUME 83.7 fl (80-96); MEAN PLT VOLUME 8.9 fl (7.5-11.1); MONO % 3.2 % (3.8-10.2); NEUT % 93.3 % (42.8-82.8); PLATELET COUNT 196 K/MM3 (134-434); RBC 3.56 M/mm3 (3.60-5.2); RDW 15.6 % (11.6-15.6); WHITE BLOOD COUNT 17.8 K/mm3 (4.0-10.0)
[2019-05-13 08:44] LABS: ALBUMIN 1.6 g/dl (3.4-5.0); ALK PHOS 143 U/L (45-117); ANION GAP 5 MMOL/L (8-16); BILIRUBIN,TOTAL 0.6 mg/dL (0.2-1); BLOOD UREA NITROGEN 8.2 mg/dL (7-18); CALCIUM 7.7 mg/dL (8.5-10.1); CHLORIDE 107 mmol/L (98-107); CO2 27 mmol/L (21-32); CREATININE < 0.2 mg/dL (0.55-1.3); GLUCOSE,RANDOM 122 mg/dL (74-106); MAGNESIUM 2.7 mg/dL (1.8-2.4); SGOT/AST 14 U/L (15-37); SGPT/ALT 6 U/L (13-61); SODIUM 139 mmol/L (136-145); TOT PROT 4.6 g/dl (6.4-8.2)
--- NOTE | 2019-05-13 09:14 | PN ---
Progress Note, Physician Chief Complaint: appears more comfortable today, less facial grimacing, had some pain overnight s/p 1 unit of prbc with appropriate response. family in room, and POC discussed with them, they are in agreement Spoke to Dr. Chris Matos ([facility] ) on 05/12/2019. He is currently covering for Dr Villa. Spoke to him in presence of social science instructor Coral regarding Mrs Wearing hospitalization, surgery notes as well as current status. made him aware that we will need legal paperwork if patient was to be made a dnr/dni or if consents need to be sign for this patient. Dr. Chris Matos informed me that he will be reaching out to the [employer] and will ask them to either call me or social work. History of Present Illness: Patient is a 59 year old female (resident of [facility]) with a PMHx significant for profound mental retardation, cerebral palsy, congenital quadriplegia, severe scoliosis, seizure disorder, and GERD. Transferred from [place] to [facility] for further management of SBO, sepsis and tachycardia. critically low phos level reported, potassium phos ordered again today. for 1 unit of blood palliative care notes reviewed and noted that if patient is to be made a dnr, there are forms that need to be filled out and special criteria listed. There are 9 siblings as well as MHLS that would have to be involved. patient is a Full Code. - Current Medication List Current Medications: Active Medications Acetaminophen (Ofirmev Injection -) 500 mg IVPB Q6H PRN PRN Reason: PAIN OR FEVER Last Admin: 05/11/19 18:20 Dose: 500 mg Albuterol/Ipratropium (Duoneb -) 1 amp NEB Q4H PRN PRN Reason: SHORTNESS OF BREATH Last Admin: 05/13/19 07:49 Dose: 1 amp Metronidazole (Flagyl 500mg Premixed Ivpb -) 500 mg in 100 mls @ 100 mls/hr IVPB Q8H [facility] Last Admin: 05/13/19 03:40 Dose: 100 mls/hr Piperacillin Sod/Tazobactam (Sod 3.375 gm/ Dextrose) 50 mls @ 100 mls/hr IVPB Q8H [facility]; Protocol Last Admin: 05/13/19 03:40 Dose: 100 mls/hr Potassium Chloride 20 meq/ (Amino Acids) 1,010 mls @ 60 mls/hr IVPB Q12H [facility] Last Admin: 05/12/19 19:59 Dose: Not Given Potassium Chloride/Sodium Chloride (Ns+20 Meq Kcl -) 20 meq in 1,000 mls @ 60 mls/hr IV ASDIR [facility] Last Admin: 05/13/19 01:10 Dose: 60 mls/hr Fat Emulsion Intravenous (Intralipid -) 250 mls @ 20.833 mls/hr IV Q2D@2200 [facility] Last Admin: 05/13/19 01:03 Dose: 20.833 mls/hr Ketorolac Tromethamine (Toradol Injection -) 15 mg IVPUSH Q6H PRN PRN Reason: PAIN LEVEL 4 - 6 Stop: 05/16/19 15:23 Last Admin: 05/13/19 04:42 Dose: 15 mg Levetiracetam (Keppra Injection -) 500 mg IVPB BID [facility] Last Admin: 05/13/19 01:04 Dose: 500 mg Metoclopramide HCl (Reglan Injection -) 10 mg IVPUSH Q6H PRN PRN Reason: NAUSEA AND/OR VOMITING Last Admin: 05/11/19 03:22 Dose: 10 mg Morphine Sulfate (Morphine Sulfate) 0.5 mg IVPUSH Q3H PRN PRN Reason: PAIN LEVEL 6-10 Last Admin: 05/13/19 06:49 Dose: 0.5 mg Ondansetron HCl (Zofran Injection) 4 mg IVPUSH Q6H PRN PRN Reason: NAUSEA Last Admin: 05/10/19 23:36 Dose: 4 mg Pantoprazole Sodium (Protonix Iv) 40 mg IVPUSH DAILY [facility] Last Admin: 05/12/19 10:18 Dose: 40 mg Scopolamine HBr (Transderm-Scop -) 1 patch TD Q72H [facility] Last Admin: 05/12/19 00:58 Dose: 1 patch Vancomycin HCl (Vancomycin (Pre-Docked)) 1,000 mg IVPB Q24H [facility]; Protocol Last Admin: 05/12/19 15:45 Dose: 1,000 mg - Objective Vital Signs: Vital Signs Temperature 99.6 F 05/13/19 05:15 Pulse Rate 118 H 05/13/19 05:15 Respiratory Rate 22 H 05/13/19 05:15 Blood Pressure 122/78 05/13/19 05:15 O2 Sat by Pulse Oximetry (%) 100 05/12/19 22:00 Constitutional: Yes: Calm, Anxious Eyes: Yes: WNL HENT: Yes: Atraumatic Neck: Yes: Supple Cardiovascular: Yes: Tachycardia Respiratory: Yes: On Nasal O2, Rales, SOB Gastrointestinal: Yes: Soft, Hypoactive Bowel Sounds (ngt), Other Genitourinary: Yes: Bladder Distention Musculoskeletal: Yes: Other Extremities: Yes: WNL Edema: Yes Edema: LUE: 1+, LLE: 1+, RLE: 1+ Peripheral Pulses WNL: Yes Integumentary: Yes: WNL Neurological: Yes: Alert Psychiatric: Yes: Alert Labs: CBC, BMP 05/13/19 07:08 05/13/19 06:00 INR, PTT INR 1.00 (0.82-1.09) 04/28/19 17:22 Problem List - Problems (1) SBO (small bowel obstruction) Assessment/Plan: NGT to low intermittent suction, still draining apx 200cc overnight. hypoactive bowel sounds. NGT was removed on 05/07/2019 but had to be placed back emergently on 05/09/19 as patient had vomiting and worsening pain with respiratory distress and vomiting. Once reinserted, immediate drainage of 1L bilious content was noted. abd xray with sbo, persists. surgery notes reviewed and palliative care was recommended. abdomen continues to be distended, absent bowel sounds. monitor drain output daily. maintain with NGT. surgery following Code(s): K56.609 - UNSP INTESTNL OBST, UNSP TO PARTIAL VERSUS COMPLETE OBST (2) Sepsis Assessment/Plan: on zosyn, vanco and flagyl per ID. id following vanco trough today Code(s): A41.9 - SEPSIS, UNSPECIFIED ORGANISM (3) Aspiration into airway Assessment/Plan: chest xray shows left lower lobe infiltrate. on zosyn per ID. support with 2 liters of nasal cannula to ease work of breathing. monitor oxygen levels and titrate off oxygen as tolerated. not home oxygen dependent. on allbuterol prn for acute shortness of breath maintain oxygen levels above 92% is goal Code(s): T17.908A - UNSP FB IN RESP TRACT, PART UNSP CAUSING OTH INJURY, INIT (4) Iron deficiency anemia Assessment/Plan: s/p 1 unit of prbc overnight with appropriate response. Code(s): D50.9 - IRON DEFICIENCY ANEMIA, UNSPECIFIED (5) Decreased oral intake Assessment/Plan: NPO. on clinimax, lipids every other day dietary following Code(s): R63.8 - OTHER SYMPTOMS AND SIGNS CONCERNING FOOD AND FLUID INTAKE (6) Seizure Assessment/Plan: on keppra BID. on tegratol in [place], continue keppra iv bid. once no longer npo, can restart tegretol. Code(s): R56.9 - UNSPECIFIED CONVULSIONS (7) Hypernatremia Assessment/Plan: renal consulted for electrolyte imbalance. recommendations appreciated. Code(s): E87.0 - HYPEROSMOLALITY AND HYPERNATREMIA (8) Hyperkalemia Assessment/Plan: resolved. monitor K daily Code(s): E87.5 - HYPERKALEMIA (9) Profound mental handicap Assessment/Plan: supportive care. Code(s): F73 - PROFOUND INTELLECTUAL DISABILITIES (10) Tachycardia Assessment/Plan: tachycardia likely in the setting of abdominal pain, anxiety, NGT- improving. can d/c tele per cardiology Code(s): R00.0 - TACHYCARDIA, UNSPECIFIED (11) Left pulmonary infiltrate on CXR Assessment/Plan: apply oxygen 2 liters. patient noted to be congested and breathing rate 24s on zosyn Code(s): R91.8 - OTHER NONSPECIFIC ABNORMAL FINDING OF LUNG FIELD (12) Low serum phosphorus for age Assessment/Plan: repeat phos levels. has been getting supplementation repeat daily Code(s): R79.0 - ABNORMAL LEVEL OF BLOOD MINERAL (13) Palliative care status Assessment/Plan: seen by palliative care, notes reviewed. Code(s): Z51.5 - ENCOUNTER FOR PALLIATIVE CARE (14) Prophylactic measure Assessment/Plan: fen npo on clinimax and lipids monitor electrolytes full code Code(s): Z29.9 - ENCOUNTER FOR PROPHYLACTIC MEASURES, UNSPECIFIED Visit type - Emergency Visit Emergency Visit: Yes ED Registration Date: 04/28/19 Care time: The patient presented to the Emergency Department on the above date and was hospitalized for further evaluation of their emergent condition. - New Patient This patient is new to me today: No - Critical Care Critical Care patient: No - Discharge Referral Referred to [facility] Med [facility].C.: No
--- NOTE | 2019-05-13 09:52 | PN ---
Progress Note, Physician Chief Complaint: no sig clinical change from CV perspective History of Present Illness: TELE: ST - Current Medication List Current Medications: Active Medications Acetaminophen (Ofirmev Injection -) 500 mg IVPB Q6H PRN PRN Reason: PAIN OR FEVER Last Admin: 05/11/19 18:20 Dose: 500 mg Albuterol/Ipratropium (Duoneb -) 1 amp NEB Q4H PRN PRN Reason: SHORTNESS OF BREATH Last Admin: 05/13/19 07:49 Dose: 1 amp Metronidazole (Flagyl 500mg Premixed Ivpb -) 500 mg in 100 mls @ 100 mls/hr IVPB Q8H [facility] Last Admin: 05/13/19 03:40 Dose: 100 mls/hr Piperacillin Sod/Tazobactam (Sod 3.375 gm/ Dextrose) 50 mls @ 100 mls/hr IVPB Q8H [facility]; Protocol Last Admin: 05/13/19 03:40 Dose: 100 mls/hr Potassium Chloride 20 meq/ (Amino Acids) 1,010 mls @ 60 mls/hr IVPB Q12H [facility] Last Admin: 05/12/19 19:59 Dose: Not Given Potassium Chloride/Sodium Chloride (Ns+20 Meq Kcl -) 20 meq in 1,000 mls @ 60 mls/hr IV ASDIR [facility] Last Admin: 05/13/19 01:10 Dose: 60 mls/hr Fat Emulsion Intravenous (Intralipid -) 250 mls @ 20.833 mls/hr IV Q2D@2200 [facility] Last Admin: 05/13/19 01:03 Dose: 20.833 mls/hr Ketorolac Tromethamine (Toradol Injection -) 15 mg IVPUSH Q6H PRN PRN Reason: PAIN LEVEL 4 - 6 Stop: 05/16/19 15:23 Last Admin: 05/13/19 04:42 Dose: 15 mg Levetiracetam (Keppra Injection -) 500 mg IVPB BID [facility] Last Admin: 05/13/19 01:04 Dose: 500 mg Metoclopramide HCl (Reglan Injection -) 10 mg IVPUSH Q6H PRN PRN Reason: NAUSEA AND/OR VOMITING Last Admin: 05/11/19 03:22 Dose: 10 mg Morphine Sulfate (Morphine Sulfate) 0.5 mg IVPUSH Q3H PRN PRN Reason: PAIN LEVEL 6-10 Last Admin: 05/13/19 06:49 Dose: 0.5 mg Ondansetron HCl (Zofran Injection) 4 mg IVPUSH Q6H PRN PRN Reason: NAUSEA Last Admin: 05/10/19 23:36 Dose: 4 mg Pantoprazole Sodium (Protonix Iv) 40 mg IVPUSH DAILY [facility] Last Admin: 05/12/19 10:18 Dose: 40 mg Scopolamine HBr (Transderm-Scop -) 1 patch TD Q72H [facility] Last Admin: 05/12/19 00:58 Dose: 1 patch Vancomycin HCl (Vancomycin (Pre-Docked)) 1,000 mg IVPB Q24H [facility]; Protocol Last Admin: 05/12/19 15:45 Dose: 1,000 mg - Objective Vital Signs: Vital Signs Temperature 99.6 F 05/13/19 05:15 Pulse Rate 118 H 05/13/19 05:15 Respiratory Rate 22 H 05/13/19 05:15 Blood Pressure 122/78 05/13/19 05:15 O2 Sat by Pulse Oximetry (%) 100 05/12/19 22:00 Cardiovascular: Yes: Tachycardia Respiratory: Yes: Other (scattered rhonchi) Edema: No Labs: CBC, BMP 05/13/19 07:08 05/13/19 06:00 INR, PTT INR 1.00 (0.82-1.09) 04/28/19 17:22 Assessment/Plan IMP: Sinus tachycardia: - sinus, monitoring on tele - echo unremarkable - likely in setting of underlying pain, anxiety, SBO - trop neg, no ischemia on EKG - unlikely ACS SBO: - manage per surgery, ngt remains in Seizure disorder: - manage per primary
[2019-05-13 10:06] LABS: ANISOCYTOSIS 0; MACROCYTOSIS 0; PLATELET ESTIMATE NORMAL
[2019-05-13] MEDS: PANTOPRAZOLE SODIUM 40 MG VIAL IVPUSH SCH (10:09)
[2019-05-13 10:14] LABS: PHOSPHOROUS 0.7 mg/dL (2.5-4.9)
[2019-05-13] MEDS ORDERED: PT OWN MED DRAWER 7, Y5N ONE ×3 (10:15→12:20)
[2019-05-13] MEDS: POTASSIUM CHLORIDE 20 MEQ in AMINO ACIDS 4.25%/D5W 1,000 ML IVPB SCH (10:45)
[2019-05-13] MEDS ORDERED: WATER IVPB ONE (11:30)
[2019-05-13] MEDS ORDERED: SODIUM PHOSPHATE IVPB ONE (11:30)
[2019-05-13] MEDS ORDERED: SODIUM PHOSPHATE - 45 MM in DEXTROSE 5%-WATER - 500 ML IVPB ONE (11:30)
[2019-05-13] MEDS ORDERED: DEXTROSE IVPB ONE (11:30)
--- NOTE | 2019-05-13 12:28 | PN ---
Progress Note, Physician - Current Medication List Current Medications: Active Medications Acetaminophen (Ofirmev Injection -) 500 mg IVPB Q6H PRN PRN Reason: PAIN OR FEVER Last Admin: 05/11/19 18:20 Dose: 500 mg Albuterol/Ipratropium (Duoneb -) 1 amp NEB Q4H PRN PRN Reason: SHORTNESS OF BREATH Last Admin: 05/13/19 11:14 Dose: 1 amp Metronidazole (Flagyl 500mg Premixed Ivpb -) 500 mg in 100 mls @ 100 mls/hr IVPB Q8H [facility] Last Admin: 05/13/19 11:23 Dose: 100 mls/hr Piperacillin Sod/Tazobactam (Sod 3.375 gm/ Dextrose) 50 mls @ 100 mls/hr IVPB Q8H [facility]; Protocol Last Admin: 05/13/19 10:53 Dose: 100 mls/hr Potassium Chloride 20 meq/ (Amino Acids) 1,010 mls @ 60 mls/hr IVPB Q12H [facility] Last Admin: 05/13/19 10:45 Dose: 60 mls/hr Potassium Chloride/Sodium Chloride (Ns+20 Meq Kcl -) 20 meq in 1,000 mls @ 60 mls/hr IV ASDIR [facility] Last Admin: 05/13/19 01:10 Dose: 60 mls/hr Fat Emulsion Intravenous (Intralipid -) 250 mls @ 20.833 mls/hr IV Q2D@2200 [facility] Last Admin: 05/13/19 01:03 Dose: 20.833 mls/hr Sodium Phosphate 45 mm/ (Dextrose) 515 mls @ 64.37 mls/hr IVPB ONCE ONE Stop: 05/13/19 19:30 Ketorolac Tromethamine (Toradol Injection -) 15 mg IVPUSH Q6H PRN PRN Reason: PAIN LEVEL 4 - 6 Stop: 05/16/19 15:23 Last Admin: 05/13/19 10:49 Dose: 15 mg Levetiracetam (Keppra Injection -) 500 mg IVPB BID [facility] Last Admin: 05/13/19 10:12 Dose: 500 mg Metoclopramide HCl (Reglan Injection -) 10 mg IVPUSH Q6H PRN PRN Reason: NAUSEA AND/OR VOMITING Last Admin: 05/11/19 03:22 Dose: 10 mg Morphine Sulfate (Morphine Sulfate) 0.5 mg IVPUSH Q3H PRN PRN Reason: PAIN LEVEL 6-10 Last Admin: 05/13/19 10:09 Dose: 0.5 mg Ondansetron HCl (Zofran Injection) 4 mg IVPUSH Q6H PRN PRN Reason: NAUSEA Last Admin: 05/10/19 23:36 Dose: 4 mg Pantoprazole Sodium (Protonix Iv) 40 mg IVPUSH DAILY [facility] Last Admin: 05/13/19 10:09 Dose: 40 mg Scopolamine HBr (Transderm-Scop -) 1 patch TD Q72H [facility] Last Admin: 05/12/19 00:58 Dose: 1 patch Vancomycin HCl (Vancomycin (Pre-Docked)) 1,000 mg IVPB Q24H [facility]; Protocol Last Admin: 05/12/19 15:45 Dose: 1,000 mg - Objective Vital Signs: Vital Signs Temperature 99.6 F 05/13/19 05:15 Pulse Rate 118 H 05/13/19 05:15 Respiratory Rate 22 H 05/13/19 05:15 Blood Pressure 122/78 05/13/19 05:15 O2 Sat by Pulse Oximetry (%) 100 05/12/19 22:00 Labs: CBC, BMP 05/13/19 07:08 05/13/19 06:00 INR, PTT INR 1.00 (0.82-1.09) 04/28/19 17:22
[2019-05-13] MEDS ORDERED: MORPHINE SULFATE 2 MG/ML VIAL IVPUSH PRN (12:35)
[2019-05-13] MEDS ORDERED: LORazepam 2 MG/ML SDV VIAL IVPUSH ONE (12:45)
[2019-05-13] MEDS ORDERED: FUROSEMIDE 40 MG/4 ML INJECTABLE VIAL IVPUSH ONE (12:45)
--- NOTE | 2019-05-13 13:07 | PN ---
Progress Note, Physician History of Present Illness: Pt seen and examined at bedside. Family at bedside. Pt appears comfortable. - Current Medication List Current Medications: Active Medications Acetaminophen (Ofirmev Injection -) 500 mg IVPB Q6H PRN PRN Reason: PAIN OR FEVER Last Admin: 05/11/19 18:20 Dose: 500 mg Albuterol/Ipratropium (Duoneb -) 1 amp NEB Q4H PRN PRN Reason: SHORTNESS OF BREATH Last Admin: 05/13/19 11:14 Dose: 1 amp Metronidazole (Flagyl 500mg Premixed Ivpb -) 500 mg in 100 mls @ 100 mls/hr IVPB Q8H [facility] Last Admin: 05/13/19 11:23 Dose: 100 mls/hr Piperacillin Sod/Tazobactam (Sod 3.375 gm/ Dextrose) 50 mls @ 100 mls/hr IVPB Q8H [facility]; Protocol Last Admin: 05/13/19 10:53 Dose: 100 mls/hr Potassium Chloride 20 meq/ (Amino Acids) 1,010 mls @ 60 mls/hr IVPB Q12H [facility] Last Admin: 05/13/19 10:45 Dose: 60 mls/hr Fat Emulsion Intravenous (Intralipid -) 250 mls @ 20.833 mls/hr IV Q2D@2200 [facility] Last Admin: 05/13/19 01:03 Dose: 20.833 mls/hr Sodium Phosphate 45 mm/ (Dextrose) 515 mls @ 64.37 mls/hr IVPB ONCE ONE Stop: 05/13/19 19:30 Ketorolac Tromethamine (Toradol Injection -) 15 mg IVPUSH Q6H PRN PRN Reason: PAIN LEVEL 4 - 6 Stop: 05/16/19 15:23 Last Admin: 05/13/19 10:49 Dose: 15 mg Levetiracetam (Keppra Injection -) 500 mg IVPB BID [facility] Last Admin: 05/13/19 10:12 Dose: 500 mg Metoclopramide HCl (Reglan Injection -) 10 mg IVPUSH Q6H PRN PRN Reason: NAUSEA AND/OR VOMITING Last Admin: 05/11/19 03:22 Dose: 10 mg Morphine Sulfate (Morphine Sulfate) 1 mg IVPUSH Q3H PRN PRN Reason: PAIN LEVEL 6-10 Ondansetron HCl (Zofran Injection) 4 mg IVPUSH Q6H PRN PRN Reason: NAUSEA Last Admin: 05/10/19 23:36 Dose: 4 mg Pantoprazole Sodium (Protonix Iv) 40 mg IVPUSH DAILY [facility] Last Admin: 05/13/19 10:09 Dose: 40 mg Scopolamine HBr (Transderm-Scop -) 1 patch TD Q72H [facility] Last Admin: 05/12/19 00:58 Dose: 1 patch - Objective Vital Signs: Vital Signs Temperature 99.6 F 05/13/19 05:15 Pulse Rate 118 H 05/13/19 05:15 Respiratory Rate 22 H 05/13/19 05:15 Blood Pressure 122/78 05/13/19 05:15 O2 Sat by Pulse Oximetry (%) 100 05/12/19 22:00 Constitutional: Yes: Calm Eyes: Yes: Conjunctiva Clear Cardiovascular: Yes: S1, S2 Respiratory: Yes: CTA Bilaterally Gastrointestinal: Yes: Other (ng tube) Genitourinary: Yes: Incontinence Musculoskeletal: Yes: Muscle Weakness Edema: No Neurological: Yes: Pre-Existing Deficit Labs: CBC, BMP 05/13/19 07:08 05/13/19 06:00 INR, PTT INR 1.00 (0.82-1.09) 04/28/19 17:22 Problem List - Problems (1) Hyperkalemia Code(s): E87.5 - HYPERKALEMIA (2) Hypernatremia Code(s): E87.0 - HYPEROSMOLALITY AND HYPERNATREMIA (3) SBO (small bowel obstruction) Code(s): K56.609 - UNSP INTESTNL OBST, UNSP TO PARTIAL VERSUS COMPLETE OBST (4) Seizure Code(s): R56.9 - UNSPECIFIED CONVULSIONS Assessment/Plan Current Medications Generic Name Dose Route Start Last Admin Trade Name Freq PRN Reason Stop Dose Admin Acetaminophen 500 mg 05/08/19 18:53 05/11/19 18:20 Ofirmev Injection - IVPB 500 mg Q6H PRN Administration PAIN OR FEVER Albuterol/Ipratropium 1 amp 05/09/19 10:32 05/13/19 11:14 Duoneb - NEB 1 amp Q4H PRN Administration SHORTNESS OF BREATH Metronidazole 500 mg in 100 mls @ 100 mls/hr 05/08/19 19:30 05/13/19 11:23 Flagyl 500mg Premixed Ivpb - IVPB 100 mls/hr Q8H [facility] Administration Piperacillin Sod/Tazobactam 50 mls @ 100 mls/hr 05/08/19 19:30 05/13/19 10:53 Sod 3.375 gm/ Dextrose IVPB 100 mls/hr Q8H [facility] Administration Protocol Potassium Chloride 20 meq/ 1,010 mls @ 60 mls/hr 05/08/19 20:00 05/13/19 10: 45 Amino Acids IVPB 60 mls/hr Q12H [facility] Administration Fat Emulsion Intravenous 250 mls @ 20.833 mls/hr 05/12/19 22:00 05/13/19 01: 03 Intralipid - IV 20.833 mls/hr Q2D@2200 [facility] Administration Sodium Phosphate 45 mm/ 515 mls @ 64.37 mls/hr 05/13/19 11:30 Dextrose IVPB 05/13/19 19:30 ONCE ONE 45 MM/8 HR Ketorolac Tromethamine 15 mg 05/11/19 15:24 05/13/19 10:49 Toradol Injection - IVPUSH 05/16/19 15:23 15 mg Q6H PRN Administration PAIN LEVEL 4 - 6 Levetiracetam 500 mg 05/08/19 22:00 05/13/19 10:12 Keppra Injection - IVPB 500 mg BID [facility] Administration Metoclopramide HCl 10 mg 05/08/19 18:55 05/11/19 03:22 Reglan Injection - IVPUSH 10 mg Q6H PRN Administration NAUSEA AND/OR VOMITING Morphine Sulfate 1 mg 05/13/19 12:35 Morphine Sulfate IVPUSH Q3H PRN PAIN LEVEL 6-10 Ondansetron HCl 4 mg 05/08/19 18:55 05/10/19 23:36 Zofran Injection IVPUSH 4 mg Q6H PRN Administration NAUSEA Pantoprazole Sodium 40 mg 05/12/19 10:00 05/13/19 10:09 Protonix Iv IVPUSH 40 mg DAILY [facility] Administration Scopolamine HBr 1 patch 05/11/19 23:00 05/12/19 00:58 Transderm-Scop - TD 1 patch Q72H [facility] Administration Impression 1. hypernatremia 2. hyperkalemia - resolved 3. SBO 4. epilepsy 5. developemental delay 6. hypokalemia Plan - replace phos - cont fluids - surgery follow up - family discussing GOC - will follow PRN
[2019-05-14] MEDS: POTASSIUM CHLORIDE 20 MEQ in AMINO ACIDS 4.25%/D5W 1,000 ML IVPB SCH ×3 (00:10→23:10)
[2019-05-14] MEDS: ALBUTEROL SO4 2.5/IPRATROPIUM 0.5 INH SOL 3 ML VIAL.NEB. NEB PRN ×3 (01:06→21:10)
[2019-05-14] MEDS ORDERED: DEXTROSE 5%-WATER - 50 ML IVPB ONE ×3 (03:02→20:34)
[2019-05-14] MEDS ORDERED: PIPERACILLIN/TAZOBACTAM 3.375 GM VIAL IVPB ONE ×4 (03:02→20:33)
[2019-05-14] MEDS: MORPHINE SULFATE 2 MG/ML VIAL IVPUSH PRN ×5 (03:23→23:27)
[2019-05-14] MEDS: PIPERACILLIN/TAZOB 3.375 GM 3.375 GM in DEXTROSE 5%-WATER - 50 ML IVPB SCH ×3 (03:23→19:41)
[2019-05-14] MEDS: KETOROLAC TROMETHAMINE 30 MG/1 ML VIAL IVPUSH PRN ×3 (05:48→20:40)
[2019-05-14 08:45] LABS: BASO % 0.1 % (0-2.0); HEMATOCRIT 29.6 % (32.4-45.2); HEMOGLOBIN 9.8 GM/dL (10.7-15.3); MCH 27.6 pg (25.7-33.7); MCHC 33.2 g/dl (32.0-36.0); MEAN CELL VOLUME 82.9 fl (80-96); MEAN PLT VOLUME 8.9 fl (7.5-11.1); MONO % 4.8 % (3.8-10.2); NEUT % 90.1 % (42.8-82.8); PLATELET COUNT 198 K/MM3 (134-434); RBC 3.57 M/mm3 (3.60-5.2); WHITE BLOOD COUNT 12.6 K/mm3 (4.0-10.0)
--- NOTE | 2019-05-14 08:58 | PN ---
Progress Note, Physician Chief Complaint: patient did not sleep all night and was in some pain per family. also having some episodes of restlessness. s/p 1 unit of prbc with appropriate response. family in room, and POC discussed with them, they are in agreement Spoke to Dr. Chris Matos ([facility] ) on 05/12/2019. He is currently covering for Dr Villa. Spoke to him in presence of social media job titles [employer] regarding Mrs Wearing hospitalization, surgery notes as well as current status. made him aware that we will need legal paperwork if patient was to be made a dnr/dni or if consents need to be sign for this patient. Dr. Chris Matos informed me that he will be reaching out to the [employer]ISCAL [employer]OUNT[employer] and will ask them to either call me or social work. History of Present Illness: Patient is a 59 year old female (resident of [facility]) with a PMHx significant for profound mental retardation, cerebral palsy, congenital quadriplegia, severe scoliosis, seizure disorder, and GERD. Transferred from [place] to [facility] for further management of SBO, sepsis and tachycardia. palliative care notes reviewed and noted that if patient is to be made a dnr, there are forms that need to be filled out and special criteria listed. There are 9 siblings as well as MHLS that would have to be involved. patient is a Full Code. - Current Medication List Current Medications: Active Medications Acetaminophen (Ofirmev Injection -) 500 mg IVPB Q6H PRN PRN Reason: PAIN OR FEVER Last Admin: 05/11/19 18:20 Dose: 500 mg Albuterol/Ipratropium (Duoneb -) 1 amp NEB Q4H PRN PRN Reason: SHORTNESS OF BREATH Last Admin: 05/14/19 06:46 Dose: 1 amp Metronidazole (Flagyl 500mg Premixed Ivpb -) 500 mg in 100 mls @ 100 mls/hr IVPB Q8H [facility] Last Admin: 05/14/19 04:28 Dose: 100 mls/hr Piperacillin Sod/Tazobactam (Sod 3.375 gm/ Dextrose) 50 mls @ 100 mls/hr IVPB Q8H [facility]; Protocol Last Admin: 05/14/19 03:23 Dose: 100 mls/hr Potassium Chloride 20 meq/ (Amino Acids) 1,010 mls @ 60 mls/hr IVPB Q12H [facility] Last Admin: 05/14/19 00:10 Dose: 60 mls/hr Fat Emulsion Intravenous (Intralipid -) 250 mls @ 20.833 mls/hr IV Q2D@2200 [facility] Last Admin: 05/13/19 01:03 Dose: 20.833 mls/hr Ketorolac Tromethamine (Toradol Injection -) 15 mg IVPUSH Q6H PRN PRN Reason: PAIN LEVEL 4 - 6 Stop: 05/16/19 15:23 Last Admin: 05/14/19 05:48 Dose: 15 mg Levetiracetam (Keppra Injection -) 500 mg IVPB BID [facility] Last Admin: 05/13/19 22:47 Dose: 500 mg Lorazepam (Ativan Injection -) 0.25 mg IVPUSH Q6H PRN PRN Reason: ANXIETY Metoclopramide HCl (Reglan Injection -) 10 mg IVPUSH Q6H PRN PRN Reason: NAUSEA AND/OR VOMITING Last Admin: 05/11/19 03:22 Dose: 10 mg Morphine Sulfate (Morphine Sulfate) 1 mg IVPUSH Q4H PRN PRN Reason: PAIN LEVEL 6-10 Last Admin: 05/14/19 07:29 Dose: 1 mg Ondansetron HCl (Zofran Injection) 4 mg IVPUSH Q6H PRN PRN Reason: NAUSEA Last Admin: 05/10/19 23:36 Dose: 4 mg Pantoprazole Sodium (Protonix Iv) 40 mg IVPUSH DAILY [facility] Last Admin: 05/13/19 10:09 Dose: 40 mg Scopolamine HBr (Transderm-Scop -) 1 patch TD Q72H [facility] Last Admin: 05/12/19 00:58 Dose: 1 patch - Objective Vital Signs: Vital Signs Temperature 98.9 F 05/14/19 05:00 Pulse Rate 121 H 05/14/19 05:00 Respiratory Rate 20 05/13/19 22:00 Blood Pressure 146/93 05/14/19 05:00 O2 Sat by Pulse Oximetry (%) 100 05/13/19 21:00 Constitutional: Yes: No Distress, Calm Eyes: Yes: Conjunctiva Clear HENT: Yes: Atraumatic Neck: Yes: Supple Cardiovascular: Yes: Tachycardia Respiratory: Yes: On Nasal O2, Rhonchi Gastrointestinal: Yes: Tenderness (ngt), Other ...Rectal Exam: Yes: Deferred Musculoskeletal: Yes: Other (contracted) Edema: No Wound/Incision: Yes: Clean/Dry Neurological: Yes: Alert Labs: CBC, BMP 05/14/19 06:55 INR, PTT INR 1.00 (0.82-1.09) 04/28/19 17:22 Problem List - Problems (1) SBO (small bowel obstruction) Assessment/Plan: NGT to low intermittent suction, still draining apx 200cc overnight. hypoactive bowel sounds. NGT was removed on 05/07/2019 but had to be placed back emergently on 05/09/19 as patient had vomiting and worsening pain with respiratory distress and vomiting. Once reinserted, immediate drainage of 1L bilious content was noted. abd xray with sbo, persists. surgery notes reviewed and palliative care was recommended. abdomen continues to be distended, absent bowel sounds. monitor drain output daily. maintain with NGT. surgery following Code(s): K56.609 - UNSP INTESTNL OBST, UNSP TO PARTIAL VERSUS COMPLETE OBST (2) Sepsis Assessment/Plan: on zosyn, vanco and flagyl per ID. id following vanco trough today Code(s): A41.9 - SEPSIS, UNSPECIFIED ORGANISM (3) Aspiration into airway Assessment/Plan: chest xray shows left lower lobe infiltrate. on zosyn per ID. support with 2 liters of nasal cannula to ease work of breathing. monitor oxygen levels and titrate off oxygen as tolerated. not home oxygen dependent. on allbuterol prn for acute shortness of breath maintain oxygen levels above 92% is goal Code(s): T17.908A - UNSP FB IN RESP TRACT, PART UNSP CAUSING OTH INJURY, INIT (4) Iron deficiency anemia Assessment/Plan: s/p 1 unit of prbc with appropriate response. Code(s): D50.9 - IRON DEFICIENCY ANEMIA, UNSPECIFIED (5) Decreased oral intake Assessment/Plan: NPO. on clinimax, lipids every other day dietary following Code(s): R63.8 - OTHER SYMPTOMS AND SIGNS CONCERNING FOOD AND FLUID INTAKE (6) Seizure Assessment/Plan: on keppra BID. on tegratol in NH, continue keppra iv bid. once no longer npo, can restart tegretol. Code(s): R56.9 - UNSPECIFIED CONVULSIONS (7) Hypernatremia Assessment/Plan: renal consulted for electrolyte imbalance. recommendations appreciated. Code(s): E87.0 - HYPEROSMOLALITY AND HYPERNATREMIA (8) Hyperkalemia Assessment/Plan: resolved. monitor K daily Code(s): E87.5 - HYPERKALEMIA (9) Profound mental handicap Assessment/Plan: supportive care. Code(s): F73 - PROFOUND INTELLECTUAL DISABILITIES (10) Tachycardia Assessment/Plan: tachycardia likely in the setting of abdominal pain, anxiety, NGT- improving. can d/c tele per cardiology Code(s): R00.0 - TACHYCARDIA, UNSPECIFIED (11) Left pulmonary infiltrate on CXR Assessment/Plan: apply oxygen 2 liters. patient noted to be congested and breathing rate 24s on zosyn Code(s): R91.8 - OTHER NONSPECIFIC ABNORMAL FINDING OF LUNG FIELD (12) Low serum phosphorus for age Assessment/Plan: repeat phos levels. has been getting supplementation repeat daily Code(s): R79.0 - ABNORMAL LEVEL OF BLOOD MINERAL (13) Palliative care status Assessment/Plan: seen by palliative care, notes reviewed. Code(s): Z51.5 - ENCOUNTER FOR PALLIATIVE CARE (14) Prophylactic measure Assessment/Plan: fen npo on clinimax and lipids monitor electrolytes full code Code(s): Z29.9 - ENCOUNTER FOR PROPHYLACTIC MEASURES, UNSPECIFIED Visit type - Emergency Visit Emergency Visit: Yes ED Registration Date: 04/28/19 Care time: The patient presented to the Emergency Department on the above date and was hospitalized for further evaluation of their emergent condition. - New Patient This patient is new to me today: No - Critical Care Critical Care patient: No - Discharge Referral Referred to [facility] Med P.C.: No
[2019-05-14 09:18] LABS: ALBUMIN 1.6 g/dl (3.4-5.0); ALK PHOS 129 U/L (45-117); ANION GAP 4 MMOL/L (8-16); BILIRUBIN,TOTAL 0.5 mg/dL (0.2-1); BLOOD UREA NITROGEN 11.2 mg/dL (7-18); CHLORIDE 105 mmol/L (98-107); CO2 31 mmol/L (21-32); GLUCOSE,RANDOM 98 mg/dL (74-106); POTASSIUM 3.5 mmol/L (3.5-5.1); SGOT/AST 16 U/L (15-37); SGPT/ALT < 6 U/L (13-61); SODIUM 139 mmol/L (136-145); TOT PROT 4.6 g/dl (6.4-8.2)
[2019-05-14 09:24] LABS: CREATININE < 0.2 mg/dL (0.55-1.3)
[2019-05-14] MEDS: levETIRAcetam 500 MG/5 ML INJECTION VIAL IVPB SCH ×2 (10:05→22:43)
[2019-05-14] MEDS: PANTOPRAZOLE SODIUM 40 MG VIAL IVPUSH SCH (10:08)
[2019-05-14] MEDS: LORazepam 2 MG/ML SDV VIAL IVPUSH PRN ×2 (10:09→22:42)
[2019-05-14 10:10] LABS: CHOLESTEROL 77 mg/dL (50-200); HDL CHOLESTEROL 40 mg/dL (40-60); PHOSPHOROUS 1.4 mg/dL (2.5-4.9); TRIGLYCERIDES 58 mg/dL (0-150)
[2019-05-14] MEDS ORDERED: POTASSIUM PHOSPHATE 45 MM in DEXTROSE 5%-WATER - 500 ML IVPB ONE (10:12)
[2019-05-14] MEDS: NYSTATIN POWDER 100,000 UNITS/GM - 15 GM TOPICAL POWDER TP SCH ×2 (10:43→23:48)
--- NOTE | 2019-05-14 14:06 | PN ---
Progress Note, Physician Chief Complaint: tachy History of Present Illness: sleeping not communicative - Current Medication List Current Medications: Active Medications Acetaminophen (Ofirmev Injection -) 500 mg IVPB Q6H PRN PRN Reason: PAIN OR FEVER Last Admin: 05/11/19 18:20 Dose: 500 mg Albuterol/Ipratropium (Duoneb -) 1 amp NEB Q4H PRN PRN Reason: SHORTNESS OF BREATH Last Admin: 05/14/19 06:46 Dose: 1 amp Metronidazole (Flagyl 500mg Premixed Ivpb -) 500 mg in 100 mls @ 100 mls/hr IVPB Q8H [facility] Last Admin: 05/14/19 11:23 Dose: 100 mls/hr Piperacillin Sod/Tazobactam (Sod 3.375 gm/ Dextrose) 50 mls @ 100 mls/hr IVPB Q8H [facility]; Protocol Last Admin: 05/14/19 10:49 Dose: 100 mls/hr Potassium Chloride 20 meq/ (Amino Acids) 1,010 mls @ 60 mls/hr IVPB Q12H [facility] Last Admin: 05/14/19 10:47 Dose: 60 mls/hr Fat Emulsion Intravenous (Intralipid -) 250 mls @ 20.833 mls/hr IV Q2D@2200 [facility] Last Admin: 05/13/19 01:03 Dose: 20.833 mls/hr Potassium Phosphate 45 mm/ (Dextrose) 515 mls @ 62.5 mls/hr IVPB ONCE ONE Stop: 05/14/19 18:26 Last Admin: 05/14/19 11:20 Dose: 62.5 mls/hr Ketorolac Tromethamine (Toradol Injection -) 15 mg IVPUSH Q6H PRN PRN Reason: PAIN LEVEL 4 - 6 Stop: 05/16/19 15:23 Last Admin: 05/14/19 05:48 Dose: 15 mg Levetiracetam (Keppra Injection -) 500 mg IVPB BID [facility] Last Admin: 05/14/19 10:05 Dose: 500 mg Lorazepam (Ativan Injection -) 0.25 mg IVPUSH Q6H PRN PRN Reason: ANXIETY Last Admin: 05/14/19 10:09 Dose: 0.25 mg Metoclopramide HCl (Reglan Injection -) 10 mg IVPUSH Q6H PRN PRN Reason: NAUSEA AND/OR VOMITING Last Admin: 05/11/19 03:22 Dose: 10 mg Morphine Sulfate (Morphine Sulfate) 1 mg IVPUSH Q4H PRN PRN Reason: PAIN LEVEL 6-10 Last Admin: 05/14/19 12:46 Dose: 1 mg Nystatin (Nystop Powder -) 1 applic TP BID [facility] Last Admin: 05/14/19 10:43 Dose: 1 applic Ondansetron HCl (Zofran Injection) 4 mg IVPUSH Q6H PRN PRN Reason: NAUSEA Last Admin: 05/10/19 23:36 Dose: 4 mg Pantoprazole Sodium (Protonix Iv) 40 mg IVPUSH DAILY [facility] Last Admin: 05/14/19 10:08 Dose: 40 mg Scopolamine HBr (Transderm-Scop -) 1 patch TD Q72H [facility] Last Admin: 05/12/19 00:58 Dose: 1 patch - Objective Vital Signs: Vital Signs Temperature 98.3 F 05/14/19 10:00 Pulse Rate 109 H 05/14/19 10:00 Respiratory Rate 20 05/14/19 10:00 Blood Pressure 163/97 05/14/19 10:00 O2 Sat by Pulse Oximetry (%) 100 05/13/19 21:00 Constitutional: Yes: Well Nourished (contracted), No Distress, Calm Cardiovascular: Yes: Regular Rate and Rhythm, S1, S2. No: Gallop, Murmur Respiratory: Yes: Regular, CTA Bilaterally. No: Accessory Muscle Use Extremities: No: Cold Edema: No Neurological: No: Alert, Oriented Psychiatric: No: Agitated Labs: CBC, BMP 05/14/19 06:55 05/14/19 06:55 INR, PTT INR 1.00 (0.82-1.09) 04/28/19 17:22 Assessment/Plan IMP: Sinus tachycardia: - remains mild-mod tachy, likely sec to ongoing GI process - no med mgmt indicated - echo unremarkable - trop neg, no ischemia on EKG - unlikely ACS SBO: - manage per surgery, ngt remains in Seizure disorder: - manage per primary
[2019-05-14] MEDS ORDERED: PT OWN MED DRAWER 7, Y5N ONE (23:09)
[2019-05-14] MEDS: FAT EMULSIONS 250 ML IV SCH (23:14)
[2019-05-14] MEDS: SCOPOLAMINE HYDROBROMIDE 1 PATCH PATCH.TD72 TD SCH (23:48)
[2019-05-15] MEDS ORDERED: DEXTROSE 5%-WATER - 50 ML IVPB ONE ×3 (02:25→20:35)
[2019-05-15] MEDS ORDERED: PIPERACILLIN/TAZOBACTAM 3.375 GM VIAL IVPB ONE ×3 (02:25→20:35)
[2019-05-15] MEDS: PIPERACILLIN/TAZOB 3.375 GM 3.375 GM in DEXTROSE 5%-WATER - 50 ML IVPB SCH ×3 (02:40→19:53)
[2019-05-15] MEDS: KETOROLAC TROMETHAMINE 30 MG/1 ML VIAL IVPUSH PRN ×2 (02:42→16:46)
[2019-05-15] MEDS: MORPHINE SULFATE 2 MG/ML VIAL IVPUSH PRN ×6 (03:33→21:03)
[2019-05-15] MEDS: ACETAMINOPHEN 1000 MG/100 ML VIAL (NON FORMULARY) IVPB PRN (06:19)
[2019-05-15 08:13] LABS: BASO % 0.3 % (0-2.0); HEMATOCRIT 28.6 % (32.4-45.2); HEMOGLOBIN 9.5 GM/dL (10.7-15.3); LYMPH % 5.9 % (8-40); MCHC 33.3 g/dl (32.0-36.0); MEAN CELL VOLUME 84.1 fl (80-96); MEAN PLT VOLUME 8.9 fl (7.5-11.1); MONO % 5.7 % (3.8-10.2); NEUT % 88.1 % (42.8-82.8); PLATELET COUNT 207 K/MM3 (134-434); RDW 15.7 % (11.6-15.6); WHITE BLOOD COUNT 9.2 K/mm3 (4.0-10.0)
[2019-05-15 08:43] LABS: ALBUMIN 1.6 g/dl (3.4-5.0); ALK PHOS 117 U/L (45-117); ANION GAP 4 MMOL/L (8-16); BILIRUBIN,TOTAL 0.5 mg/dL (0.2-1); BLOOD UREA NITROGEN 9.6 mg/dL (7-18); CHLORIDE 105 mmol/L (98-107); CO2 31 mmol/L (21-32); GLUCOSE,RANDOM 120 mg/dL (74-106); MAGNESIUM 1.7 mg/dL (1.8-2.4); POTASSIUM 3.9 mmol/L (3.5-5.1); SGOT/AST 20 U/L (15-37); SGPT/ALT 7 U/L (13-61); SODIUM 140 mmol/L (136-145); TOT PROT 4.4 g/dl (6.4-8.2)
[2019-05-15 08:56] LABS: CREATININE < 0.2 mg/dL (0.55-1.3)
[2019-05-15 10:45] LABS: PHOSPHOROUS 0.9 mg/dL (2.5-4.9)
[2019-05-15] MEDS: levETIRAcetam 500 MG/5 ML INJECTION VIAL IVPB SCH ×2 (11:51→22:56)
[2019-05-15] MEDS: PANTOPRAZOLE SODIUM 40 MG VIAL IVPUSH SCH (11:51)
[2019-05-15] MEDS: POTASSIUM CHLORIDE 20 MEQ in AMINO ACIDS 4.25%/D5W 1,000 ML IVPB SCH ×2 (11:52→20:28)
[2019-05-15 12:06] LABS: ANISOCYTOSIS 1+; MACROCYTOSIS 0; PLATELET ESTIMATE NORMAL
[2019-05-15] MEDS: NYSTATIN POWDER 100,000 UNITS/GM - 15 GM TOPICAL POWDER TP SCH ×2 (12:55→22:59)
[2019-05-15] MEDS ORDERED: LIP BALM (CHAPSTICK) TP ONE (13:02)
[2019-05-15] MEDS ORDERED: POTASSIUM PHOSPHATE 45 MM in SODIUM CHLORIDE 250 ML IVPB ONE (13:02)
--- NOTE | 2019-05-15 13:08 | PN ---
Progress Note, Physician Chief Complaint: family reports that patient is staying up all night, uncomfortable despite the morphine. patient reported to be crying most of the night that they feel can either be from anxiety or pain. from previous noted. Spoke to Dr. Chris Matos ([facility] covering MD) on 05/12/2019. He is currently covering for Dr Villa. Spoke to him in presence of social worker school [employer] regarding Mrs Wearing hospitalization, surgery notes as well as current status. made him aware that we will need legal paperwork if patient was to be made a dnr/dni or if consents need to be sign for this patient. Dr. Chris Matos informed me that he will be reaching out to the FAMILY MEDICINE CHAIR and will ask them to either call me or social work. History of Present Illness: Patient is a 59 year old female (resident of [facility]) with a PMHx significant for profound mental retardation, cerebral palsy, congenital quadriplegia, severe scoliosis, seizure disorder, and GERD. Transferred from [place] to [facility] for further management of SBO, sepsis and tachycardia. palliative care notes reviewed and noted that if patient is to be made a dnr, there are forms that need to be filled out and special criteria listed. There are 9 siblings as well as MHLS that would have to be involved. patient is a Full Code. will order the following ativan 0.25 mg scheduled for midnight as well as prn for anxiety. schedule duonebs q4 morphine 1mg q 3 instead of q 4 for worsening pain - Current Medication List Current Medications: Active Medications Acetaminophen (Ofirmev Injection -) 500 mg IVPB Q6H PRN PRN Reason: PAIN OR FEVER Last Admin: 05/15/19 06:19 Dose: 500 mg Albuterol/Ipratropium (Duoneb -) 1 amp NEB Q4H PRN PRN Reason: SHORTNESS OF BREATH Last Admin: 05/14/19 21:10 Dose: 1 amp Metronidazole (Flagyl 500mg Premixed Ivpb -) 500 mg in 100 mls @ 100 mls/hr IVPB Q8H [facility] Last Admin: 05/15/19 11:51 Dose: 100 mls/hr Piperacillin Sod/Tazobactam (Sod 3.375 gm/ Dextrose) 50 mls @ 100 mls/hr IVPB Q8H [facility]; Protocol Last Admin: 05/15/19 11:51 Dose: 100 mls/hr Potassium Chloride 20 meq/ (Amino Acids) 1,010 mls @ 60 mls/hr IVPB Q12H [facility] Last Admin: 05/15/19 11:52 Dose: Not Given Fat Emulsion Intravenous (Intralipid -) 250 mls @ 20.833 mls/hr IV Q2D@2200 [facility] Last Admin: 05/14/19 23:14 Dose: 20.833 mls/hr Potassium Phosphate 45 mm/ (Sodium Chloride) 265 mls @ 62.5 mls/hr IVPB ONCE ONE Stop: 05/15/19 17:16 Ketorolac Tromethamine (Toradol Injection -) 15 mg IVPUSH Q6H PRN PRN Reason: PAIN LEVEL 4 - 6 Stop: 05/16/19 15:23 Last Admin: 05/15/19 02:42 Dose: 15 mg Levetiracetam (Keppra Injection -) 500 mg IVPB BID [facility] Last Admin: 05/15/19 11:51 Dose: 500 mg Lorazepam (Ativan Injection -) 0.25 mg IVPUSH Q6H PRN PRN Reason: ANXIETY Last Admin: 05/14/19 22:42 Dose: 0.25 mg Lorazepam (Ativan Injection -) 0.25 mg IVPUSH ONCE ONE Stop: 05/16/19 00:01 Metoclopramide HCl (Reglan Injection -) 10 mg IVPUSH Q6H PRN PRN Reason: NAUSEA AND/OR VOMITING Last Admin: 05/11/19 03:22 Dose: 10 mg Morphine Sulfate (Morphine Sulfate) 1 mg IVPUSH Q3H PRN PRN Reason: PAIN LEVEL 6-10 Nystatin (Nystop Powder -) 1 applic TP BID [facility] Last Admin: 05/15/19 12:55 Dose: 1 applic Ondansetron HCl (Zofran Injection) 4 mg IVPUSH Q6H PRN PRN Reason: NAUSEA Last Admin: 05/10/19 23:36 Dose: 4 mg Pantoprazole Sodium (Protonix Iv) 40 mg IVPUSH DAILY [facility] Last Admin: 05/15/19 11:51 Dose: 40 mg Petrolatum (Chapstick -) 1 applic TP ONCE ONE Stop: 05/15/19 13:03 Scopolamine HBr (Transderm-Scop -) 1 patch TD Q72H [facility] Last Admin: 05/14/19 23:48 Dose: 1 patch - Objective Vital Signs: Vital Signs Temperature 99.3 F 05/14/19 21:30 Pulse Rate 125 H 05/14/19 21:30 Respiratory Rate 20 05/14/19 21:30 Blood Pressure 144/88 05/14/19 21:30 O2 Sat by Pulse Oximetry (%) 100 05/14/19 22:00 Labs: CBC, BMP 05/15/19 07:10 05/15/19 07:10 INR, PTT INR 1.00 (0.82-1.09) 04/28/19 17:22 Problem List - Problems (1) SBO (small bowel obstruction) Assessment/Plan: NGT to low intermittent suction, still draining apx 100cc overnight. hypoactive bowel sounds. NGT was removed on 05/07/2019 but had to be placed back emergently on 05/09/19 as patient had vomiting and worsening pain with respiratory distress and vomiting. monitor drain output daily. maintain with NGT. surgery following Code(s): K56.609 - UNSP INTESTNL OBST, UNSP TO PARTIAL VERSUS COMPLETE OBST (2) Sepsis Assessment/Plan: on zosyn, and flagyl per ID. id following Code(s): A41.9 - SEPSIS, UNSPECIFIED ORGANISM (3) Aspiration into airway Assessment/Plan: chest xray shows left lower lobe infiltrate. on zosyn per ID. support with 2 liters of nasal cannula to ease work of breathing. on allbuterol scheduled for acute shortness of breath maintain oxygen levels above 92% is goal Code(s): T17.908A - UNSP FB IN RESP TRACT, PART UNSP CAUSING OTH INJURY, INIT (4) Iron deficiency anemia Assessment/Plan: s/p 1 unit of prbc with appropriate response. Code(s): D50.9 - IRON DEFICIENCY ANEMIA, UNSPECIFIED (5) Decreased oral intake Assessment/Plan: NPO. on clinimax, lipids every other day dietary following Code(s): R63.8 - OTHER SYMPTOMS AND SIGNS CONCERNING FOOD AND FLUID INTAKE (6) Seizure Assessment/Plan: on keppra BID. on tegratol in NH, continue keppra iv bid. once no longer npo, can restart tegretol. Code(s): R56.9 - UNSPECIFIED CONVULSIONS (7) Hypernatremia Assessment/Plan: renal consulted for electrolyte imbalance. recommendations appreciated. Code(s): E87.0 - HYPEROSMOLALITY AND HYPERNATREMIA (8) Hyperkalemia Assessment/Plan: resolved. monitor K daily Code(s): E87.5 - HYPERKALEMIA (9) Profound mental handicap Assessment/Plan: supportive care. Code(s): F73 - PROFOUND INTELLECTUAL DISABILITIES (10) Tachycardia Assessment/Plan: tachycardia likely in the setting of abdominal pain, anxiety, NGT- improving. can d/c tele per cardiology Code(s): R00.0 - TACHYCARDIA, UNSPECIFIED (11) Left pulmonary infiltrate on CXR Assessment/Plan: apply oxygen 2 liters. patient noted to be congested and breathing rate 24s on zosyn. schedule duonebs. on scapolamine patch for increased congestion. Code(s): R91.8 - OTHER NONSPECIFIC ABNORMAL FINDING OF LUNG FIELD (12) Low serum phosphorus for age Assessment/Plan: repeat phos levels. has been getting supplementation repeat daily Code(s): R79.0 - ABNORMAL LEVEL OF BLOOD MINERAL (13) Palliative care status Assessment/Plan: seen by palliative care, notes reviewed. Code(s): Z51.5 - ENCOUNTER FOR PALLIATIVE CARE (14) Prophylactic measure Assessment/Plan: fen npo on clinimax and lipids monitor electrolytes full code Code(s): Z29.9 - ENCOUNTER FOR PROPHYLACTIC MEASURES, UNSPECIFIED Visit type - Emergency Visit Emergency Visit: Yes ED Registration Date: 04/28/19 Care time: The patient presented to the Emergency Department on the above date and was hospitalized for further evaluation of their emergent condition. - New Patient This patient is new to me today: No - Critical Care Critical Care patient: No - Discharge Referral Referred to [facility] Med P.C.: No
[2019-05-15] MEDS ORDERED: POTASSIUM PHOSPHATE 45 MM in SODIUM CHLORIDE 500 ML IVPB ONE (13:45)
--- NOTE | 2019-05-15 15:09 | PN ---
Progress Note, Physician - Current Medication List Current Medications: Active Medications Acetaminophen (Ofirmev Injection -) 500 mg IVPB Q6H PRN PRN Reason: PAIN OR FEVER Last Admin: 05/15/19 06:19 Dose: 500 mg Albuterol/Ipratropium (Duoneb -) 1 amp NEB RQ4H [facility] Metronidazole (Flagyl 500mg Premixed Ivpb -) 500 mg in 100 mls @ 100 mls/hr IVPB Q8H [facility] Last Admin: 05/15/19 11:51 Dose: 100 mls/hr Piperacillin Sod/Tazobactam (Sod 3.375 gm/ Dextrose) 50 mls @ 100 mls/hr IVPB Q8H [facility]; Protocol Last Admin: 05/15/19 11:51 Dose: 100 mls/hr Potassium Chloride 20 meq/ (Amino Acids) 1,010 mls @ 60 mls/hr IVPB Q12H [facility] Last Admin: 05/15/19 11:52 Dose: Not Given Fat Emulsion Intravenous (Intralipid -) 250 mls @ 20.833 mls/hr IV Q2D@2200 [facility] Last Admin: 05/14/19 23:14 Dose: 20.833 mls/hr Potassium Phosphate 45 mm/ (Sodium Chloride) 515 mls @ 62.5 mls/hr IVPB ONCE ONE Stop: 05/15/19 21:59 Ketorolac Tromethamine (Toradol Injection -) 15 mg IVPUSH Q6H PRN PRN Reason: PAIN LEVEL 4 - 6 Stop: 05/16/19 15:23 Last Admin: 05/15/19 02:42 Dose: 15 mg Levetiracetam (Keppra Injection -) 500 mg IVPB BID [facility] Last Admin: 05/15/19 11:51 Dose: 500 mg Lorazepam (Ativan Injection -) 0.25 mg IVPUSH Q6H PRN PRN Reason: ANXIETY Last Admin: 05/14/19 22:42 Dose: 0.25 mg Lorazepam (Ativan Injection -) 0.25 mg IVPUSH ONCE ONE Stop: 05/16/19 00:01 Metoclopramide HCl (Reglan Injection -) 10 mg IVPUSH Q6H PRN PRN Reason: NAUSEA AND/OR VOMITING Last Admin: 05/11/19 03:22 Dose: 10 mg Morphine Sulfate (Morphine Sulfate) 1 mg IVPUSH Q3H PRN PRN Reason: PAIN LEVEL 6-10 Last Admin: 05/15/19 14:49 Dose: 1 mg Nystatin (Nystop Powder -) 1 applic TP BID [facility] Last Admin: 05/15/19 12:55 Dose: 1 applic Ondansetron HCl (Zofran Injection) 4 mg IVPUSH Q6H PRN PRN Reason: NAUSEA Last Admin: 05/10/19 23:36 Dose: 4 mg Pantoprazole Sodium (Protonix Iv) 40 mg IVPUSH DAILY [facility] Last Admin: 05/15/19 11:51 Dose: 40 mg Scopolamine HBr (Transderm-Scop -) 1 patch TD Q72H [facility] Last Admin: 05/14/19 23:48 Dose: 1 patch - Objective Vital Signs: Vital Signs Temperature 99.3 F 05/15/19 13:47 Pulse Rate 125 H 05/15/19 13:47 Respiratory Rate 20 05/15/19 13:47 Blood Pressure 144/88 05/14/19 21:30 O2 Sat by Pulse Oximetry (%) 100 05/14/19 22:00 Labs: CBC, BMP 05/15/19 07:10 05/15/19 07:10 INR, PTT INR 1.00 (0.82-1.09) 04/28/19 17:22
[2019-05-15] MEDS: ALBUTEROL SO4 2.5/IPRATROPIUM 0.5 INH SOL 3 ML VIAL.NEB. NEB SCH ×2 (20:00→23:49)
[2019-05-16] MEDS ORDERED: LORazepam 2 MG/ML SDV VIAL IVPUSH ONE
[2019-05-16] MEDS: MORPHINE SULFATE 2 MG/ML VIAL IVPUSH PRN ×7 (00:29→23:50)
[2019-05-16] MEDS: KETOROLAC TROMETHAMINE 30 MG/1 ML VIAL IVPUSH PRN ×3 (02:01→22:38)
[2019-05-16] MEDS ORDERED: DEXTROSE 5%-WATER - 50 ML IVPB ONE ×3 (02:48→18:35)
[2019-05-16] MEDS ORDERED: PIPERACILLIN/TAZOBACTAM 3.375 GM VIAL IVPB ONE ×3 (02:48→18:35)
[2019-05-16] MEDS: ACETAMINOPHEN 1000 MG/100 ML VIAL (NON FORMULARY) IVPB PRN ×2 (03:22→23:01)
[2019-05-16] MEDS: PIPERACILLIN/TAZOB 3.375 GM 3.375 GM in DEXTROSE 5%-WATER - 50 ML IVPB SCH ×3 (03:27→18:49)
[2019-05-16] MEDS: ALBUTEROL SO4 2.5/IPRATROPIUM 0.5 INH SOL 3 ML VIAL.NEB. NEB SCH ×6 (04:02→23:04)
[2019-05-16 08:17] LABS: BASO % 0.3 % (0-2.0); HEMATOCRIT 27.8 % (32.4-45.2); HEMOGLOBIN 9.2 GM/dL (10.7-15.3); LYMPH % 5.6 % (8-40); MCH 27.9 pg (25.7-33.7); MEAN CELL VOLUME 84.5 fl (80-96); MEAN PLT VOLUME 8.6 fl (7.5-11.1); MONO % 5.8 % (3.8-10.2); NEUT % 88.3 % (42.8-82.8); PLATELET COUNT 202 K/MM3 (134-434); RBC 3.29 M/mm3 (3.60-5.2); RDW 15.4 % (11.6-15.6); WHITE BLOOD COUNT 8.4 K/mm3 (4.0-10.0)
--- NOTE | 2019-05-16 08:40 | PN ---
Progress Note, Physician Chief Complaint: family reports that patient slept better overnight and was less agitated. seemed to respond better to the ativan at hs. will continue this regimen for now. they offer no other complaints and are relieved that patient had a better night. from previous note. Spoke to Dr. Chris Matos ([place] covering ) on 05/12/2019. He is currently covering for Dr Villa. Spoke to him in presence of social science instructor Coral regarding Mrs Wearing hospitalization, surgery notes as well as current status. made him aware that we will need legal paperwork if patient was to be made a dnr/dni or if consents need to be sign for this patient. Dr. Chris Matos informed me that he will be reaching out to the and will ask them to either call me or social work. History of Present Illness: Patient is a 59 year old female (resident of [facility]) with a PMHx significant for profound mental retardation, cerebral palsy, congenital quadriplegia, severe scoliosis, seizure disorder, and GERD. Transferred from [place] to [facility] for further management of SBO, sepsis and tachycardia. palliative care notes reviewed and noted that if patient is to be made a dnr, there are forms that need to be filled out and special criteria listed. There are 9 siblings as well as MHLS that would have to be involved. patient is a Full Code. chest xray: mild increase in pulmonary congestion. will give lasix 20mg x 1. she has mild edema of bilateral feet and labial swelling. overnight had a low grade temp and elevated BP Patient has been on clinimax since 05/08/19. albumin 1.7. defer to renal to consider starting TPN if prolonged NPO. - Current Medication List Current Medications: Active Medications Acetaminophen (Ofirmev Injection -) 500 mg IVPB Q6H PRN PRN Reason: PAIN OR FEVER Last Admin: 05/16/19 03:22 Dose: 500 mg Albuterol/Ipratropium (Duoneb -) 1 amp NEB RQ4H [facility] Last Admin: 05/16/19 04:02 Dose: Not Given Metronidazole (Flagyl 500mg Premixed Ivpb -) 500 mg in 100 mls @ 100 mls/hr IVPB Q8H [facility] Last Admin: 05/16/19 04:22 Dose: 100 mls/hr Piperacillin Sod/Tazobactam (Sod 3.375 gm/ Dextrose) 50 mls @ 100 mls/hr IVPB Q8H [facility]; Protocol Last Admin: 05/16/19 03:27 Dose: 100 mls/hr Potassium Chloride 20 meq/ (Amino Acids) 1,010 mls @ 60 mls/hr IVPB Q12H [facility] Last Admin: 05/15/19 20:28 Dose: 60 mls/hr Fat Emulsion Intravenous (Intralipid -) 250 mls @ 20.833 mls/hr IV Q2D@2200 [facility] Last Admin: 05/14/19 23:14 Dose: 20.833 mls/hr Ketorolac Tromethamine (Toradol Injection -) 15 mg IVPUSH Q6H PRN PRN Reason: PAIN LEVEL 4 - 6 Stop: 05/16/19 15:23 Last Admin: 05/16/19 02:01 Dose: 15 mg Levetiracetam (Keppra Injection -) 500 mg IVPB BID [facility] Last Admin: 05/15/19 22:56 Dose: 500 mg Lorazepam (Ativan Injection -) 0.25 mg IVPUSH Q6H PRN PRN Reason: ANXIETY Last Admin: 05/14/19 22:42 Dose: 0.25 mg Metoclopramide HCl (Reglan Injection -) 10 mg IVPUSH Q6H PRN PRN Reason: NAUSEA AND/OR VOMITING Last Admin: 05/11/19 03:22 Dose: 10 mg Morphine Sulfate (Morphine Sulfate) 1 mg IVPUSH Q3H PRN PRN Reason: PAIN LEVEL 6-10 Last Admin: 05/16/19 06:47 Dose: 1 mg Nystatin (Nystop Powder -) 1 applic TP BID [facility] Last Admin: 05/15/19 22:59 Dose: 1 applic Ondansetron HCl (Zofran Injection) 4 mg IVPUSH Q6H PRN PRN Reason: NAUSEA Last Admin: 05/10/19 23:36 Dose: 4 mg Pantoprazole Sodium (Protonix Iv) 40 mg IVPUSH DAILY [facility] Last Admin: 05/15/19 11:51 Dose: 40 mg Scopolamine HBr (Transderm-Scop -) 1 patch TD Q72H [facility] Last Admin: 05/14/19 23:48 Dose: 1 patch - Objective Vital Signs: Vital Signs Temperature 97.9 F 05/16/19 06:00 Pulse Rate 120 H 05/16/19 06:00 Respiratory Rate 22 H 05/16/19 06:00 Blood Pressure 148/96 05/16/19 06:00 O2 Sat by Pulse Oximetry (%) 100 05/15/19 21:00 Constitutional: Yes: Calm Eyes: Yes: WNL HENT: Yes: Atraumatic Neck: Yes: Supple Cardiovascular: Yes: Tachycardia Respiratory: Yes: Rhonchi Gastrointestinal: Yes: Other (NGT to low intermittent suction.) Extremities: Yes: Deformity Edema: Yes Edema: LLE: 1+, RLE: 1+ Integumentary: Yes: Erythema Neurological: Yes: Alert Psychiatric: Yes: Alert Labs: CBC, BMP 05/16/19 07:00 INR, PTT INR 1.00 (0.82-1.09) 04/28/19 17:22 - ....Imaging Chest X-ray: Report Reviewed Problem List - Problems (1) SBO (small bowel obstruction) Assessment/Plan: NGT to low intermittent suction, still draining apx 100-150cc overnight. hypoactive bowel sounds. NGT was removed on 05/07/2019 but had to be placed back emergently on 05/09/19 as patient had vomiting and worsening pain with respiratory distress and vomiting. monitor drain output daily. maintain with NGT. surgery following Code(s): K56.609 - UNSP INTESTNL OBST, UNSP TO PARTIAL VERSUS COMPLETE OBST (2) Sepsis Assessment/Plan: on zosyn, and flagyl per ID. id following Code(s): A41.9 - SEPSIS, UNSPECIFIED ORGANISM (3) Aspiration into airway Assessment/Plan: chest xray shows mild increase in pulmonary congestion. will give lasix 20mg x 1. continue on support with 2 liters of nasal cannula to ease work of breathing. on allbuterol scheduled for acute shortness of breath. maintain oxygen levels above 92% is goal Code(s): T17.908A - UNSP FB IN RESP TRACT, PART UNSP CAUSING OTH INJURY, INIT (4) Iron deficiency anemia Assessment/Plan: s/p 1 unit of prbc with appropriate response. monitor cbc daily. Code(s): D50.9 - IRON DEFICIENCY ANEMIA, UNSPECIFIED (5) Decreased oral intake Assessment/Plan: NPO. on clinimax daily and lipids every other day dietary following if continues to be prolonged NPO, may need to be started on TPN. Code(s): R63.8 - OTHER SYMPTOMS AND SIGNS CONCERNING FOOD AND FLUID INTAKE (6) Seizure Assessment/Plan: on keppra IV BID. on tegratol in [place], continue keppra iv bid. once no longer npo, can restart tegretol. Code(s): R56.9 - UNSPECIFIED CONVULSIONS (7) Hypernatremia Assessment/Plan: renal consulted for electrolyte imbalance. recommendations appreciated. Code(s): E87.0 - HYPEROSMOLALITY AND HYPERNATREMIA (8) Hyperkalemia Assessment/Plan: resolved. monitor K daily Code(s): E87.5 - HYPERKALEMIA (9) Profound mental handicap Assessment/Plan: supportive care. Code(s): F73 - PROFOUND INTELLECTUAL DISABILITIES (10) Tachycardia Assessment/Plan: tachycardia likely in the setting of abdominal pain, anxiety, NGT- improving. can d/c tele per cardiology Code(s): R00.0 - TACHYCARDIA, UNSPECIFIED (11) Left pulmonary infiltrate on CXR Assessment/Plan: apply oxygen 2 liters. patient noted to be congested and breathing rate 24s on zosyn. schedule duonebs. on scapolamine patch for increased congestion. Code(s): R91.8 - OTHER NONSPECIFIC ABNORMAL FINDING OF LUNG FIELD (12) Low serum phosphorus for age Assessment/Plan: repeat phos levels. has been getting supplementation repeat daily Code(s): R79.0 - ABNORMAL LEVEL OF BLOOD MINERAL (13) Palliative care status Assessment/Plan: seen by palliative care, notes reviewed. Code(s): Z51.5 - ENCOUNTER FOR PALLIATIVE CARE (14) Swelling of labia Assessment/Plan: monitor. Code(s): N94.89 - OTH COND ASSOC W FEMALE GENITAL ORGANS AND MENSTRUAL CYCLE (15) Fungal infection of the groin Assessment/Plan: nystatin bid Code(s): B35.6 - TINEA CRURIS (16) Prophylactic measure Assessment/Plan: fen npo on clinimax and lipids monitor electrolytes heparin/scds full code Code(s): Z29.9 - ENCOUNTER FOR PROPHYLACTIC MEASURES, UNSPECIFIED Visit type - Emergency Visit Emergency Visit: Yes ED Registration Date: 04/28/19 Care time: The patient presented to the Emergency Department on the above date and was hospitalized for further evaluation of their emergent condition. - New Patient This patient is new to me today: No - Critical Care Critical Care patient: No - Discharge Referral Referred to [facility] No
[2019-05-16 08:45] LABS: ALBUMIN 1.6 g/dl (3.4-5.0); ALK PHOS 123 U/L (45-117); ANION GAP 4 MMOL/L (8-16); BILIRUBIN,TOTAL 0.5 mg/dL (0.2-1); BLOOD UREA NITROGEN 10.3 mg/dL (7-18); CALCIUM 7.6 mg/dL (8.5-10.1); CHLORIDE 106 mmol/L (98-107); CO2 32 mmol/L (21-32); GLUCOSE,RANDOM 92 mg/dL (74-106); MAGNESIUM 1.7 mg/dL (1.8-2.4); PHOSPHOROUS 1.5 mg/dL (2.5-4.9); POTASSIUM 3.8 mmol/L (3.5-5.1); SGOT/AST 16 U/L (15-37); SGPT/ALT < 6 U/L (13-61); SODIUM 142 mmol/L (136-145); TOT PROT 4.5 g/dl (6.4-8.2)
[2019-05-16 09:03] LABS: CREATININE < 0.2 mg/dL (0.55-1.3)
[2019-05-16] MEDS ORDERED: FUROSEMIDE 40 MG/4 ML INJECTABLE VIAL IVPUSH ONE (09:45)
[2019-05-16] MEDS ORDERED: POTASSIUM PHOSPHATE 45 MM in SODIUM CHLORIDE 500 ML IVPB ONE (10:00)
[2019-05-16] MEDS: POTASSIUM CHLORIDE 20 MEQ in AMINO ACIDS 4.25%/D5W 1,000 ML IVPB SCH ×2 (10:15→20:54)
[2019-05-16] MEDS: PANTOPRAZOLE SODIUM 40 MG VIAL IVPUSH SCH (10:16)
[2019-05-16] MEDS: HEPARIN NA (PORCINE) 5,000 UNITS/ML 1ML VIAL SQ SCH ×2 (10:17→21:11)
[2019-05-16] MEDS: NYSTATIN POWDER 100,000 UNITS/GM - 15 GM TOPICAL POWDER TP SCH ×2 (10:18→21:12)
[2019-05-16] MEDS ORDERED: PT OWN MED DRAWER 7, Y5N ONE ×3 (10:26→20:43)
[2019-05-16] MEDS: levETIRAcetam 500 MG/5 ML INJECTION VIAL IVPB SCH ×2 (10:42→21:11)
[2019-05-16] MEDS ORDERED: SCOPOLAMINE HYDROBROMIDE 1 PATCH PATCH.TD72 TD ONE (10:45)
--- NOTE | 2019-05-16 11:58 | PN ---
Progress Note, Physician History of Present Illness: Pt seen and examined at bedside. She is getting fluids. Mental status at baseline. - Current Medication List Current Medications: Active Medications Acetaminophen (Ofirmev Injection -) 500 mg IVPB Q6H PRN PRN Reason: PAIN OR FEVER Last Admin: 05/16/19 03:22 Dose: 500 mg Albuterol/Ipratropium (Duoneb -) 1 amp NEB RQ4H [facility] Last Admin: 05/16/19 04:02 Dose: Not Given Heparin Sodium (Porcine) (Heparin -) 5,000 unit SQ BID [facility] Last Admin: 05/16/19 10:17 Dose: 5,000 unit Metronidazole (Flagyl 500mg Premixed Ivpb -) 500 mg in 100 mls @ 100 mls/hr IVPB Q8H [facility] Last Admin: 05/16/19 04:22 Dose: 100 mls/hr Piperacillin Sod/Tazobactam (Sod 3.375 gm/ Dextrose) 50 mls @ 100 mls/hr IVPB Q8H [facility]; Protocol Last Admin: 05/16/19 11:48 Dose: 100 mls/hr Potassium Chloride 20 meq/ (Amino Acids) 1,010 mls @ 60 mls/hr IVPB Q12H [facility] Last Admin: 05/16/19 10:15 Dose: Not Given Fat Emulsion Intravenous (Intralipid -) 250 mls @ 20.833 mls/hr IV Q2D@2200 [facility] Last Admin: 05/14/19 23:14 Dose: 20.833 mls/hr Potassium Phosphate 45 mm/ (Sodium Chloride) 515 mls @ 62.5 mls/hr IVPB ONCE ONE Stop: 05/16/19 18:14 Last Admin: 05/16/19 11:49 Dose: 62.5 mls/hr Ketorolac Tromethamine (Toradol Injection -) 15 mg IVPUSH Q6H PRN PRN Reason: PAIN LEVEL 4 - 6 Stop: 05/16/19 15:23 Last Admin: 05/16/19 10:03 Dose: 15 mg Levetiracetam (Keppra Injection -) 500 mg IVPB BID [facility] Last Admin: 05/16/19 10:42 Dose: 500 mg Lorazepam (Ativan Injection -) 0.25 mg IVPUSH Q6H PRN PRN Reason: ANXIETY Last Admin: 05/14/19 22:42 Dose: 0.25 mg Metoclopramide HCl (Reglan Injection -) 10 mg IVPUSH Q6H PRN PRN Reason: NAUSEA AND/OR VOMITING Last Admin: 05/11/19 03:22 Dose: 10 mg Morphine Sulfate (Morphine Sulfate) 1 mg IVPUSH Q3H PRN PRN Reason: PAIN LEVEL 6-10 Last Admin: 05/16/19 06:47 Dose: 1 mg Nystatin (Nystop Powder -) 1 applic TP BID [facility] Last Admin: 05/16/19 10:18 Dose: 1 applic Ondansetron HCl (Zofran Injection) 4 mg IVPUSH Q6H PRN PRN Reason: NAUSEA Last Admin: 05/10/19 23:36 Dose: 4 mg Pantoprazole Sodium (Protonix Iv) 40 mg IVPUSH DAILY [facility] Last Admin: 05/16/19 10:16 Dose: 40 mg Scopolamine HBr (Transderm-Scop -) 1 patch TD Q72H [facility] Last Admin: 05/14/19 23:48 Dose: 1 patch - Objective Vital Signs: Vital Signs Temperature 98.1 F 05/16/19 10:00 Pulse Rate 112 H 05/16/19 10:00 Respiratory Rate 22 H 05/16/19 10:00 Blood Pressure 137/89 05/16/19 10:00 O2 Sat by Pulse Oximetry (%) 100 05/15/19 21:00 Constitutional: Yes: Mild Distress Eyes: Yes: Conjunctiva Clear HENT: Yes: Atraumatic Neck: Yes: Supple Cardiovascular: Yes: S1, S2 Respiratory: Yes: On Nasal O2 Gastrointestinal: Yes: Soft Genitourinary: Yes: Incontinence Musculoskeletal: Yes: Muscle Weakness Edema: No Neurological: Yes: Pre-Existing Deficit Labs: CBC, BMP 05/16/19 07:00 05/16/19 07:00 INR, PTT INR 1.00 (0.82-1.09) 04/28/19 17:22 Problem List - Problems (1) Hyperkalemia Code(s): E87.5 - HYPERKALEMIA (2) Hypernatremia Code(s): E87.0 - HYPEROSMOLALITY AND HYPERNATREMIA (3) SBO (small bowel obstruction) Code(s): K56.609 - UNSP INTESTNL OBST, UNSP TO PARTIAL VERSUS COMPLETE OBST (4) Seizure Code(s): R56.9 - UNSPECIFIED CONVULSIONS Assessment/Plan Current Medications Generic Name Dose Route Start Last Admin Trade Name Freq PRN Reason Stop Dose Admin Acetaminophen 500 mg 05/08/19 18:53 05/16/19 03:22 Ofirmev Injection - IVPB 500 mg Q6H PRN Administration PAIN OR FEVER Albuterol/Ipratropium 1 amp 05/15/19 13:15 05/16/19 04:02 Duoneb - NEB Not Given RQ4H [facility] Heparin Sodium (Porcine) 5,000 unit 05/16/19 10:00 05/16/19 10:17 Heparin - SQ 5,000 unit BID [facility] Administration Metronidazole 500 mg in 100 mls @ 100 mls/hr 05/08/19 19:30 05/16/19 04:22 Flagyl 500mg Premixed Ivpb - IVPB 100 mls/hr Q8H [facility] Administration Piperacillin Sod/Tazobactam 50 mls @ 100 mls/hr 05/08/19 19:30 05/16/19 11:48 Sod 3.375 gm/ Dextrose IVPB 100 mls/hr Q8H [facility] Administration Protocol Potassium Chloride 20 meq/ 1,010 mls @ 60 mls/hr 05/08/19 20:00 05/16/19 10: 15 Amino Acids IVPB Not Given Q12H [facility] Fat Emulsion Intravenous 250 mls @ 20.833 mls/hr 05/12/19 22:00 05/14/19 23: 14 Intralipid - IV 20.833 mls/hr Q2D@2200 [facility] Administration Potassium Phosphate 45 mm/ 515 mls @ 62.5 mls/hr 05/16/19 10:00 05/16/19 11: 49 Sodium Chloride IVPB 05/16/19 18:14 62.5 mls/hr ONCE ONE Administration Ketorolac Tromethamine 15 mg 05/11/19 15:24 05/16/19 10:03 Toradol Injection - IVPUSH 05/16/19 15:23 15 mg Q6H PRN Administration PAIN LEVEL 4 - 6 Levetiracetam 500 mg 05/08/19 22:00 05/16/19 10:42 Keppra Injection - IVPB 500 mg BID [facility] Administration Lorazepam 0.25 mg 05/14/19 09:05 05/14/19 22:42 Ativan Injection - IVPUSH 0.25 mg Q6H PRN Administration ANXIETY Metoclopramide HCl 10 mg 05/08/19 18:55 05/11/19 03:22 Reglan Injection - IVPUSH 10 mg Q6H PRN Administration NAUSEA AND/OR VOMITING Morphine Sulfate 1 mg 05/15/19 13:06 05/16/19 06:47 Morphine Sulfate IVPUSH 1 mg Q3H PRN Administration PAIN LEVEL 6-10 Nystatin 1 applic 05/14/19 10:00 05/16/19 10:18 Nystop Powder - TP 1 applic BID [facility] Administration Ondansetron HCl 4 mg 05/08/19 18:55 05/10/19 23:36 Zofran Injection IVPUSH 4 mg Q6H PRN Administration NAUSEA Pantoprazole Sodium 40 mg 05/12/19 10:00 05/16/19 10:16 Protonix Iv IVPUSH 40 mg DAILY [facility] Administration Scopolamine HBr 1 patch 05/11/19 23:00 05/14/19 23:48 Transderm-Scop - TD 1 patch Q72H [facility] Administration Impression 1. hypernatremia 2. hyperkalemia - resolved 3. SBO 4. epilepsy 5. developemental delay 6. hypokalemia Plan - cont fluids - replace lytes - phos improving - replace mag - family discussing GOC - will follow PRN
[2019-05-16] MEDS: LORazepam 2 MG/ML SDV VIAL IVPUSH PRN ×2 (11:59→19:00)
[2019-05-16] MEDS ORDERED: MAGNESIUM SULF 50% (8.12 MEQ/2 ML-1 GM VIAL) IVPB ONE (12:45)
[2019-05-16] MEDS ORDERED: KETOROLAC TROMETHAMINE 15 MG/ML VIAL IVPUSH PRN (19:35)
[2019-05-16] MEDS: FAT EMULSIONS 250 ML IV SCH (21:12)
[2019-05-17] MEDS: ALBUTEROL SO4 2.5/IPRATROPIUM 0.5 INH SOL 3 ML VIAL.NEB. NEB SCH ×6 (00:15→20:40)
[2019-05-17] MEDS: POTASSIUM CHLORIDE 20 MEQ in AMINO ACIDS 4.25%/D5W 1,000 ML IVPB SCH ×3 (00:30→21:42)
[2019-05-17] MEDS ORDERED: DEXTROSE 5%-WATER - 50 ML IVPB ONE (02:29)
[2019-05-17] MEDS ORDERED: PIPERACILLIN/TAZOBACTAM 3.375 GM VIAL IVPB ONE (02:29)
[2019-05-17] MEDS: LORazepam 2 MG/ML SDV VIAL IVPUSH PRN (02:32)
[2019-05-17] MEDS: PIPERACILLIN/TAZOB 3.375 GM 3.375 GM in DEXTROSE 5%-WATER - 50 ML IVPB SCH ×3 (02:33→19:12)
[2019-05-17] MEDS: MORPHINE SULFATE 2 MG/ML VIAL IVPUSH PRN ×3 (03:02→18:04)
--- NOTE | 2019-05-17 04:32 | HOSP ---
Subjective - Review of Symptoms Events since last encounter: patient on Clinimad and lipids, however noted with leaking from TLC, patient repositioned, cleaned and redressed x2, still noted with leaking, will hold now until 8 am, PMD to follow up in AM, can given morphine, Ativan as ordered. Subjective: unable to obtain Physical Examination Vital Signs: Vital Signs Temperature 99.2 F 05/16/19 18:00 Pulse Rate 132 H 05/16/19 18:00 Respiratory Rate 28 H 05/16/19 21:00 Blood Pressure 144/78 05/16/19 18:00 O2 Sat by Pulse Oximetry (%) 98 05/16/19 22:00 Constitutional: Yes: Anxious Eyes: Yes: EOM Intact HENT: Yes: Atraumatic Neck: Yes: Supple Cardiovascular: Yes: Regular Rate and Rhythm Respiratory: Yes: CTA Bilaterally Gastrointestinal: Yes: Normal Bowel Sounds, Soft Labs: CBC, BMP 05/16/19 07:00 05/16/19 07:00 Hospitalist Encounter Assessment: # Leaking TLC access #Decreased oral intake NPO, on clinimax daily and lipids ( noted TLC leaking) - will hold until 8 am - PMD to follow in AM - dietary following
--- NOTE | 2019-05-17 07:39 | PN ---
Progress Note, Physician Chief Complaint: patient non-verbal. Family at bedside. Respirations labored and appears to be in pain History of Present Illness: History of Present Illness: Patient is a 59 year old female (resident of [facility]) with a PMHx significant for profound mental retardation, cerebral palsy, congenital quadriplegia, severe scoliosis, seizure disorder, and GERD. Transferred from [place] to [facility] for further management of SBO, sepsis and tachycardia. - Current Medication List Current Medications: Active Medications Albuterol/Ipratropium (Duoneb -) 1 amp NEB RQ4H [facility] Last Admin: 05/17/19 04:10 Dose: 1 amp Heparin Sodium (Porcine) (Heparin -) 5,000 unit SQ BID [facility] Last Admin: 05/16/19 21:11 Dose: 5,000 unit Metronidazole (Flagyl 500mg Premixed Ivpb -) 500 mg in 100 mls @ 100 mls/hr IVPB Q8H [facility] Last Admin: 05/17/19 02:32 Dose: 100 mls/hr Piperacillin Sod/Tazobactam (Sod 3.375 gm/ Dextrose) 50 mls @ 100 mls/hr IVPB Q8H [facility]; Protocol Last Admin: 05/17/19 02:33 Dose: 100 mls/hr Fat Emulsion Intravenous (Intralipid -) 250 mls @ 20.833 mls/hr IV Q2D@2200 [facility] Last Admin: 05/16/19 21:12 Dose: 20.833 mls/hr Potassium Chloride 20 meq/ (Amino Acids) 1,010 mls @ 50 mls/hr IVPB Q12H [facility] Last Admin: 05/17/19 00:30 Dose: 50 mls/hr Potassium Chloride (Potassium Chloride 10 Meq Premix Ivpb -) 10 meq in 100 mls @ 100 mls/hr IVPB Q60M [facility] Stop: 05/17/19 09:44 Ketorolac Tromethamine (Toradol Injection -) 15 mg IVPUSH Q6H PRN PRN Reason: PAIN LEVEL 4 - 6 Stop: 05/21/19 19:41 Last Admin: 05/16/19 22:38 Dose: 15 mg Levetiracetam (Keppra Injection -) 500 mg IVPB BID [facility] Last Admin: 05/16/19 21:11 Dose: 500 mg Lorazepam (Ativan Injection -) 0.25 mg IVPUSH Q6H PRN PRN Reason: ANXIETY Last Admin: 05/17/19 02:32 Dose: 0.25 mg Lorazepam (Ativan Injection -) 0.25 mg IVPUSH DAILY@2300 [facility] Magnesium Sulfate (Magnesium Sulfate) 2 gm IVPB ONCE ONE Stop: 05/17/19 07:38 Metoclopramide HCl (Reglan Injection -) 10 mg IVPUSH Q6H PRN PRN Reason: NAUSEA AND/OR VOMITING Last Admin: 05/11/19 03:22 Dose: 10 mg Morphine Sulfate (Morphine Sulfate) 1 mg IVPUSH Q3H PRN PRN Reason: PAIN LEVEL 6-10 Last Admin: 05/17/19 05:36 Dose: 1 mg Nystatin (Nystop Powder -) 1 applic TP BID [facility] Last Admin: 05/16/19 21:12 Dose: 1 applic Ondansetron HCl (Zofran Injection) 4 mg IVPUSH Q6H PRN PRN Reason: NAUSEA Last Admin: 05/10/19 23:36 Dose: 4 mg Pantoprazole Sodium (Protonix Iv) 40 mg IVPUSH DAILY [facility] Last Admin: 05/16/19 10:16 Dose: 40 mg Scopolamine HBr (Transderm-Scop -) 1 patch TD Q72H [facility] Last Admin: 05/14/19 23:48 Dose: 1 patch - Objective Vital Signs: Vital Signs Temperature 98.7 F 05/17/19 06:00 Pulse Rate 143 H 05/17/19 06:00 Respiratory Rate 20 05/17/19 06:00 Blood Pressure 156/92 05/17/19 06:00 O2 Sat by Pulse Oximetry (%) 98 05/16/19 22:00 Additional Findings/Remarks: Constitutional: Yes: Calm Eyes: Yes: WNL HENT: Yes: Atraumatic Neck: Yes: Supple Cardiovascular: Yes: Tachycardia Respiratory: Yes: Rhonchi Gastrointestinal: Yes: Other (NGT to low intermittent suction.) Extremities: Yes: Deformity Edema: Yes Edema: LLE: 1+, RLE: 1+ Integumentary: Yes: Erythema Neurological: Yes: Alert Psychiatric: Yes: Alert Labs: CBC, BMP 05/16/19 07:00 05/16/19 07:00 INR, PTT INR 1.00 (0.82-1.09) 04/28/19 17:22 - ....Imaging Chest X-ray: Report Reviewed (R IJ appears to be in thoracic outlet. Increased congestive changes), Image Reviewed Problem List - Problems (1) SBO (small bowel obstruction) Assessment/Plan: NGT to low intermittent suction, still draining bilious output Strictly NPO. c/w clinimix Surgery following Code(s): K56.609 - UNSP INTESTNL OBST, UNSP TO PARTIAL VERSUS COMPLETE OBST (2) Hypokalemia Assessment/Plan: K 3.8, maintaining levels continue to monitor K, maintain >4.0 c/w clinimix once IV access is achieved Code(s): E87.6 - HYPOKALEMIA (3) Prophylactic measure Assessment/Plan: FEN NPO c/w Climinix monitor electrolytes Dispo maintain on tele full code as of this time. Palliative care involved and issue of DNR/DNI discussed with family. discharge planning DVT heparin sq bid Code(s): Z29.9 - ENCOUNTER FOR PROPHYLACTIC MEASURES, UNSPECIFIED (4) Seizure Assessment/Plan: c/w keppra on tegretol in [place], continue keppra iv bid. Code(s): R56.9 - UNSPECIFIED CONVULSIONS (5) Sepsis Assessment/Plan: wbc 8.4 Mild effusions with left persistent pulmonary infiltrate on CXR continue to monitor respiratory status. c/w 2 L NC all cultures NGTD ID following, cont IV abx (flagyl & zozyn) n monitor output & temp Code(s): A41.9 - SEPSIS, UNSPECIFIED ORGANISM (6) Aspiration into airway Assessment/Plan: c/w zosyn & flagyl support with 2 liters of nasal cannula strictly npo monitor oxygen levels and titrate off oxygen as tolerated. not home oxygen dependent at home. Code(s): T17.908A - UNSP FB IN RESP TRACT, PART UNSP CAUSING OTH INJURY, INIT (7) Cerebral palsy Assessment/Plan: supportive care BL UE severly contracted. IV placed to R AC. IV site is without erythema, not tender. IV placement attempted with ultrasound yesterday unsuccessfully and family refused to attempt EJ placement. Since IV site is without signs of infection and is flushing continue with current IV despite being in for > 72 hours. Will continue to monitor site. Code(s): G80.9 - CEREBRAL PALSY, UNSPECIFIED (8) Tachycardia Assessment/Plan: HR remains in 120s despite increased frequency of MSO4 c/w MSO4 1.0mg IV q 6h most likely related to SBO Code(s): R00.0 - TACHYCARDIA, UNSPECIFIED (9) Hyponatremia Assessment/Plan: Na to 142 will restart Clinimix when IV access is obtained Code(s): E87.1 - HYPO-OSMOLALITY AND HYPONATREMIA (10) Palliative care status Assessment/Plan: palliative care notes reviewed and noted that if patient is to be made a dnr, there are forms that need to be filled out and special criteria listed. There are 9 siblings as well as MHLS that would have to be involved. Appreciate Palliative care nurse care patient is a Full Code. Code(s): Z51.5 - ENCOUNTER FOR PALLIATIVE CARE (11) Decreased oral intake Assessment/Plan: stricftly NPO. on clinimax daily and lipids every other day dietary following if continues to be prolonged NPO, may need to be started on TPN. Code(s): R63.8 - OTHER SYMPTOMS AND SIGNS CONCERNING FOOD AND FLUID INTAKE Visit type - Emergency Visit Emergency Visit: Yes ED Registration Date: 04/28/19 Care time: The patient presented to the Emergency Department on the above date and was hospitalized for further evaluation of their emergent condition. - New Patient This patient is new to me today: No - Critical Care Critical Care patient: No - Discharge Referral Referred to [facility] No
[2019-05-17] MEDS ORDERED: MAGNESIUM SULF 50% (8.12 MEQ/2 ML-1 GM VIAL) IVPB ONE ×2 (08:15→17:15)
[2019-05-17] MEDS ORDERED: MORPHINE SULFATE 2 MG/ML VIAL SQ ONE ×3 (08:19→14:00)
[2019-05-17] MEDS ORDERED: LORazepam 2 MG/ML SDV VIAL IM ONE (08:22)
[2019-05-17] MEDS: HEPARIN NA (PORCINE) 5,000 UNITS/ML 1ML VIAL SQ SCH ×2 (09:31→21:43)
[2019-05-17] MEDS: NYSTATIN POWDER 100,000 UNITS/GM - 15 GM TOPICAL POWDER TP SCH ×2 (10:27→21:44)
--- NOTE | 2019-05-17 11:40 | PN ---
Progress Note, Physician History of Present Illness: Pt seen and examined at bedside. She is not verbal. She appears to be in mild distress. - Current Medication List Current Medications: Active Medications Albuterol/Ipratropium (Duoneb -) 1 amp NEB RQ4H [facility] Last Admin: 05/17/19 08:00 Dose: 1 amp Heparin Sodium (Porcine) (Heparin -) 5,000 unit SQ BID [facility] Last Admin: 05/17/19 09:31 Dose: 5,000 unit Metronidazole (Flagyl 500mg Premixed Ivpb -) 500 mg in 100 mls @ 100 mls/hr IVPB Q8H [facility] Last Admin: 05/17/19 02:32 Dose: 100 mls/hr Piperacillin Sod/Tazobactam (Sod 3.375 gm/ Dextrose) 50 mls @ 100 mls/hr IVPB Q8H [facility]; Protocol Last Admin: 05/17/19 02:33 Dose: 100 mls/hr Fat Emulsion Intravenous (Intralipid -) 250 mls @ 20.833 mls/hr IV Q2D@2200 [facility] Last Admin: 05/16/19 21:12 Dose: 20.833 mls/hr Potassium Chloride 20 meq/ (Amino Acids) 1,010 mls @ 50 mls/hr IVPB Q12H [facility] Last Admin: 05/17/19 00:30 Dose: 50 mls/hr Ketorolac Tromethamine (Toradol Injection -) 15 mg IVPUSH Q6H PRN PRN Reason: PAIN LEVEL 4 - 6 Stop: 05/21/19 19:41 Last Admin: 05/16/19 22:38 Dose: 15 mg Levetiracetam (Keppra Injection -) 500 mg IVPB BID [facility] Last Admin: 05/16/19 21:11 Dose: 500 mg Lorazepam (Ativan Injection -) 0.25 mg IVPUSH Q6H PRN PRN Reason: ANXIETY Last Admin: 05/17/19 02:32 Dose: 0.25 mg Lorazepam (Ativan Injection -) 0.25 mg IVPUSH DAILY@2300 [facility] Metoclopramide HCl (Reglan Injection -) 10 mg IVPUSH Q6H PRN PRN Reason: NAUSEA AND/OR VOMITING Last Admin: 05/11/19 03:22 Dose: 10 mg Morphine Sulfate (Morphine Sulfate) 1 mg IVPUSH Q3H PRN PRN Reason: PAIN LEVEL 6-10 Last Admin: 05/17/19 05:36 Dose: 1 mg Nystatin (Nystop Powder -) 1 applic TP BID [facility] Last Admin: 05/16/19 21:12 Dose: 1 applic Ondansetron HCl (Zofran Injection) 4 mg IVPUSH Q6H PRN PRN Reason: NAUSEA Last Admin: 05/10/19 23:36 Dose: 4 mg Pantoprazole Sodium (Protonix Iv) 40 mg IVPUSH DAILY [facility] Last Admin: 05/16/19 10:16 Dose: 40 mg Scopolamine HBr (Transderm-Scop -) 1 patch TD Q72H [facility] Last Admin: 05/14/19 23:48 Dose: 1 patch - Objective Vital Signs: Vital Signs Temperature 99.8 F H 05/17/19 09:40 Pulse Rate 144 H 05/17/19 09:40 Respiratory Rate 35 H 05/17/19 09:40 Blood Pressure 126/73 05/17/19 09:40 O2 Sat by Pulse Oximetry (%) 98 05/17/19 09:00 Constitutional: Yes: Mild Distress Eyes: Yes: Conjunctiva Clear Cardiovascular: Yes: S1, S2 Respiratory: Yes: On Nasal O2 Gastrointestinal: Yes: Other (ng tube) Genitourinary: Yes: Incontinence Musculoskeletal: Yes: Muscle Weakness, Other (contracted) Edema: No Neurological: Yes: Pre-Existing Deficit Labs: CBC, BMP 05/16/19 07:00 05/16/19 07:00 INR, PTT INR 1.00 (0.82-1.09) 04/28/19 17:22 Problem List - Problems (1) Hyperkalemia Code(s): E87.5 - HYPERKALEMIA (2) Hypernatremia Code(s): E87.0 - HYPEROSMOLALITY AND HYPERNATREMIA (3) SBO (small bowel obstruction) Code(s): K56.609 - UNSP INTESTNL OBST, UNSP TO PARTIAL VERSUS COMPLETE OBST (4) Seizure Code(s): R56.9 - UNSPECIFIED CONVULSIONS Assessment/Plan Current Medications Generic Name Dose Route Start Last Admin Trade Name Freq PRN Reason Stop Dose Admin Albuterol/Ipratropium 1 amp 05/15/19 13:15 05/17/19 08:00 Duoneb - NEB 1 amp RQ4H [facility] Administration Heparin Sodium (Porcine) 5,000 unit 05/16/19 10:00 05/17/19 09:31 Heparin - SQ 5,000 unit BID [facility] Administration Metronidazole 500 mg in 100 mls @ 100 mls/hr 05/08/19 19:30 05/17/19 02:32 Flagyl 500mg Premixed Ivpb - IVPB 100 mls/hr Q8H [facility] Administration Piperacillin Sod/Tazobactam 50 mls @ 100 mls/hr 05/08/19 19:30 05/17/19 02:33 Sod 3.375 gm/ Dextrose IVPB 100 mls/hr Q8H [facility] Administration Protocol Fat Emulsion Intravenous 250 mls @ 20.833 mls/hr 05/12/19 22:00 05/16/19 21: 12 Intralipid - IV 20.833 mls/hr Q2D@2200 [facility] Administration Potassium Chloride 20 meq/ 1,010 mls @ 50 mls/hr 05/17/19 00:27 05/17/19 00: 30 Amino Acids IVPB 50 mls/hr Q12H [facility] Administration Ketorolac Tromethamine 15 mg 05/16/19 19:42 05/16/19 22:38 Toradol Injection - IVPUSH 05/21/19 19:41 15 mg Q6H PRN Administration PAIN LEVEL 4 - 6 Levetiracetam 500 mg 05/08/19 22:00 05/16/19 21:11 Keppra Injection - IVPB 500 mg BID [facility] Administration Lorazepam 0.25 mg 05/14/19 09:05 05/17/19 02:32 Ativan Injection - IVPUSH 0.25 mg Q6H PRN Administration ANXIETY Lorazepam 0.25 mg 05/17/19 23:00 Ativan Injection - IVPUSH DAILY@2300 [facility] Metoclopramide HCl 10 mg 05/08/19 18:55 05/11/19 03:22 Reglan Injection - IVPUSH 10 mg Q6H PRN Administration NAUSEA AND/OR VOMITING Morphine Sulfate 1 mg 05/15/19 13:06 05/17/19 05:36 Morphine Sulfate IVPUSH 1 mg Q3H PRN Administration PAIN LEVEL 6-10 Nystatin 1 applic 05/14/19 10:00 05/16/19 21:12 Nystop Powder - TP 1 applic BID [facility] Administration Ondansetron HCl 4 mg 05/08/19 18:55 05/10/19 23:36 Zofran Injection IVPUSH 4 mg Q6H PRN Administration NAUSEA Pantoprazole Sodium 40 mg 05/12/19 10:00 05/16/19 10:16 Protonix Iv IVPUSH 40 mg DAILY [facility] Administration Scopolamine HBr 1 patch 05/11/19 23:00 05/14/19 23:48 Transderm-Scop - TD 1 patch Q72H [facility] Administration Impression 1. hypernatremia 2. hyperkalemia - resolved 3. SBO 4. epilepsy 5. developemental delay 6. hypokalemia Plan - no new labs - primary team achieving iv access - monitor lytes - discussed with medical team - surgery follow up
--- NOTE | 2019-05-17 15:40 | PN ---
Progress Note, Physician Chief Complaint: tachypnea central line adjusted. repeat CXR reviewed: rotated film. Possible right sided infiltrate. History of Present Illness: NGT in place. - Current Medication List Current Medications: Active Medications Albuterol/Ipratropium (Duoneb -) 1 amp NEB RQ4H [facility] Last Admin: 05/17/19 08:00 Dose: 1 amp Heparin Sodium (Porcine) (Heparin -) 5,000 unit SQ BID [facility] Last Admin: 05/17/19 09:31 Dose: 5,000 unit Metronidazole (Flagyl 500mg Premixed Ivpb -) 500 mg in 100 mls @ 100 mls/hr IVPB Q8H [facility] Last Admin: 05/17/19 02:32 Dose: 100 mls/hr Piperacillin Sod/Tazobactam (Sod 3.375 gm/ Dextrose) 50 mls @ 100 mls/hr IVPB Q8H [facility]; Protocol Last Admin: 05/17/19 02:33 Dose: 100 mls/hr Fat Emulsion Intravenous (Intralipid -) 250 mls @ 20.833 mls/hr IV Q2D@2200 [facility] Last Admin: 05/16/19 21:12 Dose: 20.833 mls/hr Potassium Chloride 20 meq/ (Amino Acids) 1,010 mls @ 50 mls/hr IVPB Q12H [facility] Last Admin: 05/17/19 00:30 Dose: 50 mls/hr Ketorolac Tromethamine (Toradol Injection -) 15 mg IVPUSH Q6H PRN PRN Reason: PAIN LEVEL 4 - 6 Stop: 05/21/19 19:41 Last Admin: 05/16/19 22:38 Dose: 15 mg Levetiracetam (Keppra Injection -) 500 mg IVPB BID [facility] Last Admin: 05/16/19 21:11 Dose: 500 mg Lorazepam (Ativan Injection -) 0.25 mg IVPUSH Q6H PRN PRN Reason: ANXIETY Last Admin: 05/17/19 02:32 Dose: 0.25 mg Lorazepam (Ativan Injection -) 0.25 mg IVPUSH DAILY@2300 [facility] Metoclopramide HCl (Reglan Injection -) 10 mg IVPUSH Q6H PRN PRN Reason: NAUSEA AND/OR VOMITING Last Admin: 05/11/19 03:22 Dose: 10 mg Morphine Sulfate (Morphine Sulfate) 1 mg IVPUSH Q3H PRN PRN Reason: PAIN LEVEL 6-10 Last Admin: 05/17/19 05:36 Dose: 1 mg Nystatin (Nystop Powder -) 1 applic TP BID [facility] Last Admin: 05/16/19 21:12 Dose: 1 applic Ondansetron HCl (Zofran Injection) 4 mg IVPUSH Q6H PRN PRN Reason: NAUSEA Last Admin: 05/10/19 23:36 Dose: 4 mg Pantoprazole Sodium (Protonix Iv) 40 mg IVPUSH DAILY [facility] Last Admin: 05/16/19 10:16 Dose: 40 mg Scopolamine HBr (Transderm-Scop -) 1 patch TD Q72H [facility] Last Admin: 05/14/19 23:48 Dose: 1 patch - Objective Vital Signs: Vital Signs Temperature 99.8 F H 05/17/19 09:40 Pulse Rate 144 H 05/17/19 09:40 Respiratory Rate 35 H 05/17/19 09:40 Blood Pressure 126/73 05/17/19 09:40 O2 Sat by Pulse Oximetry (%) 98 05/17/19 09:00 Cardiovascular: Yes: Tachycardia Respiratory: Yes: Other (b/l rhonchi) Gastrointestinal: Yes: Soft Edema: No Neurological: Yes: Other (nonverbal) Labs: CBC, BMP 05/16/19 07:00 05/16/19 07:00 INR, PTT INR 1.00 (0.82-1.09) 04/28/19 17:22 Assessment/Plan IMP: Sinus tachycardia: - remains mild-mod tachy, likely sec to ongoing GI process - no med mgmt indicated - echo unremarkable - trop neg, no ischemia on EKG - unlikely ACS SBO: - manage per surgery, ngt remains in Seizure disorder: - manage per primary Tachypnea: possible R infiltrate -CXR difficult to interpret, rotated -Pulm consult for further eval
--- NOTE | 2019-05-17 16:14 | CON.PULM ---
Consult Consult Specialty:: PULM/CCM Referred by:: [facility] Reason for Consultation:: SOB - History of Present Illness Chief Complaint: abdominal distention History of Present Illness: 59 F, developmental delay, epilepsy, GERD, scoliosis, and total care. Admitted via the ER due to abdominal distention. Diagnosed and being managed for SBO. Patient is non-verbal and be bound at baseline so she cannot provide any history. CXR & Abdominal xrays reviewed: significant bowel distention / no free air / bibasilar atelectasis and layering pleural effusions. TLC was recently adjusted and the most recent CXR reveals no PTX and the catheter appears to be in the SVC. There is no PTX. The TLC is OK for use. - History Source History Provided By: Medical Record Limitations to Obtaining History: Clinical Condition - Past Medical History [employer]: Yes: Seizure, Other (developemental delay) Pulmonary: Yes: Pneumonia. No: Asthma, Bronchitis, Cancer, COPD, O2 Dependent, Pulmonary Embolus, Pulmonary Fibrosis, Sleep Apnea Gastrointestinal: Yes: GERD - Alcohol/Substance Use Hx Alcohol Use: No - Smoking History Smoking history: Never smoked Have you smoked in the past 12 months: No Aproximately how many cigarettes per day: 0 Home Medications - Allergies Allergies/Adverse Reactions: Allergies Allergy/AdvReac Type Severity Reaction Status Date / Time phenytoin sodium AdvReac Mild Verified 04/28/19 18:36 [From Dilantin] phenytoin sodium extended AdvReac Mild Verified 04/28/19 18:36 [From Dilantin] SEAFOOD Allergy Uncoded 05/02/19 08:10 sellfish Allergy Uncoded 04/28/19 18:36 - Home Medications Home Medications: Ambulatory Orders Carbamazepine Xr [Tegretol Xr -] 400 mg PO AM 03/30/14 Polyethylene Glycol 3350 [Miralax 119 gm Btl -] 17 gm PO DAILY 03/30/14 Albuterol 0.083% Nebulizer Radhika [Ventolin 0.083%] 1 neb NEB Q4H PRN 04/28/19 Calcium Carbonate/Vitamin D3 [Oyster Shell 500-Vit D3 200 Tb] 1 each PO BID Carbamazepine [Tegretol -] 200 mg PO HS 04/28/19 Famotidine [Pepcid] 40 mg PO BID 04/28/19 Fexofenadine HCl [Rachel Allergy] 30 mg PO BID 04/28/19 Pedi Multivit 158/Iron/Vit K1 [Cerovite Jr] 1 each PO DAILY 04/28/19 Simethicone 40 mg PO Q4H 04/28/19 Wheat Dextrin [Benefiber] 1 each PO DAILY 04/28/19 Review of Systems Unable to obtain ROS, reason: cannot provide Physical Exam Vital Sings: Vital Signs Temperature 99.8 F H 05/17/19 09:40 Pulse Rate 144 H 05/17/19 09:40 Respiratory Rate 35 H 05/17/19 09:40 Blood Pressure 126/73 05/17/19 09:40 O2 Sat by Pulse Oximetry (%) 98 05/17/19 09:00 Constitutional: Yes: Mild Distress, Thin Eyes: Yes: Conjunctiva Clear, EOM Intact HENT: Yes: Atraumatic Neck: Yes: Supple, Trachea Midline Cardiovascular: Yes: Tachycardia Respiratory: Yes: Diminished, On Nasal O2, Rales, Rhonchi, SOB, SOB on Exertion , Tachypnea. No: Stridor, Wheezes ...Inspection: Yes: Scoliosis ...Clubbing: No Gastrointestinal: Yes: Distention, Hypoactive Bowel Sounds. No: Palpable Mass, Pulsatile Mass Musculoskeletal: Yes: WNL Extremities: Yes: WNL Edema: No Peripheral Pulses WNL: Yes Integumentary: Yes: WNL Neurological: Yes: Pre-Existing Deficit Labs: CBC, BMP 05/16/19 07:00 05/16/19 07:00 Imaging - Results Chest X-ray: Report Reviewed, Image Reviewed Problem List - Problems (1) Shortness of breath Code(s): R06.02 - SHORTNESS OF BREATH (2) Atelectasis of both lungs Code(s): J98.11 - ATELECTASIS (3) Pleural effusion Code(s): J90 - PLEURAL EFFUSION, NOT ELSEWHERE CLASSIFIED (4) Hypokalemia Code(s): E87.6 - HYPOKALEMIA (5) Hyponatremia Code(s): E87.1 - HYPO-OSMOLALITY AND HYPONATREMIA (6) Iron deficiency anemia Code(s): D50.9 - IRON DEFICIENCY ANEMIA, UNSPECIFIED (7) Profound mental handicap Code(s): F73 - PROFOUND INTELLECTUAL DISABILITIES (8) SBO (small bowel obstruction) Code(s): K56.609 - UNSP INTESTNL OBST, UNSP TO PARTIAL VERSUS COMPLETE OBST (9) Seizure Code(s): R56.9 - UNSPECIFIED CONVULSIONS (10) Tachycardia Code(s): R00.0 - TACHYCARDIA, UNSPECIFIED (11) Cerebral palsy Code(s): G80.9 - CEREBRAL PALSY, UNSPECIFIED (12) Cough Code(s): R05 - COUGH (13) Decreased oral intake Code(s): R63.8 - OTHER SYMPTOMS AND SIGNS CONCERNING FOOD AND FLUID INTAKE Assessment/Plan IMP: Suspect etiology of the tachypnea is related to the SBO. She does have some small pleural effusions with associated atelectasis. PLAN: Continue NGT to LWS Noted clinimix NPO Aspiration precautions Patient unable to perform Incentive Spirometry ABX per ID No indication for thoracentesis at this point Patient would be very high risk for surgical intervention Would Not utilize NIPPV support as this will insuflate her stomach and worsen her overall condition Will follow Thank you. Dr Koenig
[2019-05-17] MEDS ORDERED: ACETAMINOPHEN 1000 MG/100 ML VIAL (NON FORMULARY) IVPB PRN ×2 (16:47→17:18)
[2019-05-17] MEDS ORDERED: PT OWN MED DRAWER 7, Y5N ONE (16:48)
--- NOTE | 2019-05-17 17:12 | PROC ---
Central Line Insertion Indication: Parenteral Nutrition, Poor Venous Access Risks and Benefits Explained: Yes Consent on Chart: Yes Central Line: Triple Lumen Catheter Anesthesia: 1% Lidocaine Sterile Technique: Yes Ultrasound Guided Assistance: Yes Position: Right Internal Jugular Post Insertion: Yes: Bilateral Breath Sounds, Bilateral Chest Expansion, Chest X-Ray Ordered Sterile Dressing Applied: Yes Remarks: Tolerated well. Blood return from all 3 ports. CXR confirmed placement in SVC. OK to use
[2019-05-17 17:39] LABS: BASO % 0.2 % (0-2.0); HEMATOCRIT 31.2 % (32.4-45.2); HEMOGLOBIN 9.9 GM/dL (10.7-15.3); LYMPH % 2.6 % (8-40); MCH 26.7 pg (25.7-33.7); MCHC 31.6 g/dl (32.0-36.0); MEAN CELL VOLUME 84.4 fl (80-96); MEAN PLT VOLUME 8.7 fl (7.5-11.1); MONO % 3.3 % (3.8-10.2); NEUT % 93.9 % (42.8-82.8); PLATELET COUNT 258 K/MM3 (134-434); RDW 15.4 % (11.6-15.6); WHITE BLOOD COUNT 18.2 K/mm3 (4.0-10.0)
[2019-05-17] MEDS: PANTOPRAZOLE SODIUM 40 MG VIAL IVPUSH SCH ×2 (18:03→18:07)
[2019-05-17] MEDS: KCL 10 MEQ IVPB 10 MEQ/100 ML INFUS.BAG IVPB SCH ×3 (18:04→19:41)
[2019-05-17] MEDS: levETIRAcetam 500 MG/5 ML INJECTION VIAL IVPB SCH ×3 (18:05→21:36)
[2019-05-17 18:11] LABS: ALBUMIN 1.9 g/dl (3.4-5.0); ALK PHOS 175 U/L (45-117); ANION GAP 11 MMOL/L (8-16); BILIRUBIN,TOTAL 0.7 mg/dL (0.2-1); BLOOD UREA NITROGEN 11.8 mg/dL (7-18); CALCIUM 8.4 mg/dL (8.5-10.1); CHLORIDE 104 mmol/L (98-107); CO2 29 mmol/L (21-32); CREATININE < 0.2 mg/dL (0.55-1.3); GLUCOSE,RANDOM 57 mg/dL (74-106); MAGNESIUM 2.1 mg/dL (1.8-2.4); POTASSIUM 3.9 mmol/L (3.5-5.1); SGOT/AST 24 U/L (15-37); SGPT/ALT < 6 U/L (13-61); SODIUM 143 mmol/L (136-145); TOT PROT 5.4 g/dl (6.4-8.2)
[2019-05-17] MEDS: LORazepam 2 MG/ML SDV VIAL IVPUSH SCH (23:01)
[2019-05-18] MEDS: POTASSIUM CHLORIDE 20 MEQ in AMINO ACIDS 4.25%/D5W 1,000 ML IVPB SCH ×2 (00:29→12:59)
[2019-05-18] MEDS: ALBUTEROL SO4 2.5/IPRATROPIUM 0.5 INH SOL 3 ML VIAL.NEB. NEB SCH ×7 (00:37→23:42)
[2019-05-18] MEDS ORDERED: PIPERACILLIN/TAZOBACTAM 3.375 GM VIAL IVPB ONE ×3 (02:29→20:08)
[2019-05-18] MEDS ORDERED: DEXTROSE 5%-WATER - 50 ML IVPB ONE ×3 (02:30→20:08)
[2019-05-18] MEDS: PIPERACILLIN/TAZOB 3.375 GM 3.375 GM in DEXTROSE 5%-WATER - 50 ML IVPB SCH ×3 (02:34→20:30)
[2019-05-18] MEDS: MORPHINE SULFATE 2 MG/ML VIAL IVPUSH PRN ×4 (02:42→17:35)
[2019-05-18] MEDS: LORazepam 2 MG/ML SDV VIAL IVPUSH PRN ×2 (03:54→12:22)
[2019-05-18 07:18] LABS: BASO % 0.2 % (0-2.0); HEMATOCRIT 28.2 % (32.4-45.2); HEMOGLOBIN 9.2 GM/dL (10.7-15.3); MCH 27.5 pg (25.7-33.7); MCHC 32.7 g/dl (32.0-36.0); MEAN CELL VOLUME 84.2 fl (80-96); MEAN PLT VOLUME 8.7 fl (7.5-11.1); MONO % 4.6 % (3.8-10.2); NEUT % 90.2 % (42.8-82.8); PLATELET COUNT 250 K/MM3 (134-434); RBC 3.35 M/mm3 (3.60-5.2); RDW 15.4 % (11.6-15.6); WHITE BLOOD COUNT 13.8 K/mm3 (4.0-10.0)
--- NOTE | 2019-05-18 07:31 | PN ---
Progress Note, Physician Chief Complaint: patient non-verbal. Family at bedside and states she had a restful night History of Present Illness: History of Present Illness: Patient is a 59 year old female (resident of [facility]) with a PMHx significant for profound mental retardation, cerebral palsy, congenital quadriplegia, severe scoliosis, seizure disorder, and GERD. Transferred from [place] to [facility] for further management of SBO, sepsis and tachycardia. - Current Medication List Current Medications: Active Medications Acetaminophen (Ofirmev Injection -) 500 mg IVPB Q6H PRN PRN Reason: PAIN OR FEVER Last Admin: 05/17/19 18:10 Dose: 500 mg Albuterol/Ipratropium (Duoneb -) 1 amp NEB RQ4H [facility] Last Admin: 05/18/19 04:30 Dose: 1 amp Heparin Sodium (Porcine) (Heparin -) 5,000 unit SQ BID [facility] Last Admin: 05/17/19 21:43 Dose: 5,000 unit Metronidazole (Flagyl 500mg Premixed Ivpb -) 500 mg in 100 mls @ 100 mls/hr IVPB Q8H [facility] Last Admin: 05/18/19 02:34 Dose: 100 mls/hr Piperacillin Sod/Tazobactam (Sod 3.375 gm/ Dextrose) 50 mls @ 100 mls/hr IVPB Q8H [facility]; Protocol Last Admin: 05/18/19 02:34 Dose: 100 mls/hr Fat Emulsion Intravenous (Intralipid -) 250 mls @ 20.833 mls/hr IV Q2D@2200 [facility] Last Admin: 05/16/19 21:12 Dose: 20.833 mls/hr Potassium Chloride 20 meq/ (Amino Acids) 1,010 mls @ 50 mls/hr IVPB Q12H [facility] Last Admin: 05/18/19 00:29 Dose: Not Given Ketorolac Tromethamine (Toradol Injection -) 15 mg IVPUSH Q6H PRN PRN Reason: PAIN LEVEL 4 - 6 Stop: 05/21/19 19:41 Last Admin: 05/16/19 22:38 Dose: 15 mg Levetiracetam (Keppra Injection -) 500 mg IVPB BID [facility] Last Admin: 05/17/19 21:36 Dose: Not Given Lorazepam (Ativan Injection -) 0.25 mg IVPUSH Q6H PRN PRN Reason: ANXIETY Last Admin: 05/18/19 03:54 Dose: 0.25 mg Lorazepam (Ativan Injection -) 0.25 mg IVPUSH DAILY@2300 [facility] Last Admin: 05/17/19 23:01 Dose: Not Given Metoclopramide HCl (Reglan Injection -) 10 mg IVPUSH Q6H PRN PRN Reason: NAUSEA AND/OR VOMITING Last Admin: 05/11/19 03:22 Dose: 10 mg Morphine Sulfate (Morphine Sulfate) 1 mg IVPUSH Q3H PRN PRN Reason: PAIN LEVEL 6-10 Last Admin: 05/18/19 05:55 Dose: 1 mg Nystatin (Nystop Powder -) 1 applic TP BID [facility] Last Admin: 05/17/19 21:44 Dose: 1 applic Ondansetron HCl (Zofran Injection) 4 mg IVPUSH Q6H PRN PRN Reason: NAUSEA Last Admin: 05/10/19 23:36 Dose: 4 mg Pantoprazole Sodium (Protonix Iv) 40 mg IVPUSH DAILY [facility] Last Admin: 05/17/19 18:03 Dose: 40 mg Scopolamine HBr (Transderm-Scop -) 1 patch TD Q72H [facility] Last Admin: 05/14/19 23:48 Dose: 1 patch - Objective Vital Signs: Vital Signs Temperature 99.6 F 05/18/19 06:00 Pulse Rate 86 05/18/19 06:00 Respiratory Rate 18 05/18/19 06:00 Blood Pressure 101/64 05/18/19 06:00 O2 Sat by Pulse Oximetry (%) 95 05/17/19 22:00 Additional Findings/Remarks: Constitutional: Yes: Calm Eyes: Yes: WNL HENT: Yes: Atraumatic Neck: Yes: Supple Cardiovascular: Yes: Tachycardia Respiratory: Yes: Rhonchi Gastrointestinal: Yes: Other (NGT to low intermittent suction.) Extremities: Yes: Deformity. Severe contracture to LE Edema: Yes Edema: LLE: 1+, RLE: 1+ Integumentary: Yes: Erythema Neurological: Yes: Alert Psychiatric: Yes: Alert Labs: INR, PTT INR 1.00 (0.82-1.09) 04/28/19 17:22 Problem List - Problems (1) SBO (small bowel obstruction) Assessment/Plan: NGT to low intermittent suction, still draining bilious output Strictly NPO. no improvement in abdominal xrays, passing stool and flatus c/w clinimix Surgery following, not a surgical candidate, high for for surgical complication and or Code(s): K56.609 - UNSP INTESTNL OBST, UNSP TO PARTIAL VERSUS COMPLETE OBST (2) Hypokalemia Assessment/Plan: K 3.8, maintaining levels continue to monitor K, maintain >4.0 c/w clinimix to start TPN tomorrow Code(s): E87.6 - HYPOKALEMIA (3) Prophylactic measure Assessment/Plan: FEN NPO c/w Climinix monitor electrolytes Dispo maintain on tele full code as of this time. Palliative care involved and issue of DNR/DNI discussed with family. discharge planning DVT heparin sq bid Code(s): Z29.9 - ENCOUNTER FOR PROPHYLACTIC MEASURES, UNSPECIFIED (4) Seizure Assessment/Plan: c/w keppra on tegretol in [place], continue keppra iv bid. Code(s): R56.9 - UNSPECIFIED CONVULSIONS (5) Sepsis Assessment/Plan: wbc 13.4 Mild effusions with left persistent pulmonary infiltrate on CXR continue to monitor respiratory status. c/w 2 L NC all cultures NGTD ID following, cont IV abx (flagyl & zozyn) monitor output & temp Code(s): A41.9 - SEPSIS, UNSPECIFIED ORGANISM (6) Aspiration into airway Assessment/Plan: c/w zosyn & flagyl support with 2 liters of nasal cannula strictly npo monitor oxygen levels and titrate off oxygen as tolerated. not home oxygen dependent at home. Code(s): T17.908A - UNSP FB IN RESP TRACT, PART UNSP CAUSING OTH INJURY, INIT (7) Cerebral palsy Assessment/Plan: supportive care Code(s): G80.9 - CEREBRAL PALSY, UNSPECIFIED (8) Tachycardia Assessment/Plan: HR remains in 120s despite increased frequency of MSO4, periods when HR is in 80s c/w MSO4 1.0mg IV q 6h most likely related to SBO Code(s): R00.0 - TACHYCARDIA, UNSPECIFIED (9) Hyponatremia Assessment/Plan: Na to 142 c/w clinimax and then TPN Code(s): E87.1 - HYPO-OSMOLALITY AND HYPONATREMIA (10) Palliative care status Assessment/Plan: palliative care notes reviewed and noted that if patient is to be made a dnr, there are forms that need to be filled out and special criteria listed. There are 9 siblings as well as MHLS that would have to be involved. Appreciate Palliative care nurse care patient is a Full Code. Code(s): Z51.5 - ENCOUNTER FOR PALLIATIVE CARE (11) Decreased oral intake Assessment/Plan: strictly NPO. on clinimax daily and lipids every other day dietary following TPN to start tomorrow. Code(s): R63.8 - OTHER SYMPTOMS AND SIGNS CONCERNING FOOD AND FLUID INTAKE Visit type - Emergency Visit Emergency Visit: Yes ED Registration Date: 04/28/19 Care time: The patient presented to the Emergency Department on the above date and was hospitalized for further evaluation of their emergent condition. - New Patient This patient is new to me today: No - Critical Care Critical Care patient: No - Discharge Referral Referred to [facility] No
[2019-05-18 07:48] LABS: ALBUMIN 1.7 g/dl (3.4-5.0); ALK PHOS 134 U/L (45-117); ANION GAP 6 MMOL/L (8-16); BLOOD UREA NITROGEN 17.8 mg/dL (7-18); CALCIUM 8.1 mg/dL (8.5-10.1); CHLORIDE 104 mmol/L (98-107); CO2 30 mmol/L (21-32); CREATININE < 0.2 mg/dL (0.55-1.3); GLUCOSE,RANDOM 106 mg/dL (74-106); POTASSIUM 4.2 mmol/L (3.5-5.1); SGOT/AST 19 U/L (15-37); SGPT/ALT < 6 U/L (13-61); SODIUM 140 mmol/L (136-145); TOT PROT 4.9 g/dl (6.4-8.2)
[2019-05-18] MEDS: levETIRAcetam 500 MG/5 ML INJECTION VIAL IVPB SCH ×2 (09:38→23:20)
[2019-05-18] MEDS: PANTOPRAZOLE SODIUM 40 MG VIAL IVPUSH SCH (09:39)
[2019-05-18] MEDS: HEPARIN NA (PORCINE) 5,000 UNITS/ML 1ML VIAL SQ SCH ×2 (09:39→23:19)
--- NOTE | 2019-05-18 10:40 | PN ---
Progress Note (short form) - Note Progress Note: appears comfortable. nonverbal Vital Signs Period Temp Pulse Resp BP Sys/[place] Pulse Ox Last 24 Hr 98.1 F-102.4 F 86-161 18-28 101-155/64-83 95-95 Cardiovascular: Yes: Tachycardia Respiratory: Yes: CTAB (poor effort) Gastrointestinal: Yes: Soft Edema: No Neurological: Yes: Other (nonverbal) not agitated no jaundice, diaphoresis Assessment/Plan IMP: Sinus tachycardia: - remains mild-mod tachy, likely sec to ongoing GI process - no med mgmt indicated - echo unremarkable - trop neg, no ischemia on EKG - unlikely ACS SBO: - manage per surgery, ngt remains in Seizure disorder: - manage per primary Tachypnea: possible R infiltrate -CXR difficult to interpret, rotated -Pulm consult for further eval
--- NOTE | 2019-05-18 10:51 | PN ---
Progress Note, Physician History of Present Illness: Pt seen and examined at bedside. She appears more comfortable today. - Current Medication List Current Medications: Active Medications Acetaminophen (Ofirmev Injection -) 500 mg IVPB Q6H PRN PRN Reason: PAIN OR FEVER Last Admin: 05/17/19 18:10 Dose: 500 mg Albuterol/Ipratropium (Duoneb -) 1 amp NEB RQ4H [facility] Last Admin: 05/18/19 04:30 Dose: 1 amp Heparin Sodium (Porcine) (Heparin -) 5,000 unit SQ BID [facility] Last Admin: 05/18/19 09:39 Dose: 5,000 unit Metronidazole (Flagyl 500mg Premixed Ivpb -) 500 mg in 100 mls @ 100 mls/hr IVPB Q8H [facility] Last Admin: 05/18/19 02:34 Dose: 100 mls/hr Piperacillin Sod/Tazobactam (Sod 3.375 gm/ Dextrose) 50 mls @ 100 mls/hr IVPB Q8H [facility]; Protocol Last Admin: 05/18/19 02:34 Dose: 100 mls/hr Fat Emulsion Intravenous (Intralipid -) 250 mls @ 20.833 mls/hr IV Q2D@2200 [facility] Last Admin: 05/16/19 21:12 Dose: 20.833 mls/hr Potassium Chloride 20 meq/ (Amino Acids) 1,010 mls @ 50 mls/hr IVPB Q12H [facility] Last Admin: 05/18/19 00:29 Dose: Not Given Ketorolac Tromethamine (Toradol Injection -) 15 mg IVPUSH Q6H PRN PRN Reason: PAIN LEVEL 4 - 6 Stop: 05/21/19 19:41 Last Admin: 05/16/19 22:38 Dose: 15 mg Levetiracetam (Keppra Injection -) 500 mg IVPB BID [facility] Last Admin: 05/18/19 09:38 Dose: 500 mg Lorazepam (Ativan Injection -) 0.25 mg IVPUSH Q6H PRN PRN Reason: ANXIETY Last Admin: 05/18/19 03:54 Dose: 0.25 mg Lorazepam (Ativan Injection -) 0.25 mg IVPUSH DAILY@2300 [facility] Last Admin: 05/17/19 23:01 Dose: Not Given Metoclopramide HCl (Reglan Injection -) 10 mg IVPUSH Q6H PRN PRN Reason: NAUSEA AND/OR VOMITING Last Admin: 05/11/19 03:22 Dose: 10 mg Morphine Sulfate (Morphine Sulfate) 1 mg IVPUSH Q3H PRN PRN Reason: PAIN LEVEL 6-10 Last Admin: 05/18/19 09:38 Dose: 1 mg Nystatin (Nystop Powder -) 1 applic TP BID [facility] Last Admin: 05/17/19 21:44 Dose: 1 applic Ondansetron HCl (Zofran Injection) 4 mg IVPUSH Q6H PRN PRN Reason: NAUSEA Last Admin: 05/10/19 23:36 Dose: 4 mg Pantoprazole Sodium (Protonix Iv) 40 mg IVPUSH DAILY [facility] Last Admin: 05/18/19 09:39 Dose: 40 mg Scopolamine HBr (Transderm-Scop -) 1 patch TD Q72H [facility] Last Admin: 05/14/19 23:48 Dose: 1 patch - Objective Vital Signs: Vital Signs Temperature 99.6 F 05/18/19 06:00 Pulse Rate 86 05/18/19 06:00 Respiratory Rate 18 05/18/19 06:00 Blood Pressure 101/64 05/18/19 06:00 O2 Sat by Pulse Oximetry (%) 95 05/17/19 22:00 Constitutional: Yes: Calm Eyes: Yes: Conjunctiva Clear HENT: Yes: Atraumatic Neck: Yes: Supple Cardiovascular: Yes: S1, S2 Respiratory: Yes: On Nasal O2 Gastrointestinal: Yes: Soft, Other (ng tube) Genitourinary: Yes: Incontinence Musculoskeletal: Yes: Muscle Weakness Extremities: Yes: Other (contracted) Edema: No Neurological: Yes: Pre-Existing Deficit Labs: CBC, BMP 05/18/19 06:00 05/18/19 06:00 INR, PTT INR 1.00 (0.82-1.09) 04/28/19 17:22 Problem List - Problems (1) Hyperkalemia Code(s): E87.5 - HYPERKALEMIA (2) Hypernatremia Code(s): E87.0 - HYPEROSMOLALITY AND HYPERNATREMIA (3) SBO (small bowel obstruction) Code(s): K56.609 - UNSP INTESTNL OBST, UNSP TO PARTIAL VERSUS COMPLETE OBST (4) Seizure Code(s): R56.9 - UNSPECIFIED CONVULSIONS Assessment/Plan Current Medications Generic Name Dose Route Start Last Admin Trade Name Freq PRN Reason Stop Dose Admin Acetaminophen 500 mg 05/17/19 17:18 05/17/19 18:10 Ofirmev Injection - IVPB 500 mg Q6H PRN Administration PAIN OR FEVER Albuterol/Ipratropium 1 amp 05/15/19 13:15 05/18/19 04:30 Duoneb - NEB 1 amp RQ4H [facility] Administration Heparin Sodium (Porcine) 5,000 unit 05/16/19 10:00 05/18/19 09:39 Heparin - SQ 5,000 unit BID [facility] Administration Metronidazole 500 mg in 100 mls @ 100 mls/hr 05/08/19 19:30 05/18/19 02:34 Flagyl 500mg Premixed Ivpb - IVPB 100 mls/hr Q8H [facility] Administration Piperacillin Sod/Tazobactam 50 mls @ 100 mls/hr 05/08/19 19:30 05/18/19 02:34 Sod 3.375 gm/ Dextrose IVPB 100 mls/hr Q8H [facility] Administration Protocol Fat Emulsion Intravenous 250 mls @ 20.833 mls/hr 05/12/19 22:00 05/16/19 21: 12 Intralipid - IV 20.833 mls/hr Q2D@2200 [facility] Administration Potassium Chloride 20 meq/ 1,010 mls @ 50 mls/hr 05/17/19 00:27 05/18/19 00: 29 Amino Acids IVPB Not Given Q12H [facility] Ketorolac Tromethamine 15 mg 05/16/19 19:42 05/16/19 22:38 Toradol Injection - IVPUSH 05/21/19 19:41 15 mg Q6H PRN Administration PAIN LEVEL 4 - 6 Levetiracetam 500 mg 05/17/19 17:00 05/18/19 09:38 Keppra Injection - IVPB 500 mg BID [facility] Administration Lorazepam 0.25 mg 05/14/19 09:05 05/18/19 03:54 Ativan Injection - IVPUSH 0.25 mg Q6H PRN Administration ANXIETY Lorazepam 0.25 mg 05/17/19 23:00 05/17/19 23:01 Ativan Injection - IVPUSH Not Given DAILY@2300 [facility] Metoclopramide HCl 10 mg 05/08/19 18:55 05/11/19 03:22 Reglan Injection - IVPUSH 10 mg Q6H PRN Administration NAUSEA AND/OR VOMITING Morphine Sulfate 1 mg 05/15/19 13:06 05/18/19 09:38 Morphine Sulfate IVPUSH 1 mg Q3H PRN Administration PAIN LEVEL 6-10 Nystatin 1 applic 05/14/19 10:00 05/17/19 21:44 Nystop Powder - TP 1 applic BID [facility] Administration Ondansetron HCl 4 mg 05/08/19 18:55 05/10/19 23:36 Zofran Injection IVPUSH 4 mg Q6H PRN Administration NAUSEA Pantoprazole Sodium 40 mg 05/17/19 17:00 05/18/19 09:39 Protonix Iv IVPUSH 40 mg DAILY [facility] Administration Scopolamine HBr 1 patch 05/11/19 23:00 05/14/19 23:48 Transderm-Scop - TD 1 patch Q72H [facility] Administration Impression 1. hypernatremia 2. hyperkalemia - resolved 3. SBO 4. epilepsy 5. developemental delay 6. hypokalemia Plan - cont current fluids - monitor lytes - check phos - possible [place], per family - surgery follow up
[2019-05-18] MEDS: NYSTATIN POWDER 100,000 UNITS/GM - 15 GM TOPICAL POWDER TP SCH ×2 (12:57→23:21)
--- NOTE | 2019-05-18 14:11 | PN ---
Progress Note (short form) - Note Progress Note: Attending Surgeon This 59 y/o non-verbal resident of [facility] presented to the [facility] ED April with signs and symptoms of intestinal obstruction. The patient has a history of an unknown type of previous abdominal surgery. She was subsequently transferred to [facility] for on going care. Despite multiple efforts to treat her obstruction conservatively with nasogastric suction and intravenous fluids and bowel rest in hopes of resolution this has not come to fruition; she may have an obstruction as a result of a different pathology other than simple adhesions. Despite all attempts to define the site nature of the obstruction with various imaging techniques various patient specific abnormalities which include her contracted state among others preclude this. By history she has a seizure disorder, GERD, scolioses, a deformed pelvis, mental retardation, developmental delay and severe four extremity contracture and requires total care 30/03. It is my expert opinion that any operative intervention in this patient to relieve her obstruction would be tantamount to medical futility and would expose the patient to high risk for complications; in addition surgery would not necessarily change her outcome in a meaningful way as her problem may not be amenable to corrective or even pallative surgery and consequently might diminish her dignity or quality of time left in her life. In an attempt to quantify her "risk" the ACS NSQIP Surgical Risk Calculator was used; out of 13 potential adverse outcomes that can be measured she was found to be above average in risk in all 13 categories including with an average risk in the population of 4.6% and in this patient 45.8%. Kieran Dickerson MD FACS
--- NOTE | 2019-05-18 14:12 | PN ---
Progress Note, Physician History of Present Illness: PULMONARY AWAKE,TACHYPNEIC ON VM - Current Medication List Current Medications: Active Medications Acetaminophen (Ofirmev Injection -) 500 mg IVPB Q6H PRN PRN Reason: PAIN OR FEVER Last Admin: 05/17/19 18:10 Dose: 500 mg Albuterol/Ipratropium (Duoneb -) 1 amp NEB RQ4H [facility] Last Admin: 05/18/19 08:10 Dose: 1 amp Heparin Sodium (Porcine) (Heparin -) 5,000 unit SQ BID [facility] Last Admin: 05/18/19 09:39 Dose: 5,000 unit Metronidazole (Flagyl 500mg Premixed Ivpb -) 500 mg in 100 mls @ 100 mls/hr IVPB Q8H [facility] Last Admin: 05/18/19 12:58 Dose: 100 mls/hr Piperacillin Sod/Tazobactam (Sod 3.375 gm/ Dextrose) 50 mls @ 100 mls/hr IVPB Q8H [facility]; Protocol Last Admin: 05/18/19 12:58 Dose: 100 mls/hr Fat Emulsion Intravenous (Intralipid -) 250 mls @ 20.833 mls/hr IV Q2D@2200 [facility] Last Admin: 05/16/19 21:12 Dose: 20.833 mls/hr Potassium Chloride 20 meq/ (Amino Acids) 1,010 mls @ 50 mls/hr IVPB Q12H [facility] Last Admin: 05/18/19 12:59 Dose: 50 mls/hr Ketorolac Tromethamine (Toradol Injection -) 15 mg IVPUSH Q6H PRN PRN Reason: PAIN LEVEL 4 - 6 Stop: 05/21/19 19:41 Last Admin: 05/16/19 22:38 Dose: 15 mg Levetiracetam (Keppra Injection -) 500 mg IVPB BID [facility] Last Admin: 05/18/19 09:38 Dose: 500 mg Lorazepam (Ativan Injection -) 0.25 mg IVPUSH Q6H PRN PRN Reason: ANXIETY Last Admin: 05/18/19 12:22 Dose: 0.25 mg Lorazepam (Ativan Injection -) 0.25 mg IVPUSH DAILY@2300 [facility] Last Admin: 05/17/19 23:01 Dose: Not Given Metoclopramide HCl (Reglan Injection -) 10 mg IVPUSH Q6H PRN PRN Reason: NAUSEA AND/OR VOMITING Last Admin: 05/11/19 03:22 Dose: 10 mg Morphine Sulfate (Morphine Sulfate) 1 mg IVPUSH Q3H PRN PRN Reason: PAIN LEVEL 6-10 Last Admin: 05/18/19 09:38 Dose: 1 mg Nystatin (Nystop Powder -) 1 applic TP BID [facility] Last Admin: 05/18/19 12:57 Dose: 1 applic Ondansetron HCl (Zofran Injection) 4 mg IVPUSH Q6H PRN PRN Reason: NAUSEA Last Admin: 05/10/19 23:36 Dose: 4 mg Pantoprazole Sodium (Protonix Iv) 40 mg IVPUSH DAILY [facility] Last Admin: 05/18/19 09:39 Dose: 40 mg Scopolamine HBr (Transderm-Scop -) 1 patch TD Q72H [facility] Last Admin: 05/14/19 23:48 Dose: 1 patch - Objective Vital Signs: Vital Signs Temperature 99.1 F 05/18/19 08:00 Pulse Rate 122 H 05/18/19 08:00 Respiratory Rate 18 05/18/19 09:00 Blood Pressure 136/82 05/18/19 08:00 O2 Sat by Pulse Oximetry (%) 95 05/18/19 09:00 Constitutional: Yes: Moderate Distress, Other (AWAKE) Eyes: Yes: WNL HENT: Yes: WNL Neck: Yes: WNL Cardiovascular: Yes: Tachycardia, S1, S2 Respiratory: Yes: Rhonchi Gastrointestinal: Yes: Distention Extremities: Yes: Shortened, Other (CONTRACTED) Edema: Yes Labs: CBC, BMP 05/18/19 06:00 05/18/19 06:00 Assessment/Plan Problem List - Problems (1) Shortness of breath Code(s): R06.02 - SHORTNESS OF BREATH (2) Atelectasis of both lungs Code(s): J98.11 - ATELECTASIS (3) Pleural effusion Code(s): J90 - PLEURAL EFFUSION, NOT ELSEWHERE CLASSIFIED (4) Hypokalemia Code(s): E87.6 - HYPOKALEMIA (5) Hyponatremia Code(s): E87.1 - HYPO-OSMOLALITY AND HYPONATREMIA (6) Iron deficiency anemia Code(s): D50.9 - IRON DEFICIENCY ANEMIA, UNSPECIFIED (7) Profound mental handicap Code(s): F73 - PROFOUND INTELLECTUAL DISABILITIES (8) SBO (small bowel obstruction) Code(s): K56.609 - UNSP INTESTNL OBST, UNSP TO PARTIAL VERSUS COMPLETE OBST (9) Seizure Code(s): R56.9 - UNSPECIFIED CONVULSIONS (10) Tachycardia Code(s): R00.0 - TACHYCARDIA, UNSPECIFIED (11) Cerebral palsy Code(s): G80.9 - CEREBRAL PALSY, UNSPECIFIED (12) Cough Code(s): R05 - COUGH (13) Decreased oral intake Code(s): R63.8 - OTHER SYMPTOMS AND SIGNS CONCERNING FOOD AND FLUID INTAKE Assessment/Plan IMP: respiratory distress tachypnea is related to the SBO. She does have some small pleural effusions with associated atelectasis. PLAN: Continue NGT to LWS clinimix NPO Aspiration precautions Patient unable to perform Incentive Spirometry ABX per ID No indication for thoracentesis at this point Patient would be very high risk for surgical intervention Would Not utilize NIPPV support as this will insuflate her stomach and worsen her overall condition DR GAMBINO
[2019-05-18] MEDS ORDERED: PT OWN MED DRAWER 7, Y5N ONE (23:12)
[2019-05-18] MEDS: LORazepam 2 MG/ML SDV VIAL IVPUSH SCH (23:16)
[2019-05-18] MEDS: FAT EMULSIONS 250 ML IV SCH (23:20)
[2019-05-19] MEDS: LORazepam 2 MG/ML SDV VIAL IVPUSH PRN (01:24)
[2019-05-19] MEDS: POTASSIUM CHLORIDE 20 MEQ in AMINO ACIDS 4.25%/D5W 1,000 ML IVPB SCH ×2 (01:28→13:40)
[2019-05-19] MEDS ORDERED: PIPERACILLIN/TAZOBACTAM 3.375 GM VIAL IVPB ONE ×3 (02:41→19:46)
[2019-05-19] MEDS ORDERED: DEXTROSE 5%-WATER - 50 ML IVPB ONE ×3 (02:41→19:46)
[2019-05-19] MEDS: PIPERACILLIN/TAZOB 3.375 GM 3.375 GM in DEXTROSE 5%-WATER - 50 ML IVPB SCH ×2 (02:45→11:00)
[2019-05-19] MEDS: KETOROLAC TROMETHAMINE 30 MG/1 ML VIAL IVPUSH PRN (03:35)
[2019-05-19] MEDS: ALBUTEROL SO4 2.5/IPRATROPIUM 0.5 INH SOL 3 ML VIAL.NEB. NEB SCH ×2 (04:11→08:03)
[2019-05-19 06:04] LABS: BASO % 0.3 % (0-2.0); MCH 28.1 pg (25.7-33.7); MCHC 33.4 g/dl (32.0-36.0); MEAN PLT VOLUME 8.8 fl (7.5-11.1); MONO % 5.8 % (3.8-10.2); NEUT % 88.9 % (42.8-82.8); PLATELET COUNT 272 K/MM3 (134-434); RBC 3.22 M/mm3 (3.60-5.2); RDW 15.2 % (11.6-15.6); WHITE BLOOD COUNT 14.4 K/mm3 (4.0-10.0)
[2019-05-19 06:46] LABS: ALBUMIN 1.8 g/dl (3.4-5.0); ALK PHOS 134 U/L (45-117); ANION GAP 7 MMOL/L (8-16); BILIRUBIN,TOTAL 0.6 mg/dL (0.2-1); BLOOD UREA NITROGEN 14.2 mg/dL (7-18); CALCIUM 8.2 mg/dL (8.5-10.1); CHLORIDE 102 mmol/L (98-107); CO2 29 mmol/L (21-32); CREATININE < 0.2 mg/dL (0.55-1.3); GLUCOSE,RANDOM 121 mg/dL (74-106); MAGNESIUM 1.8 mg/dL (1.8-2.4); PHOSPHOROUS 1.5 mg/dL (2.5-4.9); POTASSIUM 3.9 mmol/L (3.5-5.1); SGOT/AST 22 U/L (15-37); SGPT/ALT 7 U/L (13-61); SODIUM 138 mmol/L (136-145)
--- NOTE | 2019-05-19 07:36 | PN ---
Progress Note, Physician Chief Complaint: patient non-verbal. Family at bedside and states patient appears to be in pain and not as responsive to them as usual History of Present Illness: History of Present Illness: Patient is a 59 year old female (resident of [facility]) with a PMHx significant for profound mental retardation, cerebral palsy, congenital quadriplegia, severe scoliosis, seizure disorder, and GERD. Transferred from [place] to [facility] for further management of SBO, sepsis and tachycardia. - Current Medication List Current Medications: Active Medications Acetaminophen (Ofirmev Injection -) 500 mg IVPB Q6H PRN PRN Reason: PAIN OR FEVER Last Admin: 05/17/19 18:10 Dose: 500 mg Albuterol/Ipratropium (Duoneb -) 1 amp NEB RQ4H [facility] Last Admin: 05/19/19 04:11 Dose: Not Given Heparin Sodium (Porcine) (Heparin -) 5,000 unit SQ BID [facility] Last Admin: 05/18/19 23:19 Dose: 5,000 unit Metronidazole (Flagyl 500mg Premixed Ivpb -) 500 mg in 100 mls @ 100 mls/hr IVPB Q8H [facility] Last Admin: 05/19/19 03:35 Dose: 100 mls/hr Piperacillin Sod/Tazobactam (Sod 3.375 gm/ Dextrose) 50 mls @ 100 mls/hr IVPB Q8H [facility]; Protocol Last Admin: 05/19/19 02:45 Dose: 100 mls/hr Fat Emulsion Intravenous (Intralipid -) 250 mls @ 20.833 mls/hr IV Q2D@2200 [facility] Last Admin: 05/18/19 23:20 Dose: 20.833 mls/hr Potassium Chloride 20 meq/ (Amino Acids) 1,010 mls @ 50 mls/hr IVPB Q12H [facility] Last Admin: 05/19/19 01:28 Dose: Not Given Ketorolac Tromethamine (Toradol Injection -) 15 mg IVPUSH Q6H PRN PRN Reason: PAIN LEVEL 4 - 6 Stop: 05/21/19 19:41 Last Admin: 05/19/19 03:35 Dose: 15 mg Levetiracetam (Keppra Injection -) 500 mg IVPB BID [facility] Last Admin: 05/18/19 23:20 Dose: 500 mg Lorazepam (Ativan Injection -) 0.25 mg IVPUSH Q6H PRN PRN Reason: ANXIETY Last Admin: 05/19/19 01:24 Dose: 0.25 mg Lorazepam (Ativan Injection -) 0.25 mg IVPUSH DAILY@2300 [facility] Last Admin: 05/18/19 23:16 Dose: Not Given Metoclopramide HCl (Reglan Injection -) 10 mg IVPUSH Q6H PRN PRN Reason: NAUSEA AND/OR VOMITING Last Admin: 05/11/19 03:22 Dose: 10 mg Morphine Sulfate (Morphine Sulfate) 1 mg IVPUSH Q3H PRN PRN Reason: PAIN LEVEL 6-10 Last Admin: 05/18/19 17:35 Dose: 1 mg Nystatin (Nystop Powder -) 1 applic TP BID [facility] Last Admin: 05/18/19 23:21 Dose: 1 applic Ondansetron HCl (Zofran Injection) 4 mg IVPUSH Q6H PRN PRN Reason: NAUSEA Last Admin: 05/10/19 23:36 Dose: 4 mg Pantoprazole Sodium (Protonix Iv) 40 mg IVPUSH DAILY [facility] Last Admin: 05/18/19 09:39 Dose: 40 mg Scopolamine HBr (Transderm-Scop -) 1 patch TD Q72H [facility] Last Admin: 05/14/19 23:48 Dose: 1 patch - Objective Vital Signs: Vital Signs Temperature 98.4 F 05/19/19 06:00 Pulse Rate 135 H 05/19/19 06:00 Respiratory Rate 05/19/19 06:00 Blood Pressure 112/71 05/19/19 06:00 O2 Sat by Pulse Oximetry (%) 100 05/18/19 21:00 Additional Findings/Remarks: Constitutional: Yes: Calm Eyes: Yes: WNL HENT: Yes: Atraumatic Neck: Yes: Supple Cardiovascular: Yes: Tachycardia Respiratory: Yes: Rhonchi Gastrointestinal: Yes: Other (NGT to low intermittent suction.) Extremities: Yes: Deformity. Severe contracture to LE Edema: Yes Edema: LLE: 1+, RLE: 1+ Integumentary: Yes: healed pressure to right trocanter Neurological: Yes: Alert Psychiatric: Yes: Alert Labs: CBC, BMP 05/19/19 05:15 05/19/19 05:15 INR, PTT INR 1.00 (0.82-1.09) 04/28/19 17:22 Problem List - Problems (1) SBO (small bowel obstruction) Assessment/Plan: NGT to low intermittent suction, still draining bilious output Strictly NPO. no improvement in abdominal xrays, passing stool and flatus c/w clinimix Surgery following, not a surgical candidate, high for for surgical complication and or . Code(s): K56.609 - UNSP INTESTNL OBST, UNSP TO PARTIAL VERSUS COMPLETE OBST (2) Hypokalemia Assessment/Plan: K 3.9, maintaining levels continue to monitor K, maintain >4.0 c/w clinimix Code(s): E87.6 - HYPOKALEMIA (3) Prophylactic measure Assessment/Plan: FEN NPO c/w Climinix monitor electrolytes Dispo maintain on tele full code as of this time. Palliative care involved and issue of DNR/DNI discussed with family. discharge planning DVT heparin sq bid Code(s): Z29.9 - ENCOUNTER FOR PROPHYLACTIC MEASURES, UNSPECIFIED (4) Seizure Assessment/Plan: c/w keppra on tegretol in [place], continue keppra iv bid. Code(s): R56.9 - UNSPECIFIED CONVULSIONS (5) Sepsis Assessment/Plan: wbc 14.4 Mild effusions with left persistent pulmonary infiltrate on CXR continue to monitor respiratory status. c/w 2 L NC all cultures NGTD ID following, cont IV abx (flagyl & zozyn) monitor output & temp Code(s): A41.9 - SEPSIS, UNSPECIFIED ORGANISM (6) Aspiration into airway Assessment/Plan: c/w zosyn & flagyl support with 2 liters of nasal cannula strictly npo monitor oxygen levels and titrate off oxygen as tolerated. not home oxygen dependent at home. Code(s): T17.908A - UNSP FB IN RESP TRACT, PART UNSP CAUSING OTH INJURY, INIT (7) Cerebral palsy Code(s): G80.9 - CEREBRAL PALSY, UNSPECIFIED (8) Tachycardia Assessment/Plan: HR remains in 120s despite increased frequency of MSO4, periods when HR is in 80s c/w MSO4 1.0mg IV q 6h most likely related to SBO Code(s): R00.0 - TACHYCARDIA, UNSPECIFIED (9) Hyponatremia Assessment/Plan: Na to 138 c/w clinimax Code(s): E87.1 - HYPO-OSMOLALITY AND HYPONATREMIA (10) Palliative care status Assessment/Plan: palliative care notes reviewed and noted that if patient is to be made a dnr, there are forms that need to be filled out and special criteria listed. There are 9 siblings as well as MHLS that are to be involved. Appreciate Palliative care nurse care patient is a Full Code. Code(s): Z51.5 - ENCOUNTER FOR PALLIATIVE CARE (11) Decreased oral intake Assessment/Plan: strictly NPO. on clinimax daily and lipids every other day dietary following Code(s): R63.8 - OTHER SYMPTOMS AND SIGNS CONCERNING FOOD AND FLUID INTAKE Visit type - Emergency Visit Emergency Visit: Yes ED Registration Date: 04/28/19 Care time: The patient presented to the Emergency Department on the above date and was hospitalized for further evaluation of their emergent condition. - New Patient This patient is new to me today: No - Critical Care Critical Care patient: No - Discharge Referral Referred to [facility] Med P.C.: No
[2019-05-19] MEDS: MORPHINE SULFATE 2 MG/ML VIAL IVPUSH PRN (07:53)
[2019-05-19] MEDS: PANTOPRAZOLE SODIUM 40 MG VIAL IVPUSH SCH (10:25)
[2019-05-19] MEDS: NYSTATIN POWDER 100,000 UNITS/GM - 15 GM TOPICAL POWDER TP SCH (10:25)
[2019-05-19] MEDS: HEPARIN NA (PORCINE) 5,000 UNITS/ML 1ML VIAL SQ SCH (10:25)
[2019-05-19] MEDS: levETIRAcetam 500 MG/5 ML INJECTION VIAL IVPB SCH (10:25)
--- NOTE | 2019-05-19 11:24 | PN ---
Progress Note (short form) - Note Progress Note: S: nonverbal Current Medications Generic Name Dose Route Start Last Admin Trade Name Freq PRN Reason Stop Dose Admin Acetaminophen 500 mg 05/17/19 17:18 05/17/19 18:10 Ofirmev Injection - IVPB 500 mg Q6H PRN Administration PAIN OR FEVER Heparin Sodium (Porcine) 5,000 unit 05/16/19 10:00 05/19/19 10:25 Heparin - SQ 5,000 unit BID [facility] Administration Metronidazole 500 mg in 100 mls @ 100 mls/hr 05/08/19 19:30 05/19/19 03:35 Flagyl 500mg Premixed Ivpb - IVPB 100 mls/hr Q8H [facility] Administration Piperacillin Sod/Tazobactam 50 mls @ 100 mls/hr 05/08/19 19:30 05/19/19 02:45 Sod 3.375 gm/ Dextrose IVPB 100 mls/hr Q8H [facility] Administration Protocol Fat Emulsion Intravenous 250 mls @ 20.833 mls/hr 05/12/19 22:00 05/18/19 23: 20 Intralipid - IV 20.833 mls/hr Q2D@2200 [facility] Administration Potassium Chloride 20 meq/ 1,010 mls @ 50 mls/hr 05/17/19 00:27 05/19/19 01: 28 Amino Acids IVPB Not Given Q12H [facility] Ketorolac Tromethamine 15 mg 05/16/19 19:42 05/19/19 03:35 Toradol Injection - IVPUSH 05/21/19 19:41 15 mg Q6H PRN Administration PAIN LEVEL 4 - 6 Levalbuterol HCl 0.31 mg 05/19/19 10:08 Xopenex IH Q8H PRN ASTHMA Levetiracetam 500 mg 05/17/19 17:00 05/19/19 10:25 Keppra Injection - IVPB 500 mg BID [facility] Administration Lorazepam 0.25 mg 05/14/19 09:05 05/19/19 01:24 Ativan Injection - IVPUSH 0.25 mg Q6H PRN Administration ANXIETY Lorazepam 0.25 mg 05/17/19 23:00 05/18/19 23:16 Ativan Injection - IVPUSH Not Given DAILY@2300 [facility] Metoclopramide HCl 10 mg 05/08/19 18:55 09/04/19 03:22 Reglan Injection - IVPUSH 10 mg Q6H PRN Administration NAUSEA AND/OR VOMITING Morphine Sulfate 1 mg 05/15/19 13:06 05/19/19 07:53 Morphine Sulfate IVPUSH 1 mg Q3H PRN Administration PAIN LEVEL 6-10 Nystatin 1 applic 05/14/19 10:00 05/19/19 10:25 Nystop Powder - TP 1 applic BID [facility] Administration Ondansetron HCl 4 mg 05/08/19 18:55 05/10/19 23:36 Zofran Injection IVPUSH 4 mg Q6H PRN Administration NAUSEA Pantoprazole Sodium 40 mg 05/17/19 17:00 05/19/19 10:25 Protonix Iv IVPUSH 40 mg DAILY [facility] Administration Scopolamine HBr 1 patch 05/11/19 23:00 05/14/19 23:48 Transderm-Scop - TD 1 patch Q72H [facility] Administration Vital Signs Period Temp Pulse Resp BP Sys/[place] Pulse Ox Last 24 Hr 98.4 F-99.8 F 135-147 112-157/71-87 100 Gen: NAD Cardiovascular: Yes: Regular Rate and Rhythm Respiratory: Yes: Rhonchi Gastrointestinal: Yes: Soft Edema: No no jaundice diaphoresis not agitated - ....Imaging EKG: Image Reviewed CBC, BMP 05/19/19 05:15 05/19/19 05:15 Assessment/Plan echo 04/2019 nl LV function, E/A reversal, RV not well visualized, mild MR IMP: Sinus tachycardia: - echo unremarkable - likely in setting of underlying pain, anxiety, SBO - trop neg, no ischemia on EKG - unlikely ACS SBO: - manage per surgery, ngt remains in Seizure disorder: - manage per primary
[2019-05-19] MEDS: LEVALBUTEROL HCL 0.31 MG/3 ML VIAL.NEB IH PRN ×2 (13:02→16:42)
[2019-05-19] MEDS ORDERED: MORPHINE SULFATE 2 MG/ML VIAL IVPUSH PRN ×2 (13:39→13:48)
--- NOTE | 2019-05-19 13:45 | PN ---
Progress Note (short form) - Note Progress Note: PULMONARY Tachypneic, uncomfortable. Family at bedside. Vital Signs Period Temp Pulse Resp BP Sys/[place] Pulse Ox Last 24 Hr 98.4 F-99.8 F 135-147 112-157/71-87 100 Intake & Output 05/16/19 05/17/19 05/18/19 05/19/19 23:59 23:59 23:59 23:59 Intake Total 2703 450 1180 Output Total 100 Balance 2703 450 1080 Gen: tachypneic, accessory muscle use Heart: tachycardic, regular Lung: bilateral rhonchi Abd: distended Ext: no edema CBC, BMP 05/19/19 05:15 05/19/19 05:15 Active Medications Acetaminophen (Ofirmev Injection -) 500 mg IVPB Q6H PRN PRN Reason: PAIN OR FEVER Last Admin: 05/17/19 18:10 Dose: 500 mg Heparin Sodium (Porcine) (Heparin -) 5,000 unit SQ BID [facility] Last Admin: 05/19/19 10:25 Dose: 5,000 unit Metronidazole (Flagyl 500mg Premixed Ivpb -) 500 mg in 100 mls @ 100 mls/hr IVPB Q8H [facility] Last Admin: 05/19/19 12:13 Dose: 100 mls/hr Piperacillin Sod/Tazobactam (Sod 3.375 gm/ Dextrose) 50 mls @ 100 mls/hr IVPB Q8H [facility]; Protocol Last Admin: 05/19/19 11:00 Dose: 100 mls/hr Fat Emulsion Intravenous (Intralipid -) 250 mls @ 20.833 mls/hr IV Q2D@2200 [facility] Last Admin: 05/18/19 23:20 Dose: 20.833 mls/hr Potassium Chloride 20 meq/ (Amino Acids) 1,010 mls @ 50 mls/hr IVPB Q12H [facility] Last Admin: 05/19/19 13:40 Dose: Not Given Ketorolac Tromethamine (Toradol Injection -) 15 mg IVPUSH Q6H PRN PRN Reason: PAIN LEVEL 4 - 6 Stop: 05/21/19 19:41 Last Admin: 05/19/19 03:35 Dose: 15 mg Levalbuterol HCl (Xopenex) 0.31 mg IH Q8H PRN PRN Reason: ASTHMA Last Admin: 05/19/19 13:02 Dose: 0.31 mg Levetiracetam (Keppra Injection -) 500 mg IVPB BID [facility] Last Admin: 05/19/19 10:25 Dose: 500 mg Lorazepam (Ativan Injection -) 0.25 mg IVPUSH Q6H PRN PRN Reason: ANXIETY Last Admin: 05/19/19 01:24 Dose: 0.25 mg Lorazepam (Ativan Injection -) 0.25 mg IVPUSH DAILY@2300 [facility] Last Admin: 05/18/19 23:16 Dose: Not Given Metoclopramide HCl (Reglan Injection -) 10 mg IVPUSH Q6H PRN PRN Reason: NAUSEA AND/OR VOMITING Last Admin: 05/11/19 03:22 Dose: 10 mg Morphine Sulfate (Morphine Sulfate) 2 mg IVPUSH Q3H PRN PRN Reason: PAIN LEVEL 6-10 Nystatin (Nystop Powder -) 1 applic TP BID [facility] Last Admin: 05/19/19 10:25 Dose: 1 applic Ondansetron HCl (Zofran Injection) 4 mg IVPUSH Q6H PRN PRN Reason: NAUSEA Last Admin: 05/10/19 23:36 Dose: 4 mg Pantoprazole Sodium (Protonix Iv) 40 mg IVPUSH DAILY [facility] Last Admin: 05/19/19 10:25 Dose: 40 mg Scopolamine HBr (Transderm-Scop -) 1 patch TD Q72H [facility] Last Admin: 05/14/19 23:48 Dose: 1 patch A/P SBO Acute Respiratory Distress Atelectasis Scoliosis/Restrictive Lung Disease Cerebral Palsy Seizure Disorder - discussed with family at bedside, discussed how uncomfortable pt is and struggling as she is likely at the end of her life - agreeable to increasing morphine dose and frequency and titrating to her comfort - would readdress advanced directives
[2019-05-19] MEDS ORDERED: SODIUM PHOSPHATE - 20 MM in SODIUM CHLORIDE 250 ML IVPB ONE (15:46)
--- NOTE | 2019-05-19 15:46 | PN ---
Progress Note, Physician History of Present Illness: Pt seen and examined at bedside. She had a small bowel movement. - Current Medication List Current Medications: Active Medications Acetaminophen (Ofirmev Injection -) 500 mg IVPB Q6H PRN PRN Reason: PAIN OR FEVER Last Admin: 05/17/19 18:10 Dose: 500 mg Heparin Sodium (Porcine) (Heparin -) 5,000 unit SQ BID [facility] Last Admin: 05/19/19 10:25 Dose: 5,000 unit Metronidazole (Flagyl 500mg Premixed Ivpb -) 500 mg in 100 mls @ 100 mls/hr IVPB Q8H [facility] Last Admin: 05/19/19 12:13 Dose: 100 mls/hr Piperacillin Sod/Tazobactam (Sod 3.375 gm/ Dextrose) 50 mls @ 100 mls/hr IVPB Q8H [facility]; Protocol Last Admin: 05/19/19 11:00 Dose: 100 mls/hr Fat Emulsion Intravenous (Intralipid -) 250 mls @ 20.833 mls/hr IV Q2D@2200 [facility] Last Admin: 05/18/19 23:20 Dose: 20.833 mls/hr Potassium Chloride 20 meq/ (Amino Acids) 1,010 mls @ 50 mls/hr IVPB Q12H [facility] Last Admin: 05/19/19 13:40 Dose: Not Given Ketorolac Tromethamine (Toradol Injection -) 15 mg IVPUSH Q6H PRN PRN Reason: PAIN LEVEL 4 - 6 Stop: 05/21/19 19:41 Last Admin: 05/19/19 03:35 Dose: 15 mg Levalbuterol HCl (Xopenex) 0.31 mg IH Q8H PRN PRN Reason: ASTHMA Last Admin: 05/19/19 13:02 Dose: 0.31 mg Levetiracetam (Keppra Injection -) 500 mg IVPB BID [facility] Last Admin: 05/19/19 10:25 Dose: 500 mg Lorazepam (Ativan Injection -) 0.25 mg IVPUSH Q6H PRN PRN Reason: ANXIETY Last Admin: 05/19/19 01:24 Dose: 0.25 mg Lorazepam (Ativan Injection -) 0.25 mg IVPUSH DAILY@2300 [facility] Last Admin: 05/18/19 23:16 Dose: Not Given Metoclopramide HCl (Reglan Injection -) 10 mg IVPUSH Q6H PRN PRN Reason: NAUSEA AND/OR VOMITING Last Admin: 05/11/19 03:22 Dose: 10 mg Morphine Sulfate (Morphine Sulfate) 2 mg IVPUSH Q2H PRN PRN Reason: PAIN LEVEL 6-10 Nystatin (Nystop Powder -) 1 applic TP BID [facility] Last Admin: 05/19/19 10:25 Dose: 1 applic Ondansetron HCl (Zofran Injection) 4 mg IVPUSH Q6H PRN PRN Reason: NAUSEA Last Admin: 05/10/19 23:36 Dose: 4 mg Pantoprazole Sodium (Protonix Iv) 40 mg IVPUSH DAILY [facility] Last Admin: 05/19/19 10:25 Dose: 40 mg Scopolamine HBr (Transderm-Scop -) 1 patch TD Q72H [facility] Last Admin: 05/14/19 23:48 Dose: 1 patch - Objective Vital Signs: Vital Signs Temperature 97.2 F L 05/19/19 14:10 Pulse Rate 129 H 05/19/19 14:10 Respiratory Rate 22 H 05/19/19 14:10 Blood Pressure 136/82 05/19/19 14:10 O2 Sat by Pulse Oximetry (%) 95 05/19/19 10:00 Constitutional: Yes: Calm Eyes: Yes: Conjunctiva Clear HENT: Yes: Atraumatic Neck: Yes: Supple Cardiovascular: Yes: S1, S2 Respiratory: Yes: On Venti-Mask Gastrointestinal: Yes: Soft Genitourinary: Yes: Incontinence Musculoskeletal: Yes: Muscle Weakness Edema: No Integumentary: Yes: WNL Neurological: Yes: Pre-Existing Deficit Labs: CBC, BMP 05/19/19 05:15 05/19/19 05:15 INR, PTT INR 1.00 (0.82-1.09) 04/28/19 17:22 Problem List - Problems (1) Hyperkalemia Code(s): E87.5 - HYPERKALEMIA (2) Hypernatremia Code(s): E87.0 - HYPEROSMOLALITY AND HYPERNATREMIA (3) SBO (small bowel obstruction) Code(s): K56.609 - UNSP INTESTNL OBST, UNSP TO PARTIAL VERSUS COMPLETE OBST (4) Seizure Code(s): R56.9 - UNSPECIFIED CONVULSIONS Assessment/Plan Current Medications Generic Name Dose Route Start Last Admin Trade Name Freq PRN Reason Stop Dose Admin Acetaminophen 500 mg 05/17/19 17:18 05/17/19 18:10 Ofirmev Injection - IVPB 500 mg Q6H PRN Administration PAIN OR FEVER Heparin Sodium (Porcine) 5,000 unit 05/16/19 10:00 05/19/19 10:25 Heparin - SQ 5,000 unit BID [facility] Administration Metronidazole 500 mg in 100 mls @ 100 mls/hr 05/08/19 19:30 05/19/19 12:13 Flagyl 500mg Premixed Ivpb - IVPB 100 mls/hr Q8H [facility] Administration Piperacillin Sod/Tazobactam 50 mls @ 100 mls/hr 05/08/19 19:30 05/19/19 11:00 Sod 3.375 gm/ Dextrose IVPB 100 mls/hr Q8H [facility] Administration Protocol Fat Emulsion Intravenous 250 mls @ 20.833 mls/hr 05/12/19 22:00 05/18/19 23: 20 Intralipid - IV 20.833 mls/hr Q2D@2200 [facility] Administration Potassium Chloride 20 meq/ 1,010 mls @ 50 mls/hr 05/17/19 00:27 05/19/19 13: 40 Amino Acids IVPB Not Given Q12H [facility] Ketorolac Tromethamine 15 mg 05/16/19 19:42 05/19/19 03:35 Toradol Injection - IVPUSH 05/21/19 19:41 15 mg Q6H PRN Administration PAIN LEVEL 4 - 6 Levalbuterol HCl 0.31 mg 05/19/19 10:08 05/19/19 13:02 Xopenex IH 0.31 mg Q8H PRN Administration ASTHMA Levetiracetam 500 mg 05/17/19 17:00 05/19/19 10:25 Keppra Injection - IVPB 500 mg BID [facility] Administration Lorazepam 0.25 mg 05/14/19 09:05 05/19/19 01:24 Ativan Injection - IVPUSH 0.25 mg Q6H PRN Administration ANXIETY Lorazepam 0.25 mg 05/17/19 23:00 05/18/19 23:16 Ativan Injection - IVPUSH Not Given DAILY@2300 [facility] Metoclopramide HCl 10 mg 05/08/19 18:55 05/11/19 03:22 Reglan Injection - IVPUSH 10 mg Q6H PRN Administration NAUSEA AND/OR VOMITING Morphine Sulfate 2 mg 05/19/19 13:48 Morphine Sulfate IVPUSH Q2H PRN PAIN LEVEL 6-10 Nystatin 1 applic 05/14/19 10:00 05/19/19 10:25 Nystop Powder - TP 1 applic BID [facility] Administration Ondansetron HCl 4 mg 05/08/19 18:55 05/10/19 23:36 Zofran Injection IVPUSH 4 mg Q6H PRN Administration NAUSEA Pantoprazole Sodium 40 mg 05/17/19 17:00 05/19/19 10:25 Protonix Iv IVPUSH 40 mg DAILY [facility] Administration Scopolamine HBr 1 patch 05/11/19 23:00 05/14/19 23:48 Transderm-Scop - TD 1 patch Q72H [facility] Administration Impression 1. hypernatremia 2. hyperkalemia - resolved 3. SBO 4. epilepsy 5. developemental delay 6. hypokalemia Plan - replace phos - cont clinimix - surgery follow up - pt had bowel movement
[2019-05-19 22:58] VITALS: BP 140/87; PULSE 128; TEMP 97.4
--- NOTE | 2019-05-20 02:25 | RAPID ---
Physical Examination Vital Signs: Vital Signs Temperature 97.4 F L 05/19/19 18:00 Pulse Rate 128 H 05/19/19 18:00 Respiratory Rate 22 H 05/19/19 18:00 Blood Pressure 140/87 05/19/19 18:00 O2 Sat by Pulse Oximetry (%) 95 05/19/19 10:00 Findings/Remarks: Code 99 was called overhead at 7:55PM. call center operations manager team arrived to find the patient non-responsive, not breathing, and pulseless. CPR was intiated as per ACLS protocol. Please refer to code sheet for further details. Time of was called at 8:19PM On examination: Eyes: Pupils were fixed and non-responsive to light Resp: No respiratory effort CVS: No heart sounds, no pulses BRADDER: No response to tactile stimuli Family was at the bedside, and emotional support was provided. Labs: CBC, BMP 05/19/19 05:15 05/19/19 05:15
== END 2019-05-19 20:50 | disposition expired | DRG 388 ==
LOC: FER 13:21 → FM/S 17:59 → J5S 04-29 18:32 → J4W 04-30 04:13 → J4S 05-03 13:35
PROVIDERS: ADMIT Internal Medicine; ATTEND Nurse Practitioner Acute Care
PROC: 0DH67UZ Insertion of Feeding Device into Stomach, Via Natural or Artificial Opening (ICD-10-PCS; principal; 2019-04-29)
PROC: 3E0G76Z Introduction of Nutritional Substance into Upper GI, Via Natural or Artificial Opening (ICD-10-PCS; 2019-04-29)
PROC: 30233N1 Transfusion of Nonautologous Red Blood Cells into Peripheral Vein, Percutaneous Approach (ICD-10-PCS; 2019-05-12)
PROC: 05HM33Z Insertion of Infusion Device into Right Internal Jugular Vein, Percutaneous Approach (ICD-10-PCS; 2019-05-17)
PROC: B513ZZA Fluoroscopy of Right Jugular Veins, Guidance (ICD-10-PCS; 2019-05-17)
PROC: B543ZZA Ultrasonography of Right Jugular Veins, Guidance (ICD-10-PCS; 2019-05-17)
PROC: 5A12012 Performance of Cardiac Output, Single, Manual (ICD-10-PCS; 2019-05-19)
DX: K56.609 Unspecified intestinal obstruction, unspecified as to partial versus complete obstruction (principal); A41.89 Other specified sepsis; G80.0 Spastic quadriplegic cerebral palsy; F73 Profound intellectual disabilities; E87.0 Hyperosmolality and hypernatremia; J98.11 Atelectasis; J90 Pleural effusion, not elsewhere classified; R64 Cachexia; Z68.1 Body mass index [BMI] 19.9 or less, adult; E87.1 Hypo-osmolality and hyponatremia; N17.9 Acute kidney failure, unspecified; G80.8 Other cerebral palsy; E87.5 Hyperkalemia; M41.9 Scoliosis, unspecified; E83.39 Other disorders of phosphorus metabolism; J98.4 Other disorders of lung; D50.9 Iron deficiency anemia, unspecified; B35.6 Tinea cruris; K21.9 Gastro-esophageal reflux disease without esophagitis; R00.0 Tachycardia, unspecified; J45.909 Unspecified asthma, uncomplicated; G40.909 Epilepsy, unspecified, not intractable, without status epilepticus; E87.6 Hypokalemia; Z53.09 Procedure and treatment not carried out because of other contraindication; Z74.01 Bed confinement status; R06.03 Acute respiratory distress; I46.9 Cardiac arrest, cause unspecified
CPT/HCPCS: 36415; 36430; 36511; 36556; 71045-TC-FY; 74018-TC-FY; 74019-TC-FY; 74190-TC-FY; 74250-TC-FY; 77001-TC-FY; 80048; 80053; 80061; 81003; 82308; 82550; 82728; 83036; 83540; 83550; 83605; 83721; 83735; 84100; 84484; 85025; 85027; 85610; 85651; 85730; 86850; 86900; 86901; 86922; 87040; 87086; 93005; 93010; 93306-TC; 94640; 99283-25; C1751; J0131; J1644; J7030; P9038; P9058; Q0162